=== PATIENT | female | born 1940 | race Caucasian/White ===

== ENCOUNTER → 2018-03-20 10:16 | Outpatient (CLI) | payer OTHER, SELFPAY ==
--- NOTE | 2018-03-20 10:20 | BI_ITS ---
MAMMOGRAPHY - BILATERAL SCREENING REASON FOR EXAM: Female, 78 years old. Routine annual screening examination. PERTINENT HISTORY: Remote left excisional breast biopsy. TECHNIQUE: Digital bilateral breast nicolle (3D mammographic acquisition) in the CC and MLO projections. 2-D mediolateral oblique (MLO) and craniocaudad (CC) views of both breasts were obtained. CAD: Full Field Digital Mammography with Computer Added Detection was performed. COMPARISON: Comparison is made with prior examination dated January 06, 2016 and December 31, 2014. FINDINGS: Breast Composition: There are scattered areas of fibroglandular density. There are no dominant masses or suspicious calcifications. Stable appearance of the benign appearing bilateral axillary lymph nodes. No other significant abnormalities are identified. There has been no significant change since the prior study. BI/SCREENING MAMM (CAD), BILAT IMPRESSION: Stable bilateral screening mammogram. Yearly follow-up mammogram recommended. (A) ASSESSMENT CATEGORY: BIRADS Category 2: Benign. A letter regarding these results will be sent to the patient by the facility within 30 days. Approximately 10% of breast cancers are not detected by mammography. A normal mammogram should not delay biopsy of a clinically suspicious abnormality. [id number] Electronically Signed: Bassam James MD at 12:32 EDT Tel [phone], Service support ,
== END ==
PROVIDERS: Family Provider Internal Medicine; PCP Internal Medicine; Visit Provider Nurse Practitioner Family
DX: Z12.31 Encounter for screening mammogram for malignant neoplasm of breast (principal)
CPT/HCPCS: 77063; 77067

== ENCOUNTER → 2019-01-14 16:30 | Outpatient (CLI) | payer OTHER, SELFPAY ==
--- NOTE | 2019-01-14 16:30 | LES_PTH ---
PATIENT: MICHA CADET LOC: [facility] U#:[id number] AGE/SX: 85/F ROOM: RE01/14/[address]: Dr. Garrett Orona MD : 1940 BED: DIS: SPEC #: [id number] RECD: 01/14/19 17:44 STATUS: ELADIO DONTA #: [id number] HANS: 01/14/19 16:[address]: Garrett Orona DEPT: SURGICAL PATHOLOGY RECD BY: Dylan Irwin ENTERED: 01/15/19 11:15 SP TYPE: Lesion OTHR DR: Dr. Kathy Randall MD Tissues: Skin of eyelid, NOS Procedures: Surgery Specimen Level IV HEADER OPERATION: Biopsy of lesion, right lower lid PRE-OP DIAGNOSIS: Rule out BCC TISSUE SUBMITTED: Right lower lid dome-shaped lesion MICROSCOPIC DIAGNOSIS Right lower lid lesion, biopsy: Basal cell carcinoma (0.5 cm in greatest width). See comment. SJ:diego 01/16/19 COMMENT The specimen could not be oriented, adequacy of excision cannot be assessed. Clinical correlation and appropriate follow up are necessary. Case has been reviewed in consultation with Dr. Cano who concurs with the above diagnosis. IDC:AM MICROSCOPIC DESCRIPTION Slides are reviewed. GROSS DESCRIPTION Received in fixative is one container labeled with the patient's name and designated right lower lid. The specimen consists of a piece of shah-white skin measuring 0.6 x 0.3 x 0.1 cm. The entire specimen is submitted in one cassette. / EMY:diego 01/15/19 TC:0 CPT: 19085
== END ==
PROVIDERS: Family Provider Internal Medicine; PCP Internal Medicine; Referring Provider Ophthalmology; Visit Provider Ophthalmology
DX: C44.1122 Basal cell carcinoma of skin of right lower eyelid, including canthus (principal)
CPT/HCPCS: 88305

== ENCOUNTER → 2019-02-11 15:17 | Outpatient (CLI) | payer OTHER, SELFPAY ==
--- NOTE | 2019-02-11 12:12 | LES_PTH ---
PATIENT: MICHA CADET LOC: [facility] U#:[id number] AGE/SX: 85/F ROOM: RE02/11/[address]: Dr. Garrett Orona MD : 1940 BED: DIS: SPEC #: [id number] RECD: 02/11/19 15:17 STATUS: ELADIO DONTA #: [id number] HANS: 02/11/19 12:[address]: Garrett Orona DEPT: SURGICAL PATHOLOGY RECD BY: Folrin Chan ENTERED: 02/12/19 10:05 SP TYPE: Lesion OTHR DR: Dr. Kathy Randall MD Tissues: Skin of eyelid, NOS Procedures: Surgery Specimen Level IV HEADER OPERATION: Full thickness resection right lower lid PRE-OP DIAGNOSIS: Previous biopsy positive for basal cell carcinoma TISSUE SUBMITTED: Full thickness right lower lid, skin side - lateral - medial MICROSCOPIC DIAGNOSIS Skin lesion of right lower eyelid, biopsy: Basal cell carcinoma with associated cicatrix, completely excised. See comment. AM:diego 02/13/19 COMMENT The lesion measures 2.5 mm in greatest dimension and is completely excised in the planes examined. Reference is made to the patient's previous right lower lid lesion, biopsy from 01/16/19 ([id number]) in which basal cell carcinoma was identified. MICROSCOPIC DESCRIPTION Slides are reviewed. GROSS DESCRIPTION Received in fixative is one container labeled with the patient's name and designated right lower lid full thickness. The specimen consists of a full thickness portion of eyelid measuring 0.7 cm in length x 0.7 cm in width x 0.7 cm in depth of excision. The skin surface is shah with a longitudinal central scar. The excisional margin is inked black and the specimen is serially cross-sectioned. The specimen is totally submitted in one cassette. / CE:diego 02/12/19 TC:0 CPT: 04195
== END ==
PROVIDERS: Family Provider Internal Medicine; PCP Internal Medicine; Referring Provider Ophthalmology; Visit Provider Ophthalmology
DX: C44.1122 Basal cell carcinoma of skin of right lower eyelid, including canthus (principal); H02.59 Other disorders affecting eyelid function
CPT/HCPCS: 88305

== ENCOUNTER → 2019-10-15 07:12 | Outpatient (CLI) | payer OTHER, SELFPAY ==
[2019-10-10 11:29] VITALS: BMI 29.1
--- NOTE | 2019-10-15 08:26 | ECHODONC_ITS ---
Reason For Study: Right lung mass Procedure This was a 2D Doppler, Color Flow transthoracic echocardiogram. Myocardial strain analysis was performed in this exam to aid in the assessment of cardiac function. The study was technically difficult. Exam performed in department. Left Ventricle Normal LV size. Left ventricular systolic function is normal. The estimated ejection fraction is 65 %. The global longitudinal strain = -22 % (normal). There is evidence of diastolic dysfunction. No regional wall motion abnormalities noted. Right Ventricle Normal RV size. Normal systolic function. Atria The left atrium is mildly enlarged. Normal right atrium. No doppler evidence for ASD. Mitral Valve There is moderate mitral annular calcification. Extension of the mitral annular calcification onto the mitral valve leaflets. Anterior leaflet diffuse mitral valve thickening. Trivial mitral valve insufficiency. Tricuspid Valve Normal tricuspid valve. Mild tricuspid valve insufficiency. Right ventricular systolic pressure estimated to be 39 mmHg. Aortic Valve Trisinus/trileaflet aortic valve. Mild focal aortic valve calcification. Aortic sclerosis, no stenosis. Trivial aortic valve insufficiency. Pulmonic Valve The pulmonic valve is not well visualized. Mild (1+) pulmonic valve insufficiency. Great Vessels Normal sized aortic root. Calcified aortic root. Pericardium/Pleural No pericardial effusion. MMode/2D Measurements & Calculations LVIDd: 4.6 cm IVSd: 0.89 cm LVOT diam: 2.1 cm LVIDs: 2.8 cm LVPWd: 0.75 cm LVOT area: 3.5 cm2 RVDd: 3.6 cm FS: 38.2 % Ao root diam: 3.1 cm LAV(MOD-bp): 58.5 ml LA A4 area: 20.0 cm2 LAV(MOD-bp) Indexed: 32.7 ml/m2 LAV(MOD-sp2): 63.9 ml LAV(MOD-sp4): 54.7 ml LA dimension(2D): 3.3 cm RA A4 area: 13.2 cm2 Time Measurements MV dec time: 0.17 sec Doppler Measurements & Calculations MV E max tyler: 107.9 cm/sec Lat Peak E' Tyler: 6.3 cm/sec Med Peak E' Tyler: 6.2 cm/sec MV A max tyler: 143.0 cm/sec E/E' lat: 17.1 E/E' med: 17.4 MV E/A: 0.75 Ao V2 max: 231.9 cm/sec AI max tyler: 411.0 cm/sec LV V1 max: 163.1 cm/sec Ao max P.5 mmHg AI max P.6 mmHg LV V1 max P.6 mmHg Ao V2 mean: 153.5 cm/sec AI dec slope: 310.8 cm/sec2 LV V1 mean P.5 mmHg Ao mean P.6 mmHg AI P1/2t: 387.3 msec LV V1 mean: 111.8 cm/sec Ao V2 VTI: 48.3 cm LV V1 VTI: 35.6 cm CARYL(I,D): 2.5 cm2 CARYL(V,D): 2.4 cm2 MR max tyler: 647.7 cm/sec SV(LVOT): 123.0 ml PA V2 max: 145.0 cm/sec MR max P.8 mmHg TR max tyler: 298.6 cm/sec TR max P.7 mmHg Interpretation Summary The study was technically difficult. Left ventricular systolic function is normal. The estimated ejection fraction is 65 %. The global longitudinal strain = -22 % (normal). The left atrium is mildly enlarged. There is moderate mitral annular calcification. Extension of the mitral annular calcification onto the mitral valve leaflets. Anterior leaflet diffuse mitral valve thickening. Trivial mitral valve insufficiency. Mild tricuspid valve insufficiency. Aortic sclerosis, no stenosis. Trivial aortic valve insufficiency. Mild (1+) pulmonic valve insufficiency. Calcified aortic root. Right ventricular systolic pressure estimated to be 39 mmHg. There is evidence of diastolic dysfunction. Ordering Physician: Cleveland Multani Referring Physician: Kathy Randall Performed By: Lisa Gonzalez, GIUSEPPE, RVT
--- NOTE | 2019-10-15 16:03 | PFTCOMP_ITS ---
COMPLETE PULMONARY FUNCTION TEST INTERPRETATION Brief HPI: Patient is an 79 year old female, currently under the care of Dr. Multani, who presents to [facility] for complete pulmonary function tests secondary to diagnosis of right lung mass. Respiratory therapist reports good effort and reproducible results. Interpretation: Forced expiration spirometry shows no large airways obstructive ventilatory defect with an FEV1 of 110% predicted. There is no significant bronchodilator response by strict ATS criteria. Spirograms are of good quality and plateau normally. The respiratory flow volume loop shows a normal pattern. Lung volumes by body plethysmography show a normal total lung capacity at 4.45 L, 94% predicted. All other lung volumes are within normal limits. Diffusion capacity by carbon monoxide is normal at 76% predicted. The airway resistance is normal. No previous pulmonary function tests were available for review. Impression: These pulmonary function tests are within normal limits and patient would be able to tolerate up to a pneumonectomy from a respiratory standpoint.
== END ==
PROVIDERS: PCP Internal Medicine; Referring Provider Internal Medicine Medical Oncology; Visit Provider Internal Medicine Medical Oncology
DX: R91.8 Other nonspecific abnormal finding of lung field (principal)
CPT/HCPCS: 93306; 93356; 94060; 94726; 94729

== ENCOUNTER → 2019-10-16 08:10 | Outpatient (CLI) | payer OTHER, SELFPAY ==
[2019-10-10 11:29] VITALS: BMI 29.1
[2019-10-16] VITALS (11 sets, daily range): BP systolic 119–210; BP diastolic 39–101; PULSE 76–85; RESP 14–20; TEMP 37.1; O2SAT 96–100; BMI 27.4
--- NOTE | 2019-10-16 | IMM_PTH ---
PATIENT: MICHA CADET LOC: [facility] U#:[id number] AGE/SX: 85/F ROOM: RE10/16/[address]: Dr. Cleveland Multani MD : 1940 BED: DIS: SPEC #: [id number] RECD: 10/17/19 12:41 STATUS: ELADIO REQ #: [id number] HANS: 10/16/19 00:[address]: Cleveland Multani DEPT: IMMUNOHISTOCHEMISTRY RECD BY: Antonella Larson ENTERED: 10/17/19 12:42 SP TYPE: IMMUNO OTHR DR: Dr. Kathy Randall MD Tissues: Lung, NOS Procedures: RCC (add) NAPSIN A (add) CK20 (add) CK5-6 (add) CK7 (add) CK8 (add) HEP PAR (add) HER2 RANDA (add) MAMM (add) NC (add) TTF1 (add) GATA3 (add) P40 (add) ER (initial) PHYSICIAN & INSTITUTION [address] [address] SPECIMEN INFORMATION: Tissue Source: Right lower lung mass Clinical Info: Right lower lung mass Specimen Number: [id number] CPT code: 73293, 64393 x13 METHODOLOGY: Deparaffinized sections of prefer/formalin-fixed tissue or PAP/DQ stained slides are incubated with monoclonal/polyclonal antibodies/oligonucleotide probes. Localization is made via biotin free immunoperoxidase method. Appropriate controls are performed and reacted as expected. Results on target cell population are indicated in the following table: RESULTS: ANTIBODY / CLONE RESULT ER (6F11) negative NC (1E2) negative Her-2neu (CB11) negative Mammaglobin (31A5) negative GATA3 (L50-823) negative CK7 (OV-TL12/30) positive CK8 (82mdsnS80) positive CK20 (KS20.8) negative TTF-1 (8G7G3/1) positive, focal Napsin A (Rabbit Polyclonal) positive HepPar (OCh1E5) negative RCC (PN-15) negative CK5-6 (D5 & 1684) positive P40 (BC28) negative These tests were developed and their performance characteristics determined by [facility]. They may not have been cleared or approved by the U.[place]. Food and Drug Administration. The FDA has determined that such clearance or approval is not necessary. The above immunohistochemical/dualISH markers are ordered and reviewed by the Pathologist. INTERPRETATION: Right lower lung, CT-guided biopsy: Non-small cell carcinoma, favor adenosquamous cell carcinoma. SJ:diego 10/18/19 Case has been reviewed in consultation with Dr. Cano who concurs with the above diagnosis. IDC:AM
--- NOTE | 2019-10-16 | LUNB_PTH ---
PATIENT: MICHA CADET LOC: [facility] U#:[id number] AGE/SX: 85/F ROOM: RE10/16/[address]: Dr. Cleveland Multani MD : 1940 BED: DIS: SPEC #: [id number] RECD: 10/16/19 09:45 STATUS: ELADIO LONGO #: [id number] HANS: 10/16/19 00:[address]: Cleveland Multani DEPT: SURGICAL PATHOLOGY RECD BY: Dylan Irwin ENTERED: 10/16/19 11:49 SP TYPE: LUNG BX OTHR DR: Dr. Kathy Randall MD Tissues: Lung, NOS Procedures: Special Stain Group II Surgery Specimen Level IV Imprint (control) HEADER OPERATION: CT-guided right lung biopsy PRE-OP DIAGNOSIS: Right lower lung mass TISSUE SUBMITTED: Right lower lung mass 20 gauge core x3 MICROSCOPIC DIAGNOSIS Right lower lung mass, CT-guided core biopsy: Non-small cell carcinoma. See comment. SJ:diego 10/17/19 COMMENT The specimen is evaluated at the time of biopsy by Dr. Cm. Immediate Evaluation = Atypical cells noted suspicious for malignancy. The tumor also shows a focal area of necrosis. 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 Molecular studies on the tumor can be performed if clinically indicated. Please notify the laboratory if they are needed. Case has been reviewed in consultation with Dr. Cano who concurs with the above diagnosis. IDC:AM MICROSCOPIC DESCRIPTION Slides are reviewed. GROSS DESCRIPTION Received in fixative is one container labeled with the patient's name and designated right lung mass. The specimen consists of three elongated fragments of light shah soft tissue. Each fragment measures 1 cm in average length and <0.1 cm in diameter. The specimen is totally submitted in one cassette. / AM:diego 10/16/19 TC:0 CPT: 65044, 72644
[2019-10-16 08:25] LABS: Absolute Lymphocyte Count 1.28 X10^3/uL (0.83-4.51); Absolute Neutrophil Count 4.4 X10^3/uL (2.0-7.7); Basophil# 0.05 X10^3/uL; Basophil% 0.7 % (0-1); Eosinophil# 0.42 X10^3/uL; Eosinophils% 5.7 % (0-5); Hematocrit 37.8 % (37-47); Lymphocyte # 1.28 X10^3/ul (4.0); Lymphocyte % 17.5 % (19-41); Mean Corp Hgb Conc 31.7 g/dL (32-36); Mean Corpuscular Hgb 31.3 pg (27.0-32.0); Mean Corpuscular Volume 98.4 fL (81-99); Mean Platelet Vol. 8.3 fl (6.2-12.0); Monocyte# 1.15 X10^3/uL; Monocyte% 15.7 % (0-10); NRBC Flagged by Analyzer 0 % (0-5); Neutrophil # 4.38 X10^3/uL (2.7-7.7); Neutrophil % 59.7 % (47-70); Platelet Count 325 K/mm3 (150-450); RBC Distribution Width CV 12.8 % (11.6-14.6); Red Blood Count 3.84 M/mm3 (4.2-5.4); White Blood Count 7.3 K/mm3 (4.4-11.0)
--- NOTE | 2019-10-16 08:28 | CT_ITS ---
PROCEDURE: CT GUIDED CORE NEEDLE BIOPSY OF A right lower lobe LUNG LESION INDICATION: Female, 79 years old. Right lower lung mass biopsy PHYSICIAN: Dr. Erika Cote CONSENT: Written informed consent was obtained having explained the risks, benefits and alternatives in detail with the patient who accepted the risks and agreed to proceed. Laboratory review and clinical assessment was performed. CONSCIOUS SEDATION PROTOCOL: The Drugs used were: 2 mg Versed, IV., and 50 mcg Fentanyl, IV. The sedation time was: 15 minutes. Conscious sedation was started at 9:32 AM and terminated at 9:47 AM. The conscious sedation protocol was independently monitored. RADIATION DOSAGE (If Supplied By Facility): CTDIvol = ( 27.5 ) mGy, DLP = ( 288.12 ) mGycm Individualized dose optimization techniques were used for this CT. TECHNIQUE: The patient was placed in the prone position position. A noncontrast CT was performed to localize the lesion in the right lower lobe . The skin surface was prepped and draped in a sterile fashion. 1% lidocaine was used for local anesthesia. Using CT guidance, a 20-gauge coaxial biopsy device was advanced to the periphery of the lesion. A total of 3 core specimens were obtained. The specimens were placed in a formalin solution. A post procedure CT demonstrated no adverse sequelae or pneumothorax. The patient tolerated the procedure well without adverse event. A negative biopsy does not exclude malignancy. Further imaging or clinical followup based on patient condition and degree of clinical suspicion for malignancy. Suggest rebiopsy, if biopsy results do not match with clinical scenario. CT/Biopsy/Inj or Needle Placement IMPRESSION: 1. CT directed core needle biopsy of the right lower lobe pulmonary nodule using CT image guidance with image documentation as described. Pathology results are pending. 2. Conscious Sedation protocol utilized with independent monitoring. Electronically Signed: Bassam James, at 10:36 EST , Service support ,
[2019-10-16 08:38] LABS: Partial Thromboplast Time 26.1 Seconds (24.1-36.2); Prothrombin Time (Protime)PT. 13.3 SECONDS (11.7-14.9)
[2019-10-16 08:40] LABS: ALB/GLOB Ratio 1.3 RATIO (0.9-2.4); AST(SGOT) 21 U/L (15-37); Alanine Aminotransfer ALT/SGPT 24 U/L (13-56); Albumin, Serum 4.1 g/dL (3.2-5.0); Alkaline Phosphatase 80 U/L (45-117); Anion Gap 6 (5-15); BUN 17 mg/dL (7-18); BUN/Creat Ratio 21.6 RATIO (10-20); Calcium,Total 9.5 mg/dL (8.5-10.1); Chloride 100 mmol/L (98-107); Creatinine, Serum 0.79 mg/dL (0.55-1.02); EST Glomerular Filtration Rate 75 mL/min (>60); Est Glom Filt Rate - Afr Amer 90 mL/min (>60); Globulin 3.2 g/dL (2.2-4.2); Glucose 110 mg/dL (74-106); LDH 217 U/L (84-246); Protein, Total 7.3 g/dL (6.4-8.2); Sodium Level 134 mmol/L (136-145)
--- NOTE | 2019-10-16 09:00 | RAD_ITS ---
STUDY: X-RAY CHEST REASON FOR EXAM: Female, 79 years old. Immediate post lung bx - rt lower. inspr/expr views TECHNIQUE: AP inspiration and expiration views. COMPARISON: Prior comparison studies are not available for review at this time. FINDINGS: No evidence of pneumothorax on the immediate post right lung biopsy radiographs. RAD/Chest Insp/Exp 2 View IMPRESSION: No evidence of pneumothorax on the immediate post right lung biopsy radiographs. Electronically Signed: Bassam James, at 10:27 EST , Service support ,
[2019-10-16] MEDS: Midazolam 2 MG/2 ML Syringe IV (09:30)
[2019-10-16] MEDS: fentaNYL 100 MCG/2 ML Ampul IV (09:31)
--- NOTE | 2019-10-16 12:00 | RAD_ITS ---
STUDY: X-RAY CHEST REASON FOR EXAM: Female, 79 years old. 2 HOUR POST LUNG BIOPSY. TECHNIQUE: AP inspiration and expiration. COMPARISON: Comparison is made with prior study done earlier today. FINDINGS: There is no evidence of pneumothorax on the post right lung biopsy 2 hour delayed radiograph. RAD/Chest Insp/Exp 2 View IMPRESSION: No evidence of pneumothorax. Electronically Signed: Bassam James, at 12:18 EST , Service support ,
== END ==
PROVIDERS: PCP Internal Medicine; Referring Provider Internal Medicine Medical Oncology; Visit Provider Internal Medicine Medical Oncology
DX: C34.91 Malignant neoplasm of unspecified part of right bronchus or lung (principal); Z87.891 Personal history of nicotine dependence
CPT/HCPCS: 32405; 36415; 71046; 77012; 80053; 83615; 85025; 85610; 85730; 88305; 88313; 88341; 88342; 99156; 99157; J7040; A4216

== ENCOUNTER → 2019-11-04 12:12 | Outpatient (CLI) | payer OTHER, SELFPAY ==
[2019-10-24 13:26] VITALS: BMI 29.3
--- NOTE | 2019-11-04 12:13 | MRI_ITS ---
STUDY: MRI BRAIN WITH AND WITHOUT CONTRAST REASON FOR EXAM: Female, 79 years old. Staging for lung cancer. TECHNIQUE: Standardized multiplanar fat and water weighted pulse sequences were obtained. IV 15cc dotarem was administered for the contrast portion of the examination. COMPARISON: None. FINDINGS: There is moderate cerebral atrophy with widening of the extra-axial spaces and ventricular dilatation. There are a limited number of small white matter hyperintensities, distributed throughout the deep white matter tracts of the cerebral hemispheres, consistent with mild chronic white matter ischemic changes. There is no evidence for recent intracranial ischemia or other cause of cytotoxic edema on diffusion weighted imaging (DWI). Normal T2* images of the brain without demonstrated susceptibility artifact. There is no demonstrated hemosiderin stain. Normal bilateral basal ganglia. Normal thalami. There is no extra-axial fluid accumulation. Normal flow voids within the major intracranial circulation suggesting patency by spin echo criteria. Normal venous enhancement. There is no enhancing intra-axial or extra-axial abnormality. Normal sella turcica, pituitary gland, infundibular stalk, optic chiasm and hypothalamus. Normal tectal plate and pineal gland. Normal midbrain, kevin and medulla. Normal cerebellum. Normal basal cisterns. Normal bilateral temporal bones. Normal bilateral internal auditory canals. No demonstrated orbital abnormality, within the constraints of a routine brain study. Normal visualized paranasal sinuses. Normal calvarium and skull base. Normal visualized soft tissue structures. Normal visualized upper cervical spine. MRI/Brain W/WO Contrast IMPRESSION: No enhancing mass. Chronic involutional changes. Electronically Signed: Reynaelvia Herring, at 15:27 EST Tel , Service support ,
== END ==
PROVIDERS: PCP Internal Medicine; Referring Provider Internal Medicine Medical Oncology; Visit Provider Internal Medicine Medical Oncology
DX: C34.31 Malignant neoplasm of lower lobe, right bronchus or lung (principal)
CPT/HCPCS: 70553; A9575

== ENCOUNTER → 2019-11-06 09:12 | Outpatient (CLI) | payer OTHER, SELFPAY ==
[2019-10-24 13:26] VITALS: BMI 29.3
--- NOTE | 2019-11-06 09:12 | STEWCON_ITS ---
Reason For Study: Pre-Op Stress Results Protocol: Dobutamine Stress Echo With Definity Maximum Predicted HR: 139 bpm Target HR: 118 bpm % Maximum Predicted HR: 85 % DurationHeart Rate Stage (mm:ss) (bpm) BP Comment Baseline 82 154/67No Chest Pain; 5 ML Diluted Definity DSE 10 MCG 3:00 84 145/58No Chest Pain DSE 20 MCG 3:00 100 136/89No Chest Pain DSE 30 MCG 2:56 118 127/44No Chest Pain Recovery 92 117/58No Chest Pain Stress Duration: 8:56 mm:ss Maximum Stress HR: 118 bpm METS: 1 Baseline Echocardiogram Findings Stress Echo Wall motion Data Resting WM Intermediate WM Stress WM Interpretation Summary Dobutamine stress echo. 79-year-old lady with a history of lung mass for preoperative evaluation. Stress protocol: Resting EKG demonstrates normal sinus rhythm with a rate of 80 bpm right bundle branch block is noted resting blood pressure is 154/67 mmHg. Dobutamine was infused starting at 10 mcg/kg/min increasing in 3-minute aliquots to a maximum of 30 mcg/kg/min. The maximum heart rate attained was 137 bpm which was 98% of maximum predicted heart rate the maximum workload was 1 metabolic equivalent. Patient maintained sinus rhythm throughout the recording. At rest and during peak infusion there were no ST or T wave changes noted to suggest ischemia. The resting blood pressure was 154/67 with a peak blood pressure of the same. No arrhythmias were noted. Stress echocardiographic. Resting echocardiographic images were obtained with Definity enhancement. The resting ejection fraction was approximately 55%. No wall motion abnormalities were noted. At low-dose there was augmentation of the ventricular function and at peak there was thickening of all simons contraction of ventricular cavity with improvement of the ejection fraction to approximately 70%. No wall motion abnormalities were noted. No ischemia was noted. Conclusion: Normal dobutamine stress echocardiogram. Ordering Physician: Neno Velazquez Referring Physician: Kathy Randall Performed By: Arlette Ngo RDCS
== END ==
PROVIDERS: PCP Internal Medicine; Referring Provider Internal Medicine Cardiovascular Disease; Visit Provider Internal Medicine Cardiovascular Disease
DX: R06.00 Dyspnea, unspecified (principal); R06.02 Shortness of breath
CPT/HCPCS: 93017; 93350; J7040; Q9957; A4216; C8928

== ENCOUNTER 2019-12-17 09:00 | Day surgery (SDC) | payer OTHER, SELFPAY ==
[2019-12-12 13:29] VITALS: BMI 26.6
--- NOTE | 2019-12-13 01:41 | HP_ITS ---
Intake Vital Signs 12/12/19 Height 5 ft 4 in 12/12/19 Weight: 155 lb 12/12/19 BP 166/77 H 12/12/19 Blood Pressure Location Rt brachial 12/12/19 Position Sitting 12/12/19 Respiration 16 12/12/19 Pulse 86 12/12/19 Pulse Source Monitor 12/12/19 Pulse Oximetry (%) 99 12/12/19 Oxygen Delivery Method room air 12/12/19 BMI 27.8 Intake Visit Reasons: Port Placement Consult Chief Complaint: F/U for Right lung mass. Siderographist Required: No Is patient in pain?: No Allergies chlorhexidine Allergy (Verified 12/13/19 08:57) Rash naproxen Allergy (Verified 12/13/19 08:53) Other nitrofurantoin [From Macrodantin] Allergy (Verified 12/13/19 08:53) Other morphine Adverse Reaction (Verified 12/13/19 08:53) Shortness of breath Medications Amlodipine [Norvasc] 5 mg PO DAILY 09/27/19 [History Confirmed 12/13/19] Aspirin [Adult Low Dose Aspirin EC] 81 mg PO DAILY 09/27/19 [History Confirmed 12/13/19] Clopidogrel Bisulfate [Plavix] 75 mg PO DAILY 09/27/19 [History Confirmed 12/13/19] Levothyroxine [Synthroid] 50 mcg PO DAILY 09/27/19 [History Confirmed 12/13/19] Lisinopril [Zestril] 40 mg PO DAILY 09/27/19 [History Confirmed 12/13/19] Metoprolol Succinate [Kapspargo Sprinkle] 50 mg PO DAILY 09/27/19 [History Confirmed 12/13/19] Pantoprazole Sodium [Protonix] 40 mg PO DAILY 09/27/19 [History Confirmed 12/13/19] Zolpidem Tartrate [Ambien Cr] 6.25 mg PO QHS 09/27/19 [History Confirmed 12/13/19] Dexamethasone [Decadron] 4 mg PO BID 21 Days #6 tab 12/12/19 [Rx Confirmed 12/13/19] Folic Acid 1 mg PO DAILY 30 Days #30 tab 12/12/19 [Rx Confirmed 12/13/19] Lidocaine/Prilocaine [Lidocaine-Prilocaine Cream] 1 applicatio TP DAILY PRN PRN 30 Days #1 tube 12/12/19 [Rx Confirmed 12/13/19] Ondansetron [Ondansetron Odt] 8 mg PO Q8H PRN PRN 10 Days #30 tab.rapdis 12/12/19 [Rx Confirmed 12/13/19] PFSH Medical History Lung mass (Acute) NSCLC of right lung (Acute) Anemia (Acute) Carotid stenosis (Acute) Hyperlipidemia (Acute) Hypothyroid (Acute) Insomnia (Acute) Lung mass (Acute) Right upper lobe wedge resection (Acute) Statin intolerance (Acute) Thyroid disorder (Acute) mediastinal lymphadenectomy (Acute) HTN (hypertension) (Chronic) Surgical History History of hysterectomy (Acute) History of lobectomy of lung (Acute) Status post total hip replacement, bilateral (Acute) Total knee replacement status (Acute) Family History Mother Cancer Hypertension Father Cancer Brother Diabetes Social History (Updated 12/13/19 @ 13:[address] Jesus Alberto Wilkes MD) Smoking Status: Former smoker HPI HPI HPI: MICHA CADET, is a 79 F who presents to the office today for HPI HPI Surgical H&P: Yes HPI: 79-year-old woman presented with upper respiratory illness. Chest x-ray showed right lower lobe mass she had a CT scan done at [facility] on 09/23/2019 which showed 3.3 cm suspicious spiculated mass in the right lower lobe highly suspicious for malignancy it also showed a 4 mm left lung nodule. She was referred for further evaluation. PET/CT on 10/07/2019 showed R lower lobe mass 3.3 cm hypermetabolic activity, with small activity in the hilar area. 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 Echocardiogram on 10/15/2019 showed ejection fraction 65%, PFT on 10/15/2019 showed normal PFTs with FEV1 of 2.2 L. She was referred to Dr. Nieto at [facility] and had right robotic assisted right lower lobe lobectomy with right upper lobe wedge resection on 11/15/2019. 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 She is recovering from Surgery. 1 surgical wound has not healed. ROS General General: Yes weight change; no appetite, fatigue, colon cancer, breast cancer or weakness HEENT HEENT: No difficulty swallowing, eye injury, eye surgery, swollen glands or hoarseness Endo Endocrine: Yes thyroid disease; no diabetes mellitus, thyroid cancer, Hair loss, heat intolerance or cold intolerance Cardio Cardiovascular: Yes high blood pressure; no murmur, pacemaker, heart disease, atrial fibrillation, heart attack, heart stent, palpitations, shortness of breat with exertion or chest pain Psych Psychiatric: No depression, anxiety or hearing voices Resp Respiratory: Yes shortness of breath, No sleep apnea, No cough, No COPD, No asthma, No emphysema, No wheezing Gastro Gastrointestinal: No abdominal pain, No nausea or vomiting, No diarrhea, No constipation, No blood in stool, Yes acid reflux, Yes hemorrhoids, No ulcers, No gallbladder problem, No black,tarry stools Bennie Hematologic: Yes blood thinners, No blood disorders, No bleeding, No anemia, No blood clots Neuro Neurologic: No weakness Exam Const General: no acute distress, well developed, well hydrated Orientation: oriented to person, oriented to place, oriented to time [facility] Head: normocephalic, atraumatic Ears: external ears normal Mouth: moist mucous membranes Eyes Sclera: sclerae normal Pupils: normal by confrontation Neck Neck: no lymphadenopathy noted Neck mass: No Thyroid: thyroid normal, symmetrical Chest Chest palpation & inspection: normal inspection of the chest Resp Effort & Inspection: normal respiratory effort Auscultation: clear to auscultation bilaterally Percussion: percussion normal Cardio Rate: regular rate Rhythm: regular rhythm Heart Sounds: no murmurs GI Palpation: soft, no hepatosplenomegaly, no masses, nontender Rectal Exam: other Other: Rectal exam deferred. Extrem General: normal to inspection, no clubbing, cyanosis or edema Assessment & Plan Problems 1. Vascular catheter fitting or adjustment Z45.2 Plan I plan to perform a Left internal jugular port a cath placement. The planned surgical procedure was discussed extensively with the patient. The risks, benefits, anticipated outcomes and possible complication were mentioned. My staff has also explained the procedure in understandable terms and the patient was given the option to take printed material concerning the planned procedure. The patient had the opportunity to ask questions concerning the planned procedure. The patient freely consents to the planned procedure. Coding Level of Care Code Off vis,new,level 3 Diagnoses Vascular catheter fitting or adjustment Z45.2 12/13/19 1342 <Electronically signed by Jesus Alberto gan MD> Date _ Jesus Alberto Wilkes MD I have re-examined the patient. There are no clinical changes since date of exam.
[2019-12-17] VITALS (7 sets, daily range): BP systolic 145–178; BP diastolic 52–75; PULSE 84–89; RESP 16; TEMP 36.6–36.8; O2SAT 97–100; BMI 27.3
[2019-12-17] MEDS: Lactated Ringers 1,000 ML 100 ML IV (09:40)
[2019-12-17] MEDS: Cefazolin 2 GM in 0.9% Normal Saline 100 ML IV (11:03)
--- NOTE | 2019-12-17 11:05 | PCM.OPRPT ---
Problem List (1) Vascular catheter fitting or adjustment Status: Acute Report of Operation Date of Procedure: 12/17/19 Pre-Operative Diagnosis: Vascular fitting and adjustment Post-Operative Diagnosis: Same Surgery/Procedure Performed:: Explant of a left internal jugular Port-A-Cath Type of Anesthesia:: Local MAC Anesthesiologist: Sam Carbajal Estimated Blood Loss (mL): < 5 cc Description of Procedure: Patient was brought into the operating room placed in the supine position. Under MAC anesthetic I ultrasound the internal jugular vein in the neck the neck and chest were then sterilely prepped and draped in the usual technique. I injected local into the neck made several attempts under ultrasound guidance to get my needle into the internal jugular vein it was just too small and I just could not get it in despite numerously seen the needle going to the vein itself no blood would come back. I aborted the neck approach. I injected local into the chest. I used Seldinger's technique to gain access to the left subclavian vein placed a guidewire through the needle the needle was removed fluoroscopy was used to confirm proper placement. Skin juan carlos was made dilator and sheath were placed over the guidewire the guidewire and dilator were removed leaving a single lumen sheath the catheter was then placed into the sheath and the sheath was removed. Fluoroscopy was used to confirm proper length. I injected local into the chest. Incision was made. Electrocautery was used to create a pocket for the port. I tunneled from the pocket up into the area where the catheter came out brought the catheter down cut at the length placed the locking hub on the catheter but the port on the catheter and secured the 2 with a locking hub. It flushed and irrigated well was flushed with 5 cc of Hepflush. Port was sutured into the pocket created with 2 sutures of 2-0 Prolene. Incision was closed with deep dermal stitches of 3-0 Vicryl. Dermabond was applied sterile dressings were applied and the patient tolerated the procedure well. Postoperative chest x-ray was ordered. - Admit VTE Documentation VTE Present on Admission: No VTE Mechan Device Prophylaxis: SCD's VTE Pharm Prophylaxis ordered?: No Reason prophylaxis not ordered:: Treatment Not Indicated
--- NOTE | 2019-12-17 11:07 | DCINST_ITS ---
Discharge Diet: No Restrictions - Pain medication may cause nausea. You should typically eat light foods as you take your pain medication. Discharge Activity: May Shower - with the bandage in place 1-2 days after surgery. DO NOT SHOWER WHEN YOUR PORT IS ACCESSED. Additional Activity Instructions:: May not drive, work with heavy equipment, or sign legal documents for [address] if you are no longer taking narcotic pain medications. You may drive when you are no longer taking pain medications. Additional Dressing/Incision Instructions:: Leave the bandage on for 2-3 days. When you remove the bandage, leave the steri-strips intact until they fall off. Allergies/Adverse Reactions: Allergies chlorhexidine Allergy (Verified 12/13/19 08:57) Rash naproxen Allergy (Verified 12/13/19 08:53) Other mouth sores nitrofurantoin [From Macrodantin] Allergy (Verified 12/13/19 08:53) Other mouth sores morphine Adverse Reaction (Verified 12/13/19 08:53) Shortness of breath Medications to take at Discharge Amlodipine [Norvasc] 5 mg PO DAILY 09/27/19 Aspirin [Adult Low Dose Aspirin EC] 81 mg PO DAILY 09/27/19 Clopidogrel Bisulfate [Plavix] 75 mg PO DAILY 09/27/19 Levothyroxine [Synthroid] 50 mcg PO DAILY 09/27/19 Lisinopril [Zestril] 40 mg PO DAILY 09/27/19 Metoprolol Succinate [Kapspargo Sprinkle] 50 mg PO DAILY 09/27/19 Pantoprazole Sodium [Protonix] 40 mg PO DAILY 09/27/19 Zolpidem Tartrate [Ambien Cr] 6.25 mg PO QHS 09/27/19 Dexamethasone [Decadron] 4 mg PO BID 21 Days #6 tab 12/12/19 Folic Acid 1 mg PO DAILY 30 Days #30 tab 12/12/19 Lidocaine/Prilocaine [Lidocaine-Prilocaine Cream] 1 applicatio TP DAILY PRN PRN 30 Days #1 tube 12/12/19 Ondansetron [Ondansetron Odt] 8 mg PO Q8H PRN PRN 10 Days #30 tab.rapdis 12/12/19 Primary Care Physician: Kathy Randall MD [Primary Care Provider] - Test Results: Test results from this visit will be discussed in further detail at your follow- up appointment, if applicable. Please Follow Up With: Cleveland Multani MD - [phone] When: Please plan to follow up in 7 days in the office.
[2019-12-17] MEDS: Bupivacaine Mpf 0.5% 30 ML VIAL (11:45)
--- NOTE | 2019-12-17 12:10 | RAD_ITS ---
STUDY: X-RAY CHEST REASON FOR EXAM: Female, 79 years old. POST PORT PLACEMENT TECHNIQUE: Single AP portable view of the chest. COMPARISON: Comparison is made with prior examination dated October 16, 2019. FINDINGS: A left-sided maryjo catheter has been placed. The tip is at the junction of the superior vena cava and right atrium. Elevation of the right hemidiaphragm. Small right pleural effusion with some underlying atelectasis at the right lung base. Stable increased markings at the left lung base suggesting scarring. Normal size heart. Normal mediastinum and shanti. Normal visualized pulmonary arteries. Normal visualized aortic arch and descending thoracic aorta. Normal visualized thoracic spine. There is degenerative osteoarthritis of the bilateral shoulders. There is a 3.4 cm x 2.4 cm sclerotic lesion overlying the proximal right humerus. There is no demonstrated abnormality of the visualized soft tissue structures of the upper abdomen. RAD/Chest 1 View (Portable) IMPRESSION: The tip of the left maryjo catheter is at the junction of the superior vena cava and right atrium. Electronically Signed: Bassam James, at 13:09 EDT , Service support ,
== END 2019-12-17 13:54 | disposition home or self-care (01) ==
LOC: SDC 09:01 → AC 09:01
PROVIDERS: PCP Internal Medicine; Referring Provider Surgery; Visit Provider Surgery
PROC: (CPT 36561; principal; 2019-12-17 10:45)
DX: Z45.2 Encounter for adjustment and management of vascular access device (principal); C34.31 Malignant neoplasm of lower lobe, right bronchus or lung; D64.9 Anemia, unspecified; I65.29 Occlusion and stenosis of unspecified carotid artery; I10 Essential (primary) hypertension; E07.9 Disorder of thyroid, unspecified; E78.5 Hyperlipidemia, unspecified; K21.9 Gastro-esophageal reflux disease without esophagitis; G47.00 Insomnia, unspecified; Z78.0 Asymptomatic menopausal state; Z79.82 Long term (current) use of aspirin; Z79.02 Long term (current) use of antithrombotics/antiplatelets; Z79.899 Other long term (current) drug therapy; Z88.1 Allergy status to other antibiotic agents; Z87.891 Personal history of nicotine dependence; Z96.643 Presence of artificial hip joint, bilateral; Z90.710 Acquired absence of both cervix and uterus
CPT/HCPCS: 36561; 76937; 71045; 77001; J7120; C1788

== ENCOUNTER → 2020-02-14 | Outpatient (CLI) | payer OTHER, SELFPAY ==
[2020-02-04 10:57] VITALS: BMI 28.8
[2020-02-14 14:24] LABS: Mucous, Urine 0 SEEN /hpf (<or=2+); Red Blood Cells-Urine 0 SEEN /hpf (0-5)
[2020-02-14 15:11] LABS: Glucose, Dipstick Normal (Normal); Ketone-Dipstick Negative (Negative); Leukocyte Esterase-Dipstick 500 /ul (Negative); Nitrite-Dipstick Positive (Negative); Occult Blood-Urine 50 /ul (Negative); Protein-Dipstick 100 mg/dl (Negative); Urine Clarity Cloudy (Clear); Urine Urobilinogen 8 mg/dl (Normal)
[2020-02-14 15:21] LABS: Color, Urine SEE COMMENT BELOW (Yellow); Urine Bilirubin Dipstick 6 mg/dL (Negative)
[2020-02-14 15:26] LABS: Bacteria 3+ /hpf (None Seen); Squamous Epithelial Cells - UA 0-5 SEEN /hpf (5-10); White Blood Cells >100 SEEN /hpf (0-5)
== END | disposition home or self-care (01) ==
LOC: LABSPEC 14:10
PROVIDERS: PCP Internal Medicine; Referring Provider Internal Medicine Medical Oncology; Visit Provider Internal Medicine Medical Oncology
DX: N39.0 Urinary tract infection, site not specified (principal); C34.91 Malignant neoplasm of unspecified part of right bronchus or lung; Z79.899 Other long term (current) drug therapy
CPT/HCPCS: 81001; 87077; 87086; 87088; 87186

== ENCOUNTER → 2020-03-24 08:11 | Outpatient (CLI) | payer OTHER, SELFPAY ==
[2020-03-10 10:36] VITALS: BMI 28.0
--- NOTE | 2020-03-24 08:11 | CT_ITS ---
STUDY: CT CHEST WITH CONTRAST REASON FOR EXAM: Female, 80 years old. PT STATED FOLLOW UP TO FINAL CHEMO TREATMENT, PARTIAL LUNG REMOVED RADIATION DOSAGE (If Supplied By Facility): CTDIvol = ( 13.84 ) mGy, DLP = ( 512.81 ) mGycm TECHNIQUE: Transaxial imaging was performed following intravenous administration of IV 100mL Isovue-300. Multiplanar coronal and sagittal images were reformatted. Individualized dose optimization techniques were used for this CT. COMPARISON: Comparison is made with prior chest radiograph dated February 16, 2020. FINDINGS: A left-sided portacatheter is seen with the tip in the superior vena cava. Mild degree of emphysematous changes. Small right pleural effusion. The patient is status post right lower lobectomy. Focal calcification is seen along the right major fissure. This may represent postoperative changes. There are calcifications of the coronary arteries. Normal mediastinum. Calcified right hilar lymph nodes. Normal enhanced pulmonary arteries. There is atherosclerotic calcification of the aortic arch with tortuosity and elongation of the aortic arch and descending thoracic aorta. There is demineralization of the thoracic spine. Increased kyphosis. There is no demonstrated abnormality of the visualized upper abdomen. CT/Chest WITH Contrast IMPRESSION: Status post right lower lobectomy as per clinical history with the postoperative small right pleural effusion and linear density at the right lung base with area of calcification. Electronically Signed: Bassam James, at 15:57 EDT , Service support ,
[2020-03-24] MEDS: 0.9% Saline Lock 10 ML Syringe IV (08:30)
== END ==
PROVIDERS: PCP Internal Medicine; Referring Provider Nurse Practitioner Family; Visit Provider Nurse Practitioner Family
DX: C34.91 Malignant neoplasm of unspecified part of right bronchus or lung (principal); Z90.2 Acquired absence of lung [part of]
CPT/HCPCS: 71260; Q9967; A4216

== ENCOUNTER → 2020-07-29 07:54 | Outpatient (CLI) | payer OTHER, SELFPAY ==
[2020-03-30 09:58] VITALS: BMI 28.1
--- NOTE | 2020-07-29 07:54 | CT_ITS ---
STUDY: CT CHEST WITH CONTRAST REASON FOR EXAM: Female, 80 years old. LUNG CANCER FOLLOW UP, RLL REMOVED RADIATION DOSAGE (If Supplied By Facility): CTDIvol = ( 10.33 ) mGy, DLP = ( 451.84 ) mGycm TECHNIQUE: Transaxial imaging was performed following intravenous administration of IV 100mL Isovue-370. Multiplanar coronal and sagittal images were reformatted. Individualized dose optimization techniques were used for this CT. COMPARISON: Comparison is made with prior study dated 03/24/2020. FINDINGS: A left-sided maryjo catheter is in situ with the tip in the superior vena cava. There is a 2.6 x 3.1 cm dense calcification in the soft tissues underlying the posterior aspect of the proximal right humerus. There is evidence of prior nailing of the right humeral head. The patient is status post right lower lobectomy. Persistent stable right pleural effusion with postsurgical scarring in the right lower lobe. Stable 3 mm nodule in the peripheral lateral aspect of the left lower lobe. There are calcifications of the coronary arteries. Normal mediastinum. There is enlargement of the right infrahilar lymph node measuring 2.1 cm x 2.6 cm x 3 cm. Normal enhanced pulmonary arteries. There is atherosclerotic calcification of the aortic arch with tortuosity and elongation of the aortic arch and descending thoracic aorta. There are multi-level degenerative changes of the thoracic spine. There is no demonstrated abnormality of the visualized upper abdomen. CT/Chest WITH Contrast IMPRESSION: Interval increase in size of the right infrahilar lymph node. The remainder of the examination is unchanged. Electronically Signed: Bassam James, at 10:33 EST , Service support ,
[2020-07-29 08:06] LABS: CREATININE FINGERSTICK 0.8 mg/dL (0.55-1.02)
[2020-07-29] MEDS: 0.9% Saline Lock 10 ML Syringe IV (08:30)
== END ==
PROVIDERS: PCP Internal Medicine; Referring Provider Nurse Practitioner Family; Visit Provider Nurse Practitioner Family
DX: C34.91 Malignant neoplasm of unspecified part of right bronchus or lung (principal)
CPT/HCPCS: 71260; Q9967; A4216

== ENCOUNTER → 2020-09-04 13:36 | Outpatient (CLI) | payer OTHER, SELFPAY ==
[2020-09-02 13:19] VITALS: BMI 25.7
--- NOTE | 2020-09-04 13:40 | ECHODONC_ITS ---
Reason For Study: Pre Chemo Procedure This was a 2D Doppler, Color Flow transthoracic echocardiogram. Myocardial strain analysis was performed in this exam to aid in the assessment of cardiac function. The study was technically difficult. Exam performed in department. Left Ventricle Normal LV size. Left ventricular systolic function is normal. The estimated ejection fraction is 60 %. Stage 1 diastolic dysfunction. No regional wall motion abnormalities noted. Right Ventricle Normal RV size. Normal systolic function. Atria Normal left atrium. Normal right atrium. Mitral Valve Bileaflet diffuse mitral valve thickening. Mild (1+) eccentric mitral valve insufficiency. Tricuspid Valve Normal tricuspid valve. Mild to moderate (1-2+) tricuspid valve insufficiency. Pulmonary artery systolic pressure is 52 mmHg. Aortic Valve Trisinus/trileaflet aortic valve. Mild (1+) aortic valve insufficiency. Pulmonic Valve Normal pulmonic valve. Great Vessels Normal aortic root. The pulmonary artery is normal size. Normal inferior vena cava. Pericardium/Pleural No pericardial effusion. MMode/2D Measurements & Calculations LVIDd: 3.6 cm IVSd: 0.82 cm LVOT diam: 2.1 cm LVIDs: 2.4 cm LVPWd: 0.97 cm LVOT area: 3.6 cm2 FS: 34.3 % LAV(MOD-bp): 57.9 ml LA A4 area: 18.7 cm2 RA A4 area: 11.3 cm2 LAV(MOD-bp) Indexed: 33.9 ml/m2 LAV(MOD-sp2): 61.2 ml LAV(MOD-sp4): 51.5 ml Time Measurements MV dec time: 0.24 sec Doppler Measurements & Calculations MV E max tyler: 128.3 cm/sec Lat Peak E' Tyler: 7.4 cm/sec Med Peak E' Tyler: 6.5 cm/sec MV A max tyler: 158.5 cm/sec E/E' lat: 17.4 E/E' med: 19.9 MV E/A: 0.81 MV V2 max: 164.7 cm/sec MV P1/2t max tyler: 133.9 cm/sec Ao V2 max: 214.0 cm/sec MV max P.8 mmHg MV P1/2t: 90.4 msec Ao max P.3 mmHg MV V2 mean: 92.9 cm/sec MV dec slope: 433.6 cm/sec2 CARYL(V,D): 2.3 cm2 MV mean P.1 mmHg MVA(P1/2t): 2.4 cm2 MV V2 VTI: 40.3 cm AI max tyler: 402.1 cm/sec LV V1 max: 134.3 cm/sec PA V2 max: 102.7 cm/sec AI max P.8 mmHg LV V1 max P.2 mmHg AI dec slope: 264.7 cm/sec2 AI P1/2t: 444.9 msec TR max tyler: 347.3 cm/sec TR max P.2 mmHg Interpretation Summary Normal LV size. Left ventricular systolic function is normal. The estimated ejection fraction is 60 %. Stage 1 diastolic dysfunction. Pulmonary artery systolic pressure is 52 mmHg. The global longitudinal strain is normal. The global longitudinal strain = -22.8 % (normal). Ordering Physician: Jenifer Lai Referring Physician: Kathy Randall Performed By: Thanh Olmedo RCS
== END ==
PROVIDERS: PCP Internal Medicine; Referring Provider Nurse Practitioner Family; Visit Provider Nurse Practitioner Family
DX: Z51.11 Encounter for antineoplastic chemotherapy (principal); Z79.899 Other long term (current) drug therapy
CPT/HCPCS: 93306; 93356

== ENCOUNTER 2020-09-14 09:52 | Inpatient (IN) | payer OTHER, MEDICARE, SELFPAY ==
[2020-09-11 16:23] VITALS: BMI 25.2
[2020-09-14] VITALS (12 sets, daily range): BP systolic 144–184; BP diastolic 46–101; PULSE 80–101; RESP 12–18; TEMP 35.5–38.2; O2SAT 95–98; BMI 25.2; BMI 24.1
--- NOTE | 2020-09-14 10:15 | CT_ITS ---
STUDY: CT BRAIN WITHOUT CONTRAST REASON FOR EXAM: Female, 80 years old. ALTERED MENTAL STATUS RADIATION DOSAGE (If Supplied By Facility): CTDIvol = ( 44.99 ) mGy, DLP = ( 812.98 ) mGycm TECHNIQUE: Transaxial CT imaging of the brain was performed without administration of intravenous contrast material. Individualized dose optimization techniques were used for this CT. COMPARISON: None. FINDINGS: There is cerebral atrophy with widening of the extra-axial spaces and ventricular dilatation. There are areas of decreased attenuation within the white matter tracts of the supratentorial brain, consistent with microvascular disease changes. There is no intracranial hemorrhage. There are no findings of an acute ischemic infarction. Normal soft tissue structures. Normal visualized paranasal sinuses. CT/Brain/Head without Contrast IMPRESSION: Chronic involutional changes of the brain. Electronically Signed: Tyrone Beckham MD at 12:08 EST Tel , Service support ,
--- NOTE | 2020-09-14 10:15 | EKG12_ITS ---
Test Reason : NEURO Blood Pressure : / mmHG Vent. Rate : 091 BPM Atrial Rate : 091 BPM P-R Int : 166 ms QRS Dur : 142 ms QT Int : 398 ms P-R-T Axes : 048 015 015 degrees QTc Int : 489 ms Sinus rhythm with Premature supraventricular complexes Right bundle branch block Abnormal ECG Confirmed by RANULFO CAMARILLO, TOI ([id number]), story editor KHANH SHORT ([id number]) on 09/16/2020 10:44:26 AM Referred By: BB Confirmed By:TOI WINCHESTER MD
--- NOTE | 2020-09-14 10:21 | ED.DCSUM_ITS ---
History of Present Illness Chief Complaint: Neuro S/Sx Detail of Chief Complaint: confused, tired Informant: Patient, Family, PCP - oncology office this AM Onset: - - last seen without confusion midnight last night Context: Gradual Onset Timing: Continuous Quality: confused Current Severity: Moderate Maximum Severity: Moderate Worsened by: unk Relieved by: unk Associated Symptoms: fatigue x 4d or so, low back pain x weeks Narrative: Patient being treated for recurrence of non-small cell lung cancer, she had a resection in November earlier this year, finished chemotherapy in February and now has recurrence in the right lung. She was seen in the oncology office several days ago because she was tired, has a history of low sodium and was 129 at that time, she usually hovers around 130 according to the oncology office, she was given some fluids in the office and discharged home and seen back today, noted by daughter and the office today to be a little confused compared to her baseline, daughter states she was not like this last night. Patient has some low back discomfort that she thinks is associated with metastatic disease but denies any other focal symptoms right now. She denies headache, numbness, weakness. Initially she denies being confused but admits to having some trouble remembering some things. - Past Medical History (1) Iron deficiency anemia Status: Chronic (2) Metastatic lung carcinoma Status: Chronic (3) NSCLC of right lung Status: Chronic Past Medical History - Allergies and Home Meds Allergies/Adverse Reactions: Allergies chlorhexidine Allergy (Intermediate, Verified 09/14/20 09:55) Rash naproxen Allergy (Intermediate, Verified 09/14/20 09:55) Other mouth sores nitrofurantoin [From Macrodantin] Allergy (Intermediate, Verified 09/14/20 09:55) Other mouth sores morphine Adverse Reaction (Severe, Verified 09/14/20 09:55) Shortness of breath Primary Care Physician: Kathy Randall MD [Primary Care Provider] - Doctors: [facility] - Hem-Oncology Surgical History: - - lung ca Smoking Status: Former smoker Review of Systems General: Reports: Malaise. Denies: Chills, Fever, Sweats Eyes: Denies: Visual changes - bilaterally, Diplopia ENT: Denies: Rhinorrhea, Sore throat Cardiovascular: Denies: Chest pain, Palpitations Respiratory: Denies: Dyspnea, Cough, Dyspnea on exertion Gastrointestinal: Denies: Abdominal pain, Nausea, Vomiting, Diarrhea, Melena, Hematochezia Genitourinary: Denies: Dysuria, Hematuria, Frequency Musculoskeletal: Reports: Back pain. Denies: Myalgias, Neck pain, Swelling, Extremity Pain Skin: Denies: Rash, Wounds Neurological: Denies: Headache, Weakness, Numbness Physical Exam Vital Signs/Narrative: Vital Signs Temp Pulse Resp BP Pulse Ox 09/14/20 09:55 96 F L 91 16 155/98 H 98 Inital Vital Signs reviewed: Yes General: Well nourished, Well developed, No Acute Distress Head: Normocephalic, Atraumatic Eyes: Perrl - 1-2mm, EOMI ENT: Moist mucous membranes, No rhinorrhea Neck: Supple, Nontender Cardiovascular: Regular rate, Regular rhythm, No murmurs Respiratory: No distress, CTA bilaterally, Chest nontender Abdomen: Soft, Nontender, Nondistended, Normal bowel sounds Back: Nontender, Normal Inspection. Negative for: CVA tenderness Extremities: Nontender, No edema. Negative for: Calf Tenderness Skin: Normal color, No rash, No Trauma Neurological: Alert - keenly, Oriented x3, Cranial nerves II-XII grossly intact, Normal Strength, Normal Sensation, Confused - Oriented x3, including correct month and age, however and following some commands, patient is clearly confused. There is no expressive or receptive aphasia, when asked to use her right or left side to do things, she generally follows correctly., - - NIHSS 0 Psychological: Normal affect, Normal Mood Diagnostic/Tx/Re-eval Chest X-Ray - ED: 1 View, Read by ED Physician, Right Infiltrate Impressions Brain CT 09/14/20 10:15 IMPRESSION: Chronic involutional changes of the brain. Electronically Signed: Tyrone Beckham MD at 12:08 EST Tel , Service support , Chest X-Ray 09/14/20 11:55 IMPRESSION: Localized pleural thickening in the right lateral chest wall with increased markings at the right lung base. This may represent an early infiltrate. Stable sclerotic lesion in the proximal portion of the right humerus. Electronically Signed: Bassam James, at 12:14 EST , Service support , 09/14/20 10:15 Brain/Head without Contrast [CT] Stat 09/14/20 11:55 Chest 1 View (Portable) [RAD] Stat Laboratory Results 09/14/20 09/14/20 09/14/20 10:40 10:40 10:40 WBC 18.4 H RBC 3.49 L Hgb 10.3 L Hct 31.0 L MCV 88.8 MCH 29.5 MCHC 33.2 RDW Std Deviation 44.9 H RDW Coeff of Roselyn 14.0 Plt Count 398 MPV 8.6 Immature Gran % (Auto) 1.600 H Neut % (Auto) 77.1 H Lymph % (Auto) 3.9 L [place] % (Auto) 15.2 H Eos % (Auto) 1.8 Baso % (Auto) 0.4 Absolute Neuts (auto) 14.2 H Absolute Lymphs (auto) 0.72 L Nucleated RBC % 0 Differential Comment SCANNED Diff Path Review May foll Hypersegmented Neuts 1+ H PT 13.8 INR 1.1 APTT 27.3 Sodium 128 L Potassium 3.3 L Chloride 92 L Carbon Dioxide 28.0 Anion Gap 8 BUN 17 Creatinine 0.44 L Estim Creat Clear Calc 37.45 Est GFR (MDRD) Af Amer 178 Est GFR (MDRD) Non-Af 147 BUN/Creatinine Ratio 39.0 H Glucose 101 Lactic Acid Calcium 8.9 Total Bilirubin 0.50 AST 27 ALT 23 Alkaline Phosphatase 190 H Troponin I 0.180 H Total Protein 6.4 Albumin 3.0 L Globulin 3.4 Albumin/Globulin Ratio 0.9 Urine Color Urine Clarity Urine pH Ur Specific [place] Urine Protein Urine Glucose (UA) Urine Ketones Urine Occult Blood Urine Nitrite Urine Bilirubin Urine Urobilinogen Ur Leukocyte Esterase Urine RBC Urine WBC Ur Squamous Epith Cells Urine Bacteria Urine Mucus 09/14/20 09/14/20 10:40 11:10 WBC RBC Hgb Hct MCV MCH MCHC RDW Std Deviation RDW Coeff of Roselyn Plt Count MPV Immature Gran % (Auto) Neut % (Auto) Lymph % (Auto) [place] % (Auto) Eos % (Auto) Baso % (Auto) Absolute Neuts (auto) Absolute Lymphs (auto) Nucleated RBC % Differential Comment Diff Path Review Hypersegmented Neuts PT INR APTT Sodium Potassium Chloride Carbon Dioxide Anion Gap BUN Creatinine Estim Creat Clear Calc Est GFR (MDRD) Af Amer Est GFR (MDRD) Non-Af BUN/Creatinine Ratio Glucose Lactic Acid 1.4 Calcium Total Bilirubin AST ALT Alkaline Phosphatase Troponin I Total Protein Albumin Globulin Albumin/Globulin Ratio Urine Color Yellow Urine Clarity Cloudy Urine pH 6.0 Ur Specific [place] 1.015 Urine Protein 100 H Urine Glucose (UA) Normal Urine Ketones 5 H Urine Occult Blood 150 H Urine Nitrite Negative Urine Bilirubin Negative Urine Urobilinogen Normal Ur Leukocyte Esterase 25 H Urine RBC 0-5 SEEN Urine WBC 0-5 SEEN Ur Squamous Epith Cells 0 SEEN Urine Bacteria 3+ Urine Mucus 0 SEEN - Rhythm Strip Rhythm Strip: Sinus Rhythm Rate: 90 Ectopy: PAC(s) - EKG Initial EKG Interpretation: Sinus Rhythm, No Acute Injury Pattern, RBBB Prior: Unchanged - Medical Decision Making Patient is a little disoriented. Differential is wide, including infection, cerebral metastases, metabolic disorders, cardiac disorders, etc. Work-up shows possibility of pneumonia in the right lower lobe, however it is also noted that she had a right lower lobectomy remotely for cancer debulking there. She does have a leukocytosis and no evidence of infection elsewhere, so after cultures obtained, empiric Rocephin and azithromycin are given, and a Covid rapid antigen test is sent. She has never had Covid, daughter states that they have really been trying to keep her isolated and away from people. She has had no known exposures to COVID-19. Her mild hyponatremia is stable and unlikely the cause of her acute symptoms. Her cardiac enzymes are little elevated, her EKG shows a right bundle branch block, no acute injury pattern, basically unchanged compared to her prior, and she is having no symptoms of angina. She is not hypoxic, it is considered possible that she has had intermittent hypoxemia, but she will require admission for further testing and treatment, so I am not ambulating her here, especially since she is a little fidgety and disoriented. She is amenable to getting something for her back pain which may help with that. ED Disposition - Plan for ED Patient: Disposition: Acute Care [facility] Diagnosis: Delirium, Metastatic lung carcinoma, Elevated troponin Referrals: Kathy Randall MD [Primary Care Provider] -
[2020-09-14] MEDS: 0.9% Normal Saline 1,000 ML 150 ML IV ×2 (10:25→17:11)
[2020-09-14 10:52] LABS: Absolute Lymphocyte Count 0.72 X10^3/uL (0.83-4.51); Absolute Neutrophil Count 14.2 X10^3/uL (2.0-7.7); Basophil# 0.07 X10^3/uL; Basophil% 0.4 % (0-1); Eosinophil# 0.34 X10^3/uL; Eosinophils% 1.8 % (0-5); Hemoglobin 10.3 g/dL (12.0-15.0); Lymphocyte # 0.72 X10^3/ul (4.0); Lymphocyte % 3.9 % (19-41); Mean Corp Hgb Conc 33.2 g/dL (32-36); Mean Corpuscular Hgb 29.5 pg (27.0-32.0); Mean Corpuscular Volume 88.8 fL (81-99); Mean Platelet Vol. 8.6 fl (6.2-12.0); Monocyte# 2.79 X10^3/uL; Monocyte% 15.2 % (0-10); NRBC Flagged by Analyzer 0 % (0-5); Neutrophil % 77.1 % (47-70); POSITIVE DIFFERENTIAL YES; Platelet Count 398 K/mm3 (150-450); RBC Distribution Width SD 44.9 fl (35.1-43.9); Red Blood Count 3.49 M/mm3 (4.2-5.4); White Blood Count 18.4 K/mm3 (4.4-11.0)
[2020-09-14 10:53] LABS: Differential Indicated SCAN CRITERIA MET
[2020-09-14 11:00] LABS: Prothrombin Time (Protime)PT. 13.8 SECONDS (11.7-14.9)
[2020-09-14 11:01] LABS: International Normalized Ratio 1.1; Partial Thromboplast Time 27.3 Seconds (24.1-36.2)
[2020-09-14 11:08] LABS: Differential Comment SCANNED
[2020-09-14 11:09] LABS: ALB/GLOB Ratio 0.9 RATIO (0.9-2.4); AST(SGOT) 27 U/L (15-37); Alanine Aminotransfer ALT/SGPT 23 U/L (13-56); Alkaline Phosphatase 190 U/L (45-117); Anion Gap 8 (5-15); BUN 17 mg/dL (7-18); Calcium,Total 8.9 mg/dL (8.5-10.1); Chloride 92 mmol/L (98-107); Creatinine, Serum 0.44 mg/dL (0.55-1.02); EST Glomerular Filtration Rate 147 mL/min (>60); Est Glom Filt Rate - Afr Amer 178 mL/min (>60); Estimated Creatinine Clearance 37.45 ml/min; Globulin 3.4 g/dL (2.2-4.2); Glucose 101 mg/dL (74-106); Hypersegmented Neutrophils 1+; Potassium 3.3 mmol/L (3.5-5.1); Protein, Total 6.4 g/dL (6.4-8.2); Sodium Level 128 mmol/L (136-145)
[2020-09-14 11:13] LABS: Lactic Acid 1.4 mmol/L (0.4-1.9)
[2020-09-14 11:16] LABS: Mucous, Urine 0 SEEN /hpf (<or=2+); Squamous Epithelial Cells - UA 0 SEEN /hpf (5-10)
[2020-09-14 11:27] LABS: Color, Urine Yellow (Yellow); Glucose, Dipstick Normal (Normal); Ketone-Dipstick 5 mg/dl (Negative); Leukocyte Esterase-Dipstick 25 /ul (Negative); Nitrite-Dipstick Negative (Negative); Occult Blood-Urine 150 /ul (Negative); Protein-Dipstick 100 mg/dl (Negative); Specific Gravity, Urine 1.015 (1.002-1.030); Urine Bilirubin Dipstick Negative (Negative); Urine Clarity Cloudy (Clear); Urine Urobilinogen Normal (Normal)
[2020-09-14 11:34] LABS: White Blood Cells 0-5 SEEN /hpf (0-5)
[2020-09-14 11:35] LABS: Bacteria 3+ /hpf (None Seen); Red Blood Cells-Urine 0-5 SEEN /hpf (0-5)
--- NOTE | 2020-09-14 11:55 | RAD_ITS ---
STUDY: X-RAY CHEST REASON FOR EXAM: Female, 80 years old[address] Multani, altered mental status, lower back pain, lethargic, patient has lung CA TECHNIQUE: Single AP portable view of the chest. COMPARISON: Comparison is made with prior study dated 12/17/2019. FINDINGS: A left-sided portacatheter is seen with the tip in the proximal portion of the superior vena cava. Mild elevation of the right hemidiaphragm with evidence of localized pleural thickening along the right lateral pleural surface with increased markings at the right lung base suggestive of atelectasis and/or early infiltrate. Normal size heart. Normal mediastinum and shanti. Normal visualized pulmonary arteries. Normal visualized aortic arch and descending thoracic aorta. Normal visualized thoracic spine. Stable 3.4 cm x 2.4 cm sclerotic lesion overlying the proximal right humerus. There is evidence of a healed fracture of the proximal right humerus. There is no demonstrated abnormality of the visualized soft tissue structures of the upper abdomen. RAD/Chest 1 View (Portable) IMPRESSION: Localized pleural thickening in the right lateral chest wall with increased markings at the right lung base. This may represent an early infiltrate. Stable sclerotic lesion in the proximal portion of the right humerus. Electronically Signed: Bassam James, at 12:14 EST , Service support ,
[2020-09-14] MEDS: Ceftriaxone 1 GM/50 ML BAG IV (12:51)
[2020-09-14] MEDS: HYDROcodone Bitartrate/Apap 5/325 Tablet PO (13:04)
--- NOTE | 2020-09-14 13:13 | CT_ITS ---
STUDY: CT CHEST WITHOUT CONTRAST REASON FOR EXAM: Female, 80 years old. ABN CXR, ALTERED MENTAL STATUS, UTI VS STROKE, HX=LUNG CA WITH RLL REMOVAL RADIATION DOSAGE (If Supplied By Facility): CTDIvol = ( 15.89 ) mGy, DLP = ( 509.82 ) mGycm TECHNIQUE: Transaxial imaging was performed without the administration of intravenous contrast material. Multiplanar coronal and sagittal images were reformatted. Individualized dose optimization techniques were used for this CT. COMPARISON: Comparison is made with prior examination dated 07/29/2020. FINDINGS: A left-sided portacatheter is seen with the tip in the superior vena cava. Stable small right pleural effusion with fibrocalcific density in the right lower lobe. Stable pleural thickening along the lateral wall of the right hemithorax. There are calcifications of the coronary arteries. There are multiple small lymph nodes within the mediastinum, which are normal in size and morphology most compatible with reactive lymph hyperplasia. Since prior study, there has been progressive enlargement of the right hilar lymph nodes. Normal unenhanced pulmonary arteries. There is atherosclerotic tortuosity of the aortic arch and descending thoracic aorta. There are multi-level degenerative changes of the thoracic spine. Stable 2.6 cm x 3 cm dense calcification the soft tissues underlying the posterior aspect of the proximal right humerus. Prior nailing of the right humeral head. There is no demonstrated abnormality of the visualized upper abdomen. CT/Chest without Contrast IMPRESSION: Stable pleural thickening and fibrocalcific nodule in the right lower lobe. Since prior study, there has been progressive enlargement of the right hilar lymph node. Electronically Signed: Bassam James, at 14:25 EST , Service support ,
--- NOTE | 2020-09-14 14:32 | HP.PCM_ITS ---
Problem List (1) Encephalopathy Status: Acute (2) Surgical wound present Status: Acute (3) Vascular catheter fitting or adjustment Status: Acute (4) CINV (chemotherapy-induced nausea and vomiting) Status: Acute (5) Anemia Status: Chronic Qualifiers: Other causes of anemia: antineoplastic chemotherapy (6) Stomatitis Status: Resolved (7) UTI (urinary tract infection) Status: Resolved Qualifiers: Urinary tract infection type: acute cystitis Hematuria presence: with hematuria Qualified Code(s): N30.01 - Acute cystitis with hematuria (8) Diarrhea Status: Acute Qualifiers: Diarrhea type: unspecified type Qualified Code(s): R19.7 - Diarrhea, unspecified (9) Hilar adenopathy Status: Chronic (10) Metastatic lung carcinoma Status: Chronic Qualifiers: Laterality: right Qualified Code(s): C78.01 - Secondary malignant neoplasm of right lung (11) Iron deficiency anemia Status: Chronic Qualifiers: Iron deficiency anemia type: unspecified iron deficiency Qualified Code(s): D50.9 - Iron deficiency anemia, unspecified (12) Cancer-related pain Status: Chronic (13) Delirium Status: Acute (14) Elevated troponin Status: Acute (15) Lung mass Status: Chronic (16) NSCLC of right lung Status: Chronic History of Present Illness Date of Admission: 09/14/20 Chief Complaint: confusion The patient is a 80 year old F presents with confusion. Family has noted the patient to be confused over the past few days. Presented to her oncologist this past Monday and was found to have a low sodium did receive IV fluids. Again presented to the oncologist office today and was still confused. Patient was sent to the emergency room. In the emergency room, patient's white count was noted to be 18.4 thousand, sodium 128 potassium 3.3. History is obtained through the emergency room physician as well as the patient's daughter at bedside. Patient is too confused to provide any history. Daughter notes that the patient has been having some back pain and has been using Salonpas but stopped using that about a day ago because of the confusion. Patient has been still using the Ambien. [] Past Medical History Past Medical History (Chronic Problems): Chronic Problems (Last Reviewed 09/09/20 @ 13:17 by Gale Quezada RN) Anemia (Chronic) Hilar adenopathy (Chronic) Metastatic lung carcinoma (Chronic) Iron deficiency anemia (Chronic) Cancer-related pain (Chronic) Lung mass (Chronic) NSCLC of right lung (Chronic) Medical History: Medical History (Last Reviewed 09/14/20 @ 14:[address] Jayesh Abernathy DO) Lung mass (Acute) R91.8 NSCLC of right lung (Chronic) C34.91 Anemia D64.9 Carotid stenosis I65.29 Hyperlipidemia E78.5 Hypothyroid E03.9 Insomnia G47.00 Lung mass R91.8 Right upper lobe wedge resection [facility] 11/15/19 Statin intolerance Z78.9 Thyroid disorder E07.9 mediastinal lymphadenectomy [facility] 11/15/19 HTN (hypertension) I10 Allergies chlorhexidine Allergy (Intermediate, Verified 09/14/20 09:55) Rash naproxen Allergy (Intermediate, Verified 09/14/20 09:55) Other mouth sores nitrofurantoin [From Macrodantin] Allergy (Intermediate, Verified 09/14/20 09:55) Other mouth sores morphine Adverse Reaction (Severe, Verified 09/14/20 09:55) Shortness of breath Home Medications: Ambulatory Orders Medication Instructions Recorded Amlodipine [Norvasc] 5 mg PO DAILY 09/27/19 Clopidogrel Bisulfate [Plavix] 75 mg PO DAILY 09/27/19 Levothyroxine [Synthroid] 50 mcg PO DAILY 09/27/19 Lisinopril [Zestril] 40 mg PO DAILY 09/27/19 Metoprolol Succinate [Kapspargo 50 mg PO DAILY 09/27/19 Sprinkle] Pantoprazole Sodium [Protonix] 40 mg PO DAILY 09/27/19 Zolpidem Tartrate [Ambien Cr] 6.25 mg PO QHS 09/27/19 Lorazepam [Ativan] 0.5 mg PO DAILY PRN 10 Days #10 tab 09/02/20 Acetaminophen [Tylenol Extra 500 mg PO DAILY PRN PRN 09/14/20 Strength] Ibuprofen [Advil] 400 mg PO DAILY PRN PRN 09/14/20 Lidocaine [Salonpas] 1 ea TP DAILY 09/14/20 Surgical History: Surgical History (Last Reviewed 09/14/20 @ 14:[address] 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 Jayesh Abernathy DO) Mother Cancer Hypertension Father Cancer Brother Diabetes Review of Systems Unable to obtain accurate/complete ROS d/t: Limited given the patient's conf usion VTE Information - Inpt Only VTE Present on Admission: No VTE Mechan Device Prophylaxis: None VTE Pharm Prophylaxis ordered?: Yes Patient Problems: Active and Suspected Problems (Last Reviewed 09/09/20 @ 13:17 by Gale Quezada RN) Delirium (Acute) Elevated troponin (Acute) - Physical Exam Vitals/I&O's: Vital Signs Temp Pulse Resp BP Pulse Ox 36.2 C L 101 H 18 184/101 H 95 09/14/20 13:17 09/14/20 13:17 09/14/20 13:17 09/14/20 13:17 09/14/20 11:12 Oxygen Delivery Method Room Air Weight: 66.67 kg Body Mass Index (BMI) 25.2 Intake and Output for Last 24 Hours 09/12/20 09/13/20 09/14/20 23:59 23:59 23:59 Intake Total 255 / 255 Balance 255 / 255 General: - - Oriented to self and place. Year was 1919. HEENT: Atraumatic, EOMI, Normocephalic Oral: Dry Mucosa Neck: No Nodes, Thyroid Normal Size and Texture Lungs: Clear to auscultation, Normal air movement, No rhonchi, No wheeze, No rales Cardiovascular: Regular rate, Regular Rhythm, Normal S1, Normal S2, No murmurs Abdomen: Bowel Sounds Present, Soft, Non Tender, Non-Distended, No Hepato- splenomegaly Extremities: No edema, No Calf Tenderness Skin: No rashes, No breakdown Musculoskeletal: No Tenderness to Palpation of Joints or Extremities, No Muscle Wasting Neurological: Cranial nerves II-XII grossly intact, - - Limited musculoskeletal examination due to inability to properly follow commands. Psych/Mental Status: Appropriate, Flat Affect Microbiology Past 72 Hours 09/14/20 12:28 Mucosa - Nose SARS-CoV-2 Antigen (Rapid) - Final Laboratory Results 09/14/20 10:40: WBC 18.4 H, RBC 3.49 L, Hgb 10.3 L, Hct 31.0 L, MCV 88.8, MCH 29.5, MCHC 33.2, RDW Std Deviation 44.9 H, RDW Coeff of Roselyn 14.0, Plt Count 398, MPV 8.6, Immature Gran % (Auto) 1.600 H, Neut % (Auto) 77.1 H, Lymph % (Auto) 3.9 L, [place] % (Auto) 15.2 H, Eos % (Auto) 1.8, Baso % (Auto) 0.4, Absolute Neuts (auto) 14.2 H, Absolute Lymphs (auto) 0.72 L, Nucleated RBC % 0, Differential Comment SCANNED, Diff Path Review January, Hypersegmented Neuts 1+ H 09/14/20 10:40: PT 13.8, INR 1.1, APTT 27.3 09/14/20 10:40: Sodium 128 L, Potassium 3.3 L, Chloride 92 L, Carbon Dioxide 28.0, Anion Gap 8, BUN 17, Creatinine 0.44 L, Estim Creat Clear Calc 37.45, Est GFR (MDRD) Af Amer 178, Est GFR (MDRD) Non-Af 147, BUN/Creatinine Ratio 39.0 H, Glucose 101, Calcium 8.9, Total Bilirubin 0.50, AST 27, ALT 23, Alkaline Phosphatase 190 H, Troponin I 0.180 H, Total Protein 6.4, Albumin 3.0 L, Globulin 3.4, Albumin/Globulin Ratio 0.9 09/14/20 10:40: Lactic Acid 1.4 09/14/20 11:10: Urine Color Yellow, Urine Clarity Cloudy, Urine pH 6.0, Ur Specific [place] 1.015, Urine Protein 100 H, Urine Glucose (UA) Normal, Urine Ketones 5 H, Urine Occult Blood 150 H, Urine Nitrite Negative, Urine Bilirubin Negative, Urine Urobilinogen Normal, Ur Leukocyte Esterase 25 H, Urine RBC 0-5 SEEN, Urine WBC 0-5 SEEN, Ur Squamous Epith Cells 0 SEEN, Urine Bacteria 3+, Urine Mucus 0 SEEN EKG reviewed and showed a right bundle branch block. This is present dating back to 2012. Current Medications Sodium Chloride () 1,000 mls @ 150 mls/hr IV .[id number] [facility] Last Admin: 09/14/20 10:25 Dose: 150 mls/hr Documented by: Sodium Chloride () 250 mls @ 15 mls/hr IV .[id number] PRN PRN Reason: Saline Flush Sodium Chloride () 250 mls @ 15 mls/hr IV .[id number] PRN PRN Reason: Additional IVPB Infusion Sodium Chloride (0.9% Saline Lock 10 Ml Syringe) 10 - 40 ml IV UD PRN PRN Reason: SALINE FLUSH Assessment/Plan All Active Problems (Last Reviewed 09/09/20 @ 13:17 by Gale Quezada RN) Surgical wound present (Acute) Vascular catheter fitting or adjustment (Acute) CINV (chemotherapy-induced nausea and vomiting) (Acute) Stomatitis (Resolved) UTI (urinary tract infection) (Resolved) Diarrhea (Acute) Delirium (Acute) Elevated troponin (Acute) Encephalopathy (Acute) 1. Encephalopathy: * Unclear etiology at this time, favoring a multifactorial process possibly related with dehydration, advanced age as well as compounding medications including lorazepam as well as zolpidem. * Discussed with the patient's daughter and the plan is to hold off on any potentiating medications * No clear evidence of any infection at this time. There was initial concern for pneumonia based on the patient's chest x-ray, however, the CAT scan was more definitive and just shows chronic changes related with the patient's prior partial lobectomy. Additionally, the CAT scan does not show any findings consistent with COVID-19 and the daughter states that the patient has not been out and near anyone with COVID-19. COVID-19 rapid antigen was negative. * Plan to treat the patient by home with holding her Ambien and lorazepam as well as giving her IV fluids and hopefully that will be sufficient enough to improve her mental status. 2. Lung cancer: * Patient's had worsening hilar adenopathy. Was to initiate oral chemotherapy on the . I have reached out to Dr. Multani, however have not received a phone call back. Patient's last round of chemotherapy was from October 3. Hyponatremia * This appears to be chronic * Patient will receive IV fluids and will evaluate. I do not feel that her confusion is directly attributable to the hyponatremia 4. Hypokalemia * Replace. Check magnesium level 5. VTE prophylaxis: Moderate to high risk. Enoxaparin. 6. Advanced care planning: Discussed with patient's daughter. She verified the patient is full CODE STATUS. Inpatient E&M: 37110 Init Hosp L3
[2020-09-14 16:17] LABS: Magnesium 1.3 mg/dL (1.6-2.6)
[2020-09-14] MEDS: Magnesium Sulfate 4gm/100mL 4 GM/100 ML IV.SOLN. IV (17:04)
--- NOTE | 2020-09-14 17:19 | PCM.NTREPORT ---
Nutrition Therapy Report - History Nutrition Services has been consulted to:: Manage nutrient details of diet order Current diet / nutrition support order:: Regular diet; no bleached/bromated flour--headache - Anthropometric Measurements Height:: 5 ft 4 in Weight:: 63.8 kg Body Mass Index (BMI):: 24.1 - Relevant Labs Relevant Labs:: WBC 18.4 K/mm3 (4.4-11.0) H 09/14/20 10:40 RBC 3.49 M/mm3 (4.2-5.4) L 09/14/20 10:40 Hgb 10.3 g/dL (12.0-15.0) L 09/14/20 10:40 Hct 31.0 % (37-47) L 09/14/20 10:40 RDW Std Deviation 44.9 fl (35.1-43.9) H 09/14/20 10:40 Immature Gran % (Auto) 1.600 % (0.0-0.9) H 09/14/20 10:40 Neut % (Auto) 77.1 % (47-70) H 09/14/20 10:40 Lymph % (Auto) 3.9 % (19-41) L 09/14/20 10:40 [place] % (Auto) 15.2 % (0-10) H 09/14/20 10:40 Absolute Neuts (auto) 14.2 X10^3/uL (2.0-7.7) H 09/14/20 10:40 Absolute Lymphs (auto) 0.72 X10^3/uL (0.83-4.51) L 09/14/20 10:40 Hypersegmented Neuts 1+ H 09/14/20 10:40 Sodium 128 mmol/L (136-145) L 09/14/20 10:40 Potassium 3.3 mmol/L (3.5-5.1) L 09/14/20 10:40 Chloride 92 mmol/L (98-107) L 09/14/20 10:40 Creatinine 0.44 mg/dL (0.55-1.02) L 09/14/20 10:40 BUN/Creatinine Ratio 39.0 RATIO (10-20) H 09/14/20 10:40 Magnesium 1.3 mg/dL (1.6-2.6) L 09/14/20 15:25 Alkaline Phosphatase 190 U/L (45-117) H 09/14/20 10:40 Troponin I 0.100 ng/mL (<0.045) H 09/14/20 15:25 Albumin 3.0 g/dL (3.2-5.0) L 09/14/20 10:40 - Assessment Food / Nutrition-Related History:: Pt confused but, EMR review reveals significant wt loss--~17% wt loss x 12-14 months and ~14% wt loss x past 5-7 months in addition to ongoing poor appetite/intake x past several days. Pt will benefit from ONS as tolerated. UBW~160-170 lbs with current wt ~140 lbs. PO to be established; regular diet ordered. 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 Evidence of Malnutrition Exists:: Yes Severe PCM:: Chronic Illness - Nutrition Intervention Nutrition Prescription:: Estimated nutrition needs~5448-8907 kcal and ~70-80 gm protein. - Food / Nutrient Delivery Interventions Summary of nutrition intervention:: Will offer 240 ml ensure enlive BID w/ breakfast and dinner and magic cup w/ lunch tray for additional 990 kcal and 49 gm protein/day if consumed. Nutrition education provided?: No - MNT Monitoring Further MNT monitoring and evaluation required?: Yes MNT Follow-up in:: 3-5 days
--- NOTE | 2020-09-14 19:00 | PCS.PANDOC ---
PANDEMIC DOCUMENTATION INITIATED: Date: 09/14 Time: 1433
[2020-09-14] MEDS: Potassium Chloride 10mEq/100mL 10 MEQ/100 ML IV.SOLN. 100 MEQ IV BOLUS ×3 (20:50→23:00)
[2020-09-14] MEDS: Acetaminophen 500 MG Tablet PO (21:19)
[2020-09-14] MEDS: Ibuprofen 200 MG Tablet 400 MG PO (22:46)
[2020-09-15] VITALS (11 sets, daily range): BP systolic 115–148; BP diastolic 42–67; PULSE 70–95; RESP 16–18; TEMP 36.6–37.3; O2SAT 93–98
[2020-09-15] MEDS: Potassium Chloride 10mEq/100mL 10 MEQ/100 ML IV.SOLN. 100 MEQ IV BOLUS
[2020-09-15 06:06] LABS: Absolute Lymphocyte Count 0.99 X10^3/uL (0.83-4.51); Absolute Neutrophil Count 11.5 X10^3/uL (2.0-7.7); Basophil# 0.05 X10^3/uL; Basophil% 0.3 % (0-1); Eosinophil# 0.25 X10^3/uL; Eosinophils% 1.6 % (0-5); Hematocrit 27.6 % (37-47); Hemoglobin 8.9 g/dL (12.0-15.0); Lymphocyte # 0.99 X10^3/ul (4.0); Lymphocyte % 6.4 % (19-41); Mean Corp Hgb Conc 32.2 g/dL (32-36); Mean Corpuscular Hgb 29.1 pg (27.0-32.0); Mean Corpuscular Volume 90.2 fL (81-99); Mean Platelet Vol. 8.4 fl (6.2-12.0); Monocyte# 2.52 X10^3/uL; Monocyte% 16.3 % (0-10); NRBC Flagged by Analyzer 0 % (0-5); Neutrophil # 11.46 X10^3/uL (2.7-7.7); Neutrophil % 73.9 % (47-70); POSITIVE DIFFERENTIAL YES; Platelet Count 344 K/mm3 (150-450); RBC Distribution Width CV 14.1 % (11.6-14.6); RBC Distribution Width SD 45.3 fl (35.1-43.9); Red Blood Count 3.06 M/mm3 (4.2-5.4); White Blood Count 15.5 K/mm3 (4.4-11.0)
[2020-09-15] MEDS: Levothyroxine 50 MCG Tablet PO (06:08)
[2020-09-15 06:12] LABS: Differential Indicated SCAN CRITERIA MET
[2020-09-15 06:30] LABS: Anion Gap 7 (5-15); BUN 15 mg/dL (7-18); BUN/Creat Ratio 31.8 RATIO (10-20); Calcium,Total 8.1 mg/dL (8.5-10.1); Chloride 94 mmol/L (98-107); Creatinine, Serum 0.47 mg/dL (0.55-1.02); EST Glomerular Filtration Rate 134 mL/min (>60); Est Glom Filt Rate - Afr Amer 162 mL/min (>60); Estimated Creatinine Clearance 37.45 ml/min; Glucose 75 mg/dL (74-106); Potassium 3.4 mmol/L (3.5-5.1); Sodium Level 128 mmol/L (136-145)
[2020-09-15 06:48] LABS: Differential Comment SCANNED
[2020-09-15] MEDS: amLODIPine 5 MG Tablet PO (09:51)
[2020-09-15] MEDS: Lisinopril 40 MG Tablet PO (09:51)
[2020-09-15] MEDS: Pantoprazole Sodium 40 MG Tablet PO (09:51)
[2020-09-15] MEDS: Clopidogrel Bisulfate 75 MG Tablet PO (09:51)
[2020-09-15] MEDS: Metoprolol(XL)Succ 50 MG Tablet PO (09:51)
[2020-09-15] MEDS: Enoxaparin 40 MG/0.4 ML Syringe SC (09:53)
--- NOTE | 2020-09-15 10:50 | CASEMGMT ---
RN HENRIQUE assessment: Face to Face with patient for initial transition planning/care coordination assessment. RN CM introduced self and role at [facility], pt voices understanding and consents to assessment at this time. Pt is sitting up in chair in no distress at this time. Pt is A/Ox3 at this time and answers questions appropriately for this RN CM at this time. Care providers, pharmacy, and demographics verified at this time. Presentation: Sent by Dr. Multani for UTI vs CVA-pt c/o lower back pain-has had lethargy Admitting dx: Delirium, pna, UTI PCP: [facility] Specialists: Pt states no current specialists. Preferred Pharmacy: [facility] Insurance: [employer]/MCR A Prescription Benefit: [employer] Living Will/HPOA: Pt states has HPOA and is aware that it's on file at [facility] at this time. Pt states her , Mehdi Castañeda, is HPOA. Pt declines LW. LNOK: Mehdi Castañeda, ; Eloina Colon, daughter Living Arrangements: Pt states lives with on main level of 2 story home and states no concerns at home at this time. Pt states is independent with ADL's. Transportation: Pt states no transportation concerns at this time. DME/HHC: Pt states has the following DME: cane, walker, w/c, grab bars, and shower chair. Pt states no need for any further DME. Pt states no hx of HHC or SNF in the past. Pt states no concerns at home at this time. Pt states is retired. Pt states does not smoke cigarettes or drink ETOH. Pt states no further concerns/needs at this time. CM to follow for any further discharge planning/needs. Advised pt to ask for CM if any further questions/concerns/needs arise, voices understanding. Pt Goal: Home Plan: Home [place] DUENAS
--- NOTE | 2020-09-15 12:16 | PCM.PN.HOSP ---
Patient Problems: Active and Suspected Problems (Last Reviewed 09/14/20 @ 14:[address] Jayesh Abernathy, DO) Surgical wound present (Acute) Vascular catheter fitting or adjustment (Acute) CINV (chemotherapy-induced nausea and vomiting) (Acute) Diarrhea (Acute) Delirium (Acute) Elevated troponin (Acute) Encephalopathy (Acute) Subjective: Oriented to person and place but not time. No complaints and no issues overnight. She was having intermittent fevers. UA was marginal, urine culture with greater than 100,000 CFU's of gram-negative lynsey Vitals/I&O's: Vital Signs Temp Pulse Resp BP Pulse Ox 98.8 F 83 17 145/67 H 95 09/15/20 06:07 09/15/20 09:51 09/15/20 06:07 09/15/20 06:07 09/15/20 06:07 Oxygen Delivery Method Room Air Weight: 140 lb 10.479 oz Body Mass Index (BMI) 24.1 Intake and Output for Last 24 Hours 09/13/20 09/14/20 09/15/20 23:59 23:59 23:59 Intake Total 2655 / 2755 200 / 200 Output Total 300 / 300 150 / 150 Balance 2355 / 2455 50 / 50 General: Alert, Cooperative, No apparent distress, - - Oriented x2 HEENT: Atraumatic, PERRLA, EOMI, Normocephalic Oral: Moist Mucosa Neck: Supple, No JVD Lungs: Clear to auscultation, Normal air movement, No rhonchi, No wheeze, No rales, Diminished Cardiovascular: Regular rate, Regular Rhythm, Normal S1, Normal S2, No murmurs Abdomen: Soft, Non Tender, Non-Distended, No Hepato-splenomegaly Extremities: No edema, Capillary Refill Less than 3 Seconds Skin: No rashes, No breakdown Neurological: Neuro grossly intact, Sensory exam intact to light touch and pain Psych/Mental Status: Normal Affect, Appropriate Microbiology Past 72 Hours 09/14/20 11:10 Urine, Clean Catch Urine Culture - Preliminary GNR lactose certified court/medical interpreter 09/14/20 12:28 Mucosa - Nose SARS-CoV-2 Antigen (Rapid) - Final Laboratory Results 09/14/20 15:25: Magnesium 1.3 L, Troponin I 0.100 H 09/14/20 17:50: Troponin I 0.155 H 09/15/20 05:15: WBC 15.5 H, RBC 3.06 L, Hgb 8.9 L, Hct 27.6 L, MCV 90.2, MCH 29.1, MCHC 32.2, RDW Std Deviation 45.3 H, RDW Coeff of Roselyn 14.1, Plt Count 344, MPV 8.4, Immature Gran % (Auto) 1.500 H, Neut % (Auto) 73.9 H, Lymph % (Auto) 6.4 L, [place] % (Auto) 16.3 H, Eos % (Auto) 1.6, Baso % (Auto) 0.3, Absolute Neuts (auto) 11.5 H, Absolute Lymphs (auto) 0.99, Nucleated RBC % 0, Differential Comment SCANNED, Diff Path Review January09/15/20 05:15: Sodium 128 L, Potassium 3.4 L, Chloride 94 L, Carbon Dioxide 27.0, Anion Gap 7, BUN 15, Creatinine 0.47 L, Estim Creat Clear Calc 37.45, Est GFR (MDRD) Af Amer 162, Est GFR (MDRD) Non-Af 134, BUN/Creatinine Ratio 31.8 H, Glucose 75, Calcium 8.1 L Current Medications Acetaminophen (Acetaminophen 500 Mg Tablet) 500 mg PO DAILY PRN PRN PRN Reason: Pain 1-10 or Fever Last Admin: 09/14/20 21:19 Dose: 500 mg Documented by: Amlodipine Besylate (Amlodipine 5 Mg Tablet) 5 mg PO DAILY [facility] Last Admin: 09/15/20 09:51 Dose: 5 mg Documented by: Clopidogrel Bisulfate (Clopidogrel Bisulfate 75 Mg Tablet) 75 mg PO DAILY [facility] Last Admin: 09/15/20 09:51 Dose: 75 mg Documented by: Enoxaparin Sodium (Enoxaparin 40 Mg/0.4 Ml Syringe) 40 mg SC DAILY [facility] Last Admin: 09/15/20 09:53 Dose: 40 mg Documented by: Cefazolin Sodium () 1 gm in 50 mls @ 100 mls/hr IV Q8 [facility] Ibuprofen (Ibuprofen 200 Mg Tablet) 400 mg PO DAILY PRN PRN PRN Reason: Pain 1-10 or Fever Last Admin: 09/14/20 22:46 Dose: 400 mg Documented by: Levothyroxine Sodium (Levothyroxine 50 Mcg Tablet) 50 mcg PO DAILY@0600 [facility] Last Admin: 09/15/20 06:08 Dose: 50 mcg Documented by: Lisinopril (Lisinopril 40 Mg Tablet) 40 mg PO DAILY [facility] Last Admin: 09/15/20 09:51 Dose: 40 mg Documented by: Metoprolol Succinate (Metoprolol(Xl)Succ 50 Mg Tablet) 50 mg PO DAILY [facility] Last Admin: 09/15/20 09:51 Dose: 50 mg Documented by: Nitroglycerin (Nitroglycerin (Inpatient Use) 0.4 Mg Tab.Subl) 0.4 mg SUBLINGUAL Q5M PRN PRN Reason: CARDIAC/CHEST PAIN Nutritional Formula (Lactose Free) (Ensure Enlive 120 Ml Liquid) 120 ml PO 4X/DAY [facility] Last Admin: 09/15/20 09:51 Dose: Not Given Documented by: Ondansetron HCl (Ondansetron 4 Mg/2 Ml Vial) 4 mg IV Q8H PRN PRN PRN Reason: NAUSEA/VOMITING Pantoprazole Sodium (Pantoprazole Sodium 40 Mg Tablet) 40 mg PO DAILY [facility] Last Admin: 09/15/20 09:51 Dose: 40 mg Documented by: STROKE Vital Signs/Narrative: Vital Signs Pulse 09/15/20 09:51 83 Medical Necessity - Tobacco Use Smoking Status: Former smoker Tobacco Use: Cigarettes Assessment/Plan All Active Problems (Last Reviewed 09/14/20 @ 14:[address] Jayesh Abernathy, ) Surgical wound present (Acute) Vascular catheter fitting or adjustment (Acute) CINV (chemotherapy-induced nausea and vomiting) (Acute) Stomatitis (Resolved) UTI (urinary tract infection) (Resolved) Diarrhea (Acute) Delirium (Acute) Elevated troponin (Acute) Encephalopathy (Acute) 1. Metabolic encephalopathy likely secondary to UTI/hyponatremia -We will start her on Ancef for her gram-negative lynsey UTI, leukocytosis of 18.4 on admission down to 15.5 today -Will await sensitivities in the morning -PT/OT -Case management for possible placement -Covid test was negative we will continue to hold any of her medications that could also cause her to have some altered mental status -Sodium is stable at 128, she received 2 L of IV fluids yesterday and will continue to monitor and provide more if necessary 2. History of lung cancer -She does have worsening hilar and adenopathy and she was supposed to start chemo tomorrow -If treatment of her UTI does not cause resolution of her acute encephalopathy/delirium, can proceed with an MRI of her brain to evaluate for metastatic disease 3. Elevated troponin/HTN/HLD/pulmonary hypertension -Unknown significance at this time as initially she was 0.18 and then improved to 0.1 and then went up to 0.155 -EKG is nonischemic, previous echo with an RVSP of 52 mmHg if she develops an oxygen requirement may need to give her some Lasix -Blood pressure is stable, continue with Norvasc, lisinopril, metoprolol -Continue with Plavix 4. GERD -Stable -Continue with PPI DVT: Lovenox Inpatient E&M: 81911 Subs Hosp L2
[2020-09-15 13:24] LABS: Pathologist Review Reviewed
[2020-09-15 13:31] LABS: Pathologist Review Reviewed
[2020-09-15] MEDS: 0.9% Saline Lock 10 ML Syringe IV (13:36)
[2020-09-15] MEDS: Cefazolin 1 GM/50 ML BAG IV ×2 (13:36→21:56)
[2020-09-16] VITALS (11 sets, daily range): BP systolic 132–155; BP diastolic 33–86; PULSE 69–82; RESP 16–18; TEMP 36.7–37.1; O2SAT 94–98
[2020-09-16 06:04] LABS: Absolute Lymphocyte Count 1.03 X10^3/uL (0.83-4.51); Absolute Neutrophil Count 11.6 X10^3/uL (2.0-7.7); Basophil# 0.07 X10^3/uL; Basophil% 0.4 % (0-1); Eosinophils% 6.4 % (0-5); Hematocrit 28.7 % (37-47); Hemoglobin 9.2 g/dL (12.0-15.0); Lymphocyte # 1.03 X10^3/ul (4.0); Mean Corp Hgb Conc 32.1 g/dL (32-36); Mean Corpuscular Hgb 28.8 pg (27.0-32.0); Mean Corpuscular Volume 89.7 fL (81-99); Mean Platelet Vol. 8.1 fl (6.2-12.0); Monocyte# 3.14 X10^3/uL; Monocyte% 18.4 % (0-10); NRBC Flagged by Analyzer 0 % (0-5); Neutrophil # 11.55 X10^3/uL (2.7-7.7); Neutrophil % 67.6 % (47-70); POSITIVE DIFFERENTIAL YES; Platelet Count 365 K/mm3 (150-450); RBC Distribution Width CV 14.3 % (11.6-14.6); RBC Distribution Width SD 46.7 fl (35.1-43.9); White Blood Count 17.1 K/mm3 (4.4-11.0)
[2020-09-16 06:36] LABS: Anion Gap 6 (5-15); BUN 25 mg/dL (7-18); BUN/Creat Ratio 51.7 RATIO (10-20); Calcium,Total 8.7 mg/dL (8.5-10.1); Chloride 98 mmol/L (98-107); Creatinine, Serum 0.48 mg/dL (0.55-1.02); EST Glomerular Filtration Rate 130 mL/min (>60); Est Glom Filt Rate - Afr Amer 158 mL/min (>60); Estimated Creatinine Clearance 37.45 ml/min; Glucose 88 mg/dL (74-106); Magnesium 1.8 mg/dL (1.6-2.6); Potassium 3.9 mmol/L (3.5-5.1); Sodium Level 130 mmol/L (136-145)
[2020-09-16 06:48] LABS: Differential Indicated SCAN CRITERIA MET
[2020-09-16] MEDS: Cefazolin 1 GM/50 ML BAG IV ×3 (06:49→21:31)
[2020-09-16] MEDS: Levothyroxine 50 MCG Tablet PO (06:51)
[2020-09-16 07:16] LABS: Differential Comment SCANNED
[2020-09-16] MEDS: Enoxaparin 40 MG/0.4 ML Syringe SC (08:22)
[2020-09-16] MEDS: amLODIPine 5 MG Tablet PO (08:22)
[2020-09-16] MEDS: Metoprolol(XL)Succ 50 MG Tablet PO (08:23)
[2020-09-16] MEDS: Lisinopril 40 MG Tablet PO (08:24)
[2020-09-16] MEDS: Pantoprazole Sodium 40 MG Tablet PO (08:24)
[2020-09-16] MEDS: Clopidogrel Bisulfate 75 MG Tablet PO (08:24)
--- NOTE | 2020-09-16 11:03 | CASEMGMT ---
Patient has a Healthcare Power of Systems Management Consultant in E-chart and her Mehdi is her Healthcare Power of Systems Management Consultant. A copy was printed and placed in her paper chart. She does not have a Healthcare living Will on file. Elida LAURA MSW
--- NOTE | 2020-09-16 11:19 | PCM.PN.HOSP ---
Patient Problems: Active and Suspected Problems (Last Reviewed 09/14/20 @ 14:[address] Jayesh Abernathy, DO) Surgical wound present (Acute) Vascular catheter fitting or adjustment (Acute) CINV (chemotherapy-induced nausea and vomiting) (Acute) Diarrhea (Acute) Delirium (Acute) Elevated troponin (Acute) Encephalopathy (Acute) Subjective: More alert today, she did call me Joe, however she knew that it was 2019 and that she was at [facility] which is better than how she was yesterday. Vitals/I&O's: Vital Signs Temp Pulse Resp BP Pulse Ox 98.8 F 75 16 132/86 H 94 09/16/20 05:35 09/16/20 08:23 09/16/20 05:35 09/16/20 05:35 09/16/20 05:35 Oxygen Delivery Method Room Air Weight: 140 lb 10.479 oz Body Mass Index (BMI) 24.1 Intake and Output for Last 24 Hours 09/14/20 09/15/20 09/16/20 23:59 23:59 23:59 Intake Total 2655 / 2755 1140 / 1140 50 / 50 Output Total 300 / 300 150 / 150 Balance 2355 / 2455 990 / 990 50 / 50 General: Alert, Cooperative, No apparent distress, - - Oriented x3 HEENT: Atraumatic, PERRLA, EOMI, Normocephalic Oral: Moist Mucosa Neck: Supple, No JVD Lungs: Clear to auscultation, Normal air movement, No rhonchi, No wheeze, No rales, Diminished Cardiovascular: Regular rate, Regular Rhythm, Normal S1, Normal S2, No murmurs Abdomen: Soft, Non Tender, Non-Distended, No Hepato-splenomegaly Extremities: No edema, Capillary Refill Less than 3 Seconds Skin: No rashes, No breakdown Neurological: Neuro grossly intact, Sensory exam intact to light touch and pain Psych/Mental Status: Normal Affect, Appropriate Microbiology Past 72 Hours 09/14/20 11:10 Urine, Clean Catch Urine Culture - Final Escherichia coli 09/14/20 12:28 Mucosa - Nose SARS-CoV-2 Antigen (Rapid) - Final Laboratory Results 09/14/20 10:40: Diff Path Review Reviewed 09/15/20 05:15: Diff Path Review Reviewed 09/16/20 05:49: WBC 17.1 H, RBC 3.20 L, Hgb 9.2 L, Hct 28.7 L, MCV 89.7, MCH 28.8, MCHC 32.1, RDW Std Deviation 46.7 H, RDW Coeff of Roselyn 14.3, Plt Count 365, MPV 8.1, Immature Gran % (Auto) 1.200 H, Neut % (Auto) 67.6, Lymph % (Auto) 6.0 L, [place] % (Auto) 18.4 H, Eos % (Auto) 6.4 H, Baso % (Auto) 0.4, Absolute Neuts (auto) 11.6 H, Absolute Lymphs (auto) 1.03, Nucleated RBC % 0, Differential Comment SCANNED, Diff Path Review January09/16/20 05:49: Sodium 130 L, Potassium 3.9, Chloride 98, Carbon Dioxide 26.0, Anion Gap 6, BUN 25 H, Creatinine 0.48 L, Estim Creat Clear Calc 37.45, Est GFR (MDRD) Af Amer 158, Est GFR (MDRD) Non-Af 130, BUN/Creatinine Ratio 51.7 H, Glucose 88, Calcium 8.7, Magnesium 1.8 Current Medications Acetaminophen (Acetaminophen 500 Mg Tablet) 500 mg PO DAILY PRN PRN PRN Reason: Pain 1-10 or Fever Last Admin: 09/14/20 21:19 Dose: 500 mg Documented by: Amlodipine Besylate (Amlodipine 5 Mg Tablet) 5 mg PO DAILY [facility] Last Admin: 09/16/20 08:22 Dose: 5 mg Documented by: Clopidogrel Bisulfate (Clopidogrel Bisulfate 75 Mg Tablet) 75 mg PO DAILY [facility] Last Admin: 09/16/20 08:24 Dose: 75 mg Documented by: Enoxaparin Sodium (Enoxaparin 40 Mg/0.4 Ml Syringe) 40 mg SC DAILY [facility] Last Admin: 09/16/20 08:22 Dose: 40 mg Documented by: Cefazolin Sodium () 1 gm in 50 mls @ 100 mls/hr IV Q8 [facility] Last Infusion: 09/16/20 07:36 Dose: Infused Documented by: Ibuprofen (Ibuprofen 200 Mg Tablet) 400 mg PO DAILY PRN PRN PRN Reason: Pain 1-10 or Fever Last Admin: 09/14/20 22:46 Dose: 400 mg Documented by: Levothyroxine Sodium (Levothyroxine 50 Mcg Tablet) 50 mcg PO DAILY@0600 [facility] Last Admin: 09/16/20 06:51 Dose: 50 mcg Documented by: Lisinopril (Lisinopril 40 Mg Tablet) 40 mg PO DAILY [facility] Last Admin: 09/16/20 08:24 Dose: 40 mg Documented by: Metoprolol Succinate (Metoprolol(Xl)Succ 50 Mg Tablet) 50 mg PO DAILY [facility] Last Admin: 09/16/20 08:23 Dose: 50 mg Documented by: Nitroglycerin (Nitroglycerin (Inpatient Use) 0.4 Mg Tab.Subl) 0.4 mg SUBLINGUAL Q5M PRN PRN Reason: CARDIAC/CHEST PAIN Nutritional Formula (Lactose Free) (Ensure Enlive 120 Ml Liquid) 120 ml PO 4X/DAY [facility] Last Admin: 09/16/20 08:22 Dose: 120 ml Documented by: Ondansetron HCl (Ondansetron 4 Mg/2 Ml Vial) 4 mg IV Q8H PRN PRN PRN Reason: NAUSEA/VOMITING Pantoprazole Sodium (Pantoprazole Sodium 40 Mg Tablet) 40 mg PO DAILY [facility] Last Admin: 09/16/20 08:24 Dose: 40 mg Documented by: STROKE Vital Signs/Narrative: Vital Signs Pulse 09/16/20 08:23 75 Medical Necessity - Tobacco Use Smoking Status: Former smoker Tobacco Use: Cigarettes Assessment/Plan All Active Problems (Last Reviewed 09/14/20 @ 14:[address] Jayesh Abernathy, DO) Surgical wound present (Acute) Vascular catheter fitting or adjustment (Acute) CINV (chemotherapy-induced nausea and vomiting) (Acute) Stomatitis (Resolved) UTI (urinary tract infection) (Resolved) Diarrhea (Acute) Delirium (Acute) Elevated troponin (Acute) Encephalopathy (Acute) 1. Metabolic encephalopathy likely secondary to UTI/hyponatremia -We will start her on Ancef for her gram-negative lynsey UTI, leukocytosis of 18.4 on admission down to 15.5 today -Urine culture and the cause of UTI is a E. coli that is pansensitive -I discussed the situation with her who would like her to stay another day to see if her confusion completely resolved with continued IV antibiotics -PT/OT -Case management for possible placement -Covid test was negative we will continue to hold any of her medications that could also cause her to have some altered mental status -Sodium is stable at 130, she received 2 L of IV fluids yesterday and will continue to monitor and provide more if necessary 2. History of lung cancer -She does have worsening hilar and adenopathy and she was supposed to start chemo tomorrow -If treatment of her UTI does not cause resolution of her acute encephalopathy/delirium, can proceed with an MRI of her brain to evaluate for metastatic disease 3. Elevated troponin/HTN/HLD/pulmonary hypertension -Unknown significance at this time as initially she was 0.18 and then improved to 0.1 and then went up to 0.155 -EKG is nonischemic, previous echo with an RVSP of 52 mmHg if she develops an oxygen requirement may need to give her some Lasix -Blood pressure is stable, continue with Norvasc, lisinopril, metoprolol -Continue with Plavix 4. GERD -Stable -Continue with PPI DVT: Lovenox Inpatient E&M: 74918 Subs Hosp L2
[2020-09-16] MEDS: 0.9% Saline Lock 10 ML Syringe IV ×2 (13:38→21:42)
[2020-09-16 14:39] LABS: Pathologist Review Reviewed
[2020-09-17] VITALS (10 sets, daily range): BP systolic 145–166; BP diastolic 49–58; PULSE 66–81; RESP 16–18; TEMP 36.4–36.9; O2SAT 93–98
--- NOTE | 2020-09-17 04:13 | NURSING ---
setting off bedexit staff in to assist. pt talking to unseen persons. unable to reorient or redirect. reassurance provided. denies needs other than states take me to [facility]aryl bed exit on
[2020-09-17] MEDS: 0.9% Saline Lock 10 ML Syringe IV ×3 (05:23→18:32)
[2020-09-17] MEDS: Cefazolin 1 GM/50 ML BAG IV ×3 (05:23→21:34)
[2020-09-17] MEDS: Levothyroxine 50 MCG Tablet PO (05:24)
[2020-09-17 05:37] LABS: Absolute Lymphocyte Count 1.03 X10^3/uL (0.83-4.51); Absolute Neutrophil Count 13.9 X10^3/uL (2.0-7.7); Basophil# 0.09 X10^3/uL; Basophil% 0.5 % (0-1); Eosinophils% 5.6 % (0-5); Hematocrit 32.7 % (37-47); Hemoglobin 10.5 g/dL (12.0-15.0); Lymphocyte # 1.03 X10^3/ul (4.0); Lymphocyte % 5.2 % (19-41); Mean Corp Hgb Conc 32.1 g/dL (32-36); Mean Corpuscular Hgb 29.1 pg (27.0-32.0); Mean Corpuscular Volume 90.6 fL (81-99); Mean Platelet Vol. 8.3 fl (6.2-12.0); Monocyte% 16.7 % (0-10); NRBC Flagged by Analyzer 0 % (0-5); Neutrophil # 13.92 X10^3/uL (2.7-7.7); Neutrophil % 70.6 % (47-70); POSITIVE DIFFERENTIAL YES; Platelet Count 422 K/mm3 (150-450); RBC Distribution Width CV 14.2 % (11.6-14.6); RBC Distribution Width SD 47.3 fl (35.1-43.9); Red Blood Count 3.61 M/mm3 (4.2-5.4); White Blood Count 19.7 K/mm3 (4.4-11.0)
[2020-09-17 05:39] LABS: Differential Indicated SCAN CRITERIA MET
[2020-09-17 05:52] LABS: Anion Gap 6 (5-15); BUN 18 mg/dL (7-18); BUN/Creat Ratio 39.8 RATIO (10-20); Calcium,Total 9.2 mg/dL (8.5-10.1); Chloride 94 mmol/L (98-107); Creatinine, Serum 0.45 mg/dL (0.55-1.02); EST Glomerular Filtration Rate 141 mL/min (>60); Est Glom Filt Rate - Afr Amer 170 mL/min (>60); Estimated Creatinine Clearance 37.45 ml/min; Glucose 103 mg/dL (74-106); Potassium 3.7 mmol/L (3.5-5.1); Sodium Level 128 mmol/L (136-145)
--- NOTE | 2020-09-17 07:55 | MRI_ITS ---
We are attempting to reach an attending provider to discuss findings. An addendum with communication details will be sent when the communication is complete. STUDY: MRI BRAIN WITH AND WITHOUT CONTRAST REASON FOR EXAM: Female, 80 years old. Dementia, AMS, H/O LUNG CA TECHNIQUE: Standardized multiplanar fat and water weighted pulse sequences were obtained. IV 13cc dotarem was administered for the contrast portion of the examination. COMPARISON: 09/14/2020 CT of the head FINDINGS: There is mild cerebral atrophy with widening of the extra-axial spaces and ventricular dilatation. There are multiple white matter hyperintensities, distributed throughout the deep white matter tracts of the cerebral hemispheres, consistent with moderate chronic white matter ischemic changes. There are multiple small foci (2 - 3 mm) of restricted diffusion involving the frontoparietal regions and right cerebellum (axial image #7 series 4). With some of these foci there is demonstrated drop of signal on ADC map, consistent with acute infarctions. Normal bilateral basal ganglia. Normal thalami. There is no extra-axial fluid accumulation. Normal flow voids within the major intracranial circulation suggesting patency by spin echo criteria. Normal venous enhancement. There is no enhancing intra-axial or extra-axial abnormality. Normal sella turcica, pituitary gland, infundibular stalk, optic chiasm and hypothalamus. Normal tectal plate and pineal gland. Normal midbrain, kevin and medulla. MRI/Brain W/WO Contrast IMPRESSION: Cerebral and cerebellar small foci of acute infarctions. Consider embolic sources. Electronically Signed: Tyrone Beckham MD at 11:32 EST Tel , Service support ,
[2020-09-17 10:21] LABS: Pathologist Review Reviewed
[2020-09-17] MEDS: amLODIPine 5 MG Tablet PO (11:06)
[2020-09-17] MEDS: Clopidogrel Bisulfate 75 MG Tablet PO (11:06)
[2020-09-17] MEDS: Enoxaparin 40 MG/0.4 ML Syringe SC (11:06)
[2020-09-17] MEDS: Pantoprazole Sodium 40 MG Tablet PO (11:06)
[2020-09-17] MEDS: Lisinopril 40 MG Tablet PO (11:07)
[2020-09-17] MEDS: Metoprolol(XL)Succ 50 MG Tablet PO (11:07)
--- NOTE | 2020-09-17 11:56 | CASEMGMT ---
This RN CM to room to speak with pt regarding d/c plan at this time. Pt is A/Ox4 at this time and answers all questions appropriately at this time. Pt states no concerns with going home at time of discharge. Pt declines the need for any HHC or OP therapy at time of discharge. Pt states that her can assist, if needed. Pt declines for this RN CM to call or daughter at this time. Per Margret BONILLA, pt has been A/Ox4 today for her as well. Therapy has not seen pt yet today d/t OOD for MRI but call to them at this time to see pt, voice understanding. Pt voices no further questions/concerns/needs at this time. [place] IRENE CM
--- NOTE | 2020-09-17 12:06 | ECHOD_ITS ---
Reason For Study: Stroke Procedure This was a limited 2D transthoracic echocardiogram. The study was technically difficult. Limited views were obtained. Exam performed in department. Left Ventricle Left ventricular systolic function is normal. The estimated ejection fraction is 70 %. Unable to assess diastolic dysfunction. No regional wall motion abnormalities noted. Right Ventricle Normal RV size. Normal systolic function. Atria No doppler evidence for ASD. Bubble contrast study negative for right to left interatrial shunt. Mitral Valve There is moderate mitral annular calcification. Extension of the mitral annular calcification onto the base of the posterior mitral valve leaflet. Mild focal mitral valve calcification of the anterior leaflet. Moderate (2+) mitral valve insufficiency. Tricuspid Valve Normal tricuspid valve. Mild tricuspid valve insufficiency. Right ventricular systolic pressure estimated to be 47 mmHg. Aortic Valve The aortic valve is not well visualized. Mild (1+) aortic valve insufficiency. Pulmonic Valve The pulmonic valve is not well visualized. Pericardium/Pleural No pericardial effusion. Medication Performed a rapid injection of agitated mix of 9 cc saline and 1cc air to assess for atrial septal defect. MMode/2D Measurements & Calculations LVAd ap4: 23.5 cm2 SV(MOD-sp4): 43.3 ml SV(sp4-el): 45.0 ml EDV(MOD-sp4): 62.3 ml EDV(sp4-el): 63.6 ml LVAs ap4: 11.1 cm2 ESV(MOD-sp4): 19.0 ml ESV(sp4-el): 18.5 ml EF(MOD-sp4): 69.4 % EF(sp4-el): 70.8 % Doppler Measurements & Calculations Ao V2 max: 211.4 cm/sec TR max delvin: 332.3 cm/sec Ao max P.9 mmHg TR max P.2 mmHg Ao V2 mean: 138.8 cm/sec Ao mean P.6 mmHg Ao V2 VTI: 42.9 cm Interpretation Summary The study was technically difficult. Limited views were obtained. Left ventricular systolic function is normal. The estimated ejection fraction is 70 %. There is moderate mitral annular calcification. Extension of the mitral annular calcification onto the base of the posterior mitral valve leaflet. Mild focal mitral valve calcification of the anterior leaflet. Moderate (2+) mitral valve insufficiency. Mild tricuspid valve insufficiency. Mild (1+) aortic valve insufficiency. Right ventricular systolic pressure estimated to be 47 mmHg. Unable to assess diastolic dysfunction. Ordering Physician: Prashanth Higuera Referring Physician: Kathy Randall Performed By: Prudence Wheat, GIUSEPPE, RVT
--- NOTE | 2020-09-17 12:07 | TELEMED_ITS ---
[facility] Tele[facility] has confirmed receipt of a request for visit. This document confirms receipt of the order initiating the consult. To find the results of the consultation, please view the patient's reports for the scanned Telemed Consult.
--- NOTE | 2020-09-17 13:51 | CT_ITS ---
STUDY: CTA HEAD AND NECK WITH CONTRAST REASON FOR EXAM: Female, 80 years old. CVA/HX LUNG CANCER RADIATION DOSAGE (If Supplied By Facility): CTDIvol = ( 24.20 ) mGy, DLP = ( 1334.38 ) mGycm TECHNIQUE: CT angiography was performed with a multi-detector CT scanner. Data acquisition was obtained from the skull base through the vertex following intravenous administration of IV 100mL Isovue-370. MIP images were reconstructed from the axial data set. Post-processing of the angiographic images was performed, with multiplanar reformation and 3D reconstruction. Individualized dose optimization techniques were used for this CT. COMPARISON: No relevant priors. FINDINGS: Normal bilateral petrous carotid arteries. Mildly calcified right cavernous carotid artery with a normal supraclinoid bifurcation. Mildly calcified left cavernous carotid artery with a normal supraclinoid bifurcation. Normal right A1 segments of the anterior cerebral artery. Normal left A1 segments of the anterior cerebral artery. Normal intact anterior communicating artery (ACOM). Normal bilateral A2 segments of the anterior cerebral arteries. Normal right M1 and M2 segments of the middle cerebral arteries, with a normal M1 bifurcation. Normal left M1 and M2 segments of the middle cerebral arteries, with a normal M1 bifurcation. Normal right posterior communicating artery (PCOM). Nonvisualization of the left posterior communicating artery (PCOM). Normal bilateral vertebral arteries. Normal basilar artery with a normal basilar bifurcation. The visualized bilateral superior cerebellar (SCA) arteries are normal. Normal bilateral P1, P2 and visualized P3 segments of the posterior cerebral arteries. There is no demonstrated aneurysm of the [place]. There is no demonstrated abnormality of the visualized brain. AORTIC ARCH: Calcified visualized aortic arch. Calcifications at the origins of the brachiocephalic, left common carotid, and left subclavian arteries. RIGHT CAROTID ARTERIES: Normal right common carotid artery (CCA). Moderate atherosclerotic calcifications at the right common carotid bulb with 60-70% stenosis. Atherosclerotic calcifications at the origin of the right internal carotid (ICA) artery with approximately 50% stenosis. Normal visualized cervical portion of the right internal carotid artery. Normal origin of the right external carotid artery (ECA). LEFT CAROTID ARTERIES: Normal left common carotid artery (CCA). Mild atherosclerotic calcifications at the left common carotid bulb. Normal origin of the left internal carotid (ICA) artery without a hemodynamically significant stenosis. Normal visualized cervical portion of the left internal carotid artery. Normal origin of the left external carotid artery (ECA). VERTEBRAL ARTERIES: Normal right vertebral artery. Focal severe stenosis of the left vertebral artery at C2, image 118 series 4. Mild stenosis of the left humeral artery at C3, image 104 series 4. Focal calcification at the origin of the left vertebral artery. Mild groundglass densities in the upper lobes. CT/CTA Head AND Neck W/ Contrast IMPRESSION: Stenosis of the left vertebral artery. Mild stenosis at the right carotid bulb and proximal right internal carotid artery. Electronically Signed: Heriberto Humphreys DO at 18:31 EST Tel [phone], Service support ,
--- NOTE | 2020-09-17 16:26 | PCM.PN.HOSP ---
Patient Problems: Active and Suspected Problems (Last Reviewed 09/14/20 @ 14:[address] Jayesh Abernathy, DO) Surgical wound present (Acute) Vascular catheter fitting or adjustment (Acute) CINV (chemotherapy-induced nausea and vomiting) (Acute) Diarrhea (Acute) Delirium (Acute) Elevated troponin (Acute) Encephalopathy (Acute) Subjective: Still confused, she knows what year it is but states she is in [place]. She had increased hallucinations and issues overnight. We will proceed with an MRI this morning Vitals/I&O's: Vital Signs Temp Pulse Resp BP Pulse Ox 97.9 F 79 16 153/58 H 98 09/17/20 15:58 09/17/20 15:58 09/17/20 15:58 09/17/20 15:58 09/17/20 15:58 Oxygen Delivery Method Room Air Weight: 140 lb 10.479 oz Body Mass Index (BMI) 24.1 Intake and Output for Last 24 Hours 09/15/20 09/16/20 09/17/20 23:59 23:59 23:59 Intake Total 1140 / 1140 630 / 630 410 / 410 Output Total 150 / 150 Balance 990 / 990 630 / 630 410 / 410 General: Alert, Cooperative, No apparent distress, - - Oriented x2 HEENT: Atraumatic, PERRLA, EOMI, Normocephalic Oral: Moist Mucosa Neck: Supple, No JVD Lungs: Clear to auscultation, Normal air movement, No rhonchi, No wheeze, No rales, Diminished Cardiovascular: Regular rate, Regular Rhythm, Normal S1, Normal S2, No murmurs Abdomen: Soft, Non Tender, Non-Distended, No Hepato-splenomegaly Extremities: No edema, Capillary Refill Less than 3 Seconds Skin: No rashes, No breakdown Neurological: Neuro grossly intact, Sensory exam intact to light touch and pain, no focal findings Psych/Mental Status: Normal Affect, Appropriate Microbiology Past 72 Hours 09/14/20 10:40 Blood Culture (Wb) - Right Hand Blood Culture - Preliminary No growth in 48 hours. 09/14/20 11:10 Blood Culture (Wb) - Central Line Blood Culture - Preliminary No growth in 48 hours. 09/14/20 11:10 Urine, Clean Catch Urine Culture - Final Escherichia coli 09/14/20 12:28 Mucosa - Nose SARS-CoV-2 Antigen (Rapid) - Final Laboratory Results 09/17/20 05:15: WBC 19.7 H, RBC 3.61 L, Hgb 10.5 L, Hct 32.7 L, MCV 90.6, MCH 29.1, MCHC 32.1, RDW Std Deviation 47.3 H, RDW Coeff of Roselyn 14.2, Plt Count 422, MPV 8.3, Immature Gran % (Auto) 1.400 H, Neut % (Auto) 70.6 H, Lymph % (Auto) 5.2 L, [place] % (Auto) 16.7 H, Eos % (Auto) 5.6 H, Baso % (Auto) 0.5, Absolute Neuts (auto) 13.9 H, Absolute Lymphs (auto) 1.03, Nucleated RBC % 0, Diff Path Review Reviewed 09/17/20 05:15: Sodium 128 L, Potassium 3.7, Chloride 94 L, Carbon Dioxide 28.0, Anion Gap 6, BUN 18, Creatinine 0.45 L, Estim Creat Clear Calc 37.45, Est GFR (MDRD) Af Amer 170, Est GFR (MDRD) Non-Af 141, BUN/Creatinine Ratio 39.8 H, Glucose 103, Calcium 9.2 Current Medications Acetaminophen (Acetaminophen 500 Mg Tablet) 500 mg PO DAILY PRN PRN PRN Reason: Pain 1-10 or Fever Last Admin: 09/14/20 21:19 Dose: 500 mg Documented by: Amlodipine Besylate (Amlodipine 5 Mg Tablet) 5 mg PO DAILY [facility] Last Admin: 09/17/20 11:06 Dose: 5 mg Documented by: Clopidogrel Bisulfate (Clopidogrel Bisulfate 75 Mg Tablet) 75 mg PO DAILY [facility] Last Admin: 09/17/20 11:06 Dose: 75 mg Documented by: Enoxaparin Sodium (Enoxaparin 40 Mg/0.4 Ml Syringe) 40 mg SC DAILY [facility] Last Admin: 09/17/20 11:06 Dose: 40 mg Documented by: Cefazolin Sodium () 1 gm in 50 mls @ 100 mls/hr IV Q8 [facility] Last Admin: 09/17/20 15:53 Dose: 100 mls/hr Documented by: Sodium Chloride () 250 mls @ 15 mls/hr IV .[id number] PRN PRN Reason: Saline Flush Sodium Chloride () 250 mls @ 15 mls/hr IV .[id number] PRN PRN Reason: Additional IVPB Infusion Ibuprofen (Ibuprofen 200 Mg Tablet) 400 mg PO DAILY PRN PRN PRN Reason: Pain 1-10 or Fever Last Admin: 09/14/20 22:46 Dose: 400 mg Documented by: Levothyroxine Sodium (Levothyroxine 50 Mcg Tablet) 50 mcg PO DAILY@0600 [facility] Last Admin: 09/17/20 05:24 Dose: 50 mcg Documented by: Lisinopril (Lisinopril 40 Mg Tablet) 40 mg PO DAILY [facility] Last Admin: 09/17/20 11:07 Dose: 40 mg Documented by: Metoprolol Succinate (Metoprolol(Xl)Succ 50 Mg Tablet) 50 mg PO DAILY [facility] Last Admin: 09/17/20 11:07 Dose: 50 mg Documented by: Nitroglycerin (Nitroglycerin (Inpatient Use) 0.4 Mg Tab.Subl) 0.4 mg SUBLINGUAL Q5M PRN PRN Reason: CARDIAC/CHEST PAIN Nutritional Formula (Lactose Free) (Ensure Enlive 120 Ml Liquid) 120 ml PO 4X/DAY [facility] Last Admin: 09/17/20 15:52 Dose: Not Given Documented by: Ondansetron HCl (Ondansetron 4 Mg/2 Ml Vial) 4 mg IV Q8H PRN PRN PRN Reason: NAUSEA/VOMITING Pantoprazole Sodium (Pantoprazole Sodium 40 Mg Tablet) 40 mg PO DAILY [facility] Last Admin: 09/17/20 11:06 Dose: 40 mg Documented by: Sodium Chloride (0.9% Saline Lock 10 Ml Syringe) 10 - 40 ml IV UD PRN PRN Reason: SALINE FLUSH Last Admin: 09/17/20 15:57 Dose: 10 ml Documented by: STROKE Vital Signs/Narrative: Vital Signs Temp Pulse Resp BP Pulse Ox 09/17/20 15:58 97.9 F 79 16 153/58 H 98 09/17/20 14:55 81 Medical Necessity - Tobacco Use Smoking Status: Never smoker Tobacco Use: Cigarettes Assessment/Plan All Active Problems (Last Reviewed 09/14/20 @ 14:[address] Jayesh Abernathy, DO) Surgical wound present (Acute) Vascular catheter fitting or adjustment (Acute) CINV (chemotherapy-induced nausea and vomiting) (Acute) Stomatitis (Resolved) UTI (urinary tract infection) (Resolved) Diarrhea (Acute) Delirium (Acute) Elevated troponin (Acute) Encephalopathy (Acute) 1. Metabolic encephalopathy likely secondary to UTI in combination with an embolic CVA/hyponatremia -We will start her on Ancef for her gram-negative lynsey UTI, increased back to 19.7, will proceed with blood cultures -Urine culture and the cause of UTI is a E. coli that is pansensitive -MRI demonstrated no metastatic lesions however multiple small embolic stroke. I discussed the case at length with neurology and they do agree with the idea of placing her on anticoagulation however they would like to wait for Eliquis to be initiated for another couple of days as her symptoms started on Monday. He explained that to prevent hemorrhagic conversion, the ideal window is to restart anticoagulation between 4 and 14 days of onset of symptoms. They also recommended an EEG as well as a CTA of the head and neck and an echo. The echo had a 70% EF, with an RVSP of 47 mmHg. If blood cultures to come back positive will likely need to proceed with a transesophageal echo -The CT of the head and neck is pending read -PT/OT -Case management for possible placement -Covid test was negative we will continue to hold any of her medications that could also cause her to have some altered mental status -We will continue with fluid restriction at this time kidney function is stable her sodium is back down to 128 -She is already on Plavix, and will add aspirin per neurology's recommendations. When she is ready to start Eliquis I also recommended that both the antiplatelets be discontinued 2. History of lung cancer -She does have worsening hilar and adenopathy and she was supposed to start chemo tomorrow -If treatment of her UTI does not cause resolution of her acute encephalopathy/delirium, can proceed with an MRI of her brain to evaluate for metastatic disease 3. Elevated troponin/HTN/HLD/pulmonary hypertension -Unknown significance at this time as initially she was 0.18 and then improved to 0.1 and then went up to 0.155 -EKG is nonischemic, previous echo with an RVSP of 52 mmHg if she develops an oxygen requirement may need to give her some Lasix -Blood pressure is stable, continue with Norvasc, lisinopril, metoprolol -Continue with Plavix 4. GERD -Stable -Continue with PPI DVT: Lovenox Inpatient E&M: 36071 [facility] Hosp L3
[2020-09-17] MEDS: levETIRAcetam IV 1,000 MG/100 ML BAG 400 MG IV (18:28)
--- NOTE | 2020-09-17 18:54 | NURSING ---
called and obtained verbal consent for transfer to [facility]
--- NOTE | 2020-09-17 19:02 | DS.PCM_ITS ---
Discharge Date and Diagnosis - Problem List Patient Problems: Active and Suspected Problems (Last Reviewed 09/14/20 @ 14:[address] Jayesh Abernathy DO) Surgical wound present (Acute) Vascular catheter fitting or adjustment (Acute) CINV (chemotherapy-induced nausea and vomiting) (Acute) Diarrhea (Acute) Delirium (Acute) Elevated troponin (Acute) Encephalopathy (Acute) Date of Admission: 09/14/20 Date of Discharge: 09/17/20 - Primary Discharge Diagnosis Acute Problems: Active Problems (Last Reviewed 09/14/20 @ 14:[address] Jayesh bAernathy DO) Surgical wound present (Acute) Vascular catheter fitting or adjustment (Acute) CINV (chemotherapy-induced nausea and vomiting) (Acute) Diarrhea (Acute) Delirium (Acute) Elevated troponin (Acute) Encephalopathy (Acute) - Secondary Discharge Diagnosis Chronic Problems: Chronic Problems (Last Reviewed 09/14/20 @ 14:[address] Jayesh Abernathy DO) Anemia (Chronic) Hilar adenopathy (Chronic) Metastatic lung carcinoma (Chronic) Iron deficiency anemia (Chronic) Cancer-related pain (Chronic) Lung mass (Chronic) NSCLC of right lung (Chronic) Hospital Course and Treatment Imaging Results: Clinical Impression(s) from Imaging Studies Brain CT 09/14/20 10:15 IMPRESSION: Chronic involutional changes of the brain. Electronically Signed: Tyrone Beckham MD at 12:08 EST Tel , Service support , Chest X-Ray 09/14/20 11:55 IMPRESSION: Localized pleural thickening in the right lateral chest wall with increased markings at the right lung base. This may represent an early infiltrate. Stable sclerotic lesion in the proximal portion of the right humerus. Electronically Signed: Bassam James, at 12:14 EST , Service support , Chest CT 09/14/20 13:13 IMPRESSION: Stable pleural thickening and fibrocalcific nodule in the right lower lobe. Since prior study, there has been progressive enlargement of the right hilar lymph node. Electronically Signed: Bassam James, at 14:25 EST , Service support , Brain MRI 09/17/20 07:55 IMPRESSION: Cerebral and cerebellar small foci of acute infarctions. Consider embolic sources. Electronically Signed: Tyrone Beckham MD at 11:32 EST Tel , Service support , ADDENDUM: 09/17/20 1249 IMPRESSION: Cerebral and cerebellar small foci of acute infarctions. Consider embolic sources. N.B. : The above information has been verbally conveyed by Tyrone Beckham MD to Margret Houston RN, on 09/17/2020 12:42:39 (ET). Electronically Signed: Tyrone Beckham MD at 11:32 EST Tel , Service support , Head/Neck CTA 09/17/20 13:51 IMPRESSION: Stenosis of the left vertebral artery. Mild stenosis at the right carotid bulb and proximal right internal carotid artery. 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 Multiple intervals of seizure-like activity appear to be involved in this region, consisting of low to medium amplitude polyspike and sharp wave discharges maximum at F3 greater than Fp1. No obvious clinical manifestation is noted in technologist documentation Consults: Neurology Operations: None Procedures: None Summary of Care Provided: Per HPI: The patient is a 80 year old F presents with confusion. Family has noted the patient to be confused over the past few days. Presented to her oncologist this past Monday and was found to have a low sodium did receive IV fluids. Again presented to the oncologist office today and was still confused. Patient was sent to the emergency room. In the emergency room, patient's white count was noted to be 18.4 thousand, sodium 128 potassium 3.3. History is obtained through the emergency room physician as well as the patient's daughter at bedside. Patient is too confused to provide any history. Daughter notes that the patient has been having some back pain and has been using Salonpas but stopped using that about a day ago because of the confusion. Patient has been still using the Ambien. Hospital Course: 1. Metabolic encephalopathy likely secondary to UTI in combination with an embolic CVA/hyponatremia/nonconvulsive status epilepticus -We will start her on Ancef for her gram-negative lynsey UTI, increased back to 19.7, will proceed with blood cultures -Urine culture and the cause of UTI is a E. coli that is pansensitive -MRI demonstrated no metastatic lesions however multiple small embolic stroke. I discussed the case at length with neurology and they do agree with the idea of placing her on anticoagulation however they would like to wait for Eliquis to be initiated for another couple of days as her symptoms started on Monday. He explained that to prevent hemorrhagic conversion, the ideal window is to restart anticoagulation between 4 and 14 days of onset of symptoms. They also recommended an EEG as well as a CTA of the head and neck and an echo. The echo had a 70% EF, with an RVSP of 47 mmHg. If blood cultures to come back positive will likely need to proceed with a transesophageal echo -The CT of the head and neck is pending read -PT/OT -Case management for possible placement -Covid test was negative we will continue to hold any of her medications that could also cause her to have some altered mental status -We will continue with fluid restriction at this time kidney function is stable her sodium is back down to 128 -She is already on Plavix, and will add aspirin per neurology's recommendations. 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 She was loaded with a gram of Keppra IV and was placed on 500 mg IV Keppra twice daily. I discussed the case with [facility] and they accepted the patient in transfer. 2. History of non-small cell lung cancer, she had a lobectomy at [facility] October 2019 -She does have worsening hilar and adenopathy and she was supposed to start chemo 09/16/2020 -MRI was negative for mets but did demonstrate embolic stroke 3. Elevated troponin/HTN/HLD/pulmonary hypertension -Unknown significance at this time as initially she was 0.18 and then improved to 0.1 and then went up to 0.155 -EKG is nonischemic, previous echo with an RVSP of 52 mmHg if she develops an oxygen requirement may need to give her some Lasix -Blood pressure is stable, continue with Norvasc, lisinopril, metoprolol -Continue with Plavix 4. GERD -Stable -Continue with PPI Patient Problems: Active and Suspected Problems (Last Reviewed 09/14/20 @ 14:[address] Jayesh Abernathy, DO) Surgical wound present (Acute) Vascular catheter fitting or adjustment (Acute) CINV (chemotherapy-induced nausea and vomiting) (Acute) Diarrhea (Acute) Delirium (Acute) Elevated troponin (Acute) Encephalopathy (Acute) - Physical Exam Vitals/I&O's: Vital Signs Temp Pulse Resp BP Pulse Ox 97.9 F 79 16 153/58 H 98 09/17/20 15:58 09/17/20 15:58 09/17/20 15:58 09/17/20 15:58 09/17/20 15:58 Oxygen Delivery Method Room Air Weight: 140 lb 10.479 oz Body Mass Index (BMI) 24.1 Intake and Output for Last 24 Hours 09/15/20 09/16/20 09/17/20 23:59 23:59 23:59 Intake Total 1140 / 1140 630 / 630 930 / 930 Output Total 150 / 150 450 / 450 Balance 990 / 990 630 / 630 480 / 480 Microbiology Past 72 Hours 09/14/20 10:40 Blood Culture (Wb) - Right Hand Blood Culture - Preliminary No growth in 48 hours. 09/14/20 11:10 Blood Culture (Wb) - Central Line Blood Culture - Preliminary No growth in 48 hours. 09/14/20 11:10 Urine, Clean Catch Urine Culture - Final Escherichia coli Laboratory Results 09/17/20 05:15: WBC 19.7 H, RBC 3.61 L, Hgb 10.5 L, Hct 32.7 L, MCV 90.6, MCH 29.1, MCHC 32.1, RDW Std Deviation 47.3 H, RDW Coeff of Roselyn 14.2, Plt Count 422, MPV 8.3, Immature Gran % (Auto) 1.400 H, Neut % (Auto) 70.6 H, Lymph % (Auto) 5.2 L, [place] % (Auto) 16.7 H, Eos % (Auto) 5.6 H, Baso % (Auto) 0.5, Absolute Neuts (auto) 13.9 H, Absolute Lymphs (auto) 1.03, Nucleated RBC % 0, Diff Path Review Reviewed 09/17/20 05:15: Sodium 128 L, Potassium 3.7, Chloride 94 L, Carbon Dioxide 28.0, Anion Gap 6, BUN 18, Creatinine 0.45 L, Estim Creat Clear Calc 37.45, Est GFR (MDRD) Af Amer 170, Est GFR (MDRD) Non-Af 141, BUN/Creatinine Ratio 39.8 H, Glucose 103, Calcium 9.2 Current Medications Acetaminophen (Acetaminophen 500 Mg Tablet) 500 mg PO DAILY PRN PRN PRN Reason: Pain 1-10 or Fever Last Admin: 09/14/20 21:19 Dose: 500 mg Documented by: Amlodipine Besylate (Amlodipine 5 Mg Tablet) 5 mg PO DAILY [facility] Last Admin: 09/17/20 11:06 Dose: 5 mg Documented by: Clopidogrel Bisulfate (Clopidogrel Bisulfate 75 Mg Tablet) 75 mg PO DAILY [facility] Last Admin: 09/17/20 11:06 Dose: 75 mg Documented by: Enoxaparin Sodium (Enoxaparin 40 Mg/0.4 Ml Syringe) 40 mg SC DAILY [facility] Last Admin: 09/17/20 11:06 Dose: 40 mg Documented by: Cefazolin Sodium () 1 gm in 50 mls @ 100 mls/hr IV Q8 [facility] Last Infusion: 09/17/20 16:40 Dose: Infused Documented by: Sodium Chloride () 250 mls @ 15 mls/hr IV .[id number] PRN PRN Reason: Saline Flush Sodium Chloride () 250 mls @ 15 mls/hr IV .[id number] PRN PRN Reason: Additional IVPB Infusion Levetiracetam 500 mg/ Sodium (Chloride) 105 mls @ 400 mls/hr IV Q12 [facility] Ibuprofen (Ibuprofen 200 Mg Tablet) 400 mg PO DAILY PRN PRN PRN Reason: Pain 1-10 or Fever Last Admin: 09/14/20 22:46 Dose: 400 mg Documented by: Levothyroxine Sodium (Levothyroxine 50 Mcg Tablet) 50 mcg PO DAILY@0600 [facility] Last Admin: 09/17/20 05:24 Dose: 50 mcg Documented by: Lisinopril (Lisinopril 40 Mg Tablet) 40 mg PO DAILY [facility] Last Admin: 09/17/20 11:07 Dose: 40 mg Documented by: Metoprolol Succinate (Metoprolol(Xl)Succ 50 Mg Tablet) 50 mg PO DAILY [facility] Last Admin: 09/17/20 11:07 Dose: 50 mg Documented by: Nitroglycerin (Nitroglycerin (Inpatient Use) 0.4 Mg Tab.Subl) 0.4 mg SUBLINGUAL Q5M PRN PRN Reason: CARDIAC/CHEST PAIN Ondansetron HCl (Ondansetron 4 Mg/2 Ml Vial) 4 mg IV Q8H PRN PRN PRN Reason: NAUSEA/VOMITING Pantoprazole Sodium (Pantoprazole Sodium 40 Mg Tablet) 40 mg PO DAILY [facility] Last Admin: 09/17/20 11:06 Dose: 40 mg Documented by: Sodium Chloride (0.9% Saline Lock 10 Ml Syringe) 10 - 40 ml IV UD PRN PRN Reason: SALINE FLUSH Last Admin: 09/17/20 18:32 Dose: 20 ml Documented by: Home Medications: Medications to take at Discharge Amlodipine [Norvasc] 5 mg PO DAILY 09/27/19 Clopidogrel Bisulfate [Plavix] 75 mg PO DAILY 09/27/19 Levothyroxine [Synthroid] 50 mcg PO DAILY 09/27/19 Lisinopril [Zestril] 40 mg PO DAILY 09/27/19 Metoprolol Succinate [[place]sp[place] Sprinkle] 50 mg PO DAILY 09/27/19 Pantoprazole Sodium [Protonix] 40 mg PO DAILY 09/27/19 Zolpidem Tartrate [Ambien Cr] 6.25 mg PO QHS 09/27/19 Lorazepam [Ativan] 0.5 mg PO DAILY PRN 10 Days #10 tab 09/02/20 Acetaminophen [Tylenol Extra Strength] 500 mg PO DAILY PRN PRN 09/14/20 Ibuprofen [Advil] 400 mg PO DAILY PRN PRN 09/14/20 Lidocaine [Salonpas] 1 ea TP DAILY 09/14/20 Primary Care Physician: Kathy Randall MD [Primary Care Provider] - Disposition: Acute care Hospital Minutes spent on discharge:: 35 Patient Condition:: Stable Medical Necessity - Tobacco Use Smoking Status: Never smoker Tobacco Use: Cigarettes Meaningful Use Info Meaningful Use Diagnoses (Choose all that apply): None applicable Inpatient E&M: 58097 Dis[facility] Hosp
[2020-09-18 01:50] VITALS: BP 160/50; PULSE 78; RESP 18; TEMP 36.9; O2SAT 97
[2020-09-18 02:48] VITALS: PULSE 74
--- NOTE | 2020-09-18 03:30 | NURSING ---
Report called to VAHID Whyte
[2020-09-18 05:50] VITALS: BP 168/58; PULSE 69; RESP 18; TEMP 36.6; O2SAT 96
[2020-09-18] MEDS: 0.9% Saline Lock 10 ML Syringe IV (05:55)
[2020-09-18] MEDS: Cefazolin 1 GM/50 ML BAG IV (05:55)
[2020-09-18] MEDS: Levothyroxine 50 MCG Tablet PO (05:55)
[2020-09-18 06:44] LABS: Absolute Lymphocyte Count 0.98 X10^3/uL (0.83-4.51); Absolute Neutrophil Count 9.7 X10^3/uL (2.0-7.7); Basophil# 0.08 X10^3/uL; Basophil% 0.5 % (0-1); Eosinophil# 1.28 X10^3/uL; Eosinophils% 8.5 % (0-5); Hematocrit 29.9 % (37-47); Hemoglobin 9.5 g/dL (12.0-15.0); Lymphocyte # 0.98 X10^3/ul (4.0); Lymphocyte % 6.5 % (19-41); Mean Corp Hgb Conc 31.8 g/dL (32-36); Mean Corpuscular Hgb 29.2 pg (27.0-32.0); Mean Platelet Vol. 8.4 fl (6.2-12.0); Monocyte# 2.83 X10^3/uL; Monocyte% 18.8 % (0-10); NRBC Flagged by Analyzer 0 % (0-5); Neutrophil # 9.65 X10^3/uL (2.7-7.7); POSITIVE DIFFERENTIAL YES; Platelet Count 406 K/mm3 (150-450); RBC Distribution Width CV 14.3 % (11.6-14.6); RBC Distribution Width SD 48.1 fl (35.1-43.9); Red Blood Count 3.25 M/mm3 (4.2-5.4); White Blood Count 15.1 K/mm3 (4.4-11.0)
[2020-09-18 06:48] LABS: Differential Indicated SCAN CRITERIA MET
[2020-09-18 07:03] LABS: Anion Gap 6 (5-15); BUN 15 mg/dL (7-18); BUN/Creat Ratio 27.6 RATIO (10-20); Chloride 94 mmol/L (98-107); Creatinine, Serum 0.54 mg/dL (0.55-1.02); EST Glomerular Filtration Rate 114 mL/min (>60); Est Glom Filt Rate - Afr Amer 138 mL/min (>60); Estimated Creatinine Clearance 37.45 ml/min; Glucose 101 mg/dL (74-106); Potassium 3.5 mmol/L (3.5-5.1); Sodium Level 130 mmol/L (136-145)
[2020-09-18 07:06] VITALS: PULSE 73
--- NOTE | 2020-09-18 07:07 | NURSING ---
THIS RN ATTEMPTED TO CALL [facility] TO UPDATE ABOUT TRANSFER NO ANSWER.
[2020-09-18 07:16] LABS: Differential Comment SCANNED
--- NOTE | 2020-09-18 07:33 | NURSING ---
AWARE OF TRANSFER
[2020-09-21 12:03] LABS: Pathologist Review Reviewed
== END 2020-09-18 08:00 | disposition short-term general hospital (02) | DRG 64 ==
LOC: ED 13:29 → PCU 15:01
PROVIDERS: Family Medicine; Emergency Provider Emergency Medicine; PCP Internal Medicine; Visit Provider Family Medicine
DX: I63.40 Cerebral infarction due to embolism of unspecified cerebral artery (principal); G40.801 Other epilepsy, not intractable, with status epilepticus; G93.41 Metabolic encephalopathy; N30.01 Acute cystitis with hematuria; E87.1 Hypo-osmolality and hyponatremia; C78.01 Secondary malignant neoplasm of right lung; B96.20 Unspecified Escherichia coli [E. coli] as the cause of diseases classified elsewhere; G89.3 Neoplasm related pain (acute) (chronic); D50.9 Iron deficiency anemia, unspecified; D64.81 Anemia due to antineoplastic chemotherapy; T45.1X5A Adverse effect of antineoplastic and immunosuppressive drugs, initial encounter; Z20.828 Contact with and (suspected) exposure to other viral communicable diseases; I27.20 Pulmonary hypertension, unspecified; E87.6 Hypokalemia; I10 Essential (primary) hypertension; E78.5 Hyperlipidemia, unspecified; E03.9 Hypothyroidism, unspecified; K21.9 Gastro-esophageal reflux disease without esophagitis; Z79.02 Long term (current) use of antithrombotics/antiplatelets; Z79.890 Hormone replacement therapy; Z79.899 Other long term (current) drug therapy; Z85.118 Personal history of other malignant neoplasm of bronchus and lung; Z87.891 Personal history of nicotine dependence; Z90.2 Acquired absence of lung [part of]; Z96.659 Presence of unspecified artificial knee joint; Z96.643 Presence of artificial hip joint, bilateral
CPT/HCPCS: 36415; 36591; 70450; 70496; 70498; 70553; 71045; 71250; 80048; 80053; 81001; 83605; 83735; 84484; 85025; 85610; 85730; 87040; 87077; 87086; 87088; 87186; 87426; 93005; 93308; 95819; 97110; 97162; 97166; 97530; 97535; 97802; 99285; A9575; J7030; J7040; P9612; Q9967; A4216

== ENCOUNTER → 2020-10-06 15:36 | Outpatient (CLI) | payer OTHER, SELFPAY ==
[2020-10-06 14:20] VITALS: BMI 22.5
--- NOTE | 2020-10-06 15:38 | VDLE_ITS ---
Reason For Study: Leg edema RIGHT LEFT GSV is normal. GSV is normal. CFV is compressible, spontaneous, phasic, CFV is compressible, spontaneous, phasic, competent and demonstrates normal competent, and demonstrates normal augmentation. augmentation. FV is compressible, spontaneous, phasic, FV is compressible, spontaneous, phasic, competent and demonstrates normal competent and demonstrates normal augmentation. augmentation. POP V is compressible, spontaneous, phasic, Acute deep vein thrombosis is noted in the competent and demonstrates normal left PopV, T/P trunk, PTV, PeroV, GastrocV augmentation. and SoleusV. T/P Trunk is compressible. PTV is compressible. RT PerV is compressible. Procedure This is a venous duplex using B-mode, color flow and spectral Doppler. Exam performed in department. A preliminary report was called and/or faxed to Brenda BONILLA. Interpretation Summary There is no evidence of right lower extremity deep vein thrombosis. Acute deep venous thrombosis left popliteal, tibioperoneal trunk, posterior tibial, peroneal, gastrocnemius, and soleus veins Patent and compressible left great saphenous vein Soft tissue edema noted left lower extremity Ordering Physician: Cleveland Multani Referring Physician: Kathy Randall Performed By: Shirin Sinclair RVT
== END ==
PROVIDERS: PCP Internal Medicine; Referring Provider Internal Medicine Medical Oncology; Visit Provider Internal Medicine Medical Oncology
DX: R60.0 Localized edema (principal)
CPT/HCPCS: 93970

== ENCOUNTER 2020-10-09 14:05 | Inpatient (IN) | payer OTHER, MEDICARE, SELFPAY ==
[2020-10-06 14:20] VITALS: BMI 22.5
[2020-10-09] VITALS (9 sets, daily range): BP systolic 137–150; BP diastolic 58–73; PULSE 69–86; RESP 14–18; TEMP 36.3–36.5; O2SAT 94–99; BMI 24.7
--- NOTE | 2020-10-09 13:56 | PCM.HP.STD ---
Problem List (1) CVA (cerebral vascular accident) Status: Acute Qualifiers: CVA mechanism: unspecified Qualified Code(s): I63.9 - Cerebral infarction, unspecified (2) Acute UTI Status: Acute (3) Hematuria Status: Acute Qualifiers: Hematuria type: unspecified type Qualified Code(s): R31.9 - Hematuria, unspecified (4) Acute blood loss anemia Status: Acute (5) Hyponatremia Status: Acute Comment: Acute on Chronic (6) Metastatic lung carcinoma Status: Chronic Qualifiers: Laterality: right Qualified Code(s): C78.01 - Secondary malignant neoplasm of right lung (7) Iron deficiency anemia Status: Chronic Qualifiers: Iron deficiency anemia type: unspecified iron deficiency Qualified Code(s): D50.9 - Iron deficiency anemia, unspecified (8) DVT, lower extremity, distal, acute Status: Chronic Qualifiers: Laterality: left Qualified Code(s): I82.4Z2 - Acute embolism and thrombosis of unspecified deep veins of left distal lower extremity (9) NSCLC of right lung Status: Chronic History of Present Illness Date of Admission: 10/09/20 Chief Complaint: Facial droop, slurred speech in AM, resolved, OSH ED noted acute on chronic anemia The patient is an 80 y/o F w/ PMHx: Right Non-small cell lung CA with metastatic lesions on chemotherapy s/p prior lobectomy 10/2019, HTN, HLD, Hypothyroidism, GERD, Anxiety recently discharged on 09/17/21 with metabolic encephalopathy secondary to UTI, embolic CVA, hyponatremia and nonconvulsive status per EEG placed on Keppra and transferred to [facility] for further evaluation with of note at that time hold on eliquis temporarily secondary to concern for hemorrhagic conversion already also on plavix who now re-presents to the [facility] from OSH ED [facility] with history of EMS call per family with concern for acute CVA noting at 8:30 am she had slurred speech and L sided facial droop with resolution upon ED presentation except still had some slurred speech but per the patient notes it has been similar to that for 3-4 weeks. Family notes single point EEG performed several days following transfer at [facility] without seizure activity noted with continuation on keppra at discharge with decision for stopped deferred to the patient PCP, recent restart on eliquis in addition to ongoing asa, plavix as well and statin therapy. Per discussion with patient family she started Eliquis on Monday evening but added 2.5 mg p.o. twice daily regimen. Additionally family notes that following initiation of these recent targeted chemotherapy she had onset of mild hematuria this prior Monday which then significantly worsened on Monday following initiation of the anticoagulant therapy. Review of recent records note 10/06/2020 urine culture with Enterobacter sensitive to cefepime. OSH ED evaluation and work-up included: VS: T 98.0, HR 73, RR 16, BP 129/55, 99% on RA CBC: WBC 13.5, Hgb 6.5, MCV 89, Plts 386 without shift. CMP: Na 121, K 4.4, BUN/Cr 23/0.6, Glucose 110, hepatic profile w/ Alk phos 203, AST/ALT 46/34 EKG: SR without acute evidence of ischemia. CT head: No acute intracranial findings, small vessel ischemic disease, global atrophy Recent 09/17/20 MRI Brain: Cerebral and cerebellar small foci of acute infarctions suspicious embolic source, no mets. Guiac: Negative Past Medical History Past Medical History (Chronic Problems): Chronic Problems (Last Reviewed 10/06/20 @ 14:13 by Yenny Brown) Anemia (Chronic) Hilar adenopathy (Chronic) Metastatic lung carcinoma (Chronic) Iron deficiency anemia (Chronic) Cancer-related pain (Chronic) DVT, lower extremity, distal, acute (Chronic) Lung mass (Chronic) NSCLC of right lung (Chronic) Medical History: Medical History (Last Reviewed 10/06/20 @ 14:13 by Yenny Brown) Lung mass (Chronic) R91.8 NSCLC of right lung (Chronic) C34.91 Anemia D64.9 Carotid stenosis I65.29 Hyperlipidemia E78.5 Hypothyroid E03.9 Insomnia G47.00 Lung mass R91.8 Right upper lobe wedge resection [facility] 11/15/19 Statin intolerance Z78.9 Thyroid disorder E07.9 mediastinal lymphadenectomy [facility] 11/15/19 HTN (hypertension) I10 Allergies chlorhexidine Allergy (Intermediate, Verified 10/06/20 14:20) Rash morphine Adverse Reaction (Severe, Verified 10/06/20 14:20) Shortness of breath naproxen Adverse Reaction (Intermediate, Verified 10/06/20 14:20) mouth sores mouth sores nitrofurantoin [From Macrodantin] Adverse Reaction (Intermediate, Verified 10/06/20 14:20) mouth sores mouth sores cloth tape Adverse Reaction (Uncoded 10/06/20 14:20) skin irritation Home Medications: Ambulatory Orders Medication Instructions Recorded Amlodipine [Norvasc] 5 mg PO DAILY 09/27/19 Clopidogrel Bisulfate [Plavix] 75 mg PO DAILY 09/27/19 Levothyroxine [Synthroid] 50 mcg PO DAILY 09/27/19 Lisinopril [Zestril] 40 mg PO DAILY 09/27/19 Metoprolol Succinate [Kapspargo 50 mg PO DAILY 09/27/19 Sprinkle] Pantoprazole Sodium [Protonix] 40 mg PO DAILY 09/27/19 Acetaminophen [Tylenol Extra 500 mg PO TID PRN PRN 09/14/20 Strength] Ibuprofen [Advil] 200 mg PO TID PRN PRN 09/14/20 Aspirin [Aspirin, Baby] 81 mg PO DAILY@0800 09/29/20 Atorvastatin Calcium [Lipitor] 40 mg PO QHS 09/29/20 Loratadine/Pseudo 240/10 1 tab PO DAILY 09/29/20 [Claritin-D 24 Hr] Melatonin 5 mg PO QHS PRN 09/29/20 Apixaban [Eliquis] 2.5 mg PO BID #60 tab 10/06/20 Dexamethasone [Decadron] 2 mg PO DAILY #14 tab 10/06/20 Potassium Chloride [K-Dur] 20 meq PO DAILY #7 tab 10/06/20 Sodium Chloride 1,000 mg MC BID #14 tablet.marvin 10/06/20 Ciprofloxacin [Cipro] 250 mg PO BID 10/09/20 Dabrafenib Mesylate [Tafinlar] 75 mg PO BID 10/09/20 Fluticasone 0.05% [Flonase Nasal 2 sprays NASAL DAILY 10/09/20 [place]] Trametinib Dimethyl Sulfoxide 2 mg PO DAILY 10/09/20 [Mekinist] Surgical History: Surgical History (Last Reviewed 10/06/20 @ 14:13 by Yenny Brown) History of hysterectomy Z90.710 History of lobectomy of lung Z90.2 Right lower lung 11/15/19 [facility] Status post total hip replacement, bilateral Z96.643 Total knee replacement status Z96.659 Surgical History: - - Hysterectomy, right lower lung lobectomy, bilateral total hip replacement, total knee replacement. 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 Smoking Status: Never smoker Tobacco Use: Non-smoker Alcohol: None Drugs: None - *Family History Maternal Family History: Family History (Last Reviewed 10/06/20 @ 14:13 by Yenny Brown) Mother Cancer Hypertension Father Cancer Brother Diabetes History Items: Cancer, Hypertension Paternal Family History: Family History (Last Reviewed 10/06/20 @ 14:13 by Yenny Brown) Mother Cancer Hypertension Father Cancer Brother Diabetes History Items: Cancer Review of Systems Constitutional: Reports: Malaise, Weakness, Fatigue. Denies: Chills, Fever, Weight Change HEENT: Reports: - - Transient facial droop, slurred speech.. Denies: Head Aches, Sinus Congestion, Sinus Drainage Cardiovascular: Denies: Chest Pain, Palpitations Respiratory: Denies: Cough, Shortness of breath at rest, Sputum production Gastrointestinal: Denies: Abdominal Pain, Nausea, Vomiting Genitourinary: Reports: Dysuria, Frequency, Hematuria Musculoskeletal: Reports: Joint Pain, Leg Pain. Denies: Joint Tenderness Skin: Denies: Rash, Wounds Neurological: Reports: Slurred speech, Focal weakness. Denies: Numbness, Tingling Psychiatric: Reports: Depression. Denies: Anxiety, Homicidal Ideations, Suicidal Ideations Hematologic/ Lymphatic: Reports: Anemia, Easy Bruising, Easy Bleeding, Hx of blood clot VTE Information - Inpt Only VTE Present on Admission: No VTE Mechan Device Prophylaxis: SCD's VTE Pharm Prophylaxis ordered?: No Reason prophylaxis not ordered:: Treatment Not Indicated Patient Problems: Active and Suspected Problems (Last Reviewed 10/06/20 @ 14:13 by Yenny Brown) Hyponatremia (Acute) Acute on Chronic CVA (cerebral vascular accident) (Acute) Acute UTI (Acute) Hematuria (Acute) Acute blood loss anemia (Acute) Subjective: Patient seated upright in the PCU bed, mildly fatigued appearance otherwise no acute distress. Objective: Physical Examination: General: awake, alert, oriented to self, place and recent events, remains cooperative, seated upright in the PCU bed, no acute distress. Skin: normal color, turgor, no icterus, cyanosis. HEENT: AT/NC, EOMI, PERRLA, mildly dry MM, no carotid bruits or JVD noted. Lungs: Diminished breath sounds, greater bases, no rales, ronchi or wheezing. Heart: Regular rate and rhythm; no gallop, rub audible. Abdomen: soft, NTTP including suprapubic region, ND, normal BS, no HSM. Extremities: no cyanosis, clubbing, or edema. Neurological: patient awake, alert, oriented as noted; cognitive function near baseline intact; pupils equally reactive to light and accomodation; cranial nerves II-XII grossly normal, moving all 4 extremities, no focal deficits, sensation intact, [id number] and [id number] appropriate, strength moderately globally decreased secondary to acute presentation, some instability with gait, negative Babinski. Psychiatric: affect appears fatigued otherwise normal, no acute evidence of depressive or anxiety feelings. - Physical Exam Vitals/I&O's: Body Mass Index (BMI) 22.5 Assessment/Plan All Active Problems (Last Reviewed 10/06/20 @ 14:13 by Yenny Brown) Surgical wound present (Acute) Vascular catheter fitting or adjustment (Acute) CINV (chemotherapy-induced nausea and vomiting) (Acute) Stomatitis (Resolved) UTI (urinary tract infection) (Resolved) Diarrhea (Acute) Delirium (Acute) Elevated troponin (Acute) Encephalopathy (Acute) Tiredness (Acute) UTI (urinary tract infection) (Acute) Hyponatremia (Acute) Hypokalemia (Acute) CVA (cerebral vascular accident) (Acute) Acute UTI (Acute) Hematuria (Acute) Acute blood loss anemia (Acute) The patient is an 80 y/o F w/ PMHx: Right Non-small cell lung CA with metastatic lesions on chemotherapy s/p prior lobectomy 10/2019, HTN, HLD, Hypothyroidism, GERD, Anxiety recently discharged on 09/17/21 with metabolic encephalopathy secondary to UTI, embolic CVA, hyponatremia and nonconvulsive status per EEG placed on Keppra and transferred to [facility] for further evaluation with of note at that time hold on eliquis temporarily secondary to concern for hemorrhagic conversion already also on plavix who now re-presents to the [facility] from [facility] ED [facility] with history of EMS call per family with concern for acute CVA noting at 8:30 am she had slurred speech and L sided facial droop with resolution upon ED presentation. 1. Slurred speech and transient left-sided facial droop, resolved concerning for recurrent CVA with recent Acute CVA (09/17/20): Recent prior admission MRI w/ Cerebral and cerebellar small foci of acute infarctions suspicious embolic source. Given recurrent symptoms will admit to PCU, will obtain MRI Brain, recent head and neck vessel evaluation thus will defer, recent ECHO as noted but repeat given Oncology concerns for cardiomyopathy with recent start of targeted chemotherapy. Will obtain PT/OT/Speech/Nutrition evaluation per protocol. Will continue HTN regimen, maintain on asa/plavix/eliquis, statin, fall precautions. Mag, TSH pending. Once MRI and EEG obtained will need repeat Neurology consultation. 2. Acute on Chronic Anemia likely secondary to recent acute hematuria and complicated by recent chemotherapy regimen: Patient with negative guaiac, no recent significant stool findings, patient has had recent hematuria worsened by anticoagulant therapy initiation, recent UTI 10/06/2020 Enterobacter initiated on ciprofloxacin however family notes ongoing issues with hematuria. Outside facility hemoglobin 6.5 with MCV 89, will order 2 unit PRBC and follow H&H with planned repeat CBC in AM. Discussed with family that this is a difficult situation as patient has DVT as well as recent strokes requiring anticoagulant therapy but if ongoing issues with hematuria may require urology consultation and cystoscopy or patient may not be able to tolerate this chemotherapy. 3. Acute Enterobacter UTI, complicated: Patient with recent 10/06/2020 urinary complaints with onset Monday of mild hematuria, U CX with Enterobacter greater than 100,000 colony-forming units only noted to be insensitive to nitrofurantoin and resistant to Ancef but sensitive to several other agents, will initiate cefepime and continue IV antibiotic therapy given current situation. Nursing has evaluated urine thus far and has had no significant gross hematuria noted. 4. Possible seizure disorder: Patient with recent admission with EEG at that time with concern for nonconvulsive status with transfer to [facility] and per discussion with family will repeat single timeline EEG performed several days following noted to be on Keppra at that time noted to be unremarkable with discharge on Keppra but deferral to PCP to consider discontinuation. Patient had been on 500 mg twice daily and this was discontinued by PCP secondary to patient side effects primarily fatigue. EEG repeat requested and if significant may need to consider placing on AEDs again. Records requested from [facility]. 5. Acute on Chronic Hyponatremia: Recent 10/06/2020 sodium 122, repeat at outside ED facility 121, will continue recently initiated sodium chloride tablets and initiate judicious IV fluids with continued serial close BMPs to assure no overcorrection, likely associated with patient's underlying history of non-small cell lung cancer additionally, pending response may consider further evaluation including Osm, TSH, Mag and additional evaluations. 6. Right Non-small cell lung CA with metastatic lesions: s/p prior lobectomy 10/2019. Patient currently on targeted chemotherapy which will be continued, per concerns from Oncology with possible cardiomyopathy, despite recent ECHO, mag and phos levels requested. 7. Recent LLE Acute DVT: Currently continued on eliquis, will need to assure 10 mg BID x 7 days then transition to 5 mg BID, previously was on inappropriately low dosing for DVT treatment. 8. Hypertension: Continue home regimen including amlodipine, lisinopril with further adjustments as needed to maintain appropriate blood pressure control, PRN hydralazine. 9. Hyperlipidemia: We will continue moderate dose statin therapy especially given recent CVA and recurrent symptoms as noted. 10. Hypothyroidism: Continue home synthroid regimen, TSH pending. 11. GERD: We will continue PPI. 12. DVT prophylaxis: SCDs, therapeutic DVT regimen of Eliquis however will need to be cautious given recent significant hematuria. 13. CODE status: Patient HCPOA is her and unclear if living will is in place, encouraged evaluation of this. Discussed CODE status at length including difference between FULL code, DNR-CCA and DNR-CC status. Following discussions about the differences in these status, requested Full Code status. Advanced Care Planning Face to Face Time: 16 minutes. Inpatient E&M: 85055 Init Hosp L3 Procedures: 59080 Advncd Care Plan 30 Min
--- NOTE | 2020-10-09 13:59 | MRI_ITS ---
We are attempting to reach an attending provider to discuss findings. An addendum with communication details will be sent when the communication is complete. STUDY: MRI BRAIN WITHOUT CONTRAST REASON FOR EXAM: Female, 80 years old. Slurred speech, facial droop, acute neurologic deficit, evaluation for stroke TECHNIQUE: Standardized multiplanar fat and water weighted pulse sequences were obtained. COMPARISON: [address] and MR FINDINGS: There is a small acute right cerebellar infarct. There is no cerebral territorial infarction. There is no mass effect, midline shift, hydrocephalus or herniation. MRI/Brain without Contrast IMPRESSION: 1. Small acute right cerebellar infarct. Electronically Signed: Mayte Washington MD at 15:42 EST Tel , Service support ,
--- NOTE | 2020-10-09 14:33 | ECHOL_ITS ---
Reason For Study: New Chemo, Concern for CM Procedure This was a limited 2D transthoracic echocardiogram. The study was technically difficult. Contrast injection was performed. Exam performed portable in patient room. Left Ventricle Normal LV size. Mid cavitary false tendon noted. Left ventricular systolic function is normal. The estimated ejection fraction is 65 %. The global longitudinal strain = -20 % (normal). Unable to assess diastolic dysfunction. No regional wall motion abnormalities noted. Right Ventricle Normal RV size. Normal systolic function. Atria The left atrium is mildly enlarged. Normal right atrium. No doppler evidence for ASD. Mitral Valve There is moderate to severe mitral annular calcification. Mild diffuse mitral valve thickening. Mild focal mitral valve calcification. Moderate (2+) mitral valve insufficiency. Tricuspid Valve Normal tricuspid valve. Right ventricular systolic pressure estimated to be 40 mmHg. Aortic Valve The aortic valve is not well visualized, however, based upon the 2D echocardiographic images obtained there appears to be thickening, calcification, and partial restriction. Mild-Moderate (1- 2+) aortic valve insufficiency. Pulmonic Valve The pulmonic valve is not well visualized. Great Vessels The aortic root is not well visualized. Pericardium/Pleural No pericardial effusion. MMode/2D Measurements & Calculations LVIDd: 4.2 cm IVSd: 1.2 cm LVIDs: 2.5 cm LVPWd: 0.98 cm FS: 40.1 % Doppler Measurements & Calculations TR max delvin: 302.0 cm/sec TR max P.5 mmHg Interpretation Summary The study was technically difficult. Contrast injection was performed. Left ventricular systolic function is normal. The estimated ejection fraction is 65 %. The global longitudinal strain = -20 % (normal). Mid cavitary false tendon noted. The left atrium is mildly enlarged. There is moderate to severe mitral annular calcification. Mild diffuse mitral valve thickening. Mild focal mitral valve calcification. Moderate (2+) mitral valve insufficiency. The aortic valve is not well visualized, however, based upon the 2D echocardiographic images obtained there appears to be thickening, calcification, and partial restriction. Mild-Moderate (1-2+) aortic valve insufficiency. Right ventricular systolic pressure estimated to be 40 mmHg. Unable to assess diastolic dysfunction. Ordering Physician: Missy Brownlee Referring Physician: Kathy Randall Performed By: Prudence Wheat, GIUSEPPE, RVT
[2020-10-09 16:12] LABS: Hematocrit 21.7 % (37-47); Hemoglobin 7.1 g/dL (12.0-15.0)
[2020-10-09 16:26] LABS: Anion Gap 6 (5-15); BUN 19 mg/dL (7-18); BUN/Creat Ratio 45.8 RATIO (10-20); Calcium,Total 7.8 mg/dL (8.5-10.1); Chloride 92 mmol/L (98-107); Creatinine, Serum 0.42 mg/dL (0.55-1.02); EST Glomerular Filtration Rate 155 mL/min (>60); Est Glom Filt Rate - Afr Amer 188 mL/min (>60); Estimated Creatinine Clearance 37.45 ml/min; Glucose 107 mg/dL (74-106); Magnesium 1.4 mg/dL (1.6-2.6); Potassium 4.3 mmol/L (3.5-5.1); Sodium Level 125 mmol/L (136-145)
[2020-10-09] MEDS: 0.9% Normal Saline 1,000 ML 100 ML IV (16:26)
[2020-10-09 16:37] LABS: Thyroid Stim Hormone (TSH) 1.02 uIU/mL (0.358-3.74)
[2020-10-09] MEDS: Polyethylene Glycol 3350 17 GM PACKET PO (18:59)
[2020-10-09 19:25] LABS: Anion Gap 6 (5-15); BUN 13 mg/dL (7-18); Calcium,Total 5.6 mg/dL (8.5-10.1); Chloride 113 mmol/L (98-107); EST Glomerular Filtration Rate 503 mL/min (>60); Est Glom Filt Rate - Afr Amer 609 mL/min (>60); Glucose 90 mg/dL (74-106); Potassium 2.9 mmol/L (3.5-5.1); Sodium Level 137 mmol/L (136-145)
[2020-10-09 20:23] LABS: Anion Gap 6 (5-15); BUN 17 mg/dL (7-18); BUN/Creat Ratio 32.1 RATIO (10-20); Calcium,Total 8.2 mg/dL (8.5-10.1); Chloride 94 mmol/L (98-107); Creatinine, Serum 0.53 mg/dL (0.55-1.02); EST Glomerular Filtration Rate 117 mL/min (>60); Est Glom Filt Rate - Afr Amer 142 mL/min (>60); Estimated Creatinine Clearance 37.45 ml/min; Glucose 156 mg/dL (74-106); Potassium 3.9 mmol/L (3.5-5.1); Sodium Level 126 mmol/L (136-145)
[2020-10-09] MEDS: Sodium Chloride 1 GM Tablet PO (21:02)
[2020-10-09] MEDS: Atorvastatin Calcium 40 MG Tablet PO (21:03)
[2020-10-09] MEDS: APIXABAN 5 MG TABLET 10 MG PO (21:05)
[2020-10-09 22:39] LABS: Anion Gap 6 (5-15); BUN 17 mg/dL (7-18); BUN/Creat Ratio 39.4 RATIO (10-20); Calcium,Total 7.5 mg/dL (8.5-10.1); Chloride 93 mmol/L (98-107); Creatinine, Serum 0.43 mg/dL (0.55-1.02); EST Glomerular Filtration Rate 148 mL/min (>60); Est Glom Filt Rate - Afr Amer 180 mL/min (>60); Estimated Creatinine Clearance 37.45 ml/min; Glucose 128 mg/dL (74-106); Potassium 3.8 mmol/L (3.5-5.1); Sodium Level 127 mmol/L (136-145)
[2020-10-10] VITALS (15 sets, daily range): BP systolic 126–163; BP diastolic 49–101; PULSE 72–86; RESP 16–19; TEMP 36.1–36.6; O2SAT 92–99
[2020-10-10 00:49] LABS: Bacteria 0 SEEN /hpf (None Seen); Mucous, Urine 0 SEEN /hpf (<or=2+); Squamous Epithelial Cells - UA 0 SEEN /hpf (5-10)
[2020-10-10 00:56] LABS: Color, Urine Yellow (Yellow); Glucose, Dipstick Normal (Normal); Ketone-Dipstick Negative (Negative); Leukocyte Esterase-Dipstick Negative /ul (Negative); Nitrite-Dipstick Negative (Negative); Occult Blood-Urine 250 /ul (Negative); Protein-Dipstick 15 mg/dl (Negative); Urine Bilirubin Dipstick Negative (Negative); Urine Clarity Clear (Clear); Urine Urobilinogen Normal (Normal)
[2020-10-10 01:06] LABS: Red Blood Cells-Urine > 100 SEEN /hpf (0-5)
[2020-10-10 01:07] LABS: White Blood Cells 0-5 SEEN /hpf (0-5)
[2020-10-10 05:58] LABS: Absolute Lymphocyte Count 1.63 X10^3/uL (0.83-4.51); Absolute Neutrophil Count 12.2 X10^3/uL (2.0-7.7); Basophil% 0.6 % (0-1); Eosinophil# 0.31 X10^3/uL; Eosinophils% 1.8 % (0-5); Hematocrit 32.7 % (37-47); Lymphocyte # 1.63 X10^3/ul (4.0); Lymphocyte % 9.4 % (19-41); Mean Corp Hgb Conc 33.6 g/dL (32-36); Mean Corpuscular Hgb 30.5 pg (27.0-32.0); Mean Corpuscular Volume 90.6 fL (81-99); Mean Platelet Vol. 7.7 fl (6.2-12.0); Monocyte# 2.76 X10^3/uL; NRBC Flagged by Analyzer 0 % (0-5); Neutrophil # 12.15 X10^3/uL (2.7-7.7); Neutrophil % 70.2 % (47-70); POSITIVE DIFFERENTIAL YES; Platelet Count 311 K/mm3 (150-450); RBC Distribution Width CV 14.7 % (11.6-14.6); RBC Distribution Width SD 47.4 fl (35.1-43.9); Red Blood Count 3.61 M/mm3 (4.2-5.4); White Blood Count 17.3 K/mm3 (4.4-11.0)
[2020-10-10 06:05] LABS: Differential Indicated SCAN CRITERIA MET
[2020-10-10] MEDS: Levothyroxine 50 MCG Tablet PO (06:06)
[2020-10-10] MEDS: 0.9% Saline Lock 10 ML Syringe IV (06:06)
[2020-10-10 06:15] LABS: ALB/GLOB Ratio 0.9 RATIO (0.9-2.4); AST(SGOT) 57 U/L (15-37); Alanine Aminotransfer ALT/SGPT 39 U/L (13-56); Albumin, Serum 2.6 g/dL (3.2-5.0); Alkaline Phosphatase 250 U/L (45-117); Anion Gap 6 (5-15); BUN 12 mg/dL (7-18); BUN/Creat Ratio 38.7 RATIO (10-20); Calcium,Total 8.1 mg/dL (8.5-10.1); Chloride 96 mmol/L (98-107); Creatinine, Serum 0.31 mg/dL (0.55-1.02); EST Glomerular Filtration Rate 218 mL/min (>60); Est Glom Filt Rate - Afr Amer 263 mL/min (>60); Estimated Creatinine Clearance 37.45 ml/min; Globulin 2.9 g/dL (2.2-4.2); Glucose 90 mg/dL (74-106); Potassium 3.6 mmol/L (3.5-5.1); Protein, Total 5.5 g/dL (6.4-8.2); Sodium Level 128 mmol/L (136-145)
[2020-10-10 06:43] LABS: Differential Comment SCANNED
[2020-10-10] MEDS: Clopidogrel Bisulfate 75 MG Tablet PO (09:17)
[2020-10-10] MEDS: Metoprolol(XL)Succ 50 MG Tablet PO (09:17)
[2020-10-10] MEDS: APIXABAN 5 MG TABLET 10 MG PO ×2 (09:17→20:33)
[2020-10-10] MEDS: Pantoprazole Sodium 40 MG Tablet PO (09:18)
[2020-10-10] MEDS: Sodium Chloride 1 GM Tablet PO ×2 (09:18→20:35)
[2020-10-10] MEDS: Lisinopril 40 MG Tablet PO (09:18)
[2020-10-10] MEDS: Loratadine 10 MG Tablet PO (09:18)
[2020-10-10] MEDS: amLODIPine 5 MG Tablet PO (09:18)
[2020-10-10] MEDS: 0.9% Normal Saline 1,000 ML 100 ML IV ×2 (09:27→20:27)
[2020-10-10] MEDS: Aspirin 81 MG TAB.CHEW PO (09:28)
[2020-10-10] MEDS: dexAMETHasone 2 MG TABLET PO (09:28)
[2020-10-10] MEDS: Fluticasone 0.05% 1 SPRAY NASAL.SRY 2 SPRAY NASAL (09:31)
--- NOTE | 2020-10-10 12:27 | PN_ITS ---
<ChristopherAlbina SAND MIXER OPERATOR - Last Filed: 10/10/20 12:48> Patient Problems: Active and Suspected Problems (Last Reviewed 10/06/20 @ 14:13 by Yenny harry) Hyponatremia (Acute) Acute on Chronic CVA (cerebral vascular accident) (Acute) Acute UTI (Acute) Hematuria (Acute) Acute blood loss anemia (Acute) Subjective: Patient seen and examined. Intermittently confused and hallucinating per nursing staff. Patient denies current symptoms or complaints. She is restless in bed. - Physical Exam Vitals/I&O's: Vital Signs Temp Pulse Resp BP Pulse Ox 97.3 F L 73 16 132/77 H 95 10/10/20 09:12 10/10/20 09:17 10/10/20 09:12 10/10/20 09:12 10/10/20 09:12 Oxygen Delivery Method Room Air Weight: 136 lb 3.931 oz Body Mass Index (BMI) 24.7 Intake and Output for Last 24 Hours 10/08/20 10/09/20 10/10/20 23:59 23:59 23:59 Intake Total 1101.67 / 1101.67 1438.33 / 1438.33 Output Total 450 / 450 2150 / 2150 Balance 651.67 / 651.67 -711.67 / -711.67 General: Alert, Cooperative, No apparent distress HEENT: Atraumatic, PERRLA, EOMI, Normocephalic Neck: Supple, No JVD, Negative Carotid Bruits Lungs: Clear to auscultation, Normal air movement Cardiovascular: Regular rate, No murmurs Abdomen: Bowel Sounds Present, Soft, Non Tender, Non-Distended Extremities: No clubbing, No cyanosis, No edema, Capillary Refill Less than 3 Seconds Skin: No rashes, No breakdown Musculoskeletal: No Tenderness to Palpation of Joints or Extremities Neurological: Cranial nerves II-XII grossly intact, Neuro grossly intact, - - Mild right lower extremity weakness Psych/Mental Status: Normal Affect, Appropriate Laboratory Results 10/09/20 15:40: TSH 1.02, Free T4 1.20 10/09/20 15:40: Sodium 125 L, Potassium 4.3, Chloride 92 L, Carbon Dioxide 27.0, Anion Gap 6, BUN 19 H, Creatinine 0.42 L, Estim Creat Clear Calc 37.45, Est GFR (MDRD) Af Amer 188, Est GFR (MDRD) Non-Af 155, BUN/Creatinine Ratio 45.8 H, Glucose 107 H, Calcium 7.8 L, Magnesium 1.4 L 10/09/20 15:40: Blood Type A POSITIVE, Antibody Screen NEGATIVE, Crossmatch See Detail 10/09/20 15:40: Hgb 7.1 L, Hct 21.7 L 10/09/20 15:40: Phosphorus 2.0 L 10/09/20 18:35: Sodium 137, Potassium 2.9 L, Chloride 113 H, Carbon Dioxide 18.0 L, Anion Gap 6, BUN 13, Creatinine TNP, Est GFR (MDRD) Af Amer 609, Est GFR (MDRD) Non-Af 503, BUN/Creatinine Ratio TNP, Glucose 90, Calcium 5.6 L* 10/09/20 19:50: Sodium 126 L, Potassium 3.9, Chloride 94 L, Carbon Dioxide 26.0, Anion Gap 6, BUN 17, Creatinine 0.53 L, Estim Creat Clear Calc 37.45, Est GFR (MDRD) Af Amer 142, Est GFR (MDRD) Non-Af 117, BUN/Creatinine Ratio 32.1 H, Glucose 156 H, Calcium 8.2 L 10/09/20 22:12: Sodium 127 L, Potassium 3.8, Chloride 93 L, Carbon Dioxide 28.0, Anion Gap 6, BUN 17, Creatinine 0.43 L, Estim Creat Clear Calc 37.45, Est GFR (MDRD) Af Amer 180, Est GFR (MDRD) Non-Af 148, BUN/Creatinine Ratio 39.4 H, Glucose 128 H, Calcium 7.5 L 10/10/20 00:39: Urine Color Yellow, Urine Clarity Clear, Urine pH 8.0, Ur Specific [place] 1.010, Urine Protein 15 H, Urine Glucose (UA) Normal, Urine Ketones Negative, Urine Occult Blood 250 H, Urine Nitrite Negative, Urine Bilirubin Negative, Urine Urobilinogen Normal, Ur Leukocyte Esterase Negative, Urine RBC > 100 SEEN, Urine WBC 0-5 SEEN, Ur Squamous Epith Cells 0 SEEN, Urine Bacteria 0 SEEN, Urine Mucus 0 SEEN 10/10/20 05:50: WBC 17.3 H, RBC 3.61 L, Hgb 11.0 L, Hct 32.7 L, MCV 90.6, MCH 30.5, MCHC 33.6, RDW Std Deviation 47.4 H, RDW Coeff of Roselyn 14.7 H, Plt Count 311, MPV 7.7, Immature Gran % (Auto) 2.000 H, Neut % (Auto) 70.2 H, Lymph % (Auto) 9.4 L, [place] % (Auto) 16.0 H, Eos % (Auto) 1.8, Baso % (Auto) 0.6, Absolute Neuts (auto) 12.2 H, Absolute Lymphs (auto) 1.63, Nucleated RBC % 0, Differential Comment SCANNED, Diff Path Review January10/10/20 05:50: Sodium 128 L, Potassium 3.6, Chloride 96 L, Carbon Dioxide 26.0, Anion Gap 6, BUN 12, Creatinine 0.31 L, Estim Creat Clear Calc 37.45, Est GFR (MDRD) Af Amer 263, Est GFR (MDRD) Non-Af 218, BUN/Creatinine Ratio 38.7 H, Glucose 90, Calcium 8.1 L, Total Bilirubin 0.90, AST 57 H, ALT 39, Alkaline Phosphatase 250 H, Total Protein 5.5 L, Albumin 2.6 L, Globulin 2.9, Albumin/Globulin Ratio 0.9 Current Medications Acetaminophen (Acetaminophen 325 Mg Tablet) 650 mg PO Q6H PRN PRN PRN Reason: Pain Score 1-10/Temp > 100.7 F Al Hydroxide/Mg Hydroxide (Mag Hydrox/Al Hydrox/Simeth 30 Ml Udc) 30 ml PO Q6H PRN PRN PRN Reason: Gastric Burning Albuterol Sulfate (Albuterol 2.5 Mg/3 Ml Vial.Neb.) 2.5 mg INHALATION Q2H PRN PRN PRN Reason: Dyspnea, wheezing Amlodipine Besylate (Amlodipine 5 Mg Tablet) 5 mg PO DAILY [facility] Last Admin: 10/10/20 09:18 Dose: 5 mg Documented by: Apixaban (Apixaban 5 Mg Tablet) 10 mg PO BID [facility] Last Admin: 10/10/20 09:17 Dose: 10 mg Documented by: Aspirin (Aspirin 81 Mg Tab.Chew) 81 mg PO DAILY@0800 [facility] Last Admin: 10/10/20 09:28 Dose: 81 mg Documented by: Atorvastatin Calcium (Atorvastatin Calcium 40 Mg Tablet) 40 mg PO QHS [facility] Last Admin: 10/09/20 21:03 Dose: 40 mg Documented by: Clopidogrel Bisulfate (Clopidogrel Bisulfate 75 Mg Tablet) 75 mg PO DAILY [facility] Last Admin: 10/10/20 09:17 Dose: 75 mg Documented by: Dexamethasone (Dexamethasone 2 Mg Tablet) 2 mg PO DAILY@0800 [facility] Last Admin: 10/10/20 09:28 Dose: 2 mg Documented by: Fluticasone Propionate (Fluticasone 0.05% 1 [place] Nasal.Sry) 2 spray NASAL DAILY [facility] Last Admin: 10/10/20 09:31 Dose: 2 sprays Documented by: Guaifenesin (Guaifenesin 10 Ml Udc (200mg/10ml)) 20 ml PO Q4H PRN PRN PRN Reason: COUGH Heparin Sodium (Beef Lung) (Heparin Pf Lock 10 Units/Ml 50 Units/5 Ml Syringe) 50 units IV UD PRN PRN Reason: Port-a-Cath (VAD)Heparin Flush Hydralazine HCl (Hydralazine 20 Mg/Ml Vial) 10 mg IV Q4H PRN PRN PRN Reason: SBP > 160 Sodium Chloride () 1,000 mls @ 100 mls/hr IV .Q10H [facility] Last Admin: 10/10/20 09:27 Dose: 100 mls/hr Documented by: Cefepime HCl 2 gm/ Sodium (Chloride) 100 mls @ 200 mls/hr IV Q12 [facility] Stop: 10/16/20 15:12 Last Infusion: 10/10/20 10:03 Dose: Infused Documented by: Levothyroxine Sodium (Levothyroxine 50 Mcg Tablet) 50 mcg PO DAILY@0600 [facility] Last Admin: 10/10/20 06:06 Dose: 50 mcg Documented by: Lisinopril (Lisinopril 40 Mg Tablet) 40 mg PO DAILY [facility] Last Admin: 10/10/20 09:18 Dose: 40 mg Documented by: Loratadine (Loratadine 10 Mg Tablet) 10 mg PO DAILY [facility] Last Admin: 10/10/20 09:18 Dose: 10 mg Documented by: Magnesium Hydroxide (Magnesium Hydroxide 30 Ml Udc) 30 ml PO DAILY PRN PRN PRN Reason: Constipation Melatonin (Melatonin 10 Mg Tablet) 5 mg PO QHS PRN PRN PRN Reason: SLEEP Metoprolol Succinate (Metoprolol(Xl)Succ 50 Mg Tablet) 50 mg PO DAILY [facility] Last Admin: 10/10/20 09:17 Dose: 50 mg Documented by: Nitroglycerin (Nitroglycerin (Inpatient Use) 0.4 Mg Tab.Subl) 0.4 mg SUBLINGUAL Q5M PRN PRN Reason: CARDIAC/CHEST PAIN Ondansetron HCl (Ondansetron 4 Mg/2 Ml Vial) 4 mg IV Q8H PRN PRN PRN Reason: NAUSEA/VOMITING Pantoprazole Sodium (Pantoprazole Sodium 40 Mg Tablet) 40 mg PO DAILY [facility] Last Admin: 10/10/20 09:18 Dose: 40 mg Documented by: Polyethylene Glycol (Polyethylene Glycol 3350 17 Gm Packet) 17 gm PO DAILY [facility] Last Admin: 10/10/20 09:18 Dose: Not Given Documented by: Potassium Chloride (Potassium Chloride 20 Meq Tablet) 20 meq PO DAILY@0800 [facility] Last Admin: 10/10/20 09:17 Dose: 20 meq Documented by: Prochlorperazine Edisylate (Prochlorperazine 10 Mg/2 Ml Vial) 5 mg IV Q4H PRN PRN PRN Reason: Breakthrough Nausea/Vomiting Psyllium Hydrophilic Mucilloid (Psyllium 1 Packet) 1 packet PO DAILY PRN PRN PRN Reason: Constipation Senna/Docusate Sodium (Senna/Docusate Sodium 1 Tablet) 2 tablet PO BID PRN PRN PRN Reason: Constipation Sodium Chloride (Sodium Chloride 1 Gm Tablet) 1 gm PO BID [facility] Last Admin: 10/10/20 09:18 Dose: 1 gm Documented by: Sodium Chloride (0.9% Saline Lock 10 Ml Syringe) 10 - 40 ml IV UD PRN PRN Reason: Port-a-Cath (VAD) Flush Last Admin: 10/10/20 06:06 Dose: 10 ml Documented by: Sodium Chloride (0.9 % Nacl (Sterile) Posiflush 10 Ml) 10 - 40 ml IV UD PRN PRN Reason: Port access or dressing change Sodium Chloride (0.9% Saline Lock 10 Ml Syringe) 10 - 40 ml IV UD PRN PRN Reason: SALINE FLUSH Throat Lozenges (Benzocaine/Menthol 1 Lozenge) 1 lozenge MUCOUS MEM Q2H PRN PRN PRN Reason: SORE THROAT Medical Necessity - Tobacco Use Smoking Status: Never smoker Tobacco Use: Non-smoker Assessment/Plan All Active Problems (Last Reviewed 10/06/20 @ 14:13 by Yenny Brown) Surgical wound present (Acute) Vascular catheter fitting or adjustment (Acute) CINV (chemotherapy-induced nausea and vomiting) (Acute) Stomatitis (Resolved) UTI (urinary tract infection) (Resolved) Diarrhea (Acute) Delirium (Acute) Elevated troponin (Acute) Encephalopathy (Acute) Tiredness (Acute) UTI (urinary tract infection) (Acute) Hyponatremia (Acute) Hypokalemia (Acute) CVA (cerebral vascular accident) (Acute) Acute UTI (Acute) Hematuria (Acute) Acute blood loss anemia (Acute) 1. 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 PT/OT/ST. Echocardiogram demonstrates an EF of 65%, mid cavitary false tendon noted, moderate to severe mitral annular calcification, moderate mitral valve insufficiency, mild to moderate aortic valve insufficiency, RVSP estimated to be 40 mmHg. Patient is on Eliquis for recent diagnosis left lower extremity DVT. Due to recent hematuria, it is unclear if patient had interruption in therapy. Eliquis resumed on admission. SOC neurology consult placed. 2. Acute complicated Enterobacter UTI-Diagnosed 10/06/2020 and placed on Cipro as outpatient. Continue IV cefepime to complete course. 3. Acute encephalopathy-secondary to #1/#2/#6. Treatment per above. 4. Acute on chronic anemia-suspect secondary to recent hematuria, complicated by chemotherapy regimen. Status post 2 units PRBC. Hemoglobin 11 from 7.1. Trend CBC. Maintain PPI. 5. Possible seizure disorder-recent transfer to [facility] for abnormal EEG with concern for nonconvulsive status. Discharged on Keppra however this was discontinued by PCP secondary to fatigue. Repeat EEG does not demonstrate further seizure activity. SOC consulted as noted above. 6. Acute on chronic hyponatremia-recently initiated on sodium chloride tablets, continue. IV fluids. Improving. Trend BMP. 7. Right non-small cell lung cancer with metastatic lesions-history of lobectomy October 2019. Continue outpatient follow-up with oncology. 8. Recent left lower extremity DVT-continue Eliquis 10 mg twice a day for 7 days then transition to Eliquis 5 mg twice a day. 9. Hypertension-stable, continue amlodipine, lisinopril. 10. Hypothyroidism-continue Synthroid regimen. 11. GERD-on PPI. DVT prophylaxis-Eliquis This patient was seen by THEO Reid under the supervision of Dr. Avalos. <Jared Avalos - Last Filed: 10/10/20 13:46> - Physical Exam Vitals/I&O's: Vital Signs Temp Pulse Resp BP Pulse Ox 97.3 F L 73 16 132/77 H 95 10/10/20 09:12 10/10/20 09:17 10/10/20 09:12 10/10/20 09:12 10/10/20 09:12 Oxygen Delivery Method Room Air Weight: 61.8 kg Body Mass Index (BMI) 24.7 Intake and Output for Last 24 Hours 10/08/20 10/09/20 10/10/20 23:59 23:59 23:59 Intake Total 1101.67 / 1101.67 1438.33 / 1438.33 Output Total 450 / 450 2150 / 2150 Balance 651.67 / 651.67 -711.67 / -711.67 Laboratory Results 10/09/20 15:40: TSH 1.02, Free T4 1.20 10/09/20 15:40: Sodium 125 L, Potassium 4.3, Chloride 92 L, Carbon Dioxide 27.0, Anion Gap 6, BUN 19 H, Creatinine 0.42 L, Estim Creat Clear Calc 37.45, Est GFR (MDRD) Af Amer 188, Est GFR (MDRD) Non-Af 155, BUN/Creatinine Ratio 45.8 H, Glucose 107 H, Calcium 7.8 L, Magnesium 1.4 L 10/09/20 15:40: Blood Type A POSITIVE, Antibody Screen NEGATIVE, Crossmatch See Detail 10/09/20 15:40: Hgb 7.1 L, Hct 21.7 L 10/09/20 15:40: Phosphorus 2.0 L 10/09/20 18:35: Sodium 137, Potassium 2.9 L, Chloride 113 H, Carbon Dioxide 18.0 L, Anion Gap 6, BUN 13, Creatinine TNP, Est GFR (MDRD) Af Amer 609, Est GFR (MDRD) Non-Af 503, BUN/Creatinine Ratio TNP, Glucose 90, Calcium 5.6 L* 10/09/20 19:50: Sodium 126 L, Potassium 3.9, Chloride 94 L, Carbon Dioxide 26.0, Anion Gap 6, BUN 17, Creatinine 0.53 L, Estim Creat Clear Calc 37.45, Est GFR (MDRD) Af Amer 142, Est GFR (MDRD) Non-Af 117, BUN/Creatinine Ratio 32.1 H, Glucose 156 H, Calcium 8.2 L 10/09/20 22:12: Sodium 127 L, Potassium 3.8, Chloride 93 L, Carbon Dioxide 28.0, Anion Gap 6, BUN 17, Creatinine 0.43 L, Estim Creat Clear Calc 37.45, Est GFR (MDRD) Af Amer 180, Est GFR (MDRD) Non-Af 148, BUN/Creatinine Ratio 39.4 H, Glucose 128 H, Calcium 7.5 L 10/10/20 00:39: Urine Color Yellow, Urine Clarity Clear, Urine pH 8.0, Ur Specific [place] 1.010, Urine Protein 15 H, Urine Glucose (UA) Normal, Urine Ketones Negative, Urine Occult Blood 250 H, Urine Nitrite Negative, Urine Bilirubin Negative, Urine Urobilinogen Normal, Ur Leukocyte Esterase Negative, Urine RBC > 100 SEEN, Urine WBC 0-5 SEEN, Ur Squamous Epith Cells 0 SEEN, Urine Bacteria 0 SEEN, Urine Mucus 0 SEEN 10/10/20 05:50: WBC 17.3 H, RBC 3.61 L, Hgb 11.0 L, Hct 32.7 L, MCV 90.6, MCH 30.5, MCHC 33.6, RDW Std Deviation 47.4 H, RDW Coeff of [place] 14.7 H, Plt Count 311, MPV 7.7, Immature Gran % (Auto) 2.000 H, Neut % (Auto) 70.2 H, Lymph % (Auto) 9.4 L, [place] % (Auto) 16.0 H, Eos % (Auto) 1.8, Baso % (Auto) 0.6, Absolute Neuts (auto) 12.2 H, Absolute Lymphs (auto) 1.63, Nucleated RBC % 0, Differential Comment SCANNED, Diff Path Review January foll 10/10/20 05:50: Sodium 128 L, Potassium 3.6, Chloride 96 L, Carbon Dioxide 26.0, Anion Gap 6, BUN 12, Creatinine 0.31 L, Estim Creat Clear Calc 37.45, Est GFR (MDRD) Af Amer 263, Est GFR (MDRD) Non-Af 218, BUN/Creatinine Ratio 38.7 H, Glucose 90, Calcium 8.1 L, Total Bilirubin 0.90, AST 57 H, ALT 39, Alkaline Phosphatase 250 H, Total Protein 5.5 L, Albumin 2.6 L, Globulin 2.9, Albumin/Globulin Ratio 0.9 Current Medications Acetaminophen (Acetaminophen 325 Mg Tablet) 650 mg PO Q6H PRN PRN PRN Reason: Pain Score 1-10/Temp > 100.7 F Al Hydroxide/Mg Hydroxide (Mag Hydrox/Al Hydrox/Simeth 30 Ml Udc) 30 ml PO Q6H PRN PRN PRN Reason: Gastric Burning Albuterol Sulfate (Albuterol 2.5 Mg/3 Ml Vial.Neb.) 2.5 mg INHALATION Q2H PRN PRN PRN Reason: Dyspnea, wheezing Amlodipine Besylate (Amlodipine 5 Mg Tablet) 5 mg PO DAILY [facility] Last Admin: 10/10/20 09:18 Dose: 5 mg Documented by: Apixaban (Apixaban 5 Mg Tablet) 10 mg PO BID [facility] Last Admin: 10/10/20 09:17 Dose: 10 mg Documented by: Aspirin (Aspirin 81 Mg Tab.Chew) 81 mg PO DAILY@0800 [facility] Last Admin: 10/10/20 09:28 Dose: 81 mg Documented by: Atorvastatin Calcium (Atorvastatin Calcium 40 Mg Tablet) 40 mg PO QHS [facility] Last Admin: 10/09/20 21:03 Dose: 40 mg Documented by: Clopidogrel Bisulfate (Clopidogrel Bisulfate 75 Mg Tablet) 75 mg PO DAILY [facility] Last Admin: 10/10/20 09:17 Dose: 75 mg Documented by: Dexamethasone (Dexamethasone 2 Mg Tablet) 2 mg PO DAILY@0800 [facility] Last Admin: 10/10/20 09:28 Dose: 2 mg Documented by: Fluticasone Propionate (Fluticasone 0.05% 1 [place] Nasal.Sry) 2 spray NASAL DAILY [facility] Last Admin: 10/10/20 09:31 Dose: 2 sprays Documented by: Guaifenesin (Guaifenesin 10 Ml Udc (200mg/10ml)) 20 ml PO Q4H PRN PRN PRN Reason: COUGH Heparin Sodium (Beef Lung) (Heparin Pf Lock 10 Units/Ml 50 Units/5 Ml Syringe) 50 units IV UD PRN PRN Reason: Port-a-Cath (VAD)Heparin Flush Hydralazine HCl (Hydralazine 20 Mg/Ml Vial) 10 mg IV Q4H PRN PRN PRN Reason: SBP > 160 Sodium Chloride () 1,000 mls @ 100 mls/hr IV .Q10H [facility] Last Admin: 10/10/20 09:27 Dose: 100 mls/hr Documented by: Cefepime HCl 2 gm/ Sodium (Chloride) 100 mls @ 200 mls/hr IV Q12 [facility] Stop: 10/16/20 15:12 Last Infusion: 10/10/20 10:03 Dose: Infused Documented by: Levothyroxine Sodium (Levothyroxine 50 Mcg Tablet) 50 mcg PO DAILY@0600 [facility] Last Admin: 10/10/20 06:06 Dose: 50 mcg Documented by: Lisinopril (Lisinopril 40 Mg Tablet) 40 mg PO DAILY [facility] Last Admin: 10/10/20 09:18 Dose: 40 mg Documented by: Loratadine (Loratadine 10 Mg Tablet) 10 mg PO DAILY [facility] Last Admin: 10/10/20 09:18 Dose: 10 mg Documented by: Magnesium Hydroxide (Magnesium Hydroxide 30 Ml Udc) 30 ml PO DAILY PRN PRN PRN Reason: Constipation Melatonin (Melatonin 10 Mg Tablet) 5 mg PO QHS PRN PRN PRN Reason: SLEEP Metoprolol Succinate (Metoprolol(Xl)Succ 50 Mg Tablet) 50 mg PO DAILY [facility] Last Admin: 10/10/20 09:17 Dose: 50 mg Documented by: Nitroglycerin (Nitroglycerin (Inpatient Use) 0.4 Mg Tab.Subl) 0.4 mg SUBLINGUAL Q5M PRN PRN Reason: CARDIAC/CHEST PAIN Ondansetron HCl (Ondansetron 4 Mg/2 Ml Vial) 4 mg IV Q8H PRN PRN PRN Reason: NAUSEA/VOMITING Pantoprazole Sodium (Pantoprazole Sodium 40 Mg Tablet) 40 mg PO DAILY [facility] Last Admin: 10/10/20 09:18 Dose: 40 mg Documented by: Polyethylene Glycol (Polyethylene Glycol 3350 17 Gm Packet) 17 gm PO DAILY [facility] Last Admin: 10/10/20 09:18 Dose: Not Given Documented by: Potassium Chloride (Potassium Chloride 20 Meq Tablet) 20 meq PO DAILY@0800 [facility] Last Admin: 10/10/20 09:17 Dose: 20 meq Documented by: Prochlorperazine Edisylate (Prochlorperazine 10 Mg/2 Ml Vial) 5 mg IV Q4H PRN PRN PRN Reason: Breakthrough Nausea/Vomiting Psyllium Hydrophilic Mucilloid (Psyllium 1 Packet) 1 packet PO DAILY PRN PRN PRN Reason: Constipation Senna/Docusate Sodium (Senna/Docusate Sodium 1 Tablet) 2 tablet PO BID PRN PRN PRN Reason: Constipation Sodium Chloride (Sodium Chloride 1 Gm Tablet) 1 gm PO BID [facility] Last Admin: 10/10/20 09:18 Dose: 1 gm Documented by: Sodium Chloride (0.9% Saline Lock 10 Ml Syringe) 10 - 40 ml IV UD PRN PRN Reason: Port-a-Cath (VAD) Flush Last Admin: 10/10/20 06:06 Dose: 10 ml Documented by: Sodium Chloride (0.9 % Nacl (Sterile) Posiflush 10 Ml) 10 - 40 ml IV UD PRN PRN Reason: Port access or dressing change Sodium Chloride (0.9% Saline Lock 10 Ml Syringe) 10 - 40 ml IV UD PRN PRN Reason: SALINE FLUSH Throat Lozenges (Benzocaine/Menthol 1 Lozenge) 1 lozenge MUCOUS MEM Q2H PRN PRN PRN Reason: SORE THROAT Assessment/Plan This patient was seen in conjunction with THEO Reid . I have independently interviewed and examined the patient and reviewed pertinent historical, laboratory, and other data. Please refer to THEO Reid note for details of this patient's presentation, findings, and recommendations. I have reviewed THEO Reid note and concur with documented findings. In brief, patient is an 80-year-old female with past medical history segment for non-small cell lung CA involving the right lung with history of lobectomy in October 2019 who presented with slurred speech, confusion MRI obtained demonstrated small acute right cerebellar infarct admitted to monitored bed for further treatment Physical Examination: GENERAL: episodes of confusion HEENT: Atraumatic; EYES; Anicteric, Normal Conjunctiva NECK; supple, normal thyroid, RESPIRATORY: Diminished to auscultation CARDIOVASCULAR: Regular S1 S2, GI: soft, normoactive bowel sounds, : No Renal angle tenderness; EXTREMITIES: No edema, no clubbing, MUSCULOSKELETAL: no muscle waisting NEURO: Awake; no lateralizing signs. SKIN: No Rash PSYCH; Flat affect Assessment: 1. Acute right cerebellar infarct 2. Hyponatremia 3. Acute metabolic encephalopathy 4. Non-small cell lung CA with metastasis 5. Suspected seizure disorder ?Keppra restarted 6. Left lower extremity DVT?On Eliquis 7. Essential hypertension 8. Hypothyroidism 9. GERD 10. Microscopic hematuria 11. Symptomatic anemia status post transfusion with 2 unit PRBC 12. DVT prophylaxis Recommendations: 1. I have discussed the results of my overview and impressions with the patient 2. Options for management were reviewed Inpatient E&M: [id number] [facility] L3
--- NOTE | 2020-10-10 13:50 | CASEMGMT ---
SOCIAL WORK ASSESSMENT Reason for Consult: Discharge Planning Met with patient in room. Introduced role and reason for referral. Patient states lives home with in a 2 story home. Patient reports has first floor set up. Patient states uses a walker for assistance with ambulation. Patient denies any history of anxiety or depression. Attempted to complete PHQ9 with patient. Patient confused when answering questions. Patient looking to right side of room and asking if this worker needs Phong to escort me to the door. Patient states has been to long term a year ago. Unable to recall name of facility. Patient states plan for discharge is home with as before. Call to patient's daughter, Eloina who is listed as Person to Notify. Per daughter, patient has had more confusion over the last month. Daughter states hallucinations and increased confusion is normal for patient when she has a UTI. Inquired about previous SNF visit. Daughter states patient has never been to long term before and is confusing hospitalization a year ago with a long term as she was in hospital for a little over a week. Daughter states as long as she can transfer plan is for home. We can handle the confusion. Daughter states home health referral for therapy would be beneficial for patient and family has already obtained an order from patient's PCP prior to this admission. environmental manager, Myrna updated on anticipated discharge plan to home with home health. Myrna to follow up and provide list. Randi Montague, TUFTING MACHINE OPERATOR, NET WEB APPLICATION DEVELOPER
--- NOTE | 2020-10-10 15:15 | CM.UR ---
Dropped off [facility] list to patient and her family. Encouraged them to let their nurse know what agency they would like. verb understanding and agreement. Zahira Hinson RN, CCM.
[2020-10-10] MEDS: Na Biphos/Potassium Phosphate PACKET 1 PACKET PO ×2 (17:50→20:35)
[2020-10-10] MEDS: Atorvastatin Calcium 40 MG Tablet PO (20:33)
[2020-10-10] MEDS: levETIRAcetam 250 MG Tablet PO (20:33)
[2020-10-11] VITALS (14 sets, daily range): BP systolic 107–178; BP diastolic 35–88; PULSE 58–74; RESP 16–18; TEMP 36.3–36.6; O2SAT 94–98
--- NOTE | 2020-10-11 02:13 | PCS.PANDOC ---
PANDEMIC DOCUMENTATION INITIATED: Date: 10/09/20 Time: 14:20
[2020-10-11] MEDS: hydrALAZINE 20 MG/ML Vial 10 MG IV (02:32)
[2020-10-11] MEDS: 0.9% Saline Lock 10 ML Syringe IV (02:32)
[2020-10-11] MEDS: Levothyroxine 50 MCG Tablet PO (04:43)
[2020-10-11] MEDS: 0.9% Normal Saline 1,000 ML 100 ML IV (06:04)
[2020-10-11 07:35] LABS: Hematocrit 33.2 % (37-47); Hemoglobin 11.1 g/dL (12.0-15.0); Mean Corp Hgb Conc 33.4 g/dL (32-36); Mean Corpuscular Volume 89.7 fL (81-99); Mean Platelet Vol. 7.9 fl (6.2-12.0); Platelet Count 351 K/mm3 (150-450); RBC Distribution Width SD 47.6 fl (35.1-43.9); White Blood Count 15.3 K/mm3 (4.4-11.0)
[2020-10-11 07:55] LABS: Anion Gap 8 (5-15); BUN 8 mg/dL (7-18); BUN/Creat Ratio 34.8 RATIO (10-20); Calcium,Total 7.9 mg/dL (8.5-10.1); Chloride 94 mmol/L (98-107); Creatinine, Serum 0.23 mg/dL (0.55-1.02); EST Glomerular Filtration Rate 307 mL/min (>60); Est Glom Filt Rate - Afr Amer 372 mL/min (>60); Estimated Creatinine Clearance 37.45 ml/min; Glucose 84 mg/dL (74-106); Magnesium 1.7 mg/dL (1.6-2.6); Potassium 3.4 mmol/L (3.5-5.1); Sodium Level 127 mmol/L (136-145)
[2020-10-11] MEDS: Na Biphos/Potassium Phosphate PACKET 1 PACKET PO ×4 (10:17→21:57)
[2020-10-11] MEDS: Clopidogrel Bisulfate 75 MG Tablet PO (10:17)
[2020-10-11] MEDS: Fluticasone 0.05% 1 SPRAY NASAL.SRY 2 SPRAY NASAL (10:17)
[2020-10-11] MEDS: Metoprolol(XL)Succ 50 MG Tablet PO (10:18)
[2020-10-11] MEDS: levETIRAcetam 250 MG Tablet PO ×2 (10:18→21:58)
[2020-10-11] MEDS: APIXABAN 5 MG TABLET 10 MG PO ×2 (10:18→21:59)
[2020-10-11] MEDS: Aspirin 81 MG TAB.CHEW PO (10:18)
[2020-10-11] MEDS: Loratadine 10 MG Tablet PO (10:19)
[2020-10-11] MEDS: amLODIPine 5 MG Tablet PO (10:20)
[2020-10-11] MEDS: Sodium Chloride 1 GM Tablet PO ×2 (10:20→21:58)
[2020-10-11] MEDS: Pantoprazole Sodium 40 MG Tablet PO (10:21)
[2020-10-11] MEDS: Lisinopril 40 MG Tablet PO (10:21)
--- NOTE | 2020-10-11 12:32 | PCM.PROGNOTE ---
<Albina White ASP WEB DEVELOPER - Last Filed: 10/11/20 12:53> Patient Problems: Active and Suspected Problems (Last Reviewed 10/06/20 @ 14:13 by Yenny Brown) Hyponatremia (Acute) Acute on Chronic CVA (cerebral vascular accident) (Acute) Acute UTI (Acute) Hematuria (Acute) Acute blood loss anemia (Acute) Subjective: Patient seen and examined. Much more confused at this morning. Pulling at IV tubing, yelling out. - Physical Exam Vitals/I&O's: Vital Signs Temp Pulse Resp BP Pulse Ox 97.8 F 67 18 163/55 H 94 10/11/20 10:15 10/11/20 10:18 10/11/20 10:15 10/11/20 10:18 10/11/20 10:30 Oxygen Delivery Method Room Air Weight: 128 lb 15.527 oz Body Mass Index (BMI) 24.7 Intake and Output for Last 24 Hours 10/09/20 10/10/20 10/11/20 23:59 23:59 23:59 Intake Total 1101.67 / 1101.67 2565.67 / 2565.67 1351.67 / 1351.67 Output Total 450 / 450 2500 / 2500 Balance 651.67 / 651.67 65.67 / 65.67 1351.67 / 1351.67 General: Alert, Confused HEENT: Atraumatic, PERRLA, EOMI, Normocephalic Neck: Supple, No JVD, Negative Carotid Bruits Lungs: Clear to auscultation, Normal air movement Cardiovascular: Regular rate, No murmurs Abdomen: Bowel Sounds Present, Soft, Non Tender, Non-Distended Extremities: No clubbing, No cyanosis, No edema, Capillary Refill Less than 3 Seconds Skin: No rashes, No breakdown Musculoskeletal: No Tenderness to Palpation of Joints or Extremities Neurological: Cranial nerves II-XII grossly intact, Neuro grossly intact Psych/Mental Status: Anxious, Restless Laboratory Results 10/11/20 06:30: WBC 15.3 H, RBC 3.70 L, Hgb 11.1 L, Hct 33.2 L, MCV 89.7, MCH 30.0, MCHC 33.4, RDW Std Deviation 47.6 H, RDW Coeff of Roselyn 15.0 H, Plt Count 351, MPV 7.9 01/17/21 06:30: Sodium 127 L, Potassium 3.4 L, Chloride 94 L, Carbon Dioxide 25.0, Anion Gap 8, BUN 8, Creatinine 0.23 L, Estim Creat Clear Calc 37.45, Est GFR (MDRD) Af Amer 372, Est GFR (MDRD) Non-Af 307, BUN/Creatinine Ratio 34.8 H, Glucose 84, Calcium 7.9 L, Magnesium 1.7 Current Medications Acetaminophen (Acetaminophen 325 Mg Tablet) 650 mg PO Q6H PRN PRN PRN Reason: Pain Score 1-10/Temp > 100.7 F Al Hydroxide/Mg Hydroxide (Mag Hydrox/Al Hydrox/Simeth 30 Ml Udc) 30 ml PO Q6H PRN PRN PRN Reason: Gastric Burning Albuterol Sulfate (Albuterol 2.5 Mg/3 Ml Vial.Neb.) 2.5 mg INHALATION Q2H PRN PRN PRN Reason: Dyspnea, wheezing Amlodipine Besylate (Amlodipine 5 Mg Tablet) 5 mg PO DAILY [facility] Last Admin: 10/11/20 10:20 Dose: 5 mg Documented by: Apixaban (Apixaban 5 Mg Tablet) 10 mg PO BID [facility] Last Admin: 10/11/20 10:18 Dose: 10 mg Documented by: Aspirin (Aspirin 81 Mg Tab.Chew) 81 mg PO DAILY@0800 [facility] Last Admin: 10/11/20 10:18 Dose: 81 mg Documented by: Atorvastatin Calcium (Atorvastatin Calcium 40 Mg Tablet) 40 mg PO QHS [facility] Last Admin: 10/10/20 20:33 Dose: 40 mg Documented by: Clopidogrel Bisulfate (Clopidogrel Bisulfate 75 Mg Tablet) 75 mg PO DAILY [facility] Last Admin: 10/11/20 10:17 Dose: 75 mg Documented by: Fluticasone Propionate (Fluticasone 0.05% 1 Elmo Nasal.Sry) 2 spray NASAL DAILY [facility] Last Admin: 10/11/20 10:17 Dose: 2 sprays Documented by: Guaifenesin (Guaifenesin 10 Ml Udc (200mg/10ml)) 20 ml PO Q4H PRN PRN PRN Reason: COUGH Heparin Sodium (Beef Lung) (Heparin Pf Lock 10 Units/Ml 50 Units/5 Ml Syringe) 50 units IV UD PRN PRN Reason: Port-a-Cath (VAD)Heparin Flush Hydralazine HCl (Hydralazine 20 Mg/Ml Vial) 10 mg IV Q4H PRN PRN PRN Reason: SBP > 160 Last Admin: 10/11/20 02:32 Dose: 10 mg Documented by: Cefepime HCl 2 gm/ Sodium (Chloride) 100 mls @ 200 mls/hr IV Q12 [facility] Stop: 10/16/20 15:12 Last Infusion: 10/11/20 10:30 Dose: Infused Documented by: Levetiracetam (Levetiracetam 250 Mg Tablet) 250 mg PO BID [facility] Last Admin: 10/11/20 10:18 Dose: 250 mg Documented by: Levothyroxine Sodium (Levothyroxine 50 Mcg Tablet) 50 mcg PO DAILY@0600 [facility] Last Admin: 10/11/20 04:43 Dose: 50 mcg Documented by: Lisinopril (Lisinopril 40 Mg Tablet) 40 mg PO DAILY [facility] Last Admin: 10/11/20 10:21 Dose: 40 mg Documented by: Loratadine (Loratadine 10 Mg Tablet) 10 mg PO DAILY [facility] Last Admin: 10/11/20 10:19 Dose: 10 mg Documented by: Magnesium Hydroxide (Magnesium Hydroxide 30 Ml Udc) 30 ml PO DAILY PRN PRN PRN Reason: Constipation Melatonin (Melatonin 10 Mg Tablet) 5 mg PO QHS PRN PRN PRN Reason: SLEEP Metoprolol Succinate (Metoprolol(Xl)Succ 50 Mg Tablet) 50 mg PO DAILY [facility] Last Admin: 10/11/20 10:18 Dose: 50 mg Documented by: Nitroglycerin (Nitroglycerin (Inpatient Use) 0.4 Mg Tab.Subl) 0.4 mg SUBLINGUAL Q5M PRN PRN Reason: CARDIAC/CHEST PAIN Ondansetron HCl (Ondansetron 4 Mg/2 Ml Vial) 4 mg IV Q8H PRN PRN PRN Reason: NAUSEA/VOMITING Pantoprazole Sodium (Pantoprazole Sodium 40 Mg Tablet) 40 mg PO DAILY [facility] Last Admin: 10/11/20 10:21 Dose: 40 mg Documented by: Polyethylene Glycol (Polyethylene Glycol 3350 17 Gm Packet) 17 gm PO DAILY [facility] Last Admin: 10/11/20 10:20 Dose: Not Given Documented by: Potassium Chloride (Potassium Chloride 20 Meq Tablet) 20 meq PO DAILY@0800 [facility] Last Admin: 10/11/20 10:18 Dose: 20 meq Documented by: Potassium Phos/Sodium Phos (Na Biphos/Potassium Phosphate Packet) 1 packet PO 4X/DAY [facility] Last Admin: 10/11/20 10:17 Dose: 1 packet Documented by: Prochlorperazine Edisylate (Prochlorperazine 10 Mg/2 Ml Vial) 5 mg IV Q4H PRN PRN PRN Reason: Breakthrough Nausea/Vomiting Psyllium Hydrophilic Mucilloid (Psyllium 1 Packet) 1 packet PO DAILY PRN PRN PRN Reason: Constipation Senna/Docusate Sodium (Senna/Docusate Sodium 1 Tablet) 2 tablet PO BID PRN PRN PRN Reason: Constipation Sodium Chloride (Sodium Chloride 1 Gm Tablet) 1 gm PO BID [facility] Last Admin: 10/11/20 10:20 Dose: 1 gm Documented by: Sodium Chloride (0.9% Saline Lock 10 Ml Syringe) 10 - 40 ml IV UD PRN PRN Reason: Port-a-Cath (VAD) Flush Last Admin: 10/11/20 02:32 Dose: 10 ml Documented by: Sodium Chloride (0.9 % Nacl (Sterile) Posiflush 10 Ml) 10 - 40 ml IV UD PRN PRN Reason: Port access or dressing change Sodium Chloride (0.9% Saline Lock 10 Ml Syringe) 10 - 40 ml IV UD PRN PRN Reason: SALINE FLUSH Throat Lozenges (Benzocaine/Menthol 1 Lozenge) 1 lozenge MUCOUS MEM Q2H PRN PRN PRN Reason: SORE THROAT Medical Necessity - Tobacco Use Smoking Status: Never smoker Tobacco Use: Non-smoker Assessment/Plan All Active Problems (Last Reviewed 10/06/20 @ 14:13 by Yenny Brown) Surgical wound present (Acute) Vascular catheter fitting or adjustment (Acute) CINV (chemotherapy-induced nausea and vomiting) (Acute) Stomatitis (Resolved) UTI (urinary tract infection) (Resolved) Diarrhea (Acute) Delirium (Acute) Elevated troponin (Acute) Encephalopathy (Acute) Tiredness (Acute) UTI (urinary tract infection) (Acute) Hyponatremia (Acute) Hypokalemia (Acute) CVA (cerebral vascular accident) (Acute) Acute UTI (Acute) Hematuria (Acute) Acute blood loss anemia (Acute) 1. 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 Echocardiogram demonstrates an EF of 65%, mid cavitary false tendon noted, moderate to severe mitral annular calcification, moderate mitral valve insufficiency, mild to moderate aortic valve insufficiency, RVSP estimated to be 40 mmHg. Patient is on Eliquis for recent diagnosis left lower extremity DVT. Due to recent hematuria, it is unclear if patient had interruption in therapy. Eliquis resumed on admission. SOC neurology consult placed. Continue Eliquis indefinitely if no contraindication. Resume Keppra at lower dose, 250 mg twice daily. Neurology recommends continuing Eliquis, aspirin/Plavix may be discontinued due to recurrent CVA suspected related to embolic and/or hypercoagulable state in the con text of malignancy. Continue Eliquis, statin. Aspirin/Plavix discontinued. 2. Acute complicated Enterobacter UTI-Diagnosed 10/06/2020 and placed on Cipro as outpatient. Continue IV cefepime to complete course. 3. Acute encephalopathy-secondary to #1/#2/#6. Treatment per above. Patient with worsening confusion today. Low-dose Seroquel added. Daughter reports patient had been having ongoing hallucinations at home prior to admission. 4. Acute on chronic anemia-suspect secondary to recent hematuria, complicated by chemotherapy regimen. Status post 2 units PRBC. Hemoglobin 11 from 7.1. Trend CBC. Maintain PPI. 5. Possible seizure disorder-recent transfer to [facility] for abnormal EEG with concern for nonconvulsive status. Discharged on Keppra however this was discontinued by PCP secondary to fatigue. Repeat EEG does not demonstrate further seizure activity. Keppra resumed at reduced dose, 250 mg twice daily. 6. Acute on chronic hyponatremia-recently initiated on sodium chloride tablets, continue. Improved. Trend BMP. 7. Right non-small cell lung cancer with metastatic lesions-history of lobectomy October 2019. Continue outpatient follow-up with oncology. Dexamethasone initiated by oncology to stimulate appetite, discontinued given increased confusion and active infection. 8. Recent left lower extremity DVT-continue Eliquis 10 mg twice a day for 7 days then transition to Eliquis 5 mg twice a day. 9. Hypertension-stable, continue amlodipine, lisinopril. 10. Hypothyroidism-continue Synthroid regimen. 11. GERD-on PPI. 13. Hypokalemia/hypophosphatemia-on supplementation, trend BMP/Phos. DVT prophylaxis-Eliquis Discharge planning: PT recommending additional therapy, discussed with daughter patient may need SNF at discharge if mentation does not improve with treatment of acute processes. This patient was seen by THEO Reid under the supervision of Dr. Avalos. <Jared Avalos - Last Filed: 10/11/20 13:05> - Physical Exam Vitals/I&O's: Vital Signs Temp Pulse Resp BP Pulse Ox 97.8 F 67 18 163/55 H 94 10/11/20 10:15 10/11/20 10:18 10/11/20 10:15 10/11/20 10:18 10/11/20 10:30 Oxygen Delivery Method Room Air Weight: 58.5 kg Body Mass Index (BMI) 24.7 Intake and Output for Last 24 Hours 10/09/20 10/10/20 10/11/20 23:59 23:59 23:59 Intake Total 1101.67 / 1101.67 2565.67 / 2565.67 1795.00 / 1795.00 Output Total 450 / 450 2500 / 2500 Balance 651.67 / 651.67 65.67 / 65.67 1795.00 / 1795.00 Laboratory Results 10/11/20 06:30: WBC 15.3 H, RBC 3.70 L, Hgb 11.1 L, Hct 33.2 L, MCV 89.7, MCH 30.0, MCHC 33.4, RDW Std Deviation 47.6 H, RDW Coeff of Roselyn 15.0 H, Plt Count 351, MPV 7.9 10/11/20 06:30: Sodium 127 L, Potassium 3.4 L, Chloride 94 L, Carbon Dioxide 25.0, Anion Gap 8, BUN 8, Creatinine 0.23 L, Estim Creat Clear Calc 37.45, Est GFR (MDRD) Af Amer 372, Est GFR (MDRD) Non-Af 307, BUN/Creatinine Ratio 34.8 H, Glucose 84, Calcium 7.9 L, Magnesium 1.7 Current Medications Acetaminophen (Acetaminophen 325 Mg Tablet) 650 mg PO Q6H PRN PRN PRN Reason: Pain Score 1-10/Temp > 100.7 F Al Hydroxide/Mg Hydroxide (Mag Hydrox/Al Hydrox/Simeth 30 Ml Udc) 30 ml PO Q6H PRN PRN PRN Reason: Gastric Burning Albuterol Sulfate (Albuterol 2.5 Mg/3 Ml Vial.Neb.) 2.5 mg INHALATION Q2H PRN PRN PRN Reason: Dyspnea, wheezing Amlodipine Besylate (Amlodipine 5 Mg Tablet) 5 mg PO DAILY [facility] Last Admin: 10/11/20 10:20 Dose: 5 mg Documented by: Apixaban (Apixaban 5 Mg Tablet) 10 mg PO BID [facility] Last Admin: 10/11/20 10:18 Dose: 10 mg Documented by: Atorvastatin Calcium (Atorvastatin Calcium 40 Mg Tablet) 40 mg PO QHS [facility] Last Admin: 10/10/20 20:33 Dose: 40 mg Documented by: Fluticasone Propionate (Fluticasone 0.05% 1 Elmo Nasal.Sry) 2 spray NASAL DAILY [facility] Last Admin: 10/11/20 10:17 Dose: 2 sprays Documented by: Guaifenesin (Guaifenesin 10 Ml Udc (200mg/10ml)) 20 ml PO Q4H PRN PRN PRN Reason: COUGH Heparin Sodium (Beef Lung) (Heparin Pf Lock 10 Units/Ml 50 Units/5 Ml Syringe) 50 units IV UD PRN PRN Reason: Port-a-Cath (VAD)Heparin Flush Hydralazine HCl (Hydralazine 20 Mg/Ml Vial) 10 mg IV Q4H PRN PRN PRN Reason: SBP > 160 Last Admin: 10/11/20 02:32 Dose: 10 mg Documented by: Cefepime HCl 2 gm/ Sodium (Chloride) 100 mls @ 200 mls/hr IV Q12 [facility] Stop: 10/16/20 15:12 Last Infusion: 10/11/20 10:30 Dose: Infused Documented by: Levetiracetam (Levetiracetam 250 Mg Tablet) 250 mg PO BID [facility] Last Admin: 10/11/20 10:18 Dose: 250 mg Documented by: Levothyroxine Sodium (Levothyroxine 50 Mcg Tablet) 50 mcg PO DAILY@0600 [facility] Last Admin: 10/11/20 04:43 Dose: 50 mcg Documented by: Lisinopril (Lisinopril 40 Mg Tablet) 40 mg PO DAILY [facility] Last Admin: 10/11/20 10:21 Dose: 40 mg Documented by: Loratadine (Loratadine 10 Mg Tablet) 10 mg PO DAILY [facility] Last Admin: 10/11/20 10:19 Dose: 10 mg Documented by: Magnesium Hydroxide (Magnesium Hydroxide 30 Ml Udc) 30 ml PO DAILY PRN PRN PRN Reason: Constipation Melatonin (Melatonin 10 Mg Tablet) 5 mg PO QHS PRN PRN PRN Reason: SLEEP Metoprolol Succinate (Metoprolol(Xl)Succ 50 Mg Tablet) 50 mg PO DAILY [facility] Last Admin: 10/11/20 10:18 Dose: 50 mg Documented by: Nitroglycerin (Nitroglycerin (Inpatient Use) 0.4 Mg Tab.Subl) 0.4 mg SUBLINGUAL Q5M PRN PRN Reason: CARDIAC/CHEST PAIN Ondansetron HCl (Ondansetron 4 Mg/2 Ml Vial) 4 mg IV Q8H PRN PRN PRN Reason: NAUSEA/VOMITING Pantoprazole Sodium (Pantoprazole Sodium 40 Mg Tablet) 40 mg PO DAILY [facility] Last Admin: 10/11/20 10:21 Dose: 40 mg Documented by: Polyethylene Glycol (Polyethylene Glycol 3350 17 Gm Packet) 17 gm PO DAILY [facility] Last Admin: 10/11/20 10:20 Dose: Not Given Documented by: Potassium Chloride (Potassium Chloride 20 Meq Tablet) 20 meq PO DAILY@0800 [facility] Last Admin: 10/11/20 10:18 Dose: 20 meq Documented by: Potassium Phos/Sodium Phos (Na Biphos/Potassium Phosphate Packet) 1 packet PO 4X/DAY [facility] Last Admin: 10/11/20 10:17 Dose: 1 packet Documented by: Prochlorperazine Edisylate (Prochlorperazine 10 Mg/2 Ml Vial) 5 mg IV Q4H PRN PRN PRN Reason: Breakthrough Nausea/Vomiting Psyllium Hydrophilic Mucilloid (Psyllium 1 Packet) 1 packet PO DAILY PRN PRN PRN Reason: Constipation Quetiapine Fumarate (Quetiapine 25 Mg Tablet) 12.5 mg PO BID [facility] Senna/Docusate Sodium (Senna/Docusate Sodium 1 Tablet) 2 tablet PO BID PRN PRN PRN Reason: Constipation Sodium Chloride (Sodium Chloride 1 Gm Tablet) 1 gm PO BID [facility] Last Admin: 10/11/20 10:20 Dose: 1 gm Documented by: Sodium Chloride (0.9% Saline Lock 10 Ml Syringe) 10 - 40 ml IV UD PRN PRN Reason: Port-a-Cath (VAD) Flush Last Admin: 10/11/20 02:32 Dose: 10 ml Documented by: Sodium Chloride (0.9 % Nacl (Sterile) Posiflush 10 Ml) 10 - 40 ml IV UD PRN PRN Reason: Port access or dressing change Sodium Chloride (0.9% Saline Lock 10 Ml Syringe) 10 - 40 ml IV UD PRN PRN Reason: SALINE FLUSH Throat Lozenges (Benzocaine/Menthol 1 Lozenge) 1 lozenge MUCOUS MEM Q2H PRN PRN PRN Reason: SORE THROAT Assessment/Plan This patient was seen in conjunction with THEO Reid . I have independently interviewed and examined the patient and reviewed pertinent historical, laboratory, and other data. Please refer to THEO Reid note for details of this patient's presentation, findings, and recommendations. I have reviewed THEO Reid note and concur with documented findings. In brief, patient is an 80-year-old female with past medical history segment for non-small cell lung CA involving the right lung with history of lobectomy in October 2019 who presented with slurred speech, confusion MRI obtained demonstrated small acute right cerebellar infarct admitted to monitored bed for further treatment 10/11/2020; patient still still remains delirious. Also remains deconditioned and may need to be discharged to detention facility consult placed to secondary social studies teacher to assist with disposition Physical Examination: GENERAL: episodes of confusion HEENT: Atraumatic; EYES; Anicteric, Normal Conjunctiva NECK; supple, normal thyroid, RESPIRATORY: Diminished to auscultation CARDIOVASCULAR: Regular S1 S2, GI: soft, normoactive bowel sounds, : No Renal angle tenderness; EXTREMITIES: No edema, no clubbing, MUSCULOSKELETAL: no muscle waisting NEURO: Awake; no lateralizing signs. SKIN: No Rash PSYCH; Flat affect Assessment: 1. Acute right cerebellar infarct 2. Hyponatremia 3. Acute metabolic encephalopathy 4. Non-small cell lung CA with metastasis 5. Suspected seizure disorder ?Keppra restarted 6. Left lower extremity DVT?On Eliquis 7. Essential hypertension 8. Hypothyroidism 9. GERD 10. Microscopic hematuria 11. Symptomatic anemia status post transfusion with 2 unit PRBC 12. DVT prophylaxis Recommendations: 1. I have discussed the results of my overview and impressions with the patient 2. Options for management were reviewed
[2020-10-11] MEDS: QUEtiapine 25 MG Tablet 12.5 MG PO ×2 (14:40→21:56)
[2020-10-11] MEDS: Atorvastatin Calcium 40 MG Tablet PO (21:58)
[2020-10-12] VITALS (14 sets, daily range): BP systolic 74–136; BP diastolic 32–83; PULSE 50–68; RESP 16–18; TEMP 36.3–36.9; O2SAT 95–98; BMI 22.3
[2020-10-12] MEDS: Menthol/Lanolin/Calamine/Znox 113 GM Tube 1 APPLIC TOPICAL ×3 (05:49→21:33)
[2020-10-12] MEDS: Levothyroxine 50 MCG Tablet PO (05:49)
[2020-10-12 06:06] LABS: Hematocrit 28.9 % (37-47); Hemoglobin 9.6 g/dL (12.0-15.0); Mean Corp Hgb Conc 33.2 g/dL (32-36); Mean Corpuscular Volume 90.3 fL (81-99); Mean Platelet Vol. 7.9 fl (6.2-12.0); Platelet Count 312 K/mm3 (150-450); RBC Distribution Width CV 15.6 % (11.6-14.6); RBC Distribution Width SD 50.2 fl (35.1-43.9); White Blood Count 14.1 K/mm3 (4.4-11.0)
[2020-10-12 06:50] LABS: Anion Gap 7 (5-15); BUN 17 mg/dL (7-18); BUN/Creat Ratio 47.5 RATIO (10-20); Calcium,Total 7.7 mg/dL (8.5-10.1); Chloride 97 mmol/L (98-107); Creatinine, Serum 0.36 mg/dL (0.55-1.02); EST Glomerular Filtration Rate 184 mL/min (>60); Est Glom Filt Rate - Afr Amer 223 mL/min (>60); Estimated Creatinine Clearance 37.45 ml/min; Glucose 90 mg/dL (74-106); Potassium 3.6 mmol/L (3.5-5.1); Sodium Level 128 mmol/L (136-145)
[2020-10-12] MEDS: 0.9% Saline Lock 10 ML Syringe IV ×2 (09:28→16:33)
[2020-10-12] MEDS: Polyethylene Glycol 3350 17 GM PACKET PO (09:29)
[2020-10-12] MEDS: Na Biphos/Potassium Phosphate PACKET 1 PACKET PO ×2 (10:09→14:41)
[2020-10-12] MEDS: Fluticasone 0.05% 1 SPRAY NASAL.SRY 2 SPRAY NASAL (10:10)
[2020-10-12] MEDS: levETIRAcetam 500 MG Tablet PO (10:12)
[2020-10-12] MEDS: Loratadine 10 MG Tablet PO (10:13)
[2020-10-12] MEDS: Pantoprazole Sodium 40 MG Tablet PO (10:14)
[2020-10-12] MEDS: APIXABAN 5 MG TABLET 10 MG PO (10:14)
[2020-10-12] MEDS: amLODIPine 5 MG Tablet PO (10:14)
[2020-10-12] MEDS: Metoprolol(XL)Succ 50 MG Tablet PO (10:15)
[2020-10-12] MEDS: Sodium Chloride 1 GM Tablet PO (10:15)
[2020-10-12] MEDS: Lisinopril 40 MG Tablet PO (10:15)
[2020-10-12] MEDS: QUEtiapine 25 MG Tablet 12.5 MG PO (10:16)
--- NOTE | 2020-10-12 10:40 | PCM.NTREPORT ---
Nutrition Therapy Report - History Nutrition Services has been consulted to:: Manage nutrient details of diet order Current diet / nutrition support order:: Regular diet - Anthropometric Measurements Height:: 5 ft 4 in Weight:: 59 kg Body Mass Index (BMI):: 22.3 - Relevant Labs Relevant Labs:: WBC 14.1 K/mm3 (4.4-11.0) H 10/12/20 05:40 RBC 3.20 M/mm3 (4.2-5.4) L 10/12/20 05:40 Hgb 9.6 g/dL (12.0-15.0) L 10/12/20 05:40 Hct 28.9 % (37-47) L 10/12/20 05:40 RDW Std Deviation 50.2 fl (35.1-43.9) H 10/12/20 05:40 RDW Coeff of Roselyn 15.6 % (11.6-14.6) H 10/12/20 05:40 Immature Gran % (Auto) 2.000 % (0.0-0.9) H 10/10/20 05:50 Neut % (Auto) 70.2 % (47-70) H 10/10/20 05:50 Lymph % (Auto) 9.4 % (19-41) L 10/10/20 05:50 Rock % (Auto) 16.0 % (0-10) H 10/10/20 05:50 Absolute Neuts (auto) 12.2 X10^3/uL (2.0-7.7) H 10/10/20 05:50 Sodium 128 mmol/L (136-145) L 10/12/20 05:40 Potassium 3.4 mmol/L (3.5-5.1) L 10/11/20 06:30 Chloride 97 mmol/L (98-107) L 10/12/20 05:40 Carbon Dioxide 18.0 mmol/L (21.0-32.0) L 10/09/20 18:35 BUN 19 mg/dL (7-18) H 10/09/20 15:40 Creatinine 0.36 mg/dL (0.55-1.02) L 10/12/20 05:40 BUN/Creatinine Ratio 47.5 RATIO (10-20) H 10/12/20 05:40 Glucose 128 mg/dL (74-106) H 10/09/20 22:12 Calcium 7.7 mg/dL (8.5-10.1) L 10/12/20 05:40 Phosphorus 2.0 mg/dL (2.5-4.9) L 10/09/20 15:40 Magnesium 1.4 mg/dL (1.6-2.6) L 10/09/20 15:40 AST 57 U/L (15-37) H 10/10/20 05:50 Alkaline Phosphatase 250 U/L (45-117) H 10/10/20 05:50 Total Protein 5.5 g/dL (6.4-8.2) L 10/10/20 05:50 Albumin 2.6 g/dL (3.2-5.0) L 10/10/20 05:50 - Assessment Food / Nutrition-Related History:: 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 BLLE nonpitting edema noted. ? ~6.3 Kg of wt loss since admit; calculated~10% wt loss--suspect admit wt likely inaccurate but, reported UBW~135 lbs. ~3-4% wt loss x past 1-2 weeks given UBW and decreased intake at meals meet criteria for malnutrition. Estimated nutrition needs~9670-9833 kcal & ~60-70 gm pro/day. Will provide varied ONS w/ meals as tolerated. - Nutrition Diagnosis Problem / Etiology / Signs & Symptoms (PES):: Severe pro/yoko malnutrition in the context of chronic disease related to ongoing poor appetite and increased nutrition needs as evidenced by ~3-4% wt loss x past 1-2 weeks given UBW and ongoing poor intake/less than 50% estimated nutrition needs met x past 1-2 weeks. Evidence of Malnutrition Exists:: Yes Severe PCM:: Chronic Illness - Nutrition Intervention Nutrition Prescription:: Estimated nutrition needs~6466-3346 kcal & ~60-70 gm pro/day. - Food / Nutrient Delivery Interventions Summary of nutrition intervention:: Continue liberalized regular diet and provide ONS w/ meals--120 ml ensure enlive TID w/ meals; ensure pudding BID daily. Nutrition education provided?: Yes - MNT Monitoring Further MNT monitoring and evaluation required?: Yes MNT Follow-up in:: 3-5 days
--- NOTE | 2020-10-12 10:42 | CASEMGMT ---
SW spoke with nurse and patient is somewhat confused. RN said she spoke with patient's daughter yesterday and she was asking about patient going to TCU. SW called [facility] on [facility] referral line and they should have a bed for patient. SW will talk with patient's daughter to confirm plan. Elida GONZALEZ
--- NOTE | 2020-10-12 11:03 | PN_ITS ---
Patient Problems: Active and Suspected Problems (Last Reviewed 10/06/20 @ 14:13 by Yenny Brown) Hyponatremia (Acute) Acute on Chronic CVA (cerebral vascular accident) (Acute) Acute UTI (Acute) Hematuria (Acute) Acute blood loss anemia (Acute) Subjective: Doing well, knows that she is in [facility]. Yesterday she was much more confused and this morning she had an episode of falling to the left side when she was try to get up to the bedside commode and having an acute episode of delirium however this resolved and she described everything that the nurses had talked about during the episode. Vitals/I&O's: Vital Signs Temp Pulse Resp BP Pulse Ox 98.4 F 62 18 136/41 H 98 10/12/20 10:15 10/12/20 10:15 10/12/20 10:15 10/12/20 10:15 10/12/20 10:15 Oxygen Delivery Method Room Air Weight: 130 lb 1.164 oz Body Mass Index (BMI) 22.3 Intake and Output for Last 24 Hours 10/10/20 10/11/20 10/12/20 23:59 23:59 23:59 Intake Total 2565.67 / 2565.67 2565.00 / 2565.00 175 / 175 Output Total 2500 / 2500 200 / 200 Balance 65.67 / 65.67 2365.00 / 2365.00 175 / 175 General: Alert, Cooperative, No apparent distress, Confused HEENT: Atraumatic, PERRLA, EOMI, Normocephalic Oral: Moist Mucosa Neck: Supple, No JVD Lungs: Clear to auscultation, Normal air movement, No rhonchi, No wheeze, No rales Cardiovascular: Regular rate, Regular Rhythm, Normal S1, Normal S2, No murmurs Abdomen: Soft, Non Tender, Non-Distended, No Hepato-splenomegaly Extremities: No edema, Capillary Refill Less than 3 Seconds Skin: No rashes, No breakdown Neurological: Neuro grossly intact, Sensory exam intact to light touch and pain Psych/Mental Status: Normal Affect, Appropriate Laboratory Results 10/12/20 05:40: WBC 14.1 H, RBC 3.20 L, Hgb 9.6 L, Hct 28.9 L, MCV 90.3, MCH 30.0, MCHC 33.2, RDW Std Deviation 50.2 H, RDW Coeff of Roselyn 15.6 H, Plt Count 312, MPV 7.9 10/12/20 05:40: Sodium 128 L, Potassium 3.6, Chloride 97 L, Carbon Dioxide 24.0, Anion Gap 7, BUN 17, Creatinine 0.36 L, Estim Creat Clear Calc 37.45, Est GFR (MDRD) Af Amer 223, Est GFR (MDRD) Non-Af 184, BUN/Creatinine Ratio 47.5 H, Glucose 90, Calcium 7.7 L Current Medications Acetaminophen (Acetaminophen 325 Mg Tablet) 650 mg PO Q6H PRN PRN PRN Reason: Pain Score 1-10/Temp > 100.7 F Al Hydroxide/Mg Hydroxide (Mag Hydrox/Al Hydrox/Simeth 30 Ml Udc) 30 ml PO Q6H PRN PRN PRN Reason: Gastric Burning Albuterol Sulfate (Albuterol 2.5 Mg/3 Ml Vial.Neb.) 2.5 mg INHALATION Q2H PRN PRN PRN Reason: Dyspnea, wheezing Amlodipine Besylate (Amlodipine 5 Mg Tablet) 5 mg PO DAILY [facility] Last Admin: 10/12/20 10:14 Dose: 5 mg Documented by: Apixaban (Apixaban 5 Mg Tablet) 10 mg PO BID [facility] Last Admin: 10/12/20 10:14 Dose: 10 mg Documented by: Atorvastatin Calcium (Atorvastatin Calcium 40 Mg Tablet) 40 mg PO QHS [facility] Last Admin: 10/11/20 21:58 Dose: 40 mg Documented by: Calamine/Phenol (Menthol/Lanolin/Calamine/Znox 113 Gm Tube) 1 applic TOPICAL TID [facility]; Protocol Last Admin: 10/12/20 05:49 Dose: 1 applicatio Documented by: Fluticasone Propionate (Fluticasone 0.05% 1 [place] Nasal.Sry) 2 spray NASAL DAILY [facility] Last Admin: 10/12/20 10:10 Dose: 2 sprays Documented by: Guaifenesin (Guaifenesin 10 Ml Udc (200mg/10ml)) 20 ml PO Q4H PRN PRN PRN Reason: COUGH Heparin Sodium (Beef Lung) (Heparin Pf Lock 10 Units/Ml 50 Units/5 Ml Syringe) 50 units IV UD PRN PRN Reason: Port-a-Cath (VAD)Heparin Flush Hydralazine HCl (Hydralazine 20 Mg/Ml Vial) 10 mg IV Q4H PRN PRN PRN Reason: SBP > 160 Last Admin: 10/11/20 02:32 Dose: 10 mg Documented by: Cefepime HCl 2 gm/ Sodium (Chloride) 100 mls @ 200 mls/hr IV Q12 [facility] Stop: 10/16/20 15:12 Last Infusion: 10/12/20 10:01 Dose: Infused Documented by: Levetiracetam (Levetiracetam 500 Mg Tablet) 500 mg PO BID [facility] Last Admin: 10/12/20 10:12 Dose: 500 mg Documented by: Levothyroxine Sodium (Levothyroxine 50 Mcg Tablet) 50 mcg PO DAILY@0600 [facility] Last Admin: 10/12/20 05:49 Dose: 50 mcg Documented by: Lisinopril (Lisinopril 40 Mg Tablet) 40 mg PO DAILY [facility] Last Admin: 10/12/20 10:15 Dose: 40 mg Documented by: Loratadine (Loratadine 10 Mg Tablet) 10 mg PO DAILY [facility] Last Admin: 10/12/20 10:13 Dose: 10 mg Documented by: Magnesium Hydroxide (Magnesium Hydroxide 30 Ml Udc) 30 ml PO DAILY PRN PRN PRN Reason: Constipation Melatonin (Melatonin 10 Mg Tablet) 5 mg PO QHS PRN PRN PRN Reason: SLEEP Metoprolol Succinate (Metoprolol(Xl)Succ 50 Mg Tablet) 50 mg PO DAILY [facility] Last Admin: 10/12/20 10:15 Dose: 50 mg Documented by: Nitroglycerin (Nitroglycerin (Inpatient Use) 0.4 Mg Tab.Subl) 0.4 mg SUBLINGUAL Q5M PRN PRN Reason: CARDIAC/CHEST PAIN Ondansetron HCl (Ondansetron 4 Mg/2 Ml Vial) 4 mg IV Q8H PRN PRN PRN Reason: NAUSEA/VOMITING Pantoprazole Sodium (Pantoprazole Sodium 40 Mg Tablet) 40 mg PO DAILY [facility] Last Admin: 10/12/20 10:14 Dose: 40 mg Documented by: Polyethylene Glycol (Polyethylene Glycol 3350 17 Gm Packet) 17 gm PO DAILY [facility] Last Admin: 10/12/20 09:29 Dose: 17 gm Documented by: Potassium Chloride (Potassium Chloride 20 Meq Tablet) 20 meq PO DAILY@0800 [facility] Last Admin: 10/12/20 10:13 Dose: 20 meq Documented by: Potassium Phos/Sodium Phos (Na Biphos/Potassium Phosphate Packet) 1 packet PO 4X/DAY [facility] Last Admin: 10/12/20 10:09 Dose: 1 packet Documented by: Prochlorperazine Edisylate (Prochlorperazine 10 Mg/2 Ml Vial) 5 mg IV Q4H PRN PRN PRN Reason: Breakthrough Nausea/Vomiting Psyllium Hydrophilic Mucilloid (Psyllium 1 Packet) 1 packet PO DAILY PRN PRN PRN Reason: Constipation Quetiapine Fumarate (Quetiapine 25 Mg Tablet) 12.5 mg PO BID [facility] Last Admin: 10/12/20 10:16 Dose: 12.5 mg Documented by: Senna/Docusate Sodium (Senna/Docusate Sodium 1 Tablet) 2 tablet PO BID PRN PRN PRN Reason: Constipation Sodium Chloride (Sodium Chloride 1 Gm Tablet) 1 gm PO BID [facility] Last Admin: 10/12/20 10:15 Dose: 1 gm Documented by: Sodium Chloride (0.9% Saline Lock 10 Ml Syringe) 10 - 40 ml IV UD PRN PRN Reason: Port-a-Cath (VAD) Flush Last Admin: 10/12/20 09:28 Dose: 10 ml Documented by: Sodium Chloride (0.9 % Nacl (Sterile) Posiflush 10 Ml) 10 - 40 ml IV UD PRN PRN Reason: Port access or dressing change Sodium Chloride (0.9% Saline Lock 10 Ml Syringe) 10 - 40 ml IV UD PRN PRN Reason: SALINE FLUSH Throat Lozenges (Benzocaine/Menthol 1 Lozenge) 1 lozenge MUCOUS MEM Q2H PRN PRN PRN Reason: SORE THROAT STROKE Vital Signs/Narrative: Vital Signs Temp Pulse Resp BP Pulse Ox 10/12/20 10:15 98.4 F 62 18 136/41 H 98 10/12/20 08:00 98.2 F 62 18 102/41 L 98 Medical Necessity - Tobacco Use Smoking Status: Never smoker Tobacco Use: Non-smoker Assessment/Plan All Active Problems (Last Reviewed 10/06/20 @ 14:13 by Yenny Brown) Surgical wound present (Acute) Vascular catheter fitting or adjustment (Acute) CINV (chemotherapy-induced nausea and vomiting) (Acute) Stomatitis (Resolved) UTI (urinary tract infection) (Resolved) Diarrhea (Acute) Delirium (Acute) Elevated troponin (Acute) Encephalopathy (Acute) Tiredness (Acute) UTI (urinary tract infection) (Acute) Hyponatremia (Acute) Hypokalemia (Acute) CVA (cerebral vascular accident) (Acute) Acute UTI (Acute) Hematuria (Acute) Acute blood loss anemia (Acute) 1. Small acute right cerebellar infarct/previous CVA with nonconvulsive status epilepticus/acute metabolic encephalopathy/seizure history -On her previous admission she had a stroke and was also thought to have nonconvulsive status epilepticus, she was transferred to [facility] which recommended continued Keppra therapy twice a day for 3 months and outpatient follow-up with neurology -Her PCP discontinued her Keppra because of fatigue -Will restart her Keppra at the appropriate dose of 500 mg p.o. twice daily -Continue with Eliquis despite her hematuria, will continue to monitor for anemia -We will discontinue her aspirin and Plavix per neurology's recommendation given the fact that she has non-small cell lung cancer, these are likely the cause of her hypercoagulable state and multiple embolic strokes 2. Acute on chronic anemia secondary to hematuria possibly secondary to complicated Enterobacter UTI -She did receive 2 units PRBCs on admission and her hemoglobin corrected from 7.1-11 -Today she is 9.6 with continued hematuria -If hematuria continues with cessation of aspirin Plavix, will likely need to get urology involved for evaluation -Continue with cefepime to complete her course 3. Stage IV right non-small cell lung cancer/recent left lower extremity DVT -She does have metastatic lesions to her pelvis with pain that does seem to be controlled at the moment -She was started on targeted therapy this is now on hold if she is in the hospital which also may complicate her anemia issues -We will Continue with her Eliquis at 10 mg twice daily for 7 days then transition to Eliquis 5 mg twice daily 4. HTN/HLD -Blood pressure stable -We will continue to monitor and continue with her home blood pressure medications 5. Hypothyroidism -Stable -Continue with Synthroid 6. GERD -Stable -Continue with PPI DVT: Eliquis Inpatient E&M: [id number] [facility] Hosp L2
[2020-10-12 13:25] LABS: Pathologist Review Reviewed
--- NOTE | 2020-10-12 13:31 | CASEMGMT ---
Readmission chart review: Pt was initially admitted 09/14-09/18/20 for Delirium/pna. Pt had cerebral/cerebellar small foci of acute infarctions on brain MRI at that time and EEG was concerning for focal non-convulsive status epilepticus and recommended transfer to a facility with 24hr continuous IP video EEG monitoring as well as Keppra 1000mg iv loading dose x1 and the 500mg twice daily. Per H&P, Keppra was then stopped by pt's PCP. Pt then returned to [facility] as direct admit from [facility] ED for slurred speech, left sided facial droop. Per pt/family, she has still had some slurred speech since 1st visit and ED stated facial droop had resolved upon ED presentation. Per Dr. Higuera' progress note/therapy note from this am, pt did have some left lateral lean. Per SW note from 10/10/20, daughter would like [facility] referral and states 'family can handle her confusion.' [facility] list already provided. Per Corinne BONILLA, pt's daughter also asked about TCU yesterday. Melissa SW aware and to f/u with daughter today. CM to follow for any further discharge planning/needs. Haroon BONILLA CM
--- NOTE | 2020-10-12 14:42 | CASEMGMT ---
SW went to patient's room to talk with patient and her daughter. Patient's daughter was crying. SW asked if SW came at a bad time and patient said yes. SW told them SW will check back another time. Eldia GONZALEZ
[2020-10-12] MEDS: levETIRAcetam IV 1,000 MG/100 ML BAG 400 MG IV (16:33)
[2020-10-12 16:56] LABS: Bedside Glucose 139 mg/dL (70-110)
[2020-10-12 17:06] LABS: Hematocrit 28.9 % (37-47); Hemoglobin 9.7 g/dL (12.0-15.0)
[2020-10-13] VITALS (12 sets, daily range): BP systolic 118–127; BP diastolic 48–62; PULSE 54–103; RESP 11–18; TEMP 36.6–36.9; O2SAT 95–100
[2020-10-13] MEDS: Menthol/Lanolin/Calamine/Znox 113 GM Tube 1 APPLIC TOPICAL ×3 (05:07→21:09)
[2020-10-13 06:06] LABS: Absolute Lymphocyte Count 1.42 X10^3/uL (0.83-4.51); Absolute Neutrophil Count 7.7 X10^3/uL (2.0-7.7); Basophil# 0.15 X10^3/uL; Basophil% 1.3 % (0-1); Eosinophil# 0.57 X10^3/uL; Eosinophils% 4.8 % (0-5); Hematocrit 25.3 % (37-47); Hemoglobin 8.5 g/dL (12.0-15.0); Lymphocyte # 1.42 X10^3/ul (4.0); Mean Corp Hgb Conc 33.6 g/dL (32-36); Mean Corpuscular Hgb 30.6 pg (27.0-32.0); Mean Platelet Vol. 8.1 fl (6.2-12.0); Monocyte# 1.74 X10^3/uL; Monocyte% 14.7 % (0-10); NRBC Flagged by Analyzer 0 % (0-5); Neutrophil # 7.72 X10^3/uL (2.7-7.7); Neutrophil % 64.9 % (47-70); POSITIVE DIFFERENTIAL YES; Platelet Count 274 K/mm3 (150-450); RBC Distribution Width CV 16.1 % (11.6-14.6); RBC Distribution Width SD 52.8 fl (35.1-43.9); Red Blood Count 2.78 M/mm3 (4.2-5.4); White Blood Count 11.9 K/mm3 (4.4-11.0)
[2020-10-13 06:07] LABS: Differential Indicated SCAN CRITERIA MET
[2020-10-13 06:24] LABS: Differential Comment SCANNED
[2020-10-13 06:34] LABS: Anion Gap 6 (5-15); BUN 27 mg/dL (7-18); BUN/Creat Ratio 53.7 RATIO (10-20); Calcium,Total 7.8 mg/dL (8.5-10.1); Chloride 101 mmol/L (98-107); EST Glomerular Filtration Rate 125 mL/min (>60); Est Glom Filt Rate - Afr Amer 151 mL/min (>60); Estimated Creatinine Clearance 37.45 ml/min; Glucose 80 mg/dL (74-106); Magnesium 1.6 mg/dL (1.6-2.6); Phosphorus 3.4 mg/dL (2.5-4.9); Sodium Level 130 mmol/L (136-145)
[2020-10-13] MEDS: Polyethylene Glycol 3350 17 GM PACKET PO (09:35)
[2020-10-13] MEDS: Na Biphos/Potassium Phosphate PACKET 1 PACKET PO ×4 (09:35→21:08)
[2020-10-13] MEDS: Loratadine 10 MG Tablet PO (09:36)
[2020-10-13] MEDS: levETIRAcetam 500 MG Tablet PO ×2 (09:36→21:09)
[2020-10-13] MEDS: APIXABAN 5 MG TABLET 10 MG PO ×2 (09:36→21:08)
[2020-10-13] MEDS: Pantoprazole Sodium 40 MG Tablet PO (09:37)
[2020-10-13] MEDS: Sodium Chloride 1 GM Tablet PO ×2 (09:37→21:08)
[2020-10-13] MEDS: Fluticasone 0.05% 1 SPRAY NASAL.SRY 2 SPRAY NASAL (09:40)
[2020-10-13] MEDS: 0.9% Saline Lock 10 ML Syringe IV (09:52)
[2020-10-13] MEDS: QUEtiapine 25 MG Tablet 12.5 MG PO ×2 (10:04→21:08)
--- NOTE | 2020-10-13 10:18 | NURSING ---
assisted patient to bsc had voided jerome red blood urine went to stand was assisting wiping buttocks and patient leaned foreward went quiet and limp x 2 sec then responded assisted back to bed bp 123/75 o2 sat 97% and hr was 62 md was notified patient back in bed at this time wants to try to eat
--- NOTE | 2020-10-13 12:20 | CT_ITS ---
STUDY: CT ABDOMEN AND PELVIS WITH AND WITHOUT CONTRAST REASON FOR EXAM: Female, 80 years old. Hematuria, UTI, anemia. Hx lung cancer, hypertension, CVA, hysterectomy, bilateral total hip replacements. CT Urogram RADIATION DOSAGE (If Supplied By Facility): CTDIvol = ( 13.91 ) mGy, DLP = ( 1777.31 ) mGycm TECHNIQUE: Transaxial images were obtained from the dome of the diaphragm to the symphysis pubis without oral contrast. IV 100ML ISOVUE 300 was administered. Sagittal and coronal images were reconstructed. Individualized dose optimization techniques were used for this CT. COMPARISON: None. FINDINGS: Small right pleural effusion with right basilar atelectasis and/or infiltrate. Fibrocalcific scarring at the right lung base. There is a 1.4 cm x 1.8 cm lymph node in the right infrahilar region. Calcified right infrahilar lymph nodes as well. Coronary artery calcification. Calcification of the mitral valve annulus. Normal liver. There are multiple small gallstones. Normal spleen. Normal pancreas. Normal bilateral adrenal glands. Normal right kidney. 7.1 mm cyst in the mid lateral portion of the left kidney. Normal visualized stomach. Normal small intestine. Moderate amount of fecal material seen in the rectosigmoid colon. The appendix is visualized and appears normal. There is diffuse atherosclerotic calcification of the abdominal aorta and its major visceral branches, without a demonstrated aneurysm. Normal inferior vena cava. Normal retroperitoneum. Normal urinary bladder. There is absence of the uterus consistent with a prior hysterectomy. Normal abdominal wall. There are diffuse degenerative changes of the visualized lumbar spine. Levoscoliosis. The patient is status post bilateral hip replacement. CT/CT Abd/Pelvis W/WO Contrast IMPRESSION: Multiple small gallstones. Fibrocalcific scarring at the right lung base. Moderate amount of fecal material is seen in the rectosigmoid colon. Electronically Signed: Bassam James MD at 13:58 EST , Service support ,
[2020-10-13 14:20] LABS: Pathologist Review Reviewed
--- NOTE | 2020-10-13 14:25 | CASEMGMT ---
SW spoke with physician after he spoke with family. They have decided to stop her chemo drugs and see if her bleeding stops. Family wants patient to go to TCU. SW went to patient's room. Introduced self and role at [facility]. SW confirmed they were wanting a bed in TCU. SW let them know [facility] have a bed [facility] her. [facility] did offer a list of local SNF's with Medicare ratings, however family declined as they want TCU. Plan: [facility] TCU when medically ready. Elida LAURA MSW
--- NOTE | 2020-10-13 15:02 | PN_ITS ---
Patient Problems: Active and Suspected Problems (Last Reviewed 10/06/20 @ 14:13 by Yenny Brown) Hyponatremia (Acute) Acute on Chronic CVA (cerebral vascular accident) (Acute) Acute UTI (Acute) Hematuria (Acute) Acute blood loss anemia (Acute) Subjective: Doing well today, no issues overnight. Still having periods of confusion as well as periods of hematuria. This morning she did have an episode of what looked like passing out after she stood up to go to the bathroom. She had blood in her urine again and then she had to be placed back in the bed because she appears to have passed out she did recover very quickly. Is unclear, but likely to be a combination of both vagal and seizure activity Vitals/I&O's: Vital Signs Temp Pulse Resp BP Pulse Ox 98.2 F 103 H 14 125/48 H 100 10/13/20 09:27 10/13/20 11:44 10/13/20 09:27 10/13/20 09:27 10/13/20 09:27 Oxygen Delivery Method Room Air Weight: 131 lb 6.328 oz Body Mass Index (BMI) 22.3 Intake and Output for Last 24 Hours 10/11/20 10/12/20 10/13/20 23:59 23:59 23:59 Intake Total 2565.00 / 2565.00 1220 / 1220 750 / 750 Output Total 200 / 200 500 / 500 Balance 2365.00 / 2365.00 1220 / 1220 250 / 250 General: Alert, Cooperative, No apparent distress, Confused HEENT: Atraumatic, PERRLA, EOMI, Normocephalic Oral: Moist Mucosa Neck: Supple, No JVD Lungs: Clear to auscultation, Normal air movement, No rhonchi, No wheeze, No rales Cardiovascular: Regular rate, Regular Rhythm, Normal S1, Normal S2, No murmurs Abdomen: Soft, Non Tender, Non-Distended, No Hepato-splenomegaly Extremities: No edema, Capillary Refill Less than 3 Seconds Skin: No rashes, No breakdown Neurological: Neuro grossly intact, Sensory exam intact to light touch and pain Psych/Mental Status: Normal Affect, Appropriate Laboratory Results 10/12/20 16:30: Hgb 9.7 L, Hct 28.9 L 10/12/20 16:36: POC Glucose 139 H 10/13/20 05:40: WBC 11.9 H, RBC 2.78 L, Hgb 8.5 L, Hct 25.3 L, MCV 91.0, MCH 30.6, MCHC 33.6, RDW Std Deviation 52.8 H, RDW Coeff of Roselyn 16.1 H, Plt Count 274, MPV 8.1, Immature Gran % (Auto) 2.300 H, Neut % (Auto) 64.9, Lymph % (Auto) 12.0 L, [place] % (Auto) 14.7 H, Eos % (Auto) 4.8, Baso % (Auto) 1.3 H, Absolute Neuts (auto) 7.7, Absolute Lymphs (auto) 1.42, Nucleated RBC % 0, Differential Comment SCANNED, Diff Path Review Reviewed 10/13/20 05:40: Sodium 130 L, Potassium 4.0, Chloride 101, Carbon Dioxide 23.0, Anion Gap 6, BUN 27 H, Creatinine 0.50 L, Estim Creat Clear Calc 37.45, Est GFR (MDRD) Af Amer 151, Est GFR (MDRD) Non-Af 125, BUN/Creatinine Ratio 53.7 H, Glucose 80, Calcium 7.8 L, Phosphorus 3.4, Magnesium 1.6 Current Medications Acetaminophen (Acetaminophen 325 Mg Tablet) 650 mg PO Q6H PRN PRN PRN Reason: Pain Score 1-10/Temp > 100.7 F Al Hydroxide/Mg Hydroxide (Mag Hydrox/Al Hydrox/Simeth 30 Ml Udc) 30 ml PO Q6H PRN PRN PRN Reason: Gastric Burning Albuterol Sulfate (Albuterol 2.5 Mg/3 Ml Vial.Neb.) 2.5 mg INHALATION Q2H PRN PRN PRN Reason: Dyspnea, wheezing Amlodipine Besylate (Amlodipine 5 Mg Tablet) 5 mg PO DAILY [facility] Last Admin: 10/13/20 10:04 Dose: Not Given Documented by: Apixaban (Apixaban 5 Mg Tablet) 10 mg PO BID [facility] Last Admin: 10/13/20 09:36 Dose: 10 mg Documented by: Atorvastatin Calcium (Atorvastatin Calcium 40 Mg Tablet) 40 mg PO QHS [facility] Last Admin: 10/12/20 22:55 Dose: Not Given Documented by: Calamine/Phenol (Menthol/Lanolin/Calamine/Znox 113 Gm Tube) 1 applic TOPICAL TID [facility]; Protocol Last Admin: 10/13/20 05:07 Dose: 1 applicatio Documented by: Fluticasone Propionate (Fluticasone 0.05% 1 [place] Nasal.Sry) 2 spray NASAL DAILY [facility] Last Admin: 10/13/20 09:40 Dose: 2 sprays Documented by: Guaifenesin (Guaifenesin 10 Ml Udc (200mg/10ml)) 20 ml PO Q4H PRN PRN PRN Reason: COUGH Heparin Sodium (Beef Lung) (Heparin Pf Lock 10 Units/Ml 50 Units/5 Ml Syringe) 50 units IV UD PRN PRN Reason: Port-a-Cath (VAD)Heparin Flush Hydralazine HCl (Hydralazine 20 Mg/Ml Vial) 10 mg IV Q4H PRN PRN PRN Reason: SBP > 160 Last Admin: 10/11/20 02:32 Dose: 10 mg Documented by: Cefepime HCl 2 gm/ Sodium (Chloride) 100 mls @ 200 mls/hr IV Q12 [facility] Stop: 10/16/20 15:12 Last Infusion: 10/13/20 10:25 Dose: Infused Documented by: Levetiracetam (Levetiracetam 500 Mg Tablet) 500 mg PO BID [facility] Last Admin: 10/13/20 09:36 Dose: 500 mg Documented by: Levothyroxine Sodium (Levothyroxine 50 Mcg Tablet) 50 mcg PO DAILY@0600 [facility] Last Admin: 10/13/20 05:06 Dose: Not Given Documented by: Lisinopril (Lisinopril 40 Mg Tablet) 40 mg PO DAILY [facility] Last Admin: 10/13/20 10:05 Dose: Not Given Documented by: Loratadine (Loratadine 10 Mg Tablet) 10 mg PO DAILY [facility] Last Admin: 10/13/20 09:36 Dose: 10 mg Documented by: Magnesium Hydroxide (Magnesium Hydroxide 30 Ml Udc) 30 ml PO DAILY PRN PRN PRN Reason: Constipation Melatonin (Melatonin 10 Mg Tablet) 5 mg PO QHS PRN PRN PRN Reason: SLEEP Metoprolol Succinate (Metoprolol(Xl)Succ 50 Mg Tablet) 50 mg PO DAILY [facility] Last Admin: 10/13/20 10:04 Dose: Not Given Documented by: Nitroglycerin (Nitroglycerin (Inpatient Use) 0.4 Mg Tab.Subl) 0.4 mg SUBLINGUAL Q5M PRN PRN Reason: CARDIAC/CHEST PAIN Ondansetron HCl (Ondansetron 4 Mg/2 Ml Vial) 4 mg IV Q8H PRN PRN PRN Reason: NAUSEA/VOMITING Pantoprazole Sodium (Pantoprazole Sodium 40 Mg Tablet) 40 mg PO DAILY [facility] Last Admin: 10/13/20 09:37 Dose: 40 mg Documented by: Polyethylene Glycol (Polyethylene Glycol 3350 17 Gm Packet) 17 gm PO DAILY [facility] Last Admin: 10/13/20 09:35 Dose: 17 gm Documented by: Potassium Chloride (Potassium Chloride 20 Meq Tablet) 20 meq PO DAILY@0800 [facility] Last Admin: 10/13/20 09:35 Dose: 20 meq Documented by: Potassium Phos/Sodium Phos (Na Biphos/Potassium Phosphate Packet) 1 packet PO 4X/DAY [facility] Last Admin: 10/13/20 09:35 Dose: 1 packet Documented by: Prochlorperazine Edisylate (Prochlorperazine 10 Mg/2 Ml Vial) 5 mg IV Q4H PRN PRN PRN Reason: Breakthrough Nausea/Vomiting Psyllium Hydrophilic Mucilloid (Psyllium 1 Packet) 1 packet PO DAILY PRN PRN PRN Reason: Constipation Quetiapine Fumarate (Quetiapine 25 Mg Tablet) 12.5 mg PO BID [facility] Last Admin: 10/13/20 10:04 Dose: 12.5 mg Documented by: Senna/Docusate Sodium (Senna/Docusate Sodium 1 Tablet) 2 tablet PO BID PRN PRN PRN Reason: Constipation Sodium Chloride (Sodium Chloride 1 Gm Tablet) 1 gm PO BID [facility] Last Admin: 10/13/20 09:37 Dose: 1 gm Documented by: Sodium Chloride (0.9% Saline Lock 10 Ml Syringe) 10 - 40 ml IV UD PRN PRN Reason: Port-a-Cath (VAD) Flush Last Admin: 10/13/20 09:52 Dose: 20 ml Documented by: Sodium Chloride (0.9 % Nacl (Sterile) Posiflush 10 Ml) 10 - 40 ml IV UD PRN PRN Reason: Port access or dressing change Sodium Chloride (0.9% Saline Lock 10 Ml Syringe) 10 - 40 ml IV UD PRN PRN Reason: SALINE FLUSH Throat Lozenges (Benzocaine/Menthol 1 Lozenge) 1 lozenge MUCOUS MEM Q2H PRN PRN PRN Reason: SORE THROAT STROKE Vital Signs/Narrative: Vital Signs Pulse 10/13/20 11:44 103 H Medical Necessity - Tobacco Use Smoking Status: Never smoker Tobacco Use: Non-smoker Assessment/Plan All Active Problems (Last Reviewed 10/06/20 @ 14:13 by Yenny Brown) Surgical wound present (Acute) Vascular catheter fitting or adjustment (Acute) CINV (chemotherapy-induced nausea and vomiting) (Acute) Stomatitis (Resolved) UTI (urinary tract infection) (Resolved) Diarrhea (Acute) Delirium (Acute) Elevated troponin (Acute) Encephalopathy (Acute) Tiredness (Acute) UTI (urinary tract infection) (Acute) Hyponatremia (Acute) Hypokalemia (Acute) CVA (cerebral vascular accident) (Acute) Acute UTI (Acute) Hematuria (Acute) Acute blood loss anemia (Acute) 1. 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 twice daily, she did receive a gram of Keppra yesterday IV when it was felt that she was having seizures again -Continue with Eliquis despite her hematuria, will continue to monitor her hemoglobin did drop again to 8.5 therefore will consult urology -We will discontinue her aspirin and Plavix per neurology's recommendation given the fact that she has non-small cell lung cancer, these are likely the cause of her hypercoagulable state and multiple embolic strokes 2. Acute on chronic anemia secondary to hematuria possibly secondary to complicated Enterobacter UTI -She did receive 2 units PRBCs on admission and her hemoglobin corrected from 7.1-11 -Today she is 8.5 with continued hematuria -Continue with cefepime to complete her course 3. Stage IV right non-small cell lung cancer/recent left lower extremity DVT -She does have metastatic lesions to her pelvis with pain that does seem to be controlled at the moment -She was started on targeted therapy this is now on hold if she is in the hospital which also may complicate her anemia issues -We will Continue with her Eliquis at 10 mg twice daily for 7 days then transition to Eliquis 5 mg twice daily 4. HTN/HLD -Blood pressure stable -We will continue to monitor and continue with her home blood pressure medications 5. Hypothyroidism -Stable -Continue with Synthroid 6. GERD -Stable -Continue with PPI DVT: Mark I had another 30-minute conversation this time with the daughter and the about advance care planning specifically discussing the role of hospice as well as pain management issues. They have elected to discontinue her targeted chemotherapy at this time and may need to proceed with hospice if they choose to discontinue this indefinitely and the lesion in her left iliac crest gets worse leading to increased bone pain. At this time they would like to continue with current plan of discontinuing her chemo and continue with [place] and having urology evaluate her. They are also interested in potentially discharging to the transitional care unit when the time comes. Inpatient E&M: 79542 Subs Hosp L2
--- NOTE | 2020-10-13 15:23 | CYSPIN_PTH ---
PATIENT: MICHA CADET LOC: [facility] U#:[id number] AGE/SX: 80/F ROOM: [facility] RE10/09/[address]: Dr. Prashanth Higuera MD : [id number] BED: 1 DIS: 10/16/2020 SPEC #: [id number] RECD: 10/14/20 08:00 STATUS: ELADIO LONGO #: [id number] HANS: 10/13/20 15:[address]: Prashanth Higuera DEPT: CYTOLOGY RECD BY: Linda Lucas ENTERED: 10/14/20 09:38 SP TYPE: CYSPIN FL OTHR DR: MD Dr. Kathy Haji MD Dr. Holly Wyneski, MD Tissues: Urine Procedures: Pap Stain (control) Special Stain Group II Cytospin Fluid HEADER OPERATION: Not noted PRE-OP DIAGNOSIS: Anemia, TIA/CVA TISSUE SUBMITTED: Urine for cytology DIAGNOSIS CYTOLOGY Urine for cytology (cytospin): Negative for malignant cells. Marked acute inflammation. See comment. EMY:diego 10/15/2020 COMMENT Clinical correlation and appropriate follow up are necessary. CYTOLOGY STUDY Slides are reviewed. CYTOLOGY GROSS Received is 7.5 ml of dark red, cloudy fluid labeled with the patient's name and and designated per the requisition as urine. Submitted for cytology preparation. / diego 10/14/2020 TC:2 CPT: 71163
--- NOTE | 2020-10-13 15:26 | NURSING ---
24 fr moore placed per md order 650cc mari urine return with clots patient tolerated well urine sample obtained cbi started
--- NOTE | 2020-10-13 16:41 | CON.PCM_ITS ---
Problem List (1) Gross hematuria Status: Acute Reason for Consult Date of Consultation: 10/13/20 Reason for Consultation: Gross hematuria History of Present Illness: The patient is a 80 year old F admitted with stroke and recent seizure activity, is on anticoagulation and while here has developed gross hematuria. The patient currently is awake, does not know where she is at and answers questions to the best of her ability, I am not sure of the accuracy. She reports that she has had hematuria in the past with urinary tract infections. She does not recall having infections she has had in the last year. She denies a history of stones. She denies urologic cancer history.] Past Medical History Past Medical History (Chronic Problems): Chronic Problems (Last Reviewed 10/06/20 @ 14:13 by Yenny Brown) Anemia (Chronic) Hilar adenopathy (Chronic) Metastatic lung carcinoma (Chronic) Iron deficiency anemia (Chronic) Cancer-related pain (Chronic) DVT, lower extremity, distal, acute (Chronic) Lung mass (Chronic) NSCLC of right lung (Chronic) Medical History: Medical History (Last Reviewed 10/13/20 @ 16:[address] Jerilyn Saunders MD) Lung mass (Chronic) R91.8 NSCLC of right lung (Chronic) C34.91 Anemia D64.9 Carotid stenosis I65.29 Hyperlipidemia E78.5 Hypothyroid E03.9 Insomnia G47.00 Lung mass R91.8 Right upper lobe wedge resection [facility] 11/15/19 Statin intolerance Z78.9 Thyroid disorder E07.9 mediastinal lymphadenectomy [facility] 11/15/19 HTN (hypertension) I10 Allergies chlorhexidine Allergy (Intermediate, Verified 10/06/20 14:20) Rash morphine Adverse Reaction (Severe, Verified 10/06/20 14:20) Shortness of breath naproxen Adverse Reaction (Intermediate, Verified 10/06/20 14:20) mouth sores mouth sores nitrofurantoin [From Macrodantin] Adverse Reaction (Intermediate, Verified 10/06/20 14:20) mouth sores mouth sores cloth tape Adverse Reaction (Uncoded 10/06/20 14:20) skin irritation Home Medications: Ambulatory Orders Medication Instructions Recorded Amlodipine [Norvasc] 5 mg PO DAILY 09/27/19 Clopidogrel Bisulfate [Plavix] 75 mg PO DAILY 09/27/19 Levothyroxine [Synthroid] 50 mcg PO DAILY 09/27/19 Lisinopril [Zestril] 40 mg PO DAILY 09/27/19 Metoprolol Succinate [Kapspargo 50 mg PO DAILY 09/27/19 Sprinkle] Pantoprazole Sodium [Protonix] 40 mg PO DAILY 09/27/19 Acetaminophen [Tylenol Extra 500 mg PO TID PRN PRN 09/14/20 Strength] Ibuprofen [Advil] 200 mg PO TID PRN PRN 09/14/20 Aspirin [Aspirin, Baby] 81 mg PO DAILY@0800 09/29/20 Atorvastatin Calcium [Lipitor] 40 mg PO QHS 09/29/20 Loratadine/Pseudo 240/10 1 tab PO DAILY 09/29/20 [Claritin-D 24 Hr] Melatonin 5 mg PO QHS PRN 09/29/20 Apixaban [Eliquis] 2.5 mg PO BID #60 tab 10/06/20 Dexamethasone [Decadron] 2 mg PO DAILY #14 tab 10/06/20 Potassium Chloride [K-Dur] 20 meq PO DAILY #7 tab 10/06/20 Sodium Chloride 1,000 mg MC BID #14 tablet.marvin 10/06/20 Ciprofloxacin [Cipro] 250 mg PO BID 10/09/20 Dabrafenib Mesylate [Tafinlar] 75 mg PO BID 10/09/20 Fluticasone 0.05% [Flonase Nasal 2 sprays NASAL DAILY 10/09/20 [place]] Trametinib Dimethyl Sulfoxide 2 mg PO DAILY 10/09/20 [[place]in[place]] Surgical History: Surgical History (Last Reviewed 10/13/20 @ 16:[address] 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 Psychiatric History: Depression [employer] History: No pertinent [employer] history Lives: Spouse/ Significant Other, With Family - Family has been intermittently staying with her given worsened status. Smoking Status: Never smoker Tobacco Use: Non-smoker Alcohol: None Drugs: None - *Family History Maternal Family History: Family History (Last Reviewed 10/13/20 @ 16:[address] Jerilyn Saunders MD) Mother Cancer Hypertension Father Cancer Brother Diabetes History Items: Cancer, Hypertension Paternal Family History: Family History (Last Reviewed 10/13/20 @ 16:[address] Jerilyn Saunders MD) Mother Cancer Hypertension Father Cancer Brother Diabetes History Items: Cancer Review of Systems Constitutional: Denies: Anorexia Eyes: Denies: Pain HEENT: Denies: Difficulty Hearing Gastrointestinal: Reports: Constipation. Denies: Abdominal Pain, Nausea Genitourinary: Reports: Hematuria, Urgency Endocrine: Denies: Change in Body Habitus Patient Problems: Active and Suspected Problems (Last Reviewed 10/06/20 @ 14:13 by Yenny Brown) Hyponatremia (Acute) Acute on Chronic CVA (cerebral vascular accident) (Acute) Acute UTI (Acute) Hematuria (Acute) Acute blood loss anemia (Acute) - Physical Exam Vitals/I&O's: Vital Signs Temp Pulse Resp BP Pulse Ox 98 F 65 18 127/62 H 95 10/13/20 15:41 10/13/20 15:41 10/13/20 15:41 10/13/20 15:41 10/13/20 15:41 Oxygen Delivery Method Room Air Weight: 59.6 kg Body Mass Index (BMI) 22.3 Intake and Output for Last 24 Hours 10/11/20 10/12/20 10/13/20 23:59 23:59 23:59 Intake Total 2565.00 / 2565.00 1220 / 1220 750 / 750 Output Total 200 / 200 1175 / 1175 Balance 2365.00 / 2365.00 1220 / 1220 -425 / -425 General: Alert, No apparent distress HEENT: Atraumatic, Normocephalic Oral: Moist Mucosa Neck: Trachea Midline Lungs: Normal air movement Cardiovascular: Regular rate Abdomen: Soft, Non Tender, Non-Distended Skin: No rashes Neurological: Cranial nerves II-XII grossly intact Psych/Mental Status: Appropriate Laboratory Results 10/12/20 16:30: Hgb 9.7 L, Hct 28.9 L 10/12/20 16:36: POC Glucose 139 H 10/13/20 05:40: WBC 11.9 H, RBC 2.78 L, Hgb 8.5 L, Hct 25.3 L, MCV 91.0, MCH 30.6, MCHC 33.6, RDW Std Deviation 52.8 H, RDW Coeff of Roselyn 16.1 H, Plt Count 274, MPV 8.1, Immature Gran % (Auto) 2.300 H, Neut % (Auto) 64.9, Lymph % (Auto) 12.0 L, [place] % (Auto) 14.7 H, Eos % (Auto) 4.8, Baso % (Auto) 1.3 H, Absolute Neuts (auto) 7.7, Absolute Lymphs (auto) 1.42, Nucleated RBC % 0, Differential Comment SCANNED, Diff Path Review Reviewed 10/13/20 05:40: Sodium 130 L, Potassium 4.0, Chloride 101, Carbon Dioxide 23.0, Anion Gap 6, BUN 27 H, Creatinine 0.50 L, Estim Creat Clear Calc 37.45, Est GFR (MDRD) Af Amer 151, Est GFR (MDRD) Non-Af 125, BUN/Creatinine Ratio 53.7 H, Glucose 80, Calcium 7.8 L, Phosphorus 3.4, Magnesium 1.6 Current Medications Acetaminophen (Acetaminophen 325 Mg Tablet) 650 mg PO Q6H PRN PRN PRN Reason: Pain Score 1-10/Temp > 100.7 F Al Hydroxide/Mg Hydroxide (Mag Hydrox/Al Hydrox/Simeth 30 Ml Udc) 30 ml PO Q6H PRN PRN PRN Reason: Gastric Burning Albuterol Sulfate (Albuterol 2.5 Mg/3 Ml Vial.Neb.) 2.5 mg INHALATION Q2H PRN PRN PRN Reason: Dyspnea, wheezing Amlodipine Besylate (Amlodipine 5 Mg Tablet) 5 mg PO DAILY [facility] Last Admin: 10/13/20 10:04 Dose: Not Given Documented by: Apixaban (Apixaban 5 Mg Tablet) 10 mg PO BID [facility] Last Admin: 10/13/20 09:36 Dose: 10 mg Documented by: Atorvastatin Calcium (Atorvastatin Calcium 40 Mg Tablet) 40 mg PO QHS [facility] Last Admin: 10/12/20 22:55 Dose: Not Given Documented by: Calamine/Phenol (Menthol/Lanolin/Calamine/Znox 113 Gm Tube) 1 applic TOPICAL TID [facility]; Protocol Last Admin: 10/13/20 15:48 Dose: 1 applicatio Documented by: Fluticasone Propionate (Fluticasone 0.05% 1 [place] Nasal.Sry) 2 spray NASAL DAILY [facility] Last Admin: 10/13/20 09:40 Dose: 2 sprays Documented by: Guaifenesin (Guaifenesin 10 Ml Udc (200mg/10ml)) 20 ml PO Q4H PRN PRN PRN Reason: COUGH Heparin Sodium (Beef Lung) (Heparin Pf Lock 10 Units/Ml 50 Units/5 Ml Syringe) 50 units IV UD PRN PRN Reason: Port-a-Cath (VAD)Heparin Flush Hydralazine HCl (Hydralazine 20 Mg/Ml Vial) 10 mg IV Q4H PRN PRN PRN Reason: SBP > 160 Last Admin: 10/11/20 02:32 Dose: 10 mg Documented by: Cefepime HCl 2 gm/ Sodium (Chloride) 100 mls @ 200 mls/hr IV Q12 [facility] Stop: 10/16/20 15:12 Last Infusion: 10/13/20 10:25 Dose: Infused Documented by: Levetiracetam (Levetiracetam 500 Mg Tablet) 500 mg PO BID [facility] Last Admin: 10/13/20 09:36 Dose: 500 mg Documented by: Levothyroxine Sodium (Levothyroxine 50 Mcg Tablet) 50 mcg PO DAILY@0600 [facility] Last Admin: 10/13/20 05:06 Dose: Not Given Documented by: Lisinopril (Lisinopril 40 Mg Tablet) 40 mg PO DAILY [facility] Last Admin: 10/13/20 10:05 Dose: Not Given Documented by: Loratadine (Loratadine 10 Mg Tablet) 10 mg PO DAILY [facility] Last Admin: 10/13/20 09:36 Dose: 10 mg Documented by: Magnesium Hydroxide (Magnesium Hydroxide 30 Ml Udc) 30 ml PO DAILY PRN PRN PRN Reason: Constipation Melatonin (Melatonin 10 Mg Tablet) 5 mg PO QHS PRN PRN PRN Reason: SLEEP Metoprolol Succinate (Metoprolol(Xl)Succ 50 Mg Tablet) 50 mg PO DAILY [facility] Last Admin: 10/13/20 10:04 Dose: Not Given Documented by: Nitroglycerin (Nitroglycerin (Inpatient Use) 0.4 Mg Tab.Subl) 0.4 mg SUBLINGUAL Q5M PRN PRN Reason: CARDIAC/CHEST PAIN Ondansetron HCl (Ondansetron 4 Mg/2 Ml Vial) 4 mg IV Q8H PRN PRN PRN Reason: NAUSEA/VOMITING Pantoprazole Sodium (Pantoprazole Sodium 40 Mg Tablet) 40 mg PO DAILY [facility] Last Admin: 10/13/20 09:37 Dose: 40 mg Documented by: Polyethylene Glycol (Polyethylene Glycol 3350 17 Gm Packet) 17 gm PO DAILY [facility] Last Admin: 10/13/20 09:35 Dose: 17 gm Documented by: Potassium Chloride (Potassium Chloride 20 Meq Tablet) 20 meq PO DAILY@0800 [facility] Last Admin: 10/13/20 09:35 Dose: 20 meq Documented by: Potassium Phos/Sodium Phos (Na Biphos/Potassium Phosphate Packet) 1 packet PO 4X/DAY [facility] Last Admin: 10/13/20 15:48 Dose: 1 packet Documented by: Prochlorperazine Edisylate (Prochlorperazine 10 Mg/2 Ml Vial) 5 mg IV Q4H PRN PRN PRN Reason: Breakthrough Nausea/Vomiting Psyllium Hydrophilic Mucilloid (Psyllium 1 Packet) 1 packet PO DAILY PRN PRN PRN Reason: Constipation Quetiapine Fumarate (Quetiapine 25 Mg Tablet) 12.5 mg PO BID [facility] Last Admin: 10/13/20 10:04 Dose: 12.5 mg Documented by: Senna/Docusate Sodium (Senna/Docusate Sodium 1 Tablet) 2 tablet PO BID PRN PRN PRN Reason: Constipation Sodium Chloride (Sodium Chloride 1 Gm Tablet) 1 gm PO BID [facility] Last Admin: 10/13/20 09:37 Dose: 1 gm Documented by: Sodium Chloride (0.9% Saline Lock 10 Ml Syringe) 10 - 40 ml IV UD PRN PRN Reason: Port-a-Cath (VAD) Flush Last Admin: 10/13/20 09:52 Dose: 20 ml Documented by: Sodium Chloride (0.9 % Nacl (Sterile) Posiflush 10 Ml) 10 - 40 ml IV UD PRN PRN Reason: Port access or dressing change Sodium Chloride (0.9% Saline Lock 10 Ml Syringe) 10 - 40 ml IV UD PRN PRN Reason: SALINE FLUSH Throat Lozenges (Benzocaine/Menthol 1 Lozenge) 1 lozenge MUCOUS MEM Q2H PRN PRN PRN Reason: SORE THROAT Assessment/Plan All Active Problems (Last Reviewed 10/06/20 @ 14:13 by Yenny Brown) Surgical wound present (Acute) Vascular catheter fitting or adjustment (Acute) CINV (chemotherapy-induced nausea and vomiting) (Acute) Stomatitis (Resolved) UTI (urinary tract infection) (Resolved) Diarrhea (Acute) Delirium (Acute) Elevated troponin (Acute) Encephalopathy (Acute) Tiredness (Acute) UTI (urinary tract infection) (Acute) Hyponatremia (Acute) Hypokalemia (Acute) CVA (cerebral vascular accident) (Acute) Acute UTI (Acute) Hematuria (Acute) Acute blood loss anemia (Acute) Gross hematuria (Acute) Culture and cytology pending Urine light pink on CBI, I personally irrigated, no clots CT images and report reviewed, no urologic pathology there is fecal retention present will need cystoscopy in the office will follow. Thank you.
[2020-10-13 19:12] LABS: Cytology, Body Fluid / CSF SEE PATHOLOGY REPORT
[2020-10-13] MEDS: Atorvastatin Calcium 40 MG Tablet PO (21:08)
[2020-10-13] MEDS: 0.9 % NaCl (Sterile) Posiflush 10 mL IV (21:09)
[2020-10-14] VITALS (10 sets, daily range): BP systolic 131–156; BP diastolic 43–96; PULSE 69–96; RESP 18–19; TEMP 36.9–37.3; O2SAT 95–97
[2020-10-14 05:53] LABS: Absolute Lymphocyte Count 1.11 X10^3/uL (0.83-4.51); Absolute Neutrophil Count 6.7 X10^3/uL (2.0-7.7); Basophil# 0.09 X10^3/uL; Basophil% 0.9 % (0-1); Differential Indicated SCAN CRITERIA MET; Eosinophils% 3.9 % (0-5); Hematocrit 25.1 % (37-47); Hemoglobin 8.4 g/dL (12.0-15.0); Lymphocyte # 1.11 X10^3/ul (4.0); Lymphocyte % 10.8 % (19-41); Mean Corp Hgb Conc 33.5 g/dL (32-36); Mean Corpuscular Hgb 30.8 pg (27.0-32.0); Mean Corpuscular Volume 91.9 fL (81-99); Mean Platelet Vol. 7.9 fl (6.2-12.0); Monocyte# 1.83 X10^3/uL; Monocyte% 17.8 % (0-10); NRBC Flagged by Analyzer 0 % (0-5); Neutrophil # 6.73 X10^3/uL (2.7-7.7); Neutrophil % 65.2 % (47-70); POSITIVE DIFFERENTIAL YES; Platelet Count 269 K/mm3 (150-450); RBC Distribution Width CV 16.4 % (11.6-14.6); RBC Distribution Width SD 54.4 fl (35.1-43.9); Red Blood Count 2.73 M/mm3 (4.2-5.4); White Blood Count 10.3 K/mm3 (4.4-11.0)
[2020-10-14 06:09] LABS: Anion Gap 4 (5-15); BUN 22 mg/dL (7-18); Calcium,Total 7.5 mg/dL (8.5-10.1); Chloride 102 mmol/L (98-107); EST Glomerular Filtration Rate 162 mL/min (>60); Est Glom Filt Rate - Afr Amer 196 mL/min (>60); Estimated Creatinine Clearance 37.45 ml/min; Glucose 96 mg/dL (74-106); Potassium 4.2 mmol/L (3.5-5.1); Sodium Level 132 mmol/L (136-145)
[2020-10-14 06:28] LABS: Differential Comment SCANNED
[2020-10-14] MEDS: Levothyroxine 50 MCG Tablet PO (06:58)
[2020-10-14] MEDS: Menthol/Lanolin/Calamine/Znox 113 GM Tube 1 APPLIC TOPICAL ×3 (06:58→21:13)
--- NOTE | 2020-10-14 08:10 | PCM.PN.GU ---
Physical Exam Subjective: Patient sleeping comfortably in bed. - Physical Exam Vital Signs Temp 98.5 F 10/14/20 03:00 Pulse 89 10/14/20 07:00 Resp 18 10/14/20 03:00 BP 156/96 H 10/14/20 03:00 Pulse Ox 96 10/14/20 03:00 Intake & Output 10/12/20 10/13/20 10/14/20 23:59 23:59 23:59 Intake Total 1220 / 1220 1250 / 1730 600 / 600 Output Total 1175 / 1825 1275 / 1275 Balance 1220 / 1220 75 / -95 -675 / -675 Weight: 59 kg 59.6 kg 64.2 kg Intake: Oral 315 / 315 1050 / 1530 600 / 600 Intake, IV Amount 905 / 905 200 / 200 0.9% Normal Saline 500 ML @ 999 500 / 500 mls/hr IV .Q31M ONE Rx#: [id number] Maxipime 2 GM In 0.9% Normal 200 / 200 200 / 200 Saline 100 ML @ 200 mls/hr IV Q12 [facility] Rx#:[id number] levETIRAcetam IV 1,000 MG/100 100 / 100 ML1,000 mg In 100 ml @ 400 mls/ hr IV X1 ONE Rx#:[id number] levETIRAcetam IV 500 MG/5 ML In 105 / 105 0.9% Normal Saline 100 ML @ 400 mls/hr IV X1 ONE Rx#: [id number] Output: Urine 1175 / 1825 1275 / 1275 Other: Number of Voids 1 Number of Bowel Movements 1 1 General: No apparent distress HEENT: Atraumatic, Normocephalic Oral: Moist Mucosa Neck: Supple, Trachea Midline Lungs: Normal air movement Cardiovascular: Regular rate Abdomen: Soft Rectal: Exam deferred Skin: No rashes Neurological: Cranial nerves II-XII grossly intact Comment: urine clear in tubing. Laboratory Tests Past 24 Hrs 10/13/20 10/13/20 10/14/20 05:40 15:19 05:30 WBC 10.3 RBC 2.73 L Hgb 8.4 L Hct 25.1 L MCV 91.9 MCH 30.8 MCHC 33.5 RDW Std Deviation 54.4 H RDW Coeff of Roselyn 16.4 H Plt Count 269 MPV 7.9 Immature Gran % (Auto) 1.400 H Neut % (Auto) 65.2 Lymph % (Auto) 10.8 L [place] % (Auto) 17.8 H Eos % (Auto) 3.9 Baso % (Auto) 0.9 Absolute Neuts (auto) 6.7 Absolute Lymphs (auto) 1.11 Nucleated RBC % 0 Differential Comment SCANNED Diff Path Review Reviewed Sodium Potassium Chloride Carbon Dioxide Anion Gap BUN Creatinine Estim Creat Clear Calc Est GFR (MDRD) Af Amer Est GFR (MDRD) Non-Af BUN/Creatinine Ratio Glucose Calcium Miscellaneous Cytology Pending 10/14/20 05:30 WBC RBC Hgb Hct MCV MCH MCHC RDW Std Deviation RDW Coeff of Roselyn Plt Count MPV Immature Gran % (Auto) Neut % (Auto) Lymph % (Auto) [place] % (Auto) Eos % (Auto) Baso % (Auto) Absolute Neuts (auto) Absolute Lymphs (auto) Nucleated RBC % Differential Comment Diff Path Review Sodium 132 L Potassium 4.2 Chloride 102 Carbon Dioxide 26.0 Anion Gap 4 L BUN 22 H Creatinine 0.40 L Estim Creat Clear Calc 37.45 Est GFR (MDRD) Af Amer 196 Est GFR (MDRD) Non-Af 162 BUN/Creatinine Ratio 55.0 H Glucose 96 Calcium 7.5 L Miscellaneous Cytology Medical Necessity - Tobacco Use Smoking Status: Never smoker Tobacco Use: Non-smoker Assessment/Plan All Active Problems (Last Reviewed 10/13/20 @ 16:[address] Jerilyn Saunders MD) Surgical wound present (Acute) Vascular catheter fitting or adjustment (Acute) CINV (chemotherapy-induced nausea and vomiting) (Acute) Stomatitis (Resolved) UTI (urinary tract infection) (Resolved) Diarrhea (Acute) Delirium (Acute) Elevated troponin (Acute) Encephalopathy (Acute) Tiredness (Acute) UTI (urinary tract infection) (Acute) Hyponatremia (Acute) Hypokalemia (Acute) CVA (cerebral vascular accident) (Acute) Acute UTI (Acute) Hematuria (Acute) Acute blood loss anemia (Acute) Gross hematuria (Acute) Urine clear this morning. I stopped the CBI. Hgb is stable. Plan to continue moore today and if urine remains clear tomorrow, we can remove it. She is on antibiotics. Await results urine culture and cytology. She will need outpatient cystoscopy.
[2020-10-14] MEDS: Loratadine 10 MG Tablet PO (09:01)
[2020-10-14] MEDS: APIXABAN 5 MG TABLET PO ×2 (09:01→21:12)
[2020-10-14] MEDS: levETIRAcetam 500 MG Tablet PO ×2 (09:01→21:11)
[2020-10-14] MEDS: Pantoprazole Sodium 40 MG Tablet PO (09:02)
[2020-10-14] MEDS: Na Biphos/Potassium Phosphate PACKET 1 PACKET PO ×4 (09:02→21:11)
[2020-10-14] MEDS: amLODIPine 5 MG Tablet PO (09:02)
[2020-10-14] MEDS: Sodium Chloride 1 GM Tablet PO ×2 (09:03→21:11)
[2020-10-14] MEDS: QUEtiapine 25 MG Tablet 12.5 MG PO ×2 (09:03→21:11)
[2020-10-14] MEDS: Metoprolol(XL)Succ 50 MG Tablet PO (09:03)
[2020-10-14] MEDS: Lisinopril 40 MG Tablet PO (09:03)
[2020-10-14] MEDS: 0.9% Saline Lock 10 ML Syringe IV ×3 (09:56→21:12)
--- NOTE | 2020-10-14 10:51 | PCM.PN.HOSP ---
Patient Problems: Active and Suspected Problems (Last Reviewed 10/13/20 @ 16:[address] Jerilyn Saunders MD) Hyponatremia (Acute) Acute on Chronic CVA (cerebral vascular accident) (Acute) Acute UTI (Acute) Hematuria (Acute) Acute blood loss anemia (Acute) Gross hematuria (Acute) Subjective: Resting comfortably in bed. No issues overnight. Urology instructed the place with three-way Ross and take and start continuous bladder irrigation. Ross appears clear at the moment Vitals/I&O's: Vital Signs Temp Pulse Resp BP Pulse Ox 99.0 F 83 18 136/54 H 95 10/14/20 09:00 10/14/20 09:03 10/14/20 09:00 10/14/20 09:00 10/14/20 09:00 Oxygen Delivery Method Room Air Weight: 141 lb 8.588 oz Body Mass Index (BMI) 22.3 Intake and Output for Last 24 Hours 10/12/20 10/13/20 10/14/20 23:59 23:59 23:59 Intake Total 1220 / 1220 1250 / 1730 700 / 700 Output Total 1175 / 1825 1275 / 1275 Balance 1220 / 1220 75 / -95 -575 / -575 General: Alert, Cooperative, No apparent distress, Confused HEENT: Atraumatic, PERRLA, EOMI, Normocephalic Oral: Moist Mucosa Neck: Supple, No JVD Lungs: Clear to auscultation, Normal air movement, No rhonchi, No wheeze, No rales Cardiovascular: Regular rate, Regular Rhythm, Normal S1, Normal S2, No murmurs Abdomen: Soft, Non Tender, Non-Distended, No Hepato-splenomegaly Extremities: No edema, Capillary Refill Less than 3 Seconds Skin: No rashes, No breakdown Neurological: Neuro grossly intact, Sensory exam intact to light touch and pain Psych/Mental Status: Normal Affect, Appropriate Laboratory Results 10/13/20 05:40: Diff Path Review Reviewed 10/13/20 15:19: Miscellaneous Cytology Pending 10/14/20 05:30: WBC 10.3, RBC 2.73 L, Hgb 8.4 L, Hct 25.1 L, MCV 91.9, MCH 30.8, MCHC 33.5, RDW Std Deviation 54.4 H, RDW Coeff of Roselyn 16.4 H, Plt Count 269, MPV 7.9, Immature Gran % (Auto) 1.400 H, Neut % (Auto) 65.2, Lymph % (Auto) 10.8 L, [place] % (Auto) 17.8 H, Eos % (Auto) 3.9, Baso % (Auto) 0.9, Absolute Neuts (auto) 6.7, Absolute Lymphs (auto) 1.11, Nucleated RBC % 0, Differential Comment SCANNED 10/14/20 05:30: Sodium 132 L, Potassium 4.2, Chloride 102, Carbon Dioxide 26.0, Anion Gap 4 L, BUN 22 H, Creatinine 0.40 L, Estim Creat Clear Calc 37.45, Est GFR (MDRD) Af Amer 196, Est GFR (MDRD) Non-Af 162, BUN/Creatinine Ratio 55.0 H, Glucose 96, Calcium 7.5 L Current Medications Acetaminophen (Acetaminophen 325 Mg Tablet) 650 mg PO Q6H PRN PRN PRN Reason: Pain Score 1-10/Temp > 100.7 F Al Hydroxide/Mg Hydroxide (Mag Hydrox/Al Hydrox/Simeth 30 Ml Udc) 30 ml PO Q6H PRN PRN PRN Reason: Gastric Burning Albuterol Sulfate (Albuterol 2.5 Mg/3 Ml Vial.Neb.) 2.5 mg INHALATION Q2H PRN PRN PRN Reason: Dyspnea, wheezing Amlodipine Besylate (Amlodipine 5 Mg Tablet) 5 mg PO DAILY [facility] Last Admin: 10/14/20 09:02 Dose: 5 mg Documented by: Apixaban (Apixaban 5 Mg Tablet) 5 mg PO BID [facility] Last Admin: 10/14/20 09:01 Dose: 5 mg Documented by: Atorvastatin Calcium (Atorvastatin Calcium 40 Mg Tablet) 40 mg PO QHS [facility] Last Admin: 10/13/20 21:08 Dose: 40 mg Documented by: Calamine/Phenol (Menthol/Lanolin/Calamine/Znox 113 Gm Tube) 1 applic TOPICAL TID [facility]; Protocol Last Admin: 10/14/20 06:58 Dose: 1 applicatio Documented by: Fluticasone Propionate (Fluticasone 0.05% 1 [facility] Nasal.Sry) 2 spray NASAL DAILY [facility] Last Admin: 10/14/20 09:18 Dose: Not Given Documented by: Guaifenesin (Guaifenesin 10 Ml Udc (200mg/10ml)) 20 ml PO Q4H PRN PRN PRN Reason: COUGH Heparin Sodium (Beef Lung) (Heparin Pf Lock 10 Units/Ml 50 Units/5 Ml Syringe) 50 units IV UD PRN PRN Reason: Port-a-Cath (VAD)Heparin Flush Hydralazine HCl (Hydralazine 20 Mg/Ml Vial) 10 mg IV Q4H PRN PRN PRN Reason: SBP > 160 Last Admin: 10/11/20 02:32 Dose: 10 mg Documented by: Cefepime HCl 2 gm/ Sodium (Chloride) 100 mls @ 200 mls/hr IV Q12 [facility] Stop: 10/16/20 15:12 Last Infusion: 10/14/20 10:22 Dose: Infused Documented by: Levetiracetam (Levetiracetam 500 Mg Tablet) 500 mg PO BID [facility] Last Admin: 10/14/20 09:01 Dose: 500 mg Documented by: Levothyroxine Sodium (Levothyroxine 50 Mcg Tablet) 50 mcg PO DAILY@0600 [facility] Last Admin: 10/14/20 06:58 Dose: 50 mcg Documented by: Lisinopril (Lisinopril 40 Mg Tablet) 40 mg PO DAILY [facility] Last Admin: 10/14/20 09:03 Dose: 40 mg Documented by: Loratadine (Loratadine 10 Mg Tablet) 10 mg PO DAILY [facility] Last Admin: 10/14/20 09:01 Dose: 10 mg Documented by: Magnesium Hydroxide (Magnesium Hydroxide 30 Ml Udc) 30 ml PO DAILY PRN PRN PRN Reason: Constipation Melatonin (Melatonin 10 Mg Tablet) 5 mg PO QHS PRN PRN PRN Reason: SLEEP Metoprolol Succinate (Metoprolol(Xl)Succ 50 Mg Tablet) 50 mg PO DAILY [facility] Last Admin: 10/14/20 09:03 Dose: 50 mg Documented by: Nitroglycerin (Nitroglycerin (Inpatient Use) 0.4 Mg Tab.Subl) 0.4 mg SUBLINGUAL Q5M PRN PRN Reason: CARDIAC/CHEST PAIN Ondansetron HCl (Ondansetron 4 Mg/2 Ml Vial) 4 mg IV Q8H PRN PRN PRN Reason: NAUSEA/VOMITING Pantoprazole Sodium (Pantoprazole Sodium 40 Mg Tablet) 40 mg PO DAILY [facility] Last Admin: 10/14/20 09:02 Dose: 40 mg Documented by: Polyethylene Glycol (Polyethylene Glycol 3350 17 Gm Packet) 17 gm PO DAILY [facility] Last Admin: 10/14/20 09:02 Dose: Not Given Documented by: Potassium Chloride (Potassium Chloride 20 Meq Tablet) 20 meq PO DAILY@0800 [facility] Last Admin: 10/14/20 09:00 Dose: 20 meq Documented by: Potassium Phos/Sodium Phos (Na Biphos/Potassium Phosphate Packet) 1 packet PO 4X/DAY [facility] Last Admin: 10/14/20 09:02 Dose: 1 packet Documented by: Prochlorperazine Edisylate (Prochlorperazine 10 Mg/2 Ml Vial) 5 mg IV Q4H PRN PRN PRN Reason: Breakthrough Nausea/Vomiting Psyllium Hydrophilic Mucilloid (Psyllium 1 Packet) 1 packet PO DAILY PRN PRN PRN Reason: Constipation Quetiapine Fumarate (Quetiapine 25 Mg Tablet) 12.5 mg PO BID [facility] Last Admin: 10/14/20 09:03 Dose: 12.5 mg Documented by: Senna/Docusate Sodium (Senna/Docusate Sodium 1 Tablet) 2 tablet PO BID PRN PRN PRN Reason: Constipation Sodium Chloride (Sodium Chloride 1 Gm Tablet) 1 gm PO BID [facility] Last Admin: 10/14/20 09:03 Dose: 1 gm Documented by: Sodium Chloride (0.9% Saline Lock 10 Ml Syringe) 10 - 40 ml IV UD PRN PRN Reason: Port-a-Cath (VAD) Flush Last Admin: 10/14/20 09:56 Dose: 10 ml Documented by: Sodium Chloride (0.9 % Nacl (Sterile) Posiflush 10 Ml) 10 - 40 ml IV UD PRN PRN Reason: Port access or dressing change Last Admin: 10/13/20 21:09 Dose: 20 ml Documented by: Sodium Chloride (0.9% Saline Lock 10 Ml Syringe) 10 - 40 ml IV UD PRN PRN Reason: SALINE FLUSH Throat Lozenges (Benzocaine/Menthol 1 Lozenge) 1 lozenge MUCOUS MEM Q2H PRN PRN PRN Reason: SORE THROAT STROKE Vital Signs/Narrative: Vital Signs Temp Pulse Resp BP Pulse Ox 10/14/20 09:03 83 10/14/20 09:00 99.0 F 85 18 136/54 H 95 10/14/20 08:13 19 H 10/14/20 07:00 89 Medical Necessity - Tobacco Use Smoking Status: Never smoker Tobacco Use: Non-smoker Assessment/Plan All Active Problems (Last Reviewed 10/13/20 @ 16:[address] Jerilyn Saunders MD) Surgical wound present (Acute) Vascular catheter fitting or adjustment (Acute) CINV (chemotherapy-induced nausea and vomiting) (Acute) Stomatitis (Resolved) UTI (urinary tract infection) (Resolved) Diarrhea (Acute) Delirium (Acute) Elevated troponin (Acute) Encephalopathy (Acute) Tiredness (Acute) UTI (urinary tract infection) (Acute) Hyponatremia (Acute) Hypokalemia (Acute) CVA (cerebral vascular accident) (Acute) Acute UTI (Acute) Hematuria (Acute) Acute blood loss anemia (Acute) Gross hematuria (Acute) 1. Small acute right cerebellar infarct/previous CVA with nonconvulsive status epilepticus/acute metabolic encephalopathy/seizure history -On her previous admission she had a stroke and was also thought to have nonconvulsive status epilepticus, she was transferred to [facility] which recommended continued Keppra therapy twice a day for 3 months and outpatient follow-up with neurology -Her PCP discontinued her Keppra because of fatigue -Will restart her Keppra at the appropriate dose of 500 mg p.o. twice daily, she did receive a gram of Keppra yesterday IV when it was felt that she was having seizures again -Continue with Eliquis despite her hematuria will decrease the dose now to 5 mg p.o. twice daily there is a possibility of going down even lower because the criteria for that would be a normal creatinine and the fact that she is over 78 however she is 64 kg so she is just a little bit heavier than the cut off of the 2.5 mg dosing -We will discontinue her aspirin and Plavix per neurology's recommendation given the fact that she has non-small cell lung cancer, these are likely the cause of her hypercoagulable state and multiple embolic strokes 2. Acute on chronic anemia secondary to hematuria possibly secondary to complicated Enterobacter UTI -She did receive 2 units PRBCs on admission and her hemoglobin corrected from 7.1-11 -Today she is 8.4, appears the hematuria has resolved -Continue with cefepime to complete her course, a repeat urine culture was obtained by urology 3. Stage IV right non-small cell lung cancer/recent left lower extremity DVT -She does have metastatic lesions to her pelvis with pain that does seem to be controlled at the moment -She was started on targeted therapy this is now on hold if she is in the hospital which also may complicate her anemia issues -Transition to 5 mg p.o. twice daily 4. HTN/HLD -Blood pressure stable -We will continue to monitor and continue with her home blood pressure medications 5. Hypothyroidism -Stable -Continue with Synthroid 6. GERD -Stable -Continue with PPI DVT: [facility] Inpatient E&M: [id number] Subs Hosp L2
--- NOTE | 2020-10-14 14:06 | CASEMGMT ---
RN told HILLARY that Hospice called and requested information on patient be faxed as they spoke with family. SW spoke with patient's daughter in the room. SW asked about this request. She said her sister did tell her that they are meeting with Hospice on Monday just for informational purposes and get on their radar. She is fine with HILLARY faxing information. HILLARY faxed information to [facility]. Elida LAURA MSW
--- NOTE | 2020-10-14 15:30 | NURSING ---
1530-Noted dark red urine in moore collection bag with clots. Irrigated with 150ml NS, clots passed into tubing and bag. Moore now draining clear pale yellow urine. Pt tolerated without difficulty. 1620-Urine remains pale clear yellow and draining without difficulties.
[2020-10-14] MEDS: MELATONIN 10 MG TABLET 5 MG PO (21:11)
[2020-10-14] MEDS: Atorvastatin Calcium 40 MG Tablet PO (21:12)
[2020-10-15] VITALS (9 sets, daily range): BP systolic 118–125; BP diastolic 37–49; PULSE 64–74; RESP 16–18; TEMP 36.7–37.6; O2SAT 96–98
[2020-10-15 05:52] LABS: Absolute Lymphocyte Count 1.44 X10^3/uL (0.83-4.51); Absolute Neutrophil Count 4.7 X10^3/uL (2.0-7.7); Basophil# 0.07 X10^3/uL; Basophil% 0.8 % (0-1); Eosinophil# 0.55 X10^3/uL; Eosinophils% 6.3 % (0-5); Hematocrit 23.3 % (37-47); Hemoglobin 7.5 g/dL (12.0-15.0); Lymphocyte # 1.44 X10^3/ul (4.0); Lymphocyte % 16.5 % (19-41); Mean Corp Hgb Conc 32.2 g/dL (32-36); Mean Corpuscular Hgb 30.7 pg (27.0-32.0); Mean Corpuscular Volume 95.5 fL (81-99); Mean Platelet Vol. 8.4 fl (6.2-12.0); Monocyte# 1.87 X10^3/uL; Monocyte% 21.4 % (0-10); NRBC Flagged by Analyzer 0 % (0-5); Neutrophil # 4.68 X10^3/uL (2.7-7.7); Neutrophil % 53.5 % (47-70); POSITIVE DIFFERENTIAL YES; Platelet Count 234 K/mm3 (150-450); RBC Distribution Width SD 56.4 fl (35.1-43.9); Red Blood Count 2.44 M/mm3 (4.2-5.4); White Blood Count 8.7 K/mm3 (4.4-11.0)
[2020-10-15] MEDS: Menthol/Lanolin/Calamine/Znox 113 GM Tube 1 APPLIC TOPICAL ×3 (05:53→22:09)
[2020-10-15] MEDS: Levothyroxine 50 MCG Tablet PO (05:53)
[2020-10-15 06:15] LABS: Differential Indicated SCAN CRITERIA MET
[2020-10-15 06:20] LABS: Differential Comment SCANNED
[2020-10-15 06:30] LABS: Anion Gap 5 (5-15); BUN 22 mg/dL (7-18); BUN/Creat Ratio 58.4 RATIO (10-20); Calcium,Total 7.5 mg/dL (8.5-10.1); Chloride 102 mmol/L (98-107); Creatinine, Serum 0.38 mg/dL (0.55-1.02); EST Glomerular Filtration Rate 174 mL/min (>60); Est Glom Filt Rate - Afr Amer 210 mL/min (>60); Estimated Creatinine Clearance 37.45 ml/min; Glucose 101 mg/dL (74-106); Potassium 4.4 mmol/L (3.5-5.1); Sodium Level 132 mmol/L (136-145)
[2020-10-15] MEDS: 0.9% Saline Lock 10 ML Syringe IV ×2 (09:52→11:00)
[2020-10-15] MEDS: Na Biphos/Potassium Phosphate PACKET 1 PACKET PO ×4 (09:53→21:56)
[2020-10-15] MEDS: QUEtiapine 25 MG Tablet 12.5 MG PO ×2 (09:56→21:54)
[2020-10-15] MEDS: levETIRAcetam 500 MG Tablet PO ×2 (09:57→21:55)
[2020-10-15] MEDS: Pantoprazole Sodium 40 MG Tablet PO (09:57)
[2020-10-15] MEDS: APIXABAN 5 MG TABLET PO ×2 (09:57→21:54)
[2020-10-15] MEDS: Sodium Chloride 1 GM Tablet PO ×2 (09:57→21:56)
[2020-10-15] MEDS: Loratadine 10 MG Tablet PO (09:57)
[2020-10-15] MEDS: amLODIPine 5 MG Tablet PO (09:59)
[2020-10-15] MEDS: Metoprolol(XL)Succ 50 MG Tablet PO (09:59)
[2020-10-15] MEDS: Lisinopril 40 MG Tablet PO (09:59)
[2020-10-15] MEDS: Fluticasone 0.05% 1 SPRAY NASAL.SRY 2 SPRAY NASAL (09:59)
--- NOTE | 2020-10-15 11:33 | NURSING ---
PT/OT in room to see pt. OT came to get this RN d/t pt hypotensive. Pt easily awakened. BP at sitting 72/30. After laying back down fo 4 mins, BP 87/35. After 6 mins, BP 99/44. Pt also had large loose stool at this time. At 12 minutes after sitting up BP 126/39. Pt awake and talking with staff. Dr Higuera notified of above advised this RN to continue current POC.
--- NOTE | 2020-10-15 11:49 | PCM.PN.HOSP ---
Patient Problems: Active and Suspected Problems (Last Reviewed 10/13/20 @ 16:[address] Jerilyn Saunders MD) Hyponatremia (Acute) Acute on Chronic CVA (cerebral vascular accident) (Acute) Acute UTI (Acute) Hematuria (Acute) Acute blood loss anemia (Acute) Gross hematuria (Acute) Subjective: No issues overnight, doing well this morning appears to be resting comfortably. Her hemoglobin dropped again to 7.5, will repeat this afternoon. Vitals/I&O's: Vital Signs Temp Pulse Resp BP Pulse Ox 98.4 F 66 16 121/48 H 97 10/15/20 09:35 10/15/20 09:59 10/15/20 09:35 10/15/20 09:35 10/15/20 09:35 Oxygen Delivery Method Room Air Weight: 136 lb 7.458 oz Body Mass Index (BMI) 22.3 Intake and Output for Last 24 Hours 10/13/20 10/14/20 10/15/20 23:59 23:59 23:59 Intake Total 1250 / 1730 1780 / 1780 220 / 220 Output Total 1175 / 1825 1775 / 1775 175 / 175 Balance 75 / -95 5 / 5 45 / 45 General: Alert, Cooperative, No apparent distress, Confused HEENT: Atraumatic, PERRLA, EOMI, Normocephalic Oral: Moist Mucosa Neck: Supple, No JVD Lungs: Clear to auscultation, Normal air movement, No rhonchi, No wheeze, No rales Cardiovascular: Regular rate, Regular Rhythm, Normal S1, Normal S2, No murmurs Abdomen: Soft, Non Tender, Non-Distended, No Hepato-splenomegaly Extremities: No edema, Capillary Refill Less than 3 Seconds Skin: No rashes, No breakdown Neurological: Neuro grossly intact, Sensory exam intact to light touch and pain Psych/Mental Status: Normal Affect, Appropriate Microbiology Past 72 Hours 10/13/20 15:19 Urine Catheter - Ross Urine Culture - Preliminary Culture exhibits no growth. Laboratory Results 10/15/20 05:24: WBC 8.7, RBC 2.44 L, Hgb 7.5 L, Hct 23.3 L, MCV 95.5, MCH 30.7, MCHC 32.2, RDW Std Deviation 56.4 H, RDW Coeff of Roselyn 16.0 H, Plt Count 234, MPV 8.4, Immature Gran % (Auto) 1.500 H, Neut % (Auto) 53.5, Lymph % (Auto) 16.5 L, [place] % (Auto) 21.4 H, Eos % (Auto) 6.3 H, Baso % (Auto) 0.8, Absolute Neuts (auto) 4.7, Absolute Lymphs (auto) 1.44, Nucleated RBC % 0, Differential Comment SCANNED 10/15/20 05:24: Sodium 132 L, Potassium 4.4, Chloride 102, Carbon Dioxide 25.0, Anion Gap 5, BUN 22 H, Creatinine 0.38 L, Estim Creat Clear Calc 37.45, Est GFR (MDRD) Af Amer 210, Est GFR (MDRD) Non-Af 174, BUN/Creatinine Ratio 58.4 H, Glucose 101, Calcium 7.5 L Current Medications Acetaminophen (Acetaminophen 325 Mg Tablet) 650 mg PO Q6H PRN PRN PRN Reason: Pain Score 1-10/Temp > 100.7 F Al Hydroxide/Mg Hydroxide (Mag Hydrox/Al Hydrox/Simeth 30 Ml Udc) 30 ml PO Q6H PRN PRN PRN Reason: Gastric Burning Albuterol Sulfate (Albuterol 2.5 Mg/3 Ml Vial.Neb.) 2.5 mg INHALATION Q2H PRN PRN PRN Reason: Dyspnea, wheezing Amlodipine Besylate (Amlodipine 5 Mg Tablet) 5 mg PO DAILY [facility] Last Admin: 10/15/20 09:59 Dose: 5 mg Documented by: Apixaban (Apixaban 5 Mg Tablet) 5 mg PO BID [facility] Last Admin: 10/15/20 09:57 Dose: 5 mg Documented by: Atorvastatin Calcium (Atorvastatin Calcium 40 Mg Tablet) 40 mg PO QHS [facility] Last Admin: 10/14/20 21:12 Dose: 40 mg Documented by: Calamine/Phenol (Menthol/Lanolin/Calamine/Znox 113 Gm Tube) 1 applic TOPICAL TID [facility]; Protocol Last Admin: 10/15/20 05:53 Dose: 1 applicatio Documented by: Fluticasone Propionate (Fluticasone 0.05% 1 Maple Nasal.Sry) 2 spray NASAL DAILY [facility] Last Admin: 10/15/20 09:59 Dose: 2 sprays Documented by: Guaifenesin (Guaifenesin 10 Ml Udc (200mg/10ml)) 20 ml PO Q4H PRN PRN PRN Reason: COUGH Heparin Sodium (Beef Lung) (Heparin Pf Lock 10 Units/Ml 50 Units/5 Ml Syringe) 50 units IV UD PRN PRN Reason: Port-a-Cath (VAD)Heparin Flush Hydralazine HCl (Hydralazine 20 Mg/Ml Vial) 10 mg IV Q4H PRN PRN PRN Reason: SBP > 160 Last Admin: 10/11/20 02:32 Dose: 10 mg Documented by: Cefepime HCl 2 gm/ Sodium (Chloride) 100 mls @ 200 mls/hr IV Q12 [facility] Stop: 10/16/20 15:12 Last Infusion: 10/15/20 10:20 Dose: Infused Documented by: Levetiracetam (Levetiracetam 500 Mg Tablet) 500 mg PO BID [facility] Last Admin: 10/15/20 09:57 Dose: 500 mg Documented by: Levothyroxine Sodium (Levothyroxine 50 Mcg Tablet) 50 mcg PO DAILY@0600 [facility] Last Admin: 10/15/20 05:53 Dose: 50 mcg Documented by: Lisinopril (Lisinopril 40 Mg Tablet) 40 mg PO DAILY [facility] Last Admin: 10/15/20 09:59 Dose: 40 mg Documented by: Loratadine (Loratadine 10 Mg Tablet) 10 mg PO DAILY [facility] Last Admin: 10/15/20 09:57 Dose: 10 mg Documented by: Magnesium Hydroxide (Magnesium Hydroxide 30 Ml Udc) 30 ml PO DAILY PRN PRN PRN Reason: Constipation Melatonin (Melatonin 10 Mg Tablet) 5 mg PO QHS PRN PRN PRN Reason: SLEEP Last Admin: 10/14/20 21:11 Dose: 5 mg Documented by: Metoprolol Succinate (Metoprolol(Xl)Succ 50 Mg Tablet) 50 mg PO DAILY [facility] Last Admin: 10/15/20 09:59 Dose: 50 mg Documented by: Nitroglycerin (Nitroglycerin (Inpatient Use) 0.4 Mg Tab.Subl) 0.4 mg SUBLINGUAL Q5M PRN PRN Reason: CARDIAC/CHEST PAIN Ondansetron HCl (Ondansetron 4 Mg/2 Ml Vial) 4 mg IV Q8H PRN PRN PRN Reason: NAUSEA/VOMITING Pantoprazole Sodium (Pantoprazole Sodium 40 Mg Tablet) 40 mg PO DAILY [facility] Last Admin: 10/15/20 09:57 Dose: 40 mg Documented by: Polyethylene Glycol (Polyethylene Glycol 3350 17 Gm Packet) 17 gm PO DAILY [facility] Last Admin: 10/15/20 09:55 Dose: Not Given Documented by: Potassium Chloride (Potassium Chloride 20 Meq Tablet) 20 meq PO DAILY@0800 [facility] Last Admin: 10/15/20 09:57 Dose: 20 meq Documented by: Potassium Phos/Sodium Phos (Na Biphos/Potassium Phosphate Packet) 1 packet PO 4X/DAY [facility] Last Admin: 10/15/20 09:53 Dose: 1 packet Documented by: Prochlorperazine Edisylate (Prochlorperazine 10 Mg/2 Ml Vial) 5 mg IV Q4H PRN PRN PRN Reason: Breakthrough Nausea/Vomiting Psyllium Hydrophilic Mucilloid (Psyllium 1 Packet) 1 packet PO DAILY PRN PRN PRN Reason: Constipation Quetiapine Fumarate (Quetiapine 25 Mg Tablet) 12.5 mg PO BID [facility] Last Admin: 10/15/20 09:56 Dose: 12.5 mg Documented by: Senna/Docusate Sodium (Senna/Docusate Sodium 1 Tablet) 2 tablet PO BID PRN PRN PRN Reason: Constipation Sodium Chloride (Sodium Chloride 1 Gm Tablet) 1 gm PO BID [facility] Last Admin: 10/15/20 09:57 Dose: 1 gm Documented by: Sodium Chloride (0.9% Saline Lock 10 Ml Syringe) 10 - 40 ml IV UD PRN PRN Reason: Port-a-Cath (VAD) Flush Last Admin: 10/15/20 09:52 Dose: 10 ml Documented by: Sodium Chloride (0.9 % Nacl (Sterile) Posiflush 10 Ml) 10 - 40 ml IV UD PRN PRN Reason: Port access or dressing change Last Admin: 10/13/20 21:09 Dose: 20 ml Documented by: Sodium Chloride (0.9% Saline Lock 10 Ml Syringe) 10 - 40 ml IV UD PRN PRN Reason: SALINE FLUSH Last Admin: 10/15/20 11:00 Dose: 20 ml Documented by: Throat Lozenges (Benzocaine/Menthol 1 Lozenge) 1 lozenge MUCOUS MEM Q2H PRN PRN PRN Reason: SORE THROAT STROKE Vital Signs/Narrative: Vital Signs Temp Pulse Resp BP Pulse Ox 10/15/20 09:59 66 10/15/20 09:35 98.4 F 64 16 121/48 H 97 Medical Necessity - Tobacco Use Smoking Status: Never smoker Tobacco Use: Non-smoker Assessment/Plan All Active Problems (Last Reviewed 10/13/20 @ 16:[address] Jerilyn Saunders MD) Surgical wound present (Acute) Vascular catheter fitting or adjustment (Acute) CINV (chemotherapy-induced nausea and vomiting) (Acute) Stomatitis (Resolved) UTI (urinary tract infection) (Resolved) Diarrhea (Acute) Delirium (Acute) Elevated troponin (Acute) Encephalopathy (Acute) Tiredness (Acute) UTI (urinary tract infection) (Acute) Hyponatremia (Acute) Hypokalemia (Acute) CVA (cerebral vascular accident) (Acute) Acute UTI (Acute) Hematuria (Acute) Acute blood loss anemia (Acute) Gross hematuria (Acute) 1. Small acute right cerebellar infarct/previous CVA with nonconvulsive status epilepticus/acute metabolic encephalopathy/seizure history -On her previous admission she had a stroke and was also thought to have nonconvulsive status epilepticus, she was transferred to [facility] which recommended continued Keppra therapy twice a day for 3 months and outpatient follow-up with neurology -Her PCP discontinued her Keppra because of fatigue -Will restart her Keppra at the appropriate dose of 500 mg p.o. twice daily, she did receive a gram of Keppra yesterday IV when it was felt that she was having seizures again -Continue with Eliquis despite her hematuria will decrease the dose now to 5 mg p.o. twice daily there is a possibility of going down even lower because the criteria for that would be a normal creatinine and the fact that she is over 80 however she is 64 kg so she is just a little bit heavier than the cut off of the 2.5 mg dosing -We will discontinue her aspirin and Plavix per neurology's recommendation given the fact that she has non-small cell lung cancer, these are likely the cause of her hypercoagulable state and multiple embolic strokes 2. Acute on chronic anemia secondary to hematuria possibly secondary to complicated Enterobacter UTI -She did receive 2 units PRBCs on admission and her hemoglobin corrected from 7.1-11 -Today she is 7.5, appears the hematuria has resolved, will recheck hemoglobin this afternoon -Continue with cefepime to complete her course, a repeat urine culture was normal 3. Stage IV right non-small cell lung cancer/recent left lower extremity DVT -She does have metastatic lesions to her pelvis with pain that does seem to be controlled at the moment -She was started on targeted therapy this is now on hold if she is in the hospital which also may complicate her anemia issues -Transition to Eliquis 5 mg p.o. twice daily 4. HTN/HLD -Blood pressure stable -We will continue to monitor and continue with her home blood pressure medications 5. Hypothyroidism -Stable -Continue with Synthroid 6. GERD -Stable -Continue with PPI DVT: Eliquis Inpatient E&M: 74620 Subs Hosp L2
[2020-10-15 13:17] LABS: Hemoglobin 9.2 g/dL (12.0-15.0)
[2020-10-15] MEDS: Atorvastatin Calcium 40 MG Tablet PO (21:55)
--- NOTE | 2020-10-15 23:01 | NURSING ---
Went to insert Ross per physician order. The patient had moderate urinary incontinence. Nursing held off on inserting Ross at this time.
[2020-10-16 03:00] VITALS: PULSE 69
[2020-10-16 03:23] VITALS: BP 125/39; PULSE 67; RESP 16; TEMP 36.9; O2SAT 98
[2020-10-16] MEDS: Levothyroxine 50 MCG Tablet PO (05:37)
[2020-10-16] MEDS: Menthol/Lanolin/Calamine/Znox 113 GM Tube 1 APPLIC TOPICAL ×2 (05:37→14:26)
[2020-10-16 05:43] LABS: Absolute Lymphocyte Count 1.47 X10^3/uL (0.83-4.51); Absolute Neutrophil Count 5.6 X10^3/uL (2.0-7.7); Basophil# 0.07 X10^3/uL; Basophil% 0.7 % (0-1); Eosinophil# 0.67 X10^3/uL; Hematocrit 24.3 % (37-47); Hemoglobin 7.8 g/dL (12.0-15.0); Lymphocyte # 1.47 X10^3/ul (4.0); Lymphocyte % 15.4 % (19-41); Mean Corp Hgb Conc 32.1 g/dL (32-36); Mean Corpuscular Hgb 30.6 pg (27.0-32.0); Mean Corpuscular Volume 95.3 fL (81-99); Mean Platelet Vol. 8.2 fl (6.2-12.0); Monocyte# 1.63 X10^3/uL; NRBC Flagged by Analyzer 0 % (0-5); Neutrophil # 5.61 X10^3/uL (2.7-7.7); Neutrophil % 58.6 % (47-70); POSITIVE DIFFERENTIAL YES; Platelet Count 208 K/mm3 (150-450); RBC Distribution Width CV 15.7 % (11.6-14.6); RBC Distribution Width SD 55.8 fl (35.1-43.9); Red Blood Count 2.55 M/mm3 (4.2-5.4); White Blood Count 9.6 K/mm3 (4.4-11.0)
[2020-10-16 05:45] LABS: Differential Indicated SCAN CRITERIA MET
[2020-10-16 05:51] LABS: Magnesium 1.2 mg/dL (1.6-2.6)
[2020-10-16 07:00] VITALS: PULSE 64
[2020-10-16 09:20] VITALS: BP 134/44; PULSE 61; RESP 17; TEMP 36.3; O2SAT 96
[2020-10-16] MEDS: Magnesium Sulfate 4gm/100mL 4 GM/100 ML IV.SOLN. IV (09:39)
[2020-10-16] MEDS: amLODIPine 5 MG Tablet 2.5 MG PO (09:42)
[2020-10-16] MEDS: Pantoprazole Sodium 40 MG Tablet PO (09:42)
[2020-10-16] MEDS: Sodium Chloride 1 GM Tablet PO (09:42)
[2020-10-16] MEDS: QUEtiapine 25 MG Tablet 12.5 MG PO (09:43)
[2020-10-16] MEDS: Loratadine 10 MG Tablet PO (09:43)
[2020-10-16] MEDS: levETIRAcetam 500 MG Tablet PO (09:43)
[2020-10-16] MEDS: Fluticasone 0.05% 1 SPRAY NASAL.SRY 2 SPRAY NASAL (09:43)
[2020-10-16] MEDS: APIXABAN 5 MG TABLET PO (09:43)
[2020-10-16] MEDS: Polyethylene Glycol 3350 17 GM PACKET PO (09:44)
[2020-10-16] MEDS: Na Biphos/Potassium Phosphate PACKET 1 PACKET PO ×2 (09:44→14:26)
[2020-10-16 10:04] VITALS: PULSE 61
[2020-10-16] MEDS: Metoprolol(XL)Succ 25 MG Tablet PO (10:04)
[2020-10-16] MEDS: Lisinopril 20 MG Tablet PO (10:05)
[2020-10-16] MEDS: 0.9% Saline Lock 10 ML Syringe IV ×2 (11:53→15:07)
--- NOTE | 2020-10-16 12:08 | CASEMGMT ---
Patient was approved to go to TCU, however medically she is not ready. HILLARY notified Breanna that patient will not be coming today. Breanna said that if patient does not admit by Monday she will require a new insurance authorization. Green sheet on patient's chart. Plan: d/c to [facility] TCU under skilled level of care. Elida LAURA MSW
--- NOTE | 2020-10-16 13:50 | PCM.TXEXTCAR ---
- Diet 10/09/20 14:03 Diet: Regular - General Food consistency:: Regular Liquid Consistency:: Regular/Thin Type of Dietary Supplement:: Ensure Enlive Diet Comments: 120ml ensure enlive TID w/ meals; ensure pudding BID w/ lunch and dinner - Routine Orders/Code Status Routine Lab Work: CBC Code Status: Full Code - Wound(s) Left post thigh Wound Type: Skin Tear - Therapies Physical Therapy: Eval and Treat Occupational Therapy: Eval and Treat - Allergies/Procedures Done in Hospital Allergies/Adverse Reactions: Allergies chlorhexidine Allergy (Intermediate, Verified 10/06/20 14:20) Rash morphine Adverse Reaction (Severe, Verified 10/06/20 14:20) Shortness of breath naproxen Adverse Reaction (Intermediate, Verified 10/06/20 14:20) mouth sores mouth sores nitrofurantoin [From Macrodantin] Adverse Reaction (Intermediate, Verified 10/06/20 14:20) mouth sores mouth sores cloth tape Adverse Reaction (Uncoded 10/06/20 14:20) skin irritation - Type of Care/Length of Stay Estimated LOS: Convalescent Care Less Than 30 days Type of Care Needed: Skilled Rehab Potential: Fair Prognosis: Fair - Additional Orders/Day of Discharge Day of Discharge: 10/16/20 - Dietary and Speech Recommendations Dietitian Recommendations/Changes: Continue Regular diet as ordered, consistency per NIGHT MANAGER. Speech Linguistic Eval Summary: Pt very pleasant and agreeable to ST evaluation. Pt reports difficulty with word finding although admits trouble with this even prior to [facility] admission. Pt oriented to self and . Pt stated [employer] for location. Reoriented to [facility] with pt responding oh yes I knew we were somewhere in that area. Pt unable to provide history of events leading up to hospital presentation. Pt able to name 7 animals in 1 minute. Pt completed automatic speech tasks with 100%. Pt with intermittent confusion asking what's at the end of the bed (bed handles) with pt stating she thought it was little mice or lizards. Pt received phone call from . During conversation with spouse, pt had obvious deficits in word finding and some word substitutions. Recommending continued skilled ST intervention for cognitive-linguistic skills. - Follow Up Care Primary Care Physician: Kathy Randall MD [Primary Care Provider] - Please follow up with your Primary Care Physician in: 3-5 days
--- NOTE | 2020-10-16 14:06 | PHA.DC.MR ---
Pharmacy Service has performed discharge medication reconciliation for this patient. The patient's discharge medication list was reviewed for discrepancies and discrepancies were resolved. Home Medications Levothyroxine [Synthroid] 50 mcg PO DAILY 09/27/19 Pantoprazole Sodium [Protonix] 40 mg PO DAILY 09/27/19 Acetaminophen [Tylenol Extra Strength] 500 mg PO TID PRN PRN 09/14/20 Atorvastatin Calcium [Lipitor] 40 mg PO QHS 09/29/20 Loratadine/Pseudo 240/10 [Claritin-D 24 Hr] 1 tab PO DAILY 09/29/20 Melatonin 5 mg PO QHS PRN 09/29/20 Potassium Chloride [K-Dur] 20 meq PO DAILY #7 tab 10/06/20 Sodium Chloride 1,000 mg MC BID #14 tablet.marvin 10/06/20 Fluticasone 0.05% [Flonase Nasal Robert Lee] 2 sprays NASAL DAILY 10/09/20 Amlodipine [Norvasc] 2.5 mg PO DAILY tab 10/16/20 Apixaban [Eliquis] 5 mg PO BID tab 10/16/20 Lisinopril [Zestril] 20 mg PO DAILY tab 10/16/20 Metoprolol(XL)Succ [Toprol Xl (Beta Heavenly)] 25 mg PO DAILY tab 10/16/20 Na Biphos/Potassium Phosphate [Neutra-Phos Packet] 1 packet PO 4X/DAY packet 10/16/20 Polyethylene Glycol 3350 [Miralax] 17 gm PO DAILY packet 10/16/20 Quetiapine Fumarate [Seroquel] 12.5 mg PO BID tab 10/16/20 Senna/Docusate Sodium [Senokot-S] 2 tab PO BID PRN PRN tab 10/16/20 levETIRAcetam tablet [Keppra tablet] 500 mg PO BID tab 10/16/20
--- NOTE | 2020-10-16 14:19 | NURSING ---
report called to TCU nurse re: pending transfer
--- NOTE | 2020-10-16 14:30 | CASEMGMT ---
Patient is now ready for discharge to TCU. HILLARY copied orders. Patient's daughter is in the room and physician spoke with her so she is aware of discharge. HILLARY notified Breanna on referral phone. Plan: d/c to [facility] TCU under skilled level of care. Elida LAURA MSW
--- NOTE | 2020-10-16 16:15 | DS.PCM_ITS ---
Discharge Date and Diagnosis - Problem List Patient Problems: Active and Suspected Problems (Last Reviewed 10/13/20 @ 16:[address] Jerilyn Saunders MD) Hyponatremia (Acute) Acute on Chronic CVA (cerebral vascular accident) (Acute) Acute UTI (Acute) Hematuria (Acute) Acute blood loss anemia (Acute) Gross hematuria (Acute) Date of Admission: 10/09/20 Date of Discharge: 10/16/20 - Primary Discharge Diagnosis Acute Problems: Active Problems (Last Reviewed 10/13/20 @ 16:[address] Jerilyn Saunders MD) Hyponatremia (Acute) Acute on Chronic CVA (cerebral vascular accident) (Acute) Acute UTI (Acute) Hematuria (Acute) Acute blood loss anemia (Acute) Gross hematuria (Acute) - Secondary Discharge Diagnosis Chronic Problems: Chronic Problems (Last Reviewed 10/13/20 @ 16:[address] Jerilyn Saunders MD) Anemia (Chronic) Hilar adenopathy (Chronic) Metastatic lung carcinoma (Chronic) Iron deficiency anemia (Chronic) Cancer-related pain (Chronic) DVT, lower extremity, distal, acute (Chronic) Lung mass (Chronic) NSCLC of right lung (Chronic) Hospital Course and Treatment Imaging Results: Clinical Impression(s) from Imaging Studies Brain MRI 10/09/20 13:59 IMPRESSION: 1. Small acute right cerebellar infarct. Electronically Signed: Mayte Washington MD at 15:42 EST Tel , Service support , ADDENDUM: 10/09/20 1610 IMPRESSION: 1. Small acute right cerebellar infarct. N.B. : The above information has been verbally conveyed by Mayte Washington MD to Juliano Cortés RN, on 10/09/2020 16:03:07 (ET). Electronically Signed: Mayte Washington MD at 15:42 EST Tel , Service support , Abdomen/Pelvis CT 10/13/20 12:20 IMPRESSION: Multiple small gallstones. Fibrocalcific scarring at the right lung base. Moderate amount of fecal material is seen in the rectosigmoid colon. Electronically Signed: Bassam James MD at 13:58 EST , Service support , Echo: Interpretation Summary The study was technically difficult. Contrast injection was performed. Left ventricular systolic function is normal. The estimated ejection fraction is 65 %. The global longitudinal strain = -20 % (normal). Mid cavitary false tendon noted. The left atrium is mildly enlarged. There is moderate to severe mitral annular calcification. Mild diffuse mitral valve thickening. Mild focal mitral valve calcification. Moderate (2+) mitral valve insufficiency. The aortic valve is not well visualized, however, based upon the 2D echocardiographic images obtained there appears to be thickening, calcification, and partial restriction. Mild-Moderate (1-2+) aortic valve insufficiency. Right ventricular systolic pressure estimated to be 40 mmHg. Unable to assess diastolic dysfunction. Operations: None Procedures: 2-D Echocardiogram Summary of Care Provided: Per HPI: The patient is an 80 y/o F w/ PMHx: Right Non-small cell lung CA with metastatic lesions on chemotherapy s/p prior lobectomy 10/2019, HTN, HLD, Hypothyroidism, GERD, Anxiety recently discharged on 09/17/21 with metabolic encephalopathy secondary to UTI, embolic CVA, hyponatremia and nonconvulsive status per EEG placed on Keppra and transferred to [facility] for further evaluation with of note at that time hold on eliquis temporarily secondary to concern for hemorrhagic conversion already also on plavix who now re-presents to the [facility] from [facility] with history of EMS call per family with concern for acute CVA noting at 8:30 am she had slurred speech and L sided facial droop with resolution upon ED presentation except still had some slurred speech but per the patient notes it has been similar to that for 3-4 weeks. Family notes single point EEG performed several days following transfer at [facility] without seizure activity noted with continuation on keppra at discharge with decision for stopped deferred to the patient PCP, recent restart on eliquis in addition to ongoing asa, plavix as well and statin therapy. Per discussion with patient family she started Eliquis on Monday evening but added 2.5 mg p.o. twice daily regimen. Additionally family notes that following initiation of these recent targeted chemotherapy she had onset of mild hematuria this prior Monday which then significantly worsened on Monday following initiation of the anticoagulant therapy. Review of recent records note 10/06/2020 urine culture with Enterobacter sensitive to cefepime. Hospital Course: 1. Small acute right cerebellar infarct/previous CVA with nonconvulsive status epilepticus/acute metabolic encephalopathy/seizure history -On her previous admission she had a stroke and was also thought to have nonconvulsive status epilepticus, she was transferred to [facility] which recommended continued Keppra therapy twice a day for 3 months and outpatient follow-up with neurology -Her PCP discontinued her Keppra because of fatigue -Will restart her Keppra at the appropriate dose of 500 mg p.o. twice daily, she did receive a gram of Keppra yesterday IV when it was felt that she was having seizures again -Continue with Eliquis despite her hematuria will decrease the dose now to 5 mg p.o. twice daily there is a possibility of going down even lower because the criteria for that would be a normal creatinine and the fact that she is over 78 however she is 64 kg so she is just a little bit heavier than the cut off of the 2.5 mg dosing -We will discontinue her aspirin and Plavix per neurology's recommendation given the fact that she has non-small cell lung cancer, these are likely the cause of her hypercoagulable state and multiple embolic strokes -She is also having episodes of syncope when standing up likely secondary to a vagal mechanism. All of her blood pressure medications have been cut in half prior to discharge, physical therapy was able to get her up at bedside standing today and she did not have another episode. -Plan will be for discharge to TCU for rehab and then possibly home. At that time they will have a discussion with her oncologist and possibly hospice about whether or not to resume targeted chemo versus proceeding with hospice. I discussed the plan with her daughter and herself today and they both expressed understanding of the risks and benefits of discharge and would like to be discharged to TCU today 2. Acute on chronic anemia secondary to hematuria possibly secondary to complicated Enterobacter UTI -She did receive 2 units PRBCs on admission and her hemoglobin corrected from 7.1-11 -Today she is 7.8, her hematuria is reoccurred and she was restarted on a CBI and a Ross was placed -She completed her course of cefepime 3. Stage IV right non-small cell lung cancer/recent left lower extremity DVT -She does have metastatic lesions to her pelvis with pain that does seem to be controlled at the moment -She was started on targeted therapy this is now on hold if she is in the spital which also may complicate her anemia issues -Transition to Eliquis 5 mg p.o. twice daily, she should go down to 2.5 mg p.o. twice daily if her weight falls below 60 kg 4. HTN/HLD -Blood pressure stable -We will continue to monitor and continue with her home blood pressure medications 5. Hypothyroidism -Stable -Continue with Synthroid 6. GERD -Stable -Continue with PPI Patient Problems: Active and Suspected Problems (Last Reviewed 10/13/20 @ 16:[address] Jerilyn Saunders MD) Hyponatremia (Acute) Acute on Chronic CVA (cerebral vascular accident) (Acute) Acute UTI (Acute) Hematuria (Acute) Acute blood loss anemia (Acute) Gross hematuria (Acute) - Physical Exam Vitals/I&O's: Vital Signs Temp Pulse Resp BP Pulse Ox 97.3 F L 61 17 134/44 H 96 10/16/20 09:20 10/16/20 10:04 10/16/20 09:20 10/16/20 09:20 10/16/20 09:20 Oxygen Delivery Method Room Air Weight: 134 lb 11.239 oz Body Mass Index (BMI) 22.3 Intake and Output for Last 24 Hours 10/14/20 10/15/20 10/16/20 23:59 23:59 23:59 Intake Total 1780 / 1780 1300 / 1420 380 / 380 Output Total 1775 / 1775 375 / 425 170 / 170 Balance 5 / 5 925 / 995 210 / 210 General: Alert, Cooperative, No apparent distress, Confused HEENT: Atraumatic, PERRLA, EOMI, Normocephalic Oral: Moist Mucosa Neck: Supple, No JVD Lungs: Clear to auscultation, Normal air movement, No rhonchi, No wheeze, No rales Cardiovascular: Regular rate, Regular Rhythm, Normal S1, Normal S2, No murmurs Abdomen: Soft, Non Tender, Non-Distended, No Hepato-splenomegaly Extremities: No edema, Capillary Refill Less than 3 Seconds Skin: No rashes, No breakdown Neurological: Neuro grossly intact, Sensory exam intact to light touch and pain Psych/Mental Status: Normal Affect, Appropriate Microbiology Past 72 Hours 10/13/20 15:19 Urine Catheter - Ross Urine Culture - Final Culture exhibits no growth. Laboratory Results 10/16/20 05:35: WBC 9.6, RBC 2.55 L, Hgb 7.8 L, Hct 24.3 L, MCV 95.3, MCH 30.6, MCHC 32.1, RDW Std Deviation 55.8 H, RDW Coeff of Roselyn 15.7 H, Plt Count 208, MPV 8.2, Immature Gran % (Auto) 1.300 H, Neut % (Auto) 58.6, Lymph % (Auto) 15.4 L, [place] % (Auto) 17.0 H, Eos % (Auto) 7.0 H, Baso % (Auto) 0.7, Absolute Neuts (auto) 5.6, Absolute Lymphs (auto) 1.47, Nucleated RBC % 0 10/16/20 05:35: Magnesium 1.2 L Current Medications Acetaminophen (Acetaminophen 325 Mg Tablet) 650 mg PO Q6H PRN PRN PRN Reason: Pain Score 1-10/Temp > 100.7 F Al Hydroxide/Mg Hydroxide (Mag Hydrox/Al Hydrox/Simeth 30 Ml Udc) 30 ml PO Q6H PRN PRN PRN Reason: Gastric Burning Albuterol Sulfate (Albuterol 2.5 Mg/3 Ml Vial.Neb.) 2.5 mg INHALATION Q2H PRN PRN PRN Reason: Dyspnea, wheezing Amlodipine Besylate (Amlodipine 5 Mg Tablet) 2.5 mg PO DAILY [facility] Last Admin: 10/16/20 09:42 Dose: 2.5 mg Documented by: Apixaban (Apixaban 5 Mg Tablet) 5 mg PO BID [facility] Last Admin: 10/16/20 09:43 Dose: 5 mg Documented by: Atorvastatin Calcium (Atorvastatin Calcium 40 Mg Tablet) 40 mg PO QHS [facility] Last Admin: 10/15/20 21:55 Dose: 40 mg Documented by: Calamine/Phenol (Menthol/Lanolin/Calamine/Znox 113 Gm Tube) 1 applic TOPICAL TID [facility]; Protocol Last Admin: 10/16/20 14:26 Dose: 1 applicatio Documented by: Fluticasone Propionate (Fluticasone 0.05% 1 [place] Nasal.Sry) 2 spray NASAL DAILY [facility] Last Admin: 10/16/20 09:43 Dose: 2 sprays Documented by: Guaifenesin (Guaifenesin 10 Ml Udc (200mg/10ml)) 20 ml PO Q4H PRN PRN PRN Reason: COUGH Heparin Sodium (Beef Lung) (Heparin Pf Lock 10 Units/Ml 50 Units/5 Ml Syringe) 50 units IV UD PRN PRN Reason: Port-a-Cath (VAD)Heparin Flush Last Admin: 10/16/20 15:08 Dose: 50 units Documented by: Hydralazine HCl (Hydralazine 20 Mg/Ml Vial) 10 mg IV Q4H PRN PRN PRN Reason: SBP > 160 Last Admin: 10/11/20 02:32 Dose: 10 mg Documented by: Levetiracetam (Levetiracetam 500 Mg Tablet) 500 mg PO BID [facility] Last Admin: 10/16/20 09:43 Dose: 500 mg Documented by: Levothyroxine Sodium (Levothyroxine 50 Mcg Tablet) 50 mcg PO DAILY@0600 [facility] Last Admin: 10/16/20 05:37 Dose: 50 mcg Documented by: Lisinopril (Lisinopril 20 Mg Tablet) 20 mg PO DAILY [facility] Last Admin: 10/16/20 10:05 Dose: 20 mg Documented by: Loratadine (Loratadine 10 Mg Tablet) 10 mg PO DAILY [facility] Last Admin: 10/16/20 09:43 Dose: 10 mg Documented by: Magnesium Hydroxide (Magnesium Hydroxide 30 Ml Udc) 30 ml PO DAILY PRN PRN PRN Reason: Constipation Melatonin (Melatonin 10 Mg Tablet) 5 mg PO QHS PRN PRN PRN Reason: SLEEP Last Admin: 10/14/20 21:11 Dose: 5 mg Documented by: Metoprolol Succinate (Metoprolol(Xl)Succ 25 Mg Tablet) 25 mg PO DAILY [facility] Last Admin: 10/16/20 10:04 Dose: 25 mg Documented by: Nitroglycerin (Nitroglycerin (Inpatient Use) 0.4 Mg Tab.Subl) 0.4 mg SUBLINGUAL Q5M PRN PRN Reason: CARDIAC/CHEST PAIN Ondansetron HCl (Ondansetron 4 Mg/2 Ml Vial) 4 mg IV Q8H PRN PRN PRN Reason: NAUSEA/VOMITING Pantoprazole Sodium (Pantoprazole Sodium 40 Mg Tablet) 40 mg PO DAILY [facility] Last Admin: 10/16/20 09:42 Dose: 40 mg Documented by: Polyethylene Glycol (Polyethylene Glycol 3350 17 Gm Packet) 17 gm PO DAILY [facility] Last Admin: 10/16/20 09:44 Dose: 17 gm Documented by: Potassium Chloride (Potassium Chloride 20 Meq Tablet) 20 meq PO DAILY@0800 [facility] Last Admin: 10/16/20 09:43 Dose: 20 meq Documented by: Potassium Phos/Sodium Phos (Na Biphos/Potassium Phosphate Packet) 1 packet PO 4X/DAY [facility] Last Admin: 10/16/20 14:26 Dose: 1 packet Documented by: Prochlorperazine Edisylate (Prochlorperazine 10 Mg/2 Ml Vial) 5 mg IV Q4H PRN PRN PRN Reason: Breakthrough Nausea/Vomiting Psyllium Hydrophilic Mucilloid (Psyllium 1 Packet) 1 packet PO DAILY PRN PRN PRN Reason: Constipation Quetiapine Fumarate (Quetiapine 25 Mg Tablet) 12.5 mg PO BID [facility] Last Admin: 10/16/20 09:43 Dose: 12.5 mg Documented by: Senna/Docusate Sodium (Senna/Docusate Sodium 1 Tablet) 2 tablet PO BID PRN PRN PRN Reason: Constipation Sodium Chloride (Sodium Chloride 1 Gm Tablet) 1 gm PO BID [facility] Last Admin: 10/16/20 09:42 Dose: 1 gm Documented by: Sodium Chloride (0.9% Saline Lock 10 Ml Syringe) 10 - 40 ml IV UD PRN PRN Reason: Port-a-Cath (VAD) Flush Last Admin: 10/16/20 15:07 Dose: 10 ml Documented by: Sodium Chloride (0.9 % Nacl (Sterile) Posiflush 10 Ml) 10 - 40 ml IV UD PRN PRN Reason: Port access or dressing change Last Admin: 10/13/20 21:09 Dose: 20 ml Documented by: Sodium Chloride (0.9% Saline Lock 10 Ml Syringe) 10 - 40 ml IV UD PRN PRN Reason: SALINE FLUSH Last Admin: 10/15/20 11:00 Dose: 20 ml Documented by: Throat Lozenges (Benzocaine/Menthol 1 Lozenge) 1 lozenge MUCOUS MEM Q2H PRN PRN PRN Reason: SORE THROAT Home Medications: Medications to take at Discharge Levothyroxine [Synthroid] 50 mcg PO DAILY 09/27/19 Pantoprazole Sodium [Protonix] 40 mg PO DAILY 09/27/19 Acetaminophen [Tylenol Extra Strength] 500 mg PO TID PRN PRN 09/14/20 Atorvastatin Calcium [Lipitor] 40 mg PO QHS 09/29/20 Loratadine/Pseudo 240/10 [Claritin-D 24 Hr] 1 tab PO DAILY 09/29/20 Melatonin 5 mg PO QHS PRN 09/29/20 Potassium Chloride [K-Dur] 20 meq PO DAILY #7 tab 10/06/20 Sodium Chloride 1,000 mg MC BID #14 tablet.marvin 10/06/20 Fluticasone 0.05% [Flonase Nasal [place]] 2 sprays NASAL DAILY 10/09/20 Amlodipine [Norvasc] 2.5 mg PO DAILY tab 10/16/20 Apixaban [Eliquis] 5 mg PO BID tab 10/16/20 Lisinopril [Zestril] 20 mg PO DAILY tab 10/16/20 Metoprolol(XL)Succ [Toprol Xl (Beta Heavenly)] 25 mg PO DAILY tab 10/16/20 Na Biphos/Potassium Phosphate [Neutra-Phos Packet] 1 packet PO 4X/DAY packet 10/16/20 Polyethylene Glycol 3350 [Miralax] 17 gm PO DAILY packet 10/16/20 Quetiapine Fumarate [Seroquel] 12.5 mg PO BID tab 10/16/20 Senna/Docusate Sodium [Senokot-S] 2 tab PO BID PRN PRN tab 10/16/20 levETIRAcetam tablet [Keppra tablet] 500 mg PO BID tab 10/16/20 Primary Care Physician: Kathy Randall MD [Primary Care Provider] - Please follow up with your Primary Care Physician in: 3-5 days Disposition[facility] facility Minutes spent on discharge:: 35 Patient Condition:: Stable Medical Necessity - Tobacco Use Smoking Status: Never smoker Tobacco Use: Non-smoker Meaningful Use Info Meaningful Use Diagnoses (Choose all that apply): None applicable Inpatient E&M: 599[address] [facility]
[2020-10-16 16:29] VITALS: BP 148/37; PULSE 66; RESP 18; TEMP 36.2; O2SAT 97
== END 2020-10-16 16:38 | disposition skilled nursing facility (03) | DRG 64 ==
PROVIDERS: Nurse Practitioner Family; Urology; Admitting Provider Family Medicine; PCP Internal Medicine; Visit Provider Family Medicine
DX: I63.40 Cerebral infarction due to embolism of unspecified cerebral artery (principal); G93.41 Metabolic encephalopathy; C34.91 Malignant neoplasm of unspecified part of right bronchus or lung; I82.402 Acute embolism and thrombosis of unspecified deep veins of left lower extremity; E87.1 Hypo-osmolality and hyponatremia; C79.9 Secondary malignant neoplasm of unspecified site; N39.0 Urinary tract infection, site not specified; B96.89 Other specified bacterial agents as the cause of diseases classified elsewhere; R31.29 Other microscopic hematuria; D62 Acute posthemorrhagic anemia; R47.81 Slurred speech; R29.810 Facial weakness; E83.39 Other disorders of phosphorus metabolism; E87.6 Hypokalemia; R31.0 Gross hematuria; G40.901 Epilepsy, unspecified, not intractable, with status epilepticus; D50.9 Iron deficiency anemia, unspecified; G89.3 Neoplasm related pain (acute) (chronic); I10 Essential (primary) hypertension; E78.5 Hyperlipidemia, unspecified; E03.9 Hypothyroidism, unspecified; K21.9 Gastro-esophageal reflux disease without esophagitis; F32.9 Major depressive disorder, single episode, unspecified; F41.9 Anxiety disorder, unspecified; Z79.890 Hormone replacement therapy; Z79.02 Long term (current) use of antithrombotics/antiplatelets; Z79.01 Long term (current) use of anticoagulants; Z79.82 Long term (current) use of aspirin; Z79.899 Other long term (current) drug therapy; Z86.73 Personal history of transient ischemic attack (TIA), and cerebral infarction without residual deficits; Z96.643 Presence of artificial hip joint, bilateral; Z96.659 Presence of unspecified artificial knee joint
CPT/HCPCS: 36415; 70551; 74178; 80048; 80053; 81001; 82962; 83735; 84100; 84439; 84443; 85014; 85018; 85025; 85027; 86850; 86900; 86901; 86920; 86922; 87086; 88108; 88313; 92507; 92523; 92610; 93308; 95819; 97110; 97116; 97162; 97166; 97530; 97535; 97803; 99251; J7030; J7040; P9016; Q9967; A4216; G0463

== ENCOUNTER 2020-10-16 16:47 | Inpatient (IN) | payer OTHER, MEDICARE, SELFPAY ==
[2020-10-12 10:45] VITALS: BMI 22.3
[2020-10-16 16:52] VITALS: BP 143/54; PULSE 63; RESP 17; TEMP 36.3; O2SAT 99; BMI 23.2
[2020-10-16 18:11] VITALS: BMI 23.2
--- NOTE | 2020-10-16 18:40 | HP.PCM_ITS ---
Problem List (1) Debility Status: Acute (2) Acute delirium Status: Acute (3) Metastatic lung cancer (metastasis from lung to other site) Status: Chronic (4) Acute DVT (deep venous thrombosis) Status: Acute (5) Carotid stenosis Status: Chronic (6) Hypertension Status: Chronic (7) Hypothyroidism Status: Chronic (8) GERD (gastroesophageal reflux disease) Status: Chronic (9) Insomnia Status: Chronic (10) UTI (urinary tract infection) Status: Chronic Qualifiers: (11) Hyponatremia Status: Chronic Comment: Acute on Chronic (12) Hypokalemia Status: Chronic (13) CVA (cerebral vascular accident) Status: Chronic Qualifiers: (14) Acute blood loss anemia Status: Acute History of Present Illness Date of Admission: 10/16/20 Chief Complaint: Here for rehabilitation, strengthening, prior to discharge home with . 10/09/2020 The patient is a 80 year old Female with below past medical history admitted to [facility]. 10/09/2020 MRI brain small acute right cerebellar infarct. 10/09/2020 Echo left ventricular systolic function normal. EF 65%. Right ventricular systolic pressure 40mm HG. Presented to [facility] Emergency Department with stroke symptoms. PT/OT/ST/Nutrition for stroke. Hematuria from recent chemotherapy. Cefepime IV for complicated Enterobacter urinary tract infection. EEG to evaluate for seizure. Eliquis for DVT. 10/09/2020 EEG negative for seizure, improved from prior EEG 09/17/2020. 10/10/2020 Sodium Chloride, IV Fluids for hyponatremia. 10/11/2020 Patient delirious. [facility] recommended at discharge. 10/12/2020 Keppra 500MG twice daily for seizure disorder. Stop Aspirin, Stop Plavix, ?hypercoagulable. Transfused 2 units PRBC for anemia. 10/13/2020 CT abdomen/pelvis showed multiple gallstones. Right lung base scarring. Rectosigmoid fecal impaction. Hematuria persists. 10/13/2020 UroGYN recommended outpatient cystoscopy. Continuous Bladder Irrigation. 10/14/2020 CBI stopped. Urine culture, Urine cytology pending. 10/15/2020 Urine cytology negative malignant cells, but marked acute inflammation. 10/15/2020 Eliquis 5MG twice daily for DVT/stroke, off Aspirin, off Plavix. 10/16/2020 Admit to TCU with debility, here for rehabilitation, strengthening, prior to discharge home with . Past Medical History Past Medical History (Chronic Problems): Chronic Problems (Last Reviewed 10/13/20 @ 16:[address] Jerilyn Saunders MD) Anemia (Chronic) UTI (urinary tract infection) (Chronic) Hilar adenopathy (Chronic) Metastatic lung carcinoma (Chronic) Iron deficiency anemia (Chronic) Cancer-related pain (Chronic) Hyponatremia (Chronic) Acute on Chronic Hypokalemia (Chronic) DVT, lower extremity, distal, acute (Chronic) CVA (cerebral vascular accident) (Chronic) Metastatic lung cancer (metastasis from lung to other site) (Chronic) Carotid stenosis (Chronic) Hypertension (Chronic) Hypothyroidism (Chronic) GERD (gastroesophageal reflux disease) (Chronic) Insomnia (Chronic) Lung mass (Chronic) NSCLC of right lung (Chronic) Medical History: Medical History (Last Reviewed 10/13/20 @ 16:[address] Jerilyn Saunders MD) Lung mass (Chronic) R91.8 NSCLC of right lung (Chronic) C34.91 Anemia D64.9 Carotid stenosis I65.29 Hyperlipidemia E78.5 Hypothyroid E03.9 Insomnia G47.00 Lung mass R91.8 Right upper lobe wedge resection [facility] 11/15/19 Statin intolerance Z78.9 Thyroid disorder E07.9 mediastinal lymphadenectomy [facility] 11/15/19 HTN (hypertension) I10 Allergies chlorhexidine Allergy (Intermediate, Verified 10/06/20 14:20) Rash morphine Adverse Reaction (Severe, Verified 10/06/20 14:20) Shortness of breath naproxen Adverse Reaction (Intermediate, Verified 10/06/20 14:20) mouth sores mouth sores nitrofurantoin [From Macrodantin] Adverse Reaction (Intermediate, Verified 10/06/20 14:20) mouth sores mouth sores cloth tape Adverse Reaction (Uncoded 10/06/20 14:20) skin irritation Home Medications: Ambulatory Orders Medication Instructions Recorded Levothyroxine [Synthroid] 50 mcg PO DAILY 09/27/19 Pantoprazole Sodium [Protonix] 40 mg PO DAILY 09/27/19 Acetaminophen [Tylenol Extra 500 mg PO TID PRN PRN 09/14/20 Strength] Atorvastatin Calcium [Lipitor] 40 mg PO QHS 09/29/20 Loratadine/Pseudo 240/10 1 tab PO DAILY 09/29/20 [Claritin-D 24 Hr] Melatonin 5 mg PO QHS PRN 09/29/20 Fluticasone 0.05% [Flonase Nasal 2 sprays NASAL DAILY 10/09/20 [place]] Amlodipine [Norvasc] 2.5 mg PO DAILY 10/16/20 Apixaban [Eliquis] 5 mg PO BID 10/16/20 Lisinopril [Zestril] 20 mg PO DAILY 10/16/20 Metoprolol(XL)Succ [Toprol Xl 25 mg PO DAILY 10/16/20 (Beta Heavenly)] Na Biphos/Potassium Phosphate 1 packet PO 4X/DAY 10/16/20 [Neutra-Phos Packet] Polyethylene Glycol 3350 [Miralax] 17 gm PO DAILY 10/16/20 Potassium Chloride [K-Dur] 20 meq PO DAILY 10/16/20 Quetiapine Fumarate [Seroquel] 12.5 mg PO BID 10/16/20 Senna/Docusate Sodium [Senokot-S] 2 tab PO BID PRN PRN tab 10/16/20 Sodium Chloride 1,000 mg MC BID 10/16/20 levETIRAcetam tablet [Keppra 500 mg PO BID 10/16/20 tablet] Surgical History: Surgical History (Last Reviewed 10/13/20 @ 16:[address] 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 Smoking Status: Never smoker Tobacco Use: Non-smoker Alcohol: None Drugs: None - *Family History Maternal Family History: Family History (Last Reviewed 10/13/20 @ 16:[address] Jerilyn Saunders MD) Mother Cancer Hypertension Father Cancer Brother Diabetes History Items: Cancer, Hypertension Paternal Family History: Family History (Last Reviewed 10/13/20 @ 16:[address] Jerilyn Saunders MD) Mother Cancer Hypertension Father Cancer Brother Diabetes History Items: Cancer Review of Systems Constitutional: Reports: Weakness. Denies: Chills, Fever, Weight Change HEENT: Denies: Head Aches, Sinus Congestion, Sinus Drainage Cardiovascular: Denies: Chest Pain, Palpitations Respiratory: Denies: Cough, Shortness of breath at rest, Sputum production Gastrointestinal: Denies: Abdominal Pain, Nausea, Vomiting Genitourinary: Denies: Dysuria Musculoskeletal: Denies: Joint Pain, Joint Tenderness Skin: Denies: Rash, Wounds Neurological: Denies: Numbness, Tingling, Focal weakness Psychiatric: Denies: Anxiety, Depression, Homicidal Ideations, Suicidal Ideations Hematologic/ Lymphatic: Denies: Easy Bruising, Easy Bleeding VTE Information - Inpt Only VTE Present on Admission: Yes VTE Mechan Device Prophylaxis: Knee High JOZEF Hose VTE Pharm Prophylaxis ordered?: No Reason prophylaxis not ordered:: Treatment Not Indicated Patient Problems: Active and Suspected Problems (Last Reviewed 10/13/20 @ 16:[address] Jerilyn Saunders MD) Acute blood loss anemia (Acute) Debility (Acute) Acute delirium (Acute) Acute DVT (deep venous thrombosis) (Acute) - Physical Exam Vitals/I&O's: Vital Signs Temp Pulse Resp BP Pulse Ox 97.4 F L 63 17 143/54 H 99 10/16/20 16:52 10/16/20 16:52 10/16/20 16:52 10/16/20 16:52 10/16/20 16:52 Oxygen Delivery Method Room Air Weight: 61.7 kg Body Mass Index (BMI) 23.2 General: Alert, Oriented x3, Cooperative HEENT: Atraumatic, PERRLA, EOMI, Normocephalic Neck: Supple, No JVD, Negative Carotid Bruits Lungs: Clear to auscultation, Normal air movement Cardiovascular: Regular rate, No murmurs Abdomen: Bowel Sounds Present, Soft, Non Tender, - - Indwelling moore catheter. Extremities: No edema, Capillary Refill Less than 3 Seconds Skin: No rashes, No breakdown Musculoskeletal: No Tenderness to Palpation of Joints or Extremities Neurological: Cranial nerves II-XII grossly intact Psych/Mental Status: Normal Affect, Appropriate Current Medications Acetaminophen (Acetaminophen 500 Mg Tablet) 500 mg PO TID PRN PRN PRN Reason: Pain 1-10 or Fever Amlodipine Besylate (Amlodipine 2.5 Mg Tablet) 2.5 mg PO DAILY [facility] Apixaban (Apixaban 5 Mg Tablet) 5 mg PO BID [facility] Atorvastatin Calcium (Atorvastatin Calcium 40 Mg Tablet) 40 mg PO QHS [facility] Fluticasone Propionate (Fluticasone 0.05% 1 [place] Nasal.Sry) 2 spray NASAL DAILY [facility] Heparin Sodium (Beef Lung) (Heparin Pf Lock 10 Units/Ml 50 Units/5 Ml Syringe) 50 units IV UD PRN PRN Reason: Port-a-Cath (VAD)Heparin Flush Sodium Chloride () 250 mls @ 15 mls/hr IV .[id number] PRN PRN Reason: Saline Flush Levetiracetam (Levetiracetam 500 Mg Tablet) 500 mg PO BID [facility] Levothyroxine Sodium (Levothyroxine 50 Mcg Tablet) 50 mcg PO DAILY [facility] Lisinopril (Lisinopril 20 Mg Tablet) 20 mg PO DAILY [facility] Loratadine (Loratadine 10 Mg Tablet) 10 mg PO DAILY [facility] Melatonin (Melatonin 10 Mg Tablet) 5 mg PO QHS PRN PRN Reason: SLEEP Metoprolol Succinate (Metoprolol(Xl)Succ 25 Mg Tablet) 25 mg PO DAILY [facility] Nutritional Formula (Lactose Free) (Ensure Enlive 120 Ml Liquid) 120 ml PO TID [facility] Pantoprazole Sodium (Pantoprazole Sodium 40 Mg Tablet) 40 mg PO DAILY [facility] Polyethylene Glycol (Polyethylene Glycol 3350 17 Gm Packet) 17 gm PO DAILY [facility] Potassium Chloride (Potassium Chloride 20 Meq Tablet) 20 meq PO DAILYCM [facility] Potassium Phos/Sodium Phos (Na Biphos/Potassium Phosphate Packet) 1 packet PO 4X/DAY [facility] Quetiapine Fumarate (Quetiapine 25 Mg Tablet) 12.5 mg PO BID [facility] Senna/Docusate Sodium (Senna/Docusate Sodium 1 Tablet) 2 tablet PO BID PRN PRN PRN Reason: Constipation Sodium Chloride (Sodium Chloride 1 Gm Tablet) 1 gm PO BID [facility] Sodium Chloride (0.9% Saline Lock 10 Ml Syringe) 10 - 40 ml IV UD PRN PRN Reason: Port-a-Cath (VAD) Flush Tuberculin PPD (Tuberculin,Purif.Prot.Deriv. 50 Tu/Ml Vial) 5 tu ID X1 ONE Stop: 10/17/20 10:01 Tuberculin PPD (Tuberculin,Purif.Prot.Deriv. 50 Tu/Ml Vial) 5 tu ID X1 ONE Stop: 10/24/20 10:01 Assessment/Plan All Active Problems (Last Reviewed 10/13/20 @ 16:[address] Jerilyn Saunders MD) Surgical wound present (Acute) Vascular catheter fitting or adjustment (Acute) CINV (chemotherapy-induced nausea and vomiting) (Acute) Stomatitis (Resolved) Diarrhea (Acute) Delirium (Acute) Elevated troponin (Acute) Encephalopathy (Acute) Tiredness (Acute) UTI (urinary tract infection) (Acute) Acute UTI (Acute) Hematuria (Acute) Acute blood loss anemia (Acute) Gross hematuria (Acute) Debility (Acute) Acute delirium (Acute) Acute DVT (deep venous thrombosis) (Acute) 80 year old female with below past medical history significant for metastatic lung cancer, hospitalized for stroke, complicated urinary tract infection, complicated by DVT, hematuria, admitted to TCU with debility, here for rehabilitation, strengthening, prior to discharge home with . * Debility - PT/OT. * Cognition/Dysphagia - ST. * Pain - Tylenol 1000MG Q6H PRN pain (1-10). * Bowel - Miralax 17GM daily, Senna/colace 2 tablets BID PRN. * Adult immunization - Administer Prevnar 13, Pneumovax 23, Fluzone, COVID19 vaccine as appropriate. * DVT prophylaxis - Unnecessary, already anticoagulated. * Hypertension - Metoprolol succinate 25MG daily, Lisinopril 20MG daily, Amlodipine 2.5MG daily. * DVT - Eliquis 5MG BID indefinitely with metastatic lung cancer history. * Stroke - Eliquis 5MG BID, off Aspirin, off Plavix. * Hyperlipidemia - High intensity Atorvastatin 40MG QHS. * Nutrition - Ensure Enlive 120ML TID. * Allergic rhinitis - Loratadine 10MG daily, Flonase 2 sprays nasal daily. * Seizure disorder - Keppra 500MG BID. * Hypothyroidism - Levothyroxine 50MCG daily. * Insomnia - Melatonin 5MG QHS PRN. * Hypophosphatemia - Neutra-Phos 1 packet 4x/day. * Hyponatremia - Sodium Chloride 1GM BID, Normal saline 15ML/hour. * Hypokalemia - K-Dur 20MEQ daily. * Encephalopathy - Seroquel 12.5MG BID, GDR if resident stable. * Hematuria - Urine cytology negative, urine culture negative, urine pink, consult Dr. Saunders for cystoscopy.
[2020-10-16] MEDS: QUEtiapine 25 MG Tablet 12.5 MG PO (20:01)
[2020-10-16] MEDS: levETIRAcetam 500 MG Tablet PO (20:01)
[2020-10-16] MEDS: SODIUM CHLORIDE 1 GM TABLET PO (20:01)
[2020-10-16] MEDS: Atorvastatin Calcium 40 MG Tablet PO (20:01)
[2020-10-16] MEDS: Na Biphos/Potassium Phosphate PACKET 1 PACKET PO (20:01)
[2020-10-16] MEDS: APIXABAN 5 MG TABLET PO (20:02)
[2020-10-17 06:10] VITALS: BP 126/50; PULSE 68; RESP 15; TEMP 36.6
[2020-10-17] MEDS: Polyethylene Glycol 3350 17 GM PACKET PO (06:13)
[2020-10-17 06:14] VITALS: BP 126/50; PULSE 68
[2020-10-17] MEDS: QUEtiapine 25 MG Tablet 12.5 MG PO ×2 (06:14→17:44)
[2020-10-17] MEDS: levETIRAcetam 500 MG Tablet PO ×2 (06:14→17:44)
[2020-10-17] MEDS: SODIUM CHLORIDE 1 GM TABLET PO ×2 (06:14→17:44)
[2020-10-17] MEDS: Pantoprazole Sodium 40 MG Tablet PO (06:14)
[2020-10-17] MEDS: Loratadine 10 MG Tablet PO (06:14)
[2020-10-17] MEDS: Levothyroxine 50 MCG Tablet PO (06:14)
[2020-10-17] MEDS: Metoprolol(XL)Succ 25 MG Tablet PO (06:14)
[2020-10-17] MEDS: amLODIPine 2.5 MG Tablet PO (06:14)
[2020-10-17] MEDS: Lisinopril 20 MG Tablet PO (06:14)
[2020-10-17] MEDS: APIXABAN 5 MG TABLET PO ×2 (06:15→17:44)
[2020-10-17] MEDS: Fluticasone 0.05% 1 SPRAY NASAL.SRY 2 SPRAY NASAL (06:16)
[2020-10-17] MEDS: Nystatin Powder 15gm Bottle 1 APPLIC TOPICAL ×2 (06:21→21:12)
[2020-10-17] MEDS: Na Biphos/Potassium Phosphate PACKET 1 PACKET PO ×4 (06:21→21:13)
[2020-10-17 07:09] LABS: Absolute Lymphocyte Count 1.35 X10^3/uL (0.83-4.51); Absolute Neutrophil Count 4.9 X10^3/uL (2.0-7.7); Basophil# 0.06 X10^3/uL; Basophil% 0.7 % (0-1); Eosinophil# 0.64 X10^3/uL; Eosinophils% 7.5 % (0-5); Hematocrit 24.1 % (37-47); Hemoglobin 7.8 g/dL (12.0-15.0); Lymphocyte # 1.35 X10^3/ul (4.0); Lymphocyte % 15.8 % (19-41); Mean Corp Hgb Conc 32.4 g/dL (32-36); Mean Corpuscular Volume 95.6 fL (81-99); Mean Platelet Vol. 8.5 fl (6.2-12.0); Monocyte# 1.44 X10^3/uL; Monocyte% 16.8 % (0-10); NRBC Flagged by Analyzer 0 % (0-5); Neutrophil # 4.91 X10^3/uL (2.7-7.7); Neutrophil % 57.4 % (47-70); Platelet Count 209 K/mm3 (150-450); RBC Distribution Width CV 15.5 % (11.6-14.6); RBC Distribution Width SD 53.9 fl (35.1-43.9); Red Blood Count 2.52 M/mm3 (4.2-5.4); White Blood Count 8.6 K/mm3 (4.4-11.0)
[2020-10-17 07:29] LABS: Anion Gap 4 (5-15); BUN 16 mg/dL (7-18); BUN/Creat Ratio 53.3 RATIO (10-20); Calcium,Total 7.9 mg/dL (8.5-10.1); Chloride 102 mmol/L (98-107); EST Glomerular Filtration Rate 226 mL/min (>60); Est Glom Filt Rate - Afr Amer 273 mL/min (>60); Estimated Creatinine Clearance 37.45 ml/min; Glucose 92 mg/dL (74-106); Potassium 4.3 mmol/L (3.5-5.1); Sodium Level 132 mmol/L (136-145)
[2020-10-17] MEDS: Tuberculin,Purif.prot.deriv. 50 TU/ML Vial 5 ML ID (11:43)
[2020-10-17 11:57] VITALS: PULSE 54; RESP 18; O2SAT 96
[2020-10-17 15:25] VITALS: BP 128/63; PULSE 61; RESP 16; TEMP 36.6; O2SAT 99
--- NOTE | 2020-10-17 19:00 | NURSING ---
dr gay aware of hgb 7.8, new order for ferrex, but daughter states pt cant take d/t adverse reaction loose stools. new order iv venofer x1 dose.
[2020-10-17] MEDS: Atorvastatin Calcium 40 MG Tablet PO (21:13)
[2020-10-17] MEDS: Sodium Ferric Gluconat 250 MG in 0.9% Normal Saline 250 ML 135 MG IV (21:47)
[2020-10-18 03:02] VITALS: BP 128/46; PULSE 73; RESP 18; TEMP 37; O2SAT 97
[2020-10-18] MEDS: Fluticasone 0.05% 1 SPRAY NASAL.SRY 2 SPRAY NASAL (05:52)
[2020-10-18] MEDS: Polyethylene Glycol 3350 17 GM PACKET PO (05:52)
[2020-10-18] MEDS: APIXABAN 5 MG TABLET PO ×2 (05:53→16:49)
[2020-10-18] MEDS: Na Biphos/Potassium Phosphate PACKET 1 PACKET PO ×4 (05:53→19:41)
[2020-10-18 05:54] VITALS: BP 128/46; PULSE 73
[2020-10-18] MEDS: levETIRAcetam 500 MG Tablet PO ×2 (05:54→16:49)
[2020-10-18] MEDS: Levothyroxine 50 MCG Tablet PO (05:54)
[2020-10-18] MEDS: QUEtiapine 25 MG Tablet 12.5 MG PO ×2 (05:54→16:49)
[2020-10-18] MEDS: SODIUM CHLORIDE 1 GM TABLET PO ×2 (05:54→16:50)
[2020-10-18] MEDS: Metoprolol(XL)Succ 25 MG Tablet PO (05:54)
[2020-10-18] MEDS: Loratadine 10 MG Tablet PO (05:54)
[2020-10-18] MEDS: amLODIPine 2.5 MG Tablet PO (05:54)
[2020-10-18] MEDS: Lisinopril 20 MG Tablet PO (05:54)
[2020-10-18] MEDS: Nystatin Powder 15gm Bottle 1 APPLIC TOPICAL ×2 (05:55→16:51)
[2020-10-18] MEDS: Pantoprazole Sodium 40 MG Tablet PO (05:55)
[2020-10-18] MEDS: 0.9% Saline Lock 10 ML Syringe IV (13:41)
[2020-10-18 13:42] VITALS: BP 116/48; PULSE 63; RESP 16; TEMP 36.3; O2SAT 99
[2020-10-18] MEDS: Atorvastatin Calcium 40 MG Tablet PO (19:41)
[2020-10-19 05:15] VITALS: BP 127/53; PULSE 85; RESP 16; TEMP 36.9; O2SAT 93
[2020-10-19] MEDS: QUEtiapine 25 MG Tablet 12.5 MG PO ×2 (05:19→18:27)
[2020-10-19] MEDS: Levothyroxine 50 MCG Tablet PO (05:19)
[2020-10-19] MEDS: Polyethylene Glycol 3350 17 GM PACKET PO (05:19)
[2020-10-19] MEDS: Lisinopril 20 MG Tablet PO (05:19)
[2020-10-19] MEDS: Loratadine 10 MG Tablet PO (05:19)
[2020-10-19] MEDS: SODIUM CHLORIDE 1 GM TABLET PO ×2 (05:19→18:28)
[2020-10-19] MEDS: Na Biphos/Potassium Phosphate PACKET 1 PACKET PO ×4 (05:19→20:00)
[2020-10-19] MEDS: amLODIPine 2.5 MG Tablet PO (05:19)
[2020-10-19 05:20] VITALS: BP 127/53; PULSE 85
[2020-10-19] MEDS: levETIRAcetam 500 MG Tablet PO ×2 (05:20→18:28)
[2020-10-19] MEDS: Pantoprazole Sodium 40 MG Tablet PO (05:20)
[2020-10-19] MEDS: Nystatin Powder 15gm Bottle 1 APPLIC TOPICAL ×2 (05:20→18:28)
[2020-10-19] MEDS: Metoprolol(XL)Succ 25 MG Tablet PO (05:20)
[2020-10-19] MEDS: Fluticasone 0.05% 1 SPRAY NASAL.SRY 2 SPRAY NASAL (05:20)
[2020-10-19] MEDS: APIXABAN 5 MG TABLET PO ×2 (05:20→18:27)
[2020-10-19] MEDS: Senna/Docusate Sodium 1 Tablet 2 TABLET PO (05:21)
[2020-10-19 05:44] LABS: Hematocrit 24.1 % (37-47); Hemoglobin 7.6 g/dL (12.0-15.0)
--- NOTE | 2020-10-19 08:43 | NURSING ---
Left message for Dr. Saunders's office to return call for consult.
--- NOTE | 2020-10-19 08:58 | NURSING ---
Spoke with Dr. Saunders's office, pt to see patient on Monday.
--- NOTE | 2020-10-19 10:18 | NURSING ---
Notified patient's daughter of patient needing PRBC, received verbal consent for patient to receive blood.
--- NOTE | 2020-10-19 11:24 | PHA.CONS_ITS ---
<Prudence Grimes M - Last Filed: 10/19/20 12:15> Progress Note - Pharmacy Subjective: [facility] ADMISSION Objective: Allergies chlorhexidine Allergy (Intermediate, Verified 10/06/20 14:20) Rash morphine Adverse Reaction (Severe, Verified 10/06/20 14:20) Shortness of breath naproxen Adverse Reaction (Intermediate, Verified 10/06/20 14:20) mouth sores mouth sores nitrofurantoin [From Macrodantin] Adverse Reaction (Intermediate, Verified 10/06/20 14:20) mouth sores mouth sores cloth tape Adverse Reaction (Uncoded 10/06/20 14:20) skin irritation Current Medications Generic Name Dose Route Start Last Admin Trade Name Freq PRN Reason Stop Dose Admin Acetaminophen 1,000 mg 10/16/20 19:12 Acetaminophen 500 Mg Tablet PO Q6H PRN Pain Score 1-10 Amlodipine Besylate 2.5 mg 10/17/20 06:00 10/19/20 05:19 Amlodipine 2.5 Mg Tablet PO 2.5 mg DAILY SHERMAN Administration Apixaban 5 mg 10/16/20 18:00 10/19/20 05:20 Apixaban 5 Mg Tablet PO 5 mg BID SHERMAN Administration Atorvastatin Calcium 40 mg 10/16/20 22:00 10/18/20 19:41 Atorvastatin Calcium 40 Mg Tablet PO 40 mg QHS SHERMAN Administration Fluticasone Propionate 2 spray 10/17/20 06:00 10/19/20 05:20 Fluticasone 0.05% 1 [place] Nasal.Sry NASAL 2 spray DAILY SHERMAN Administration Furosemide 20 mg 10/19/20 12:41 Furosemide 20 Mg/2 Ml Vial IV 10/19/20 12:42 X1 ONE Heparin Sodium (Beef Lung) 50 units 10/16/20 18:10 Heparin Pf Lock 10 Units/Ml 50 Units/5 Ml Syringe IV UD PRN Port-a-Cath (VAD)Heparin Flush Sodium Chloride 250 mls @ 15 mls/hr 10/16/20 18:10 10/17/20 23:55 IV 0 mls/hr .[id number] PRN Infusion Saline Flush Sodium Chloride 250 mls @ 15 mls/hr 10/17/20 18:54 IV .[id number] PRN Saline Flush Sodium Chloride 250 mls @ 15 mls/hr 10/17/20 18:54 IV .[id number] PRN Additional IVPB Infusion Ketoconazole 1 applic 10/19/20 18:00 Ketoconazole Cream TOPICAL 11/02/20 18:01 BID SHERMAN Protocol Levetiracetam 500 mg 10/16/20 18:00 10/19/20 05:20 Levetiracetam 500 Mg Tablet PO 500 mg BID SHERMAN Administration Levothyroxine Sodium 50 mcg 10/17/20 06:00 10/19/20 05:19 Levothyroxine 50 Mcg Tablet PO 50 mcg DAILY SHERMAN Administration Lisinopril 20 mg 10/17/20 06:00 10/19/20 05:19 Lisinopril 20 Mg Tablet PO 20 mg DAILY SHERMAN Administration Loratadine 10 mg 10/17/20 06:00 10/19/20 05:19 Loratadine 10 Mg Tablet PO 10 mg DAILY SHERMAN Administration Melatonin 5 mg 10/16/20 22:00 Melatonin 10 Mg Tablet PO QHS PRN SLEEP Metoprolol Succinate 25 mg 10/17/20 06:00 10/19/20 05:20 Metoprolol(Xl)Succ 25 Mg Tablet PO 25 mg DAILY SHERMAN Administration Nutritional Formula (Lactose Free) 120 ml 10/16/20 22:00 10/19/20 05:20 Ensure Enlive 120 Ml Liquid PO 120 ml TID SHERMAN Administration Nystatin 1 applic 10/17/20 06:00 10/19/20 05:20 Nystatin Powder 15gm Bottle TOPICAL 1 applicatio BID SHERMAN Administration Protocol Pantoprazole Sodium 40 mg 10/17/20 06:00 10/19/20 05:20 Pantoprazole Sodium 40 Mg Tablet PO 40 mg DAILY SHERMAN Administration Polyethylene Glycol 17 gm 10/17/20 06:00 10/19/20 05:19 Polyethylene Glycol 3350 17 Gm Packet PO 17 gm DAILY SHERMAN Administration Potassium Chloride 20 meq 10/17/20 08:00 10/19/20 08:35 Potassium Chloride 20 Meq Tablet PO 20 meq DAILYCM SHERMAN Administration Potassium Phos/Sodium Phos 1 packet 10/16/20 22:00 10/19/20 05:19 Na Biphos/Potassium Phosphate Packet PO 1 packet 4X/DAY SHERMAN Administration Quetiapine Fumarate 12.5 mg 10/16/20 18:00 10/19/20 05:19 Quetiapine 25 Mg Tablet PO 12.5 mg BID SHERMAN Administration Senna/Docusate Sodium 2 tablet 10/19/20 18:00 Senna/Docusate Sodium 1 Tablet PO BID SHERMAN Sodium Chloride 1 gm 10/16/20 18:00 10/19/20 05:19 Sodium Chloride 1 Gm Tablet PO 1 gm BID SHERMAN Administration Sodium Chloride 10 - 40 ml 10/16/20 18:10 10/18/20 13:41 0.9% Saline Lock 10 Ml Syringe IV 10 ml UD PRN Administration Port-a-Cath (VAD) Flush Tuberculin PPD 5 tu 10/24/20 10:00 Tuberculin,Purif.Prot.Deriv. 50 Tu/Ml Vial ID 10/24/20 10:01 X1 ONE Problem List (Last Reviewed 10/13/20 @ 16:[address] Jerilyn Saunders MD) UTI (urinary tract infection) (Chronic) Hyponatremia (Chronic) Hypokalemia (Chronic) CVA (cerebral vascular accident) (Chronic) Acute blood loss anemia (Acute) Debility (Acute) Acute delirium (Acute) Metastatic lung cancer (metastasis from lung to other site) (Chronic) Acute DVT (deep venous thrombosis) (Acute) Carotid stenosis (Chronic) Hypertension (Chronic) Hypothyroidism (Chronic) GERD (gastroesophageal reflux disease) (Chronic) Insomnia (Chronic) Vital Signs Temp Pulse Resp BP Pulse Ox 98.4 F 85 16 127/53 H 93 10/19/20 05:15 10/19/20 05:20 10/19/20 05:15 10/19/20 05:20 10/19/20 05:15 Oxygen Delivery Method Room Air Weight: 61.7 kg Body Mass Index (BMI) 23.2 Sodium 132 mmol/L (136-145) L 10/17/20 06:55 Potassium 4.3 mmol/L (3.5-5.1) 10/17/20 06:55 Chloride 102 mmol/L (98-107) 10/17/20 06:55 Carbon Dioxide 26.0 mmol/L (21.0-32.0) 10/17/20 06:55 Anion Gap 4 (5-15) L 10/17/20 06:55 BUN 16 mg/dL (7-18) 10/17/20 06:55 Creatinine 0.30 mg/dL (0.55-1.02) L 10/17/20 06:55 Est GFR (MDRD) Af Amer 273 mL/min (>60) 10/17/20 06:55 Est GFR (MDRD) Non-Af 226 mL/min (>60) 10/17/20 06:55 BUN/Creatinine Ratio 53.3 RATIO (10-20) H 10/17/20 06:55 Glucose 92 mg/dL (74-106) 10/17/20 06:55 Assessment/Plan: 1. Pain: acetaminophen 1000mg PO Q6H PRN pain 1-10. Please continue to monitor for increased pain and PRN usage. 2. Hypertension: metoprolol succinate 25mg PO daily, lisinopril 20mg PO daily, amlodipine 2.5mg PO daily. Please continue to monitor blood pressure (last 127/53), pulse. 3. DVT/stroke: Eliquis 5mg PO BID indefinitely with metastatic lung cancer history. Please continue to monitor for S/S of bleeding/DVT/stroke, renal function, and hemoglobin (last 7.6 g/dL). *4. Hyperlipidemia: atorvastatin 40mg PO QHS. Please consider ordering a lipid panel, as there are no records of lipid panel. Thanks. Please continue to monitor lipids and for muscle pain. 5. Allergic rhinitis: loratadine 10mg PO daily, Flonase 2 sprays nasal daily. Please continue to monitor. 6. Seizure disorder: Keppra 500mg PO BID. Please continue to monitor for S/S of seizures and renal function. 7. Hypothyroidism: levothyroxine 50mcg PO daily. Please continue to monitor TSH (last 1.02 uIU/mL) and free T4 (last 1.2 ng/dL). 8. Insomnia: melatonin 5mg PO QHS PRN. Please continue to monitor insomnia. 9. Electrolyte abnormality: Neutra-Phos 1 packet 4x/day, sodium chloride 1gm PO BID, K-Dur 20mEq PO daily. Please continue to monitor phosphorus (last 3.4 mg/dL), sodium (last 132 mmol/L), potassium (last 4.3 mmol/L), and GI upset. 10. GERD: pantoprazole: pantoprazole 40mg PO daily. Please continue to monitor for S/S of GERD. Psychotropic Medications: 11. Encephalopathy: Seroquel 12.5mg PO BID, see physician note about GDR. Please continue to monitor S/S of encephalopathy, somnolence, and dizziness. Unnecessary Medications: Bowel Regimen: Miralax 17 gm PO daily, Senna/docusate 2 tablets PO BID PRN constipation. Please continue to monitor for constipation and PRN usage. Date of Note:: 10/19/20 - Provider Comments Provider responsibility: Provider responsible to enter orders to implement recommendations <Grzegorz Coates Chi - Last Filed: 10/19/20 13:07> Progress Note - Pharmacy Subjective: [] Objective: Allergies chlorhexidine Allergy (Intermediate, Verified 10/06/20 14:20) Rash morphine Adverse Reaction (Severe, Verified 10/06/20 14:20) Shortness of breath naproxen Adverse Reaction (Intermediate, Verified 10/06/20 14:20) mouth sores mouth sores nitrofurantoin [From Macrodantin] Adverse Reaction (Intermediate, Verified 10/06/20 14:20) mouth sores mouth sores cloth tape Adverse Reaction (Uncoded 10/06/20 14:20) skin irritation Current Medications Generic Name Dose Route Start Last Admin Trade Name Freq PRN Reason Stop Dose Admin Acetaminophen 1,000 mg 10/16/20 19:12 Acetaminophen 500 Mg Tablet PO Q6H PRN Pain Score 1-10 Amlodipine Besylate 2.5 mg 10/17/20 06:00 10/19/20 05:19 Amlodipine 2.5 Mg Tablet PO 2.5 mg DAILY SHERMAN Administration Apixaban 5 mg 10/16/20 18:00 10/19/20 05:20 Apixaban 5 Mg Tablet PO 5 mg BID SHERMAN Administration Atorvastatin Calcium 40 mg 10/16/20 22:00 10/18/20 19:41 Atorvastatin Calcium 40 Mg Tablet PO 40 mg QHS SHERMAN Administration Fluticasone Propionate 2 spray 10/17/20 06:00 10/19/20 05:20 Fluticasone 0.05% 1 [place] Nasal.Sry NASAL 2 spray DAILY SHERMAN Administration Heparin Sodium (Beef Lung) 50 units 10/16/20 18:10 Heparin Pf Lock 10 Units/Ml 50 Units/5 Ml Syringe IV UD PRN Port-a-Cath (VAD)Heparin Flush Sodium Chloride 250 mls @ 15 mls/hr 10/16/20 18:10 10/17/20 23:55 IV 0 mls/hr .[id number] PRN Infusion Saline Flush Sodium Chloride 250 mls @ 15 mls/hr 10/17/20 18:54 IV .[id number] PRN Saline Flush Sodium Chloride 250 mls @ 15 mls/hr 10/17/20 18:54 IV .[id number] PRN Additional IVPB Infusion Ketoconazole 1 applic 10/19/20 18:00 Ketoconazole Cream TOPICAL 11/02/20 18:01 BID SHERMAN Protocol Levetiracetam 500 mg 10/16/20 18:00 10/19/20 05:20 Levetiracetam 500 Mg Tablet PO 500 mg BID SHERMAN Administration Levothyroxine Sodium 50 mcg 10/17/20 06:00 10/19/20 05:19 Levothyroxine 50 Mcg Tablet PO 50 mcg DAILY SHERMAN Administration Lisinopril 20 mg 10/17/20 06:00 10/19/20 05:19 Lisinopril 20 Mg Tablet PO 20 mg DAILY SHERMAN Administration Loratadine 10 mg 10/17/20 06:00 10/19/20 05:19 Loratadine 10 Mg Tablet PO 10 mg DAILY SHERMAN Administration Melatonin 5 mg 10/16/20 22:00 Melatonin 10 Mg Tablet PO QHS PRN SLEEP Metoprolol Succinate 25 mg 10/17/20 06:00 10/19/20 05:20 Metoprolol(Xl)Succ 25 Mg Tablet PO 25 mg DAILY SHERMAN Administration Nutritional Formula (Lactose Free) 120 ml 10/16/20 22:00 10/19/20 05:20 Ensure Enlive 120 Ml Liquid PO 120 ml TID SHERMAN Administration Nystatin 1 applic 10/17/20 06:00 10/19/20 05:20 Nystatin Powder 15gm Bottle TOPICAL 1 applicatio BID SHERMAN Administration Protocol Pantoprazole Sodium 40 mg 10/17/20 06:00 10/19/20 05:20 Pantoprazole Sodium 40 Mg Tablet PO 40 mg DAILY SHERMAN Administration Polyethylene Glycol 17 gm 10/17/20 06:00 10/19/20 05:19 Polyethylene Glycol 3350 17 Gm Packet PO 17 gm DAILY SHERMAN Administration Potassium Chloride 20 meq 10/17/20 08:00 10/19/20 08:35 Potassium Chloride 20 Meq Tablet PO 20 meq DAILYCM SHERMAN Administration Potassium Phos/Sodium Phos 1 packet 10/16/20 22:00 10/19/20 11:25 Na Biphos/Potassium Phosphate Packet PO 1 packet 4X/DAY SHERMAN Administration Quetiapine Fumarate 12.5 mg 10/16/20 18:00 10/19/20 05:19 Quetiapine 25 Mg Tablet PO 12.5 mg BID SHERMAN Administration Senna/Docusate Sodium 2 tablet 10/19/20 18:00 Senna/Docusate Sodium 1 Tablet PO BID SHERMAN Sodium Chloride 1 gm 10/16/20 18:00 10/19/20 05:19 Sodium Chloride 1 Gm Tablet PO 1 gm BID SHERMAN Administration Sodium Chloride 10 - 40 ml 10/16/20 18:10 10/18/20 13:41 0.9% Saline Lock 10 Ml Syringe IV 10 ml UD PRN Administration Port-a-Cath (VAD) Flush Tuberculin PPD 5 tu 10/24/20 10:00 Tuberculin,Purif.Prot.Deriv. 50 Tu/Ml Vial ID 10/24/20 10:01 X1 ONE Problem List (Last Reviewed 10/13/20 @ 16:[address] Jerilyn Saunders MD) UTI (urinary tract infection) (Chronic) Hyponatremia (Chronic) Hypokalemia (Chronic) CVA (cerebral vascular accident) (Chronic) Acute blood loss anemia (Acute) Debility (Acute) Acute delirium (Acute) Metastatic lung cancer (metastasis from lung to other site) (Chronic) Acute DVT (deep venous thrombosis) (Acute) Carotid stenosis (Chronic) Hypertension (Chronic) Hypothyroidism (Chronic) GERD (gastroesophageal reflux disease) (Chronic) Insomnia (Chronic) Vital Signs Temp Pulse Resp BP Pulse Ox 98.4 F 85 16 127/53 H 93 10/19/20 05:15 10/19/20 05:20 10/19/20 05:15 10/19/20 05:20 10/19/20 05:15 Oxygen Delivery Method Room Air Weight: 61.7 kg Body Mass Index (BMI) 23.2 Sodium 132 mmol/L (136-145) L 10/17/20 06:55 Potassium 4.3 mmol/L (3.5-5.1) 10/17/20 06:55 Chloride 102 mmol/L (98-107) 10/17/20 06:55 Carbon Dioxide 26.0 mmol/L (21.0-32.0) 10/17/20 06:55 Anion Gap 4 (5-15) L 10/17/20 06:55 BUN 16 mg/dL (7-18) 10/17/20 06:55 Creatinine 0.30 mg/dL (0.55-1.02) L 10/17/20 06:55 Est GFR (MDRD) Af Amer 273 mL/min (>60) 10/17/20 06:55 Est GFR (MDRD) Non-Af 226 mL/min (>60) 10/17/20 06:55 BUN/Creatinine Ratio 53.3 RATIO (10-20) H 10/17/20 06:55 Glucose 92 mg/dL (74-106) 10/17/20 06:55 Assessment/Plan: Psychotropic Medications: Unnecessary Medications: Bowel Regimen: - Provider Comments Provider responsibility: Provider responsible to enter orders to implement recommendations Provider Comments to Recommendations by Pharmacy: Agree
[2020-10-19 12:30] VITALS: BP 140/53; PULSE 73; RESP 16; TEMP 36.3; O2SAT 99
--- NOTE | 2020-10-19 12:59 | CASEMGMT ---
Social Work Discussed patient's code status. Pt confirmed full code. MOLST form reviewed, communication to , placed in chart. Aspen Barajas, [employer]
[2020-10-19] MEDS: Menthol/Lanolin/Calamine/Znox 113 GM Tube 1 APPLIC TOPICAL (18:27)
[2020-10-19] MEDS: Ketoconazole Cream 1 APPLIC TOPICAL (18:30)
[2020-10-19 19:45] VITALS: BP 141/57; PULSE 78; RESP 18; TEMP 36.9; O2SAT 98
[2020-10-19] MEDS: Atorvastatin Calcium 40 MG Tablet PO (20:00)
[2020-10-20] MEDS: Menthol/Lanolin/Calamine/Znox 113 GM Tube 1 APPLIC TOPICAL ×2 (05:52→13:14)
[2020-10-20] MEDS: Fluticasone 0.05% 1 SPRAY NASAL.SRY 2 SPRAY NASAL (05:52)
[2020-10-20] MEDS: Nystatin Powder 15gm Bottle 1 APPLIC TOPICAL ×2 (05:53→13:06)
[2020-10-20] MEDS: Senna/Docusate Sodium 1 Tablet 2 TABLET PO (05:54)
[2020-10-20] MEDS: Levothyroxine 50 MCG Tablet PO (05:54)
[2020-10-20] MEDS: QUEtiapine 25 MG Tablet 12.5 MG PO ×2 (05:54→17:50)
[2020-10-20] MEDS: levETIRAcetam 500 MG Tablet PO ×2 (05:54→17:51)
[2020-10-20] MEDS: SODIUM CHLORIDE 1 GM TABLET PO ×2 (05:54→17:52)
[2020-10-20] MEDS: APIXABAN 5 MG TABLET PO ×2 (05:54→17:50)
[2020-10-20] MEDS: Pantoprazole Sodium 40 MG Tablet PO (05:54)
[2020-10-20 05:55] VITALS: BP 139/51; PULSE 83
[2020-10-20] MEDS: Metoprolol(XL)Succ 25 MG Tablet PO (05:55)
[2020-10-20] MEDS: Lisinopril 20 MG Tablet PO (05:55)
[2020-10-20] MEDS: Loratadine 10 MG Tablet PO (05:55)
[2020-10-20] MEDS: amLODIPine 2.5 MG Tablet PO (05:55)
[2020-10-20] MEDS: Na Biphos/Potassium Phosphate PACKET 1 PACKET PO ×4 (05:58→19:39)
[2020-10-20] MEDS: Ketoconazole Cream 1 APPLIC TOPICAL ×2 (06:05→13:14)
[2020-10-20 06:34] LABS: Hematocrit 30.8 % (37-47); Hemoglobin 10.3 g/dL (12.0-15.0)
[2020-10-20] MEDS: Acetaminophen 500 MG Tablet 1000 MG PO (09:25)
--- NOTE | 2020-10-20 10:59 | CON.PCM_ITS ---
Problem List (1) Urinary retention Status: Acute (2) Hematuria Status: Acute Qualifiers: Hematuria type: unspecified type Qualified Code(s): R31.9 - Hematuria, unspecified Reason for Consult Date of Consultation: 10/20/20 Reason for Consultation: hematuria and urinary retention History of Present Illness: The patient is a 80 year old F admitted with debilitation. Had gross hematuria that resolved with one day of CBI. CT was negative, cytology and culture negative. Was very constipated and had urinary retention with PVR over 600cc. Now is ambulating more, liquid stool, likely from management of constipation. Complaining of low back pain today. No abdominal pain. Past Medical History Past Medical History (Chronic Problems): Chronic Problems (Last Reviewed 10/20/20 @ 11:[address] Jerilyn Saunders MD) Anemia (Chronic) UTI (urinary tract infection) (Chronic) Hilar adenopathy (Chronic) Metastatic lung carcinoma (Chronic) Iron deficiency anemia (Chronic) Cancer-related pain (Chronic) Hyponatremia (Chronic) Acute on Chronic Hypokalemia (Chronic) DVT, lower extremity, distal, acute (Chronic) CVA (cerebral vascular accident) (Chronic) Metastatic lung cancer (metastasis from lung to other site) (Chronic) Carotid stenosis (Chronic) Hypertension (Chronic) Hypothyroidism (Chronic) GERD (gastroesophageal reflux disease) (Chronic) Insomnia (Chronic) Lung mass (Chronic) NSCLC of right lung (Chronic) Medical History: Medical History (Last Reviewed 10/20/20 @ 11:[address] Jerilyn Saunders MD) Lung mass (Chronic) R91.8 NSCLC of right lung (Chronic) C34.91 Anemia D64.9 Carotid stenosis I65.29 Hyperlipidemia E78.5 Hypothyroid E03.9 Insomnia G47.00 Lung mass R91.8 Right upper lobe wedge resection [facility] 11/15/19 Statin intolerance Z78.9 Thyroid disorder E07.9 mediastinal lymphadenectomy [facility] 11/15/19 HTN (hypertension) I10 Allergies chlorhexidine Allergy (Intermediate, Verified 10/06/20 14:20) Rash morphine Adverse Reaction (Severe, Verified 10/06/20 14:20) Shortness of breath naproxen Adverse Reaction (Intermediate, Verified 10/06/20 14:20) mouth sores mouth sores nitrofurantoin [From Macrodantin] Adverse Reaction (Intermediate, Verified 10/06/20 14:20) mouth sores mouth sores cloth tape Adverse Reaction (Uncoded 10/06/20 14:20) skin irritation Home Medications: Ambulatory Orders Medication Instructions Recorded Levothyroxine [Synthroid] 50 mcg PO DAILY 09/27/19 Pantoprazole Sodium [Protonix] 40 mg PO DAILY 09/27/19 Acetaminophen [Tylenol Extra 500 mg PO TID PRN PRN 09/14/20 Strength] Atorvastatin Calcium [Lipitor] 40 mg PO QHS 09/29/20 Loratadine/Pseudo 240/10 1 tab PO DAILY 09/29/20 [Claritin-D 24 Hr] Melatonin 5 mg PO QHS PRN 09/29/20 Fluticasone 0.05% [Flonase Nasal 2 sprays NASAL DAILY 10/09/20 [place]] Amlodipine [Norvasc] 2.5 mg PO DAILY 10/16/20 Apixaban [Eliquis] 5 mg PO BID 10/16/20 Lisinopril [Zestril] 20 mg PO DAILY 10/16/20 Metoprolol(XL)Succ [Toprol Xl 25 mg PO DAILY 10/16/20 (Beta Heavenly)] Na Biphos/Potassium Phosphate 1 packet PO 4X/DAY 10/16/20 [Neutra-Phos Packet] Polyethylene Glycol 3350 [Miralax] 17 gm PO DAILY 10/16/20 Potassium Chloride [K-Dur] 20 meq PO DAILY 10/16/20 Quetiapine Fumarate [Seroquel] 12.5 mg PO BID 10/16/20 Senna/Docusate Sodium [Senokot-S] 2 tab PO BID PRN PRN tab 10/16/20 Sodium Chloride 1,000 mg MC BID 10/16/20 levETIRAcetam tablet [Keppra 500 mg PO BID 10/16/20 tablet] Surgical History: Surgical History (Last Reviewed 10/20/20 @ 11:[address] 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 Smoking Status: Never smoker Tobacco Use: Non-smoker Alcohol: None Drugs: None - *Family History Maternal Family History: Family History (Last Reviewed 10/20/20 @ 11:[address] Jerilyn Saunders MD) Mother Cancer Hypertension Father Cancer Brother Diabetes History Items: Cancer, Hypertension Paternal Family History: Family History (Last Reviewed 10/20/20 @ 11:[address] Jerilyn Saunders MD) Mother Cancer Hypertension Father Cancer Brother Diabetes History Items: Cancer Review of Systems Constitutional: Denies: Chills, Fever Eyes: Denies: Vision Change HEENT: Denies: Visual Changes Cardiovascular: Denies: Chest Pain Respiratory: Denies: Shortness of Breath Gastrointestinal: Reports: Constipation. Denies: Abdominal Pain, Nausea, Vomiting Genitourinary: Reports: Incontinence, Retention. Denies: Dysuria, Hematuria Musculoskeletal: Denies: Muscle pain Skin: Denies: Wounds Endocrine: Denies: Change in Body Habitus Patient Problems: Active and Suspected Problems (Last Reviewed 10/20/20 @ 11:[address] Jerilyn Saunders MD) Hematuria (Acute) Acute blood loss anemia (Acute) Debility (Acute) Acute delirium (Acute) Acute DVT (deep venous thrombosis) (Acute) Urinary retention (Acute) - Physical Exam Vitals/I&O's: Vital Signs Temp Pulse Resp BP Pulse Ox 98.5 F 83 18 139/51 H 98 10/19/20 19:45 10/20/20 05:55 10/19/20 19:45 10/20/20 05:55 10/19/20 19:45 Oxygen Delivery Method Room Air Weight: 62.227 kg Body Mass Index (BMI) 23.2 Intake and Output for Last 24 Hours 10/18/20 10/19/20 10/20/20 23:59 23:59 23:59 Intake Total 600 / 600 600 / 600 360 / 360 Output Total 1050 / 1050 2700 / 2700 800 / 800 Balance -450 / -450 -2100 / -2100 -440 / -440 General: Alert, Cooperative, No apparent distress HEENT: Atraumatic, Normocephalic Oral: Moist Mucosa Neck: Supple, Trachea Midline Lungs: Normal air movement Abdomen: Soft, Non Tender Skin: No rashes Psych/Mental Status: Normal Affect Comment: urine clear yellow in moore Microbiology Past 72 Hours 10/19/20 11:45 Nasal Secretion SARS-CoV-2 Antigen (Rapid) - Final Laboratory Results 10/19/20 10:05: Blood Type Cancelled, Antibody Screen Cancelled, Crossmatch See Detail 10/20/20 06:27: Hgb 10.3 L, Hct 30.8 L Current Medications Acetaminophen (Acetaminophen 500 Mg Tablet) 1,000 mg PO Q6H PRN PRN Reason: Pain Score 1-10 Last Admin: 10/20/20 09:25 Dose: 1,000 mg Documented by: Amlodipine Besylate (Amlodipine 2.5 Mg Tablet) 2.5 mg PO DAILY [facility] Last Admin: 10/20/20 05:55 Dose: 2.5 mg Documented by: Apixaban (Apixaban 5 Mg Tablet) 5 mg PO BID [facility] Last Admin: 10/20/20 05:54 Dose: 5 mg Documented by: Atorvastatin Calcium (Atorvastatin Calcium 40 Mg Tablet) 40 mg PO QHS [facility] Last Admin: 10/19/20 20:00 Dose: 40 mg Documented by: Calamine/Phenol (Menthol/Lanolin/Calamine/Znox 113 Gm Tube) 1 applic TOPICAL BID [facility]; Protocol Last Admin: 10/20/20 05:52 Dose: 1 applicatio Documented by: Fluticasone Propionate (Fluticasone 0.05% 1 [place] Nasal.Sry) 2 spray NASAL DAILY [facility] Last Admin: 10/20/20 05:52 Dose: 2 spray Documented by: Heparin Sodium (Beef Lung) (Heparin Pf Lock 10 Units/Ml 50 Units/5 Ml Syringe) 50 units IV UD PRN PRN Reason: Port-a-Cath (VAD)Heparin Flush Sodium Chloride () 250 mls @ 15 mls/hr IV .[id number] PRN PRN Reason: Saline Flush Last Infusion: 10/17/20 23:55 Dose: 0 mls/hr Documented by: Sodium Chloride () 250 mls @ 15 mls/hr IV .[id number] PRN PRN Reason: Saline Flush Sodium Chloride () 250 mls @ 15 mls/hr IV .[id number] PRN PRN Reason: Additional IVPB Infusion Ketoconazole (Ketoconazole Cream) 1 applic TOPICAL BID [facility]; Protocol Stop: 11/02/20 18:01 Last Admin: 10/20/20 06:05 Dose: 1 applicatio Documented by: Levetiracetam (Levetiracetam 500 Mg Tablet) 500 mg PO BID [facility] Last Admin: 10/20/20 05:54 Dose: 500 mg Documented by: Levothyroxine Sodium (Levothyroxine 50 Mcg Tablet) 50 mcg PO DAILY [facility] Last Admin: 10/20/20 05:54 Dose: 50 mcg Documented by: Lisinopril (Lisinopril 20 Mg Tablet) 20 mg PO DAILY [facility] Last Admin: 10/20/20 05:55 Dose: 20 mg Documented by: Loratadine (Loratadine 10 Mg Tablet) 10 mg PO DAILY [facility] Last Admin: 10/20/20 05:55 Dose: 10 mg Documented by: Melatonin (Melatonin 10 Mg Tablet) 5 mg PO QHS PRN PRN Reason: SLEEP Metoprolol Succinate (Metoprolol(Xl)Succ 25 Mg Tablet) 25 mg PO DAILY [facility] Last Admin: 10/20/20 05:55 Dose: 25 mg Documented by: Nutritional Formula (Lactose Free) (Ensure Enlive 120 Ml Liquid) 120 ml PO TID [facility] Last Admin: 10/20/20 06:00 Dose: 120 ml Documented by: Nystatin (Nystatin Powder 15gm Bottle) 1 applic TOPICAL BID [facility]; Protocol Last Admin: 10/20/20 05:53 Dose: 1 applicatio Documented by: Pantoprazole Sodium (Pantoprazole Sodium 40 Mg Tablet) 40 mg PO DAILY [facility] Last Admin: 10/20/20 05:54 Dose: 40 mg Documented by: Polyethylene Glycol (Polyethylene Glycol 3350 17 Gm Packet) 17 gm PO DAILY [facility] Last Admin: 10/20/20 05:53 Dose: Not Given Documented by: Potassium Chloride (Potassium Chloride 20 Meq Tablet) 20 meq PO DAILYCM [facility] Last Admin: 10/20/20 09:29 Dose: 20 meq Documented by: Potassium Phos/Sodium Phos (Na Biphos/Potassium Phosphate Packet) 1 packet PO 4X/DAY [facility] Last Admin: 10/20/20 05:58 Dose: 1 packet Documented by: Quetiapine Fumarate (Quetiapine 25 Mg Tablet) 12.5 mg PO BID [facility] Last Admin: 10/20/20 05:54 Dose: 12.5 mg Documented by: Senna/Docusate Sodium (Senna/Docusate Sodium 1 Tablet) 2 tablet PO BID [facility] Last Admin: 10/20/20 05:54 Dose: 2 tablet Documented by: Sodium Chloride (Sodium Chloride 1 Gm Tablet) 1 gm PO BID [facility] Last Admin: 10/20/20 05:54 Dose: 1 gm Documented by: Sodium Chloride (0.9% Saline Lock 10 Ml Syringe) 10 - 40 ml IV UD PRN PRN Reason: Port-a-Cath (VAD) Flush Last Admin: 10/18/20 13:41 Dose: 10 ml Documented by: Tuberculin PPD (Tuberculin,Purif.Prot.Deriv. 50 Tu/Ml Vial) 5 tu ID X1 ONE Stop: 10/24/20 10:01 Assessment/Plan All Active Problems (Last Reviewed 10/20/20 @ 11:[address] Jerilyn Saunders MD) Surgical wound present (Acute) Vascular catheter fitting or adjustment (Acute) CINV (chemotherapy-induced nausea and vomiting) (Acute) Stomatitis (Resolved) Diarrhea (Acute) Delirium (Acute) Elevated troponin (Acute) Encephalopathy (Acute) Tiredness (Acute) UTI (urinary tract infection) (Acute) Acute UTI (Acute) Hematuria (Acute) Acute blood loss anemia (Acute) Gross hematuria (Acute) Debility (Acute) Acute delirium (Acute) Acute DVT (deep venous thrombosis) (Acute) Urinary retention (Acute) cystoscopy in the office later this week. plan to have nursing remove the moore the night before her appt in the office. so far the hematuria work up is negative, cystoscopy remains. if fails trial of void, will eventually need urodynamics. thank you. Procedure Criteria Procedure Type: Elective COVID Risk Discussion: The surgeon/proceduralist and patient have discussed in detail the risk of exposure to and/or potential harm posed by the COVID-19 virus with having a surgery/procedure at this time versus the risk of delaying the surgery/procedure. It is not possible to know either the risk of delaying the surgery or procedure or chance of getting an infection with perfect accuracy, but a joint decision was made between the patient and the surgeon/proceduralist to proceed at this time with the scheduled surgery/procedure as indicated on the consent form.
--- NOTE | 2020-10-20 11:01 | NURSING ---
Dr Saunders here to see resident. She would like us to take the moore catheter out of resident the night before her appointment. She will check residual in her office the next day and reinsert if needed.
[2020-10-20 13:49] VITALS: BP 123/49; PULSE 66; RESP 14; TEMP 36.4; O2SAT 96
--- NOTE | 2020-10-20 15:35 | NURSING ---
Spoke with Dr Saunders's office and cystoscopy to be done this Monday at 0940. Resident to be there around 0930. Spouse aware of procedure. Update given to him.
[2020-10-20 19:35] VITALS: PULSE 77; RESP 16; O2SAT 94
[2020-10-20] MEDS: Atorvastatin Calcium 40 MG Tablet PO (19:38)
--- NOTE | 2020-10-20 20:15 | RAD_ITS ---
STUDY: X-RAY - ABDOMEN/PELVIS REASON FOR EXAM: Female, 80 years old. Loose stools. TECHNIQUE: Two AP supine views of the abdomen and pelvis. COMPARISON: None. FINDINGS: Normal visualized lung bases. There is an unremarkable bowel gas pattern. There is no demonstrated free abdominal air. The visualized liver, spleen and kidneys are grossly normal in size and morphology. There is atherosclerotic changes of the aorta without visualized aneurysm. Normal soft tissue structures. There is degenerative changes and levoscoliosis lumbar spine. Bilateral hip replacements. RAD/Abdomen Single View (Portable) IMPRESSION: No evidence of acute intra-abdominal or pelvic process. Electronically Signed: Gerson Flores DO at 21:04 EST Tel [phone], Service support ,
--- NOTE | 2020-10-21 03:44 | NURSING ---
pt awake and reports that his pain is a 10/10 on the pain scale, and states that he has been fighting the pain all night
[2020-10-21 04:00] VITALS: BP 138/45; PULSE 70; RESP 16; TEMP 36.2; O2SAT 96
[2020-10-21] MEDS: Lisinopril 20 MG Tablet PO (04:56)
[2020-10-21] MEDS: Pantoprazole Sodium 40 MG Tablet PO (04:56)
[2020-10-21 04:57] VITALS: BP 138/45; PULSE 70
[2020-10-21] MEDS: Metoprolol(XL)Succ 25 MG Tablet PO (04:57)
[2020-10-21] MEDS: QUEtiapine 25 MG Tablet 12.5 MG PO ×2 (04:57→16:41)
[2020-10-21] MEDS: SODIUM CHLORIDE 1 GM TABLET PO ×2 (04:57→16:42)
[2020-10-21] MEDS: Levothyroxine 50 MCG Tablet PO (04:57)
[2020-10-21] MEDS: Loratadine 10 MG Tablet PO (04:57)
[2020-10-21] MEDS: amLODIPine 2.5 MG Tablet PO (04:57)
[2020-10-21] MEDS: Na Biphos/Potassium Phosphate PACKET 1 PACKET PO ×4 (04:58→20:43)
[2020-10-21] MEDS: Polyethylene Glycol 3350 17 GM PACKET PO (04:58)
[2020-10-21] MEDS: levETIRAcetam 500 MG Tablet PO ×2 (04:58→16:42)
[2020-10-21] MEDS: Menthol/Lanolin/Calamine/Znox 113 GM Tube 1 APPLIC TOPICAL ×2 (04:59→16:42)
[2020-10-21] MEDS: Senna/Docusate Sodium 1 Tablet PO ×2 (04:59→16:41)
[2020-10-21] MEDS: APIXABAN 5 MG TABLET PO ×2 (04:59→16:41)
[2020-10-21] MEDS: Nystatin Powder 15gm Bottle 1 APPLIC TOPICAL ×2 (05:00→16:43)
[2020-10-21] MEDS: Fluticasone 0.05% 1 SPRAY NASAL.SRY 2 SPRAY NASAL (05:00)
[2020-10-21] MEDS: Ketoconazole Cream 1 APPLIC TOPICAL ×2 (05:01→16:43)
--- NOTE | 2020-10-21 05:16 | NURSING ---
pt offered mag-citrate this am again and pt refused stating that is was crazy taking something that going to make you poop more staff did given miralax and senrafaot
[2020-10-21 14:12] VITALS: BP 111/38; PULSE 64; RESP 16; TEMP 36.2; O2SAT 96
--- NOTE | 2020-10-21 15:46 | CASEMGMT ---
Social Work IDT met with patient, , dtrs and multiple other family members via conference call for care plan meeting. Discussed patient's progress in therapy and nursing. See notes for details. Pt fatiguing easily and has more comfort from lower back pain laying in bed. ST working on memory, attention and word finding. Pt still having some increased confusion. Recommending assistance with meds/finances at DC. Pt is out of isolation 10/30. Catheter to be discontinued 10/22 and nursing will monitor outcome. Explained [employer] insurance with NRD 10/26 and continued stay is not guaranteed. Family collectively expressed they would like to appeal/private pay for pt to remain until pt is able to safely return home. SW offered assistance with those options when a DC date is issued. SW to continue to follow to assist with DC planning. Aspen Barajas, LISA GAGEW
--- NOTE | 2020-10-21 16:41 | CHAPLAIN ---
Type of Pastoral Visit _x__ Initial Visit ___ Follow-up Visit ___ On-call Visit ___ General Patient Visit ___ Spiritual Assessment ___ Family Conference ___ Bereavement ___ Rapid Response ___ Code Blue ___ Other (describe below) Pastoral Care Referral From _x__ Patient ___ Family ___ Nurse ___ Physician ___ Brand Planner ___ Silvering Applicator ___ Other (describe below) Sacrament/Intervention _x__ Active listening ___ Anointing ___ Protestant ___ Bereavement ___ Communion ___ Padmaja exploration ___ ___ Life review _x__ Prayer ___ Reconciliation ___ Sacrament of Sick ___ Supportive presence ___ Wedding ___ Other (describe below) Pastoral Comments patient is lying down in bed and alert; pt is welcoming and appears with a pleasant demeanor; pt says that everything is going along well, good meeting with the team today, and doing fine; pt states she has no concerns; pt says she is member of [employer] in [place];
[2020-10-21] MEDS: Atorvastatin Calcium 40 MG Tablet PO (20:43)
[2020-10-22 04:00] VITALS: BP 144/69; PULSE 82; RESP 16; TEMP 36.3; O2SAT 97
[2020-10-22] MEDS: SODIUM CHLORIDE 1 GM TABLET PO ×2 (04:45→17:40)
[2020-10-22] MEDS: Na Biphos/Potassium Phosphate PACKET 1 PACKET PO ×4 (04:45→20:02)
[2020-10-22] MEDS: APIXABAN 5 MG TABLET PO ×2 (04:45→17:40)
[2020-10-22] MEDS: QUEtiapine 25 MG Tablet 12.5 MG PO ×2 (04:45→17:40)
[2020-10-22] MEDS: levETIRAcetam 500 MG Tablet PO ×2 (04:45→17:40)
[2020-10-22] MEDS: Pantoprazole Sodium 40 MG Tablet PO (04:45)
[2020-10-22 04:46] VITALS: BP 144/69; PULSE 82
[2020-10-22] MEDS: Metoprolol(XL)Succ 25 MG Tablet PO (04:46)
[2020-10-22] MEDS: Lisinopril 20 MG Tablet PO (04:46)
[2020-10-22] MEDS: Levothyroxine 50 MCG Tablet PO (04:46)
[2020-10-22] MEDS: amLODIPine 2.5 MG Tablet PO (04:46)
[2020-10-22] MEDS: Ketoconazole Cream 1 APPLIC TOPICAL ×2 (04:47→17:41)
[2020-10-22] MEDS: Nystatin Powder 15gm Bottle 1 APPLIC TOPICAL ×2 (04:47→17:41)
[2020-10-22] MEDS: Loratadine 10 MG Tablet PO (04:47)
[2020-10-22] MEDS: Senna/Docusate Sodium 1 Tablet PO (04:47)
[2020-10-22] MEDS: Menthol/Lanolin/Calamine/Znox 113 GM Tube 1 APPLIC TOPICAL ×2 (04:48→17:41)
[2020-10-22] MEDS: Fluticasone 0.05% 1 SPRAY NASAL.SRY 2 SPRAY NASAL (04:49)
[2020-10-22] MEDS: Acetaminophen 500 MG Tablet 1000 MG PO ×2 (08:27→22:52)
[2020-10-22 12:58] VITALS: BP 125/40; PULSE 63; RESP 16; TEMP 36.1; O2SAT 96
[2020-10-22 13:30] VITALS: BP 150/38; PULSE 75; RESP 18; TEMP 36.3; O2SAT 97
--- NOTE | 2020-10-22 13:32 | NURSING ---
pt attempted to self transfer, ENMA Asher seen pt transferring and attempted to reach her, however pt fell on her butt, but did not hit her head. pt denies pain, no injury noted. Assisted pt to bathroom then returned to bed. Bed alarm was on and remains on. Re-educated pt on the importance of using call light for assistance. Dr Coates notified.
--- NOTE | 2020-10-22 13:40 | NURSING ---
Family notified of patient current condition and fall.
[2020-10-22] MEDS: Atorvastatin Calcium 40 MG Tablet PO (20:05)
[2020-10-22] MEDS: Magnesium Citrate 300 ML PO (20:06)
--- NOTE | 2020-10-22 22:45 | NURSING ---
Patient Ross removed at this time, Patient tolerated well.
[2020-10-23 05:34] VITALS: BP 142/54; PULSE 78; RESP 16; TEMP 36.6; O2SAT 97
[2020-10-23 05:36] VITALS: BP 142/54; PULSE 78
[2020-10-23] MEDS: Na Biphos/Potassium Phosphate PACKET 1 PACKET PO ×4 (05:36→20:56)
[2020-10-23] MEDS: levETIRAcetam 500 MG Tablet PO ×2 (05:36→17:58)
[2020-10-23] MEDS: Loratadine 10 MG Tablet PO (05:36)
[2020-10-23] MEDS: APIXABAN 5 MG TABLET PO ×2 (05:36→17:58)
[2020-10-23] MEDS: Metoprolol(XL)Succ 25 MG Tablet PO (05:36)
[2020-10-23] MEDS: Lisinopril 20 MG Tablet PO (05:37)
[2020-10-23] MEDS: SODIUM CHLORIDE 1 GM TABLET PO ×2 (05:37→17:58)
[2020-10-23] MEDS: Pantoprazole Sodium 40 MG Tablet PO (05:37)
[2020-10-23] MEDS: Levothyroxine 50 MCG Tablet PO (05:37)
[2020-10-23] MEDS: QUEtiapine 25 MG Tablet 12.5 MG PO ×2 (05:37→17:59)
[2020-10-23] MEDS: amLODIPine 2.5 MG Tablet PO (05:37)
[2020-10-23] MEDS: Menthol/Lanolin/Calamine/Znox 113 GM Tube 1 APPLIC TOPICAL ×2 (05:39→18:00)
[2020-10-23] MEDS: Nystatin Powder 15gm Bottle 1 APPLIC TOPICAL ×2 (05:39→18:00)
[2020-10-23] MEDS: Fluticasone 0.05% 1 SPRAY NASAL.SRY 2 SPRAY NASAL (05:40)
[2020-10-23] MEDS: Ketoconazole Cream 1 APPLIC TOPICAL ×2 (05:42→18:00)
[2020-10-23 10:00] VITALS: PULSE 59; RESP 18; O2SAT 98
--- NOTE | 2020-10-23 12:33 | NURSING ---
Addendum entered by Cyndi Avila 10/23/20 12:38: Dr Saunders will plan for urodynamics after discharge from [facility], if voiding trails fail Original Note: pt returned from Dr. Saunders appt. Had new moore placed at office. Dr requesting pt have voiding trails again closer to discharge date from [facility]CU.
[2020-10-23 13:24] VITALS: BP 151/51; PULSE 66; RESP 14; TEMP 36.2; O2SAT 98
[2020-10-23] MEDS: Atorvastatin Calcium 40 MG Tablet PO (20:56)
[2020-10-24 03:51] VITALS: BP 151/65; PULSE 84; RESP 17; TEMP 36.4; O2SAT 98
[2020-10-24] MEDS: Menthol/Lanolin/Calamine/Znox 113 GM Tube 1 APPLIC TOPICAL ×2 (05:21→18:01)
[2020-10-24] MEDS: Fluticasone 0.05% 1 SPRAY NASAL.SRY 2 SPRAY NASAL (05:22)
[2020-10-24] MEDS: Na Biphos/Potassium Phosphate PACKET 1 PACKET PO ×4 (05:22→20:06)
[2020-10-24] MEDS: Ketoconazole Cream 1 APPLIC TOPICAL ×2 (05:22→18:01)
[2020-10-24] MEDS: Nystatin Powder 15gm Bottle 1 APPLIC TOPICAL ×2 (05:22→18:02)
[2020-10-24] MEDS: APIXABAN 5 MG TABLET PO ×2 (05:22→18:01)
[2020-10-24] MEDS: levETIRAcetam 500 MG Tablet PO ×2 (05:22→18:00)
[2020-10-24] MEDS: Loratadine 10 MG Tablet PO (05:22)
[2020-10-24] MEDS: Polyethylene Glycol 3350 17 GM PACKET PO (05:22)
[2020-10-24 05:23] VITALS: BP 151/65; PULSE 84
[2020-10-24] MEDS: Levothyroxine 50 MCG Tablet PO (05:23)
[2020-10-24] MEDS: Lisinopril 20 MG Tablet PO (05:23)
[2020-10-24] MEDS: SODIUM CHLORIDE 1 GM TABLET PO ×2 (05:23→18:00)
[2020-10-24] MEDS: Senna/Docusate Sodium 1 Tablet PO (05:23)
[2020-10-24] MEDS: amLODIPine 2.5 MG Tablet PO (05:23)
[2020-10-24] MEDS: Metoprolol(XL)Succ 25 MG Tablet PO (05:23)
[2020-10-24] MEDS: Pantoprazole Sodium 40 MG Tablet PO (05:23)
[2020-10-24] MEDS: QUEtiapine 25 MG Tablet 12.5 MG PO ×2 (05:23→18:03)
[2020-10-24 06:24] LABS: Absolute Lymphocyte Count 1.23 X10^3/uL (0.83-4.51); Absolute Neutrophil Count 6.1 X10^3/uL (2.0-7.7); Basophil# 0.05 X10^3/uL; Basophil% 0.5 % (0-1); Eosinophil# 0.93 X10^3/uL; Eosinophils% 8.9 % (0-5); Hemoglobin 9.8 g/dL (12.0-15.0); Lymphocyte # 1.23 X10^3/ul (4.0); Lymphocyte % 11.8 % (19-41); Mean Corp Hgb Conc 31.6 g/dL (32-36); Mean Corpuscular Volume 94.8 fL (81-99); Mean Platelet Vol. 8.4 fl (6.2-12.0); Monocyte# 1.96 X10^3/uL; Monocyte% 18.7 % (0-10); NRBC Flagged by Analyzer 0 % (0-5); Neutrophil # 6.07 X10^3/uL (2.7-7.7); POSITIVE DIFFERENTIAL YES; Platelet Count 209 K/mm3 (150-450); RBC Distribution Width CV 16.4 % (11.6-14.6); RBC Distribution Width SD 57.4 fl (35.1-43.9); Red Blood Count 3.27 M/mm3 (4.2-5.4); White Blood Count 10.5 K/mm3 (4.4-11.0)
[2020-10-24 06:50] LABS: Differential Indicated SCAN CRITERIA MET
[2020-10-24 06:52] LABS: Anion Gap 5 (5-15); BUN 12 mg/dL (7-18); BUN/Creat Ratio 34.1 RATIO (10-20); Calcium,Total 8.6 mg/dL (8.5-10.1); Chloride 100 mmol/L (98-107); Creatinine, Serum 0.35 mg/dL (0.55-1.02); EST Glomerular Filtration Rate 188 mL/min (>60); Est Glom Filt Rate - Afr Amer 227 mL/min (>60); Estimated Creatinine Clearance 37.45 ml/min; Glucose 85 mg/dL (74-106); Potassium 4.1 mmol/L (3.5-5.1); Sodium Level 133 mmol/L (136-145)
[2020-10-24 07:08] LABS: Differential Comment SCANNED
[2020-10-24] MEDS: Tuberculin,Purif.prot.deriv. 50 TU/ML Vial 5 ML ID (11:07)
[2020-10-24] MEDS: Acetaminophen 500 MG Tablet 1000 MG PO (13:53)
[2020-10-24 13:58] VITALS: BP 150/60; PULSE 76; RESP 16; TEMP 37.2; O2SAT 95
[2020-10-24] MEDS: Atorvastatin Calcium 40 MG Tablet PO (20:06)
[2020-10-25 05:37] VITALS: BP 151/49; PULSE 71; RESP 16; TEMP 37.1; O2SAT 96
[2020-10-25] MEDS: Nystatin Powder 15gm Bottle 1 APPLIC TOPICAL ×2 (05:38→16:34)
[2020-10-25] MEDS: Menthol/Lanolin/Calamine/Znox 113 GM Tube 1 APPLIC TOPICAL ×2 (05:38→16:34)
[2020-10-25 05:39] VITALS: BP 151/49; PULSE 71
[2020-10-25] MEDS: SODIUM CHLORIDE 1 GM TABLET PO ×2 (05:39→17:41)
[2020-10-25] MEDS: Loratadine 10 MG Tablet PO (05:39)
[2020-10-25] MEDS: QUEtiapine 25 MG Tablet 12.5 MG PO ×2 (05:39→17:41)
[2020-10-25] MEDS: Pantoprazole Sodium 40 MG Tablet PO (05:39)
[2020-10-25] MEDS: amLODIPine 2.5 MG Tablet PO (05:39)
[2020-10-25] MEDS: levETIRAcetam 500 MG Tablet PO ×2 (05:39→17:41)
[2020-10-25] MEDS: Na Biphos/Potassium Phosphate PACKET 1 PACKET PO ×4 (05:39→20:13)
[2020-10-25] MEDS: Levothyroxine 50 MCG Tablet PO (05:39)
[2020-10-25] MEDS: APIXABAN 5 MG TABLET PO ×2 (05:39→17:41)
[2020-10-25] MEDS: Metoprolol(XL)Succ 25 MG Tablet PO (05:39)
[2020-10-25] MEDS: Lisinopril 20 MG Tablet PO (05:39)
[2020-10-25] MEDS: Fluticasone 0.05% 1 SPRAY NASAL.SRY 2 SPRAY NASAL (05:40)
[2020-10-25] MEDS: Ketoconazole Cream 1 APPLIC TOPICAL ×2 (05:42→16:34)
[2020-10-25 14:07] VITALS: BP 146/50; PULSE 77; RESP 14; TEMP 36.8; O2SAT 95
[2020-10-25] MEDS: Atorvastatin Calcium 40 MG Tablet PO (20:13)
[2020-10-26 05:10] VITALS: BP 143/56; PULSE 71; RESP 16; TEMP 36.6; O2SAT 92
[2020-10-26] MEDS: Ketoconazole Cream 1 APPLIC TOPICAL ×2 (05:11→16:07)
[2020-10-26] MEDS: Menthol/Lanolin/Calamine/Znox 113 GM Tube 1 APPLIC TOPICAL ×2 (05:11→16:07)
[2020-10-26] MEDS: Nystatin Powder 15gm Bottle 1 APPLIC TOPICAL ×2 (05:12→16:07)
[2020-10-26 05:13] VITALS: BP 143/56; PULSE 71
[2020-10-26] MEDS: Levothyroxine 50 MCG Tablet PO (05:13)
[2020-10-26] MEDS: Loratadine 10 MG Tablet PO (05:13)
[2020-10-26] MEDS: SODIUM CHLORIDE 1 GM TABLET PO ×2 (05:13→18:03)
[2020-10-26] MEDS: QUEtiapine 25 MG Tablet 12.5 MG PO ×2 (05:13→18:02)
[2020-10-26] MEDS: Lisinopril 20 MG Tablet PO (05:13)
[2020-10-26] MEDS: Metoprolol(XL)Succ 25 MG Tablet PO (05:13)
[2020-10-26] MEDS: amLODIPine 2.5 MG Tablet PO (05:13)
[2020-10-26] MEDS: Na Biphos/Potassium Phosphate PACKET 1 PACKET PO ×4 (05:13→19:44)
[2020-10-26] MEDS: Senna/Docusate Sodium 1 Tablet PO ×2 (05:14→18:03)
[2020-10-26] MEDS: Polyethylene Glycol 3350 17 GM PACKET PO (05:14)
[2020-10-26] MEDS: levETIRAcetam 500 MG Tablet PO ×2 (05:14→18:03)
[2020-10-26] MEDS: APIXABAN 5 MG TABLET PO ×2 (05:14→18:02)
[2020-10-26] MEDS: Pantoprazole Sodium 40 MG Tablet PO (05:16)
[2020-10-26] MEDS: Fluticasone 0.05% 1 SPRAY NASAL.SRY 2 SPRAY NASAL (05:19)
[2020-10-26] MEDS: Acetaminophen 500 MG Tablet 1000 MG PO (08:17)
--- NOTE | 2020-10-26 12:20 | NURSING ---
Lying down in bed instead of up in bed eating lunch. States her back is hurting too bad when she is cranked up in bed. States she has dealt with this back pain for awhile now. Lying down it feels better but hurts when sitting up. States tylenol has been ineffective. Speech therapy at bedside and will assist resident with her lunch tray. Will address the back pain with Dr Coates.
--- NOTE | 2020-10-26 13:27 | CASEMGMT ---
Addendum entered by Aspen Barajas 10/26/20 13:45: Notified pt insurance approved NRD 11/02. Original Note: Social Work Followed up with pt. Discussed pt's wishes when it comes to providing family information. Pt very clear in needing her family to butt out. Explained pt is can make her own decisions and if those are her wishes, staff will follow them. Explained SW does not want to put her in a bad spot with family either by saying she doesn't want any information relayed to them. Pt stated I know and that will happen. SW and pt brainstormed solutions. Both concluded, if family calls staff, any major information can be provided to them, but if they start getting picky or telling us what to do for her then, to explain pts wishes, but staff to not contact family first. SW agreed and will relay information to rest of staff. SW explained insurance update this date and pt has had a rough past few days and unsure if insurance will approve more time. Pt agreed and stated, I know, I haven't made much progress, I feel like I've gotten weaker. SW agrees IDT feels that way too. Discussed if pt has to DC home in a few days, could provide physical assist. Pt stated yes. SW offered to contact to confirm or explain level of assist - pt stated no, she knows he will be able to. SW understood. Inquired if her wishes are to continue with therapy, if she has fight left, or if she would prefer to DC home with comfort care from hospice. Pt explained she does still want therapy and to try and get better, but not sure if her body will let her keep fighting. Offered to talk with about treatment plan and continue to follow. Pt agreeable and appreciative. Left message for Dr. Aspen Barajas, GAS FLOW REGULATOR RUBBER GRINDER
[2020-10-26 16:08] VITALS: BP 153/51; PULSE 68; RESP 18; TEMP 35.9; O2SAT 99
--- NOTE | 2020-10-26 16:52 | PCA ---
Patient's daughter called unit phone at 16:39p. daughter wondered why pt has not updated her on her mother's daily therapy today. daughter stated that she spoke with her mother and her mother said she wasn't sure why they had not called her yet?. this aide called PT and spoke to oMnica, Monica explained that she was not going to call the daughter and give an update because per the pt's request she doesn't want her family updated with any information unless it is something drastic, i explain the same thing to the daughter. Daughter laughed in my ear stating i don't understand how you can believe a pt who was just thinking she was going on last Monday. explained to pt's daughter that we have to do what your mother wants as it is her right to refrain from giving information to loved ones. daughter said ok, goodbye and ended the phone call. this plain clothes police officer called the SW and explained to her what was going on with daughter.
--- NOTE | 2020-10-26 17:15 | RAD_ITS ---
STUDY: X-RAY CHEST REASON FOR EXAM: Female, 80 years old. WEAKNESS TECHNIQUE: PA and lateral views of the chest. COMPARISON: September 14, 2020 chest x-ray FINDINGS: There is a blunted appearance of the right costophrenic angle. There is a partially visualized nodule within the right lower lobe measuring 1.6 cm. Is a left-sided portacatheter tip is in the superior vena cava. There is mild cardiac enlargement. Normal mediastinum and shanti. Normal visualized pulmonary arteries. There is atherosclerotic calcification of the aortic arch with tortuosity. There is dextroscoliosis multilevel degenerative change. There is a exophytic calcific structure peripheral to the right humeral head. There is postoperative change in the right humeral head a orthopedic staple. There is no demonstrated abnormality of the visualized soft tissue structures of the upper abdomen. RAD/Chest PA and Lateral IMPRESSION: Persistent right effusion. Persistent right lower lobe pulmonary nodule. Recommend correlation with neoplastic history. Left-sided Port-A-Cath. Mild cardiomegaly Electronically Signed: Екатерина Ontiveros MD at 1:29 EST Tel , Service support ,
--- NOTE | 2020-10-26 17:15 | RAD_ITS ---
STUDY: X-RAY - ABDOMEN/PELVIS REASON FOR EXAM: Female, 80 years old. CONSTIPATION, BACK PAIN TECHNIQUE: Two AP supine views of the abdomen and pelvis. COMPARISON: October 20, 2020 abdomen study FINDINGS: There is trace blunting of the right costophrenic angle. There is an unremarkable bowel gas pattern. There is no demonstrated free abdominal air. The liver spleen and kidneys are mostly obscured. Normal soft tissue structures. There are bilateral hip arthroplasties unchanged since prior study. There is bony osteopenia. There is visually scoliosis and degenerative change within the lumbar spine. There visualized phleboliths in the pelvis. There is a nonspecific gassy appearance of the ascending colon. RAD/Abdomen Single View IMPRESSION: Nonspecific bowel gas pattern. Scoliosis and advanced degenerative change. Bilateral hip arthroplasties. Trace blunting of the right costophrenic angle which may represent a small effusion. Electronically Signed: Екатерина Ontiveros MD at 1:27 EST Tel , Service support ,
[2020-10-26 17:45] LABS: Absolute Lymphocyte Count 1.07 X10^3/uL (0.83-4.51); Absolute Neutrophil Count 8.4 X10^3/uL (2.0-7.7); Basophil# 0.11 X10^3/uL; Basophil% 0.9 % (0-1); Eosinophil# 1.01 X10^3/uL; Eosinophils% 7.8 % (0-5); Hemoglobin 11.4 g/dL (12.0-15.0); Lymphocyte # 1.07 X10^3/ul (4.0); Lymphocyte % 8.3 % (19-41); Mean Corp Hgb Conc 33.5 g/dL (32-36); Mean Corpuscular Hgb 32.7 pg (27.0-32.0); Mean Corpuscular Volume 97.4 fL (81-99); Mean Platelet Vol. 8.6 fl (6.2-12.0); Monocyte% 16.3 % (0-10); NRBC Flagged by Analyzer 0 % (0-5); Neutrophil # 8.43 X10^3/uL (2.7-7.7); Neutrophil % 65.5 % (47-70); POSITIVE DIFFERENTIAL YES; Platelet Count 202 K/mm3 (150-450); RBC Distribution Width SD 57.5 fl (35.1-43.9); Red Blood Count 3.49 M/mm3 (4.2-5.4); White Blood Count 12.9 K/mm3 (4.4-11.0)
[2020-10-26 17:47] LABS: Differential Indicated SCAN CRITERIA MET
[2020-10-26 18:07] LABS: Anion Gap 7 (5-15); BUN 13 mg/dL (7-18); Calcium,Total 8.4 mg/dL (8.5-10.1); Chloride 99 mmol/L (98-107); Creatinine, Serum 0.48 mg/dL (0.55-1.02); EST Glomerular Filtration Rate 131 mL/min (>60); Est Glom Filt Rate - Afr Amer 158 mL/min (>60); Estimated Creatinine Clearance 37.45 ml/min; Glucose 131 mg/dL (74-106); Sodium Level 132 mmol/L (136-145)
[2020-10-26 18:24] LABS: Mucous, Urine 0 SEEN /hpf (<or=2+); Red Blood Cells-Urine 0 SEEN /hpf (0-5); Squamous Epithelial Cells - UA 0 SEEN /hpf (5-10)
[2020-10-26 18:28] LABS: Color, Urine Straw (Yellow); Glucose, Dipstick Normal (Normal); Ketone-Dipstick Negative (Negative); Leukocyte Esterase-Dipstick 500 /ul (Negative); Nitrite-Dipstick Negative (Negative); Occult Blood-Urine 10 /ul (Negative); Protein-Dipstick 15 mg/dl (Negative); Urine Bilirubin Dipstick Negative (Negative); Urine Clarity Clear (Clear); Urine Urobilinogen 1 mg/dl (Normal)
[2020-10-26 18:38] LABS: Bacteria RARE /hpf (None Seen); White Blood Cells 0-5 SEEN /hpf (0-5)
--- NOTE | 2020-10-26 18:44 | NURSING ---
pt noted to not be progressing in therapy, pt feels weaker & gotten worse last few days. dr gay updated, new order for KUB, CXR, UA/CX. new order to start ceftin x7 days.
[2020-10-26] MEDS: CEFUROXIME AXETIL 250 MG TABLET 500 MG PO (19:41)
[2020-10-26] MEDS: Atorvastatin Calcium 40 MG Tablet PO (19:42)
[2020-10-27 05:53] VITALS: BP 146/56; PULSE 78; RESP 18; TEMP 37.1; O2SAT 98
[2020-10-27] MEDS: Acetaminophen 500 MG Tablet 1000 MG PO (06:03)
[2020-10-27] MEDS: QUEtiapine 25 MG Tablet 12.5 MG PO ×2 (06:05→17:09)
[2020-10-27] MEDS: levETIRAcetam 500 MG Tablet PO ×2 (06:05→17:15)
[2020-10-27] MEDS: Pantoprazole Sodium 40 MG Tablet PO (06:05)
[2020-10-27 06:06] VITALS: BP 146/56; PULSE 78
[2020-10-27] MEDS: Na Biphos/Potassium Phosphate PACKET 1 PACKET PO ×4 (06:06→20:23)
[2020-10-27] MEDS: SODIUM CHLORIDE 1 GM TABLET PO ×2 (06:06→17:09)
[2020-10-27] MEDS: Lisinopril 20 MG Tablet PO (06:06)
[2020-10-27] MEDS: amLODIPine 2.5 MG Tablet PO (06:06)
[2020-10-27] MEDS: Loratadine 10 MG Tablet PO (06:06)
[2020-10-27] MEDS: Metoprolol(XL)Succ 25 MG Tablet PO (06:06)
[2020-10-27] MEDS: Levothyroxine 50 MCG Tablet PO (06:06)
[2020-10-27] MEDS: CEFUROXIME AXETIL 250 MG TABLET 500 MG PO ×2 (06:07→17:15)
[2020-10-27] MEDS: Fluticasone 0.05% 1 SPRAY NASAL.SRY 2 SPRAY NASAL (06:07)
[2020-10-27] MEDS: APIXABAN 5 MG TABLET PO ×2 (06:07→17:09)
[2020-10-27] MEDS: Nystatin Powder 15gm Bottle 1 APPLIC TOPICAL ×2 (06:07→17:15)
[2020-10-27] MEDS: Ketoconazole Cream 1 APPLIC TOPICAL ×2 (06:08→17:16)
[2020-10-27] MEDS: Menthol/Lanolin/Calamine/Znox 113 GM Tube 1 APPLIC TOPICAL ×2 (06:09→17:07)
[2020-10-27] MEDS: traMADol 50 MG Tablet PO (08:32)
--- NOTE | 2020-10-27 09:30 | PCA ---
Pt was caught by this aide and nurse aidefe Alvarez sliding out of her reclining chair onto the foot rest, Kim and i to readjusted pt back into her reclining chair and she stated that her bottom was sore nurse aidefe Alvarez and i repositioned pt back in the recliner with a extra cushion pt agreed that it was comfortable. OT Kristal came up to Barb and i at the nurses station asking if pt was having a off day? she stated that when she verified the OT time with pt she stated Does my dad have that information, do you have his number? pt seems to be more confused today than usual.
--- NOTE | 2020-10-27 11:53 | PT ---
Spoke with pt's , with pt's approval, and provided update on pt's current levels. Pt's appreciative of update.
[2020-10-27 13:25] VITALS: BP 132/55; PULSE 72; RESP 17; TEMP 36.5; O2SAT 98
[2020-10-27 13:28] LABS: Pathologist Review Reviewed
[2020-10-27] MEDS: Atorvastatin Calcium 40 MG Tablet PO (20:23)
--- NOTE | 2020-10-27 20:25 | NURSING ---
Pitcher of water spilled in bed upon arrival into room for hs meds. Resting with eyes closed. Gown, sheet, and blanket changed. Did not arouse much to stimuli. Shows no sxs pain or discomfort. Respirations even and unlabored. Call light within reach.
[2020-10-28 05:20] VITALS: BP 145/51; PULSE 70; RESP 15; TEMP 36.6; O2SAT 93
[2020-10-28] MEDS: Menthol/Lanolin/Calamine/Znox 113 GM Tube 1 APPLIC TOPICAL ×2 (06:07→17:01)
[2020-10-28] MEDS: Levothyroxine 50 MCG Tablet PO (06:08)
[2020-10-28] MEDS: SODIUM CHLORIDE 1 GM TABLET PO ×2 (06:08→17:02)
[2020-10-28] MEDS: Lisinopril 20 MG Tablet PO (06:08)
[2020-10-28] MEDS: APIXABAN 5 MG TABLET PO ×2 (06:08→17:02)
[2020-10-28 06:09] VITALS: BP 145/51; PULSE 70
[2020-10-28] MEDS: Loratadine 10 MG Tablet PO (06:09)
[2020-10-28] MEDS: amLODIPine 2.5 MG Tablet PO (06:09)
[2020-10-28] MEDS: CEFUROXIME AXETIL 250 MG TABLET 500 MG PO (06:09)
[2020-10-28] MEDS: Metoprolol(XL)Succ 25 MG Tablet PO (06:09)
[2020-10-28] MEDS: QUEtiapine 25 MG Tablet 12.5 MG PO ×2 (06:10→17:02)
[2020-10-28] MEDS: Pantoprazole Sodium 40 MG Tablet PO (06:10)
[2020-10-28] MEDS: Senna/Docusate Sodium 1 Tablet PO ×2 (06:10→17:02)
[2020-10-28] MEDS: levETIRAcetam 500 MG Tablet PO ×2 (06:11→17:02)
[2020-10-28] MEDS: Nystatin Powder 15gm Bottle 1 APPLIC TOPICAL ×2 (06:12→17:01)
[2020-10-28] MEDS: Na Biphos/Potassium Phosphate PACKET 1 PACKET PO ×4 (06:12→21:06)
[2020-10-28] MEDS: Ketoconazole Cream 1 APPLIC TOPICAL ×2 (06:13→17:00)
[2020-10-28] MEDS: Fluticasone 0.05% 1 SPRAY NASAL.SRY 2 SPRAY NASAL (06:20)
[2020-10-28] MEDS: traMADol 50 MG Tablet PO (11:34)
[2020-10-28 14:18] VITALS: BP 133/56; PULSE 75; RESP 18; TEMP 36.6; O2SAT 96
--- NOTE | 2020-10-28 14:22 | NURSING ---
Pt very lethargic today not acting like herself. Noticed pt to look to be in more pain this shift the usual. Updated Dr. Coates new medication orders entered. Will continue to monitor and update .
[2020-10-28] MEDS: Ceftriaxone 1 GM/50 ML BAG IV (16:47)
[2020-10-28] MEDS: 0.9% Saline Lock 10 ML Syringe IV (16:48)
[2020-10-28 20:59] VITALS: BP 150/56; PULSE 82; RESP 18; TEMP 36.8; O2SAT 97
[2020-10-28] MEDS: Atorvastatin Calcium 40 MG Tablet PO (21:06)
[2020-10-28 21:19] VITALS: PULSE 80; RESP 18
[2020-10-29 04:00] VITALS: BP 161/53; PULSE 82; RESP 18; TEMP 37.2; O2SAT 93
[2020-10-29] MEDS: Menthol/Lanolin/Calamine/Znox 113 GM Tube 1 APPLIC TOPICAL ×2 (04:59→17:19)
[2020-10-29] MEDS: Fluticasone 0.05% 1 SPRAY NASAL.SRY 2 SPRAY NASAL (05:00)
[2020-10-29] MEDS: Loratadine 10 MG Tablet PO (05:00)
[2020-10-29] MEDS: APIXABAN 5 MG TABLET PO ×2 (05:00→17:12)
[2020-10-29] MEDS: Nystatin Powder 15gm Bottle 1 APPLIC TOPICAL ×2 (05:01→17:30)
[2020-10-29] MEDS: levETIRAcetam 500 MG Tablet PO ×2 (05:01→17:12)
[2020-10-29] MEDS: Na Biphos/Potassium Phosphate PACKET 1 PACKET PO ×3 (05:02→17:11)
[2020-10-29] MEDS: Ketoconazole Cream 1 APPLIC TOPICAL ×2 (05:02→17:30)
[2020-10-29 05:03] VITALS: BP 161/53; PULSE 82
[2020-10-29] MEDS: Metoprolol(XL)Succ 25 MG Tablet PO (05:03)
[2020-10-29] MEDS: amLODIPine 2.5 MG Tablet PO (05:03)
[2020-10-29] MEDS: SODIUM CHLORIDE 1 GM TABLET PO ×2 (05:03→17:12)
[2020-10-29] MEDS: Pantoprazole Sodium 40 MG Tablet PO (05:03)
[2020-10-29] MEDS: Levothyroxine 50 MCG Tablet PO (05:03)
[2020-10-29] MEDS: Lisinopril 20 MG Tablet PO (05:03)
[2020-10-29] MEDS: QUEtiapine 25 MG Tablet 12.5 MG PO ×2 (05:04→17:13)
[2020-10-29] MEDS: 0.9% Saline Lock 10 ML Syringe IV ×3 (05:07→22:21)
[2020-10-29] MEDS: Senna/Docusate Sodium 1 Tablet PO ×2 (05:39→17:15)
--- NOTE | 2020-10-29 08:10 | NURSING ---
Pt very tired this morning. Refusing to eat breakfast. Pt alert to place and name only. Washed Pt up to see if that would make her more alert. Pt able to open eyes and answer questions. Dr. Coates made aware and at bedside. Unable to give pt meds d/t risk of choking.
[2020-10-29] MEDS: Ceftriaxone 1 GM/50 ML BAG IV (10:19)
--- NOTE | 2020-10-29 12:48 | MDS.RN ---
Information for the mds was obtained from review of the clinical record, interview of resident, staff, and direct observation of resident's care.
[2020-10-29 14:25] VITALS: BP 128/46; PULSE 75; RESP 16; TEMP 36.8; O2SAT 95
--- NOTE | 2020-10-29 15:01 | CASEMGMT ---
Social Work Visited pt. Pt resting in bed, but awoke to have conversation with SW. Spoke with pt. Inquired if she was in pain and where, yes, all over. Inquired if she was hungry - reluctant to answer - offered it was okay to say no, she replied no, I guess I'm not. Pt stated she is just tired. Inquired if she wants to keep working with therapy or if she wants to go home yes I want to get better with therapy, no I'm not ready to go home. Offered to pt to rest today, and SW will follow up tomorrow to revisit feelings. Pt agreeable. SW offered to update or have a Facetime with , pt replied, no, drop it. SW agreed. contacted SW with several questions, noting he has a lack of information and what is going on with pt. SW offered to any questions possible. inquired about her cognition state, if she can make her own decisions, especially with her UTI; what the DC plan is for her so the family get things ready at home; and how she is doing. He stated, he spoke with the Dr. the night prior and wasn't pleased with the conversation because he wouldn't tell him anything medically other than she was dying. He stated that is nothing he hasn't heard before, but he doesn't know what is going on with the pt. Explained SW can provide limited information d/t pt wishes. Explained insurance update is 11/02 and continued stay is not guaranteed. The pt has been consistent with her wishes about returning home and she is confident /family can assist her at home. Inquired if there is anything he could not assist with at home, if that is a safe option for her. stated yes, all family can help and they have aides available to assist at DC. SW explained once a DC date is issued, SW will notify of that date and he can get care in place, and SW will assist with any referrals needed. Reassured all staff continues to offer to contact family for updates and pt remains clear on her wishes. appreciative of the information. Will continue to follow. Aspen Barajas, LISA GAGEW
--- NOTE | 2020-10-29 17:37 | NURSING ---
R' ABLE TO TAKE EVENING MEDS AT THIS TIME. HAS BEEN LETHARGIC T/O DAY, BUT EASILY AWAKENS, ANSWERS QUESTIONS. DENIES ANY PAIN. WILL CONT' TO MONITOR.
[2020-10-29 22:10] LABS: Absolute Lymphocyte Count 0.93 X10^3/uL (0.83-4.51); Absolute Neutrophil Count 9.5 X10^3/uL (2.0-7.7); Basophil# 0.07 X10^3/uL; Basophil% 0.5 % (0-1); Eosinophil# 0.61 X10^3/uL; Eosinophils% 4.4 % (0-5); Hematocrit 33.5 % (37-47); Hemoglobin 10.7 g/dL (12.0-15.0); Lymphocyte # 0.93 X10^3/ul (4.0); Lymphocyte % 6.7 % (19-41); Mean Corp Hgb Conc 31.9 g/dL (32-36); Mean Corpuscular Hgb 30.1 pg (27.0-32.0); Mean Corpuscular Volume 94.4 fL (81-99); Mean Platelet Vol. 8.5 fl (6.2-12.0); Monocyte# 2.53 X10^3/uL; Monocyte% 18.2 % (0-10); NRBC Flagged by Analyzer 0 % (0-5); Neutrophil % 68.5 % (47-70); POSITIVE DIFFERENTIAL YES; Platelet Count 262 K/mm3 (150-450); RBC Distribution Width CV 15.9 % (11.6-14.6); RBC Distribution Width SD 55.8 fl (35.1-43.9); Red Blood Count 3.55 M/mm3 (4.2-5.4); White Blood Count 13.9 K/mm3 (4.4-11.0)
[2020-10-29 22:13] LABS: Differential Indicated SCAN CRITERIA MET
[2020-10-29] MEDS: 0.9% Normal Saline 1,000 ML 75 ML IV (22:19)
[2020-10-29 22:30] LABS: Differential Comment SCANNED
[2020-10-29 22:41] LABS: Anion Gap 6 (5-15); BUN 17 mg/dL (7-18); BUN/Creat Ratio 36.5 RATIO (10-20); Calcium,Total 8.7 mg/dL (8.5-10.1); Chloride 99 mmol/L (98-107); Creatinine, Serum 0.47 mg/dL (0.55-1.02); EST Glomerular Filtration Rate 136 mL/min (>60); Est Glom Filt Rate - Afr Amer 165 mL/min (>60); Estimated Creatinine Clearance 37.45 ml/min; Glucose 106 mg/dL (74-106); Potassium 3.8 mmol/L (3.5-5.1); Sodium Level 132 mmol/L (136-145)
[2020-10-30 04:59] VITALS: BP 155/46; PULSE 82; RESP 16; TEMP 36.7; O2SAT 94
[2020-10-30 05:02] VITALS: BP 155/46; PULSE 82
[2020-10-30] MEDS: amLODIPine 2.5 MG Tablet PO (05:02)
[2020-10-30] MEDS: Na Biphos/Potassium Phosphate PACKET 1 PACKET PO ×3 (05:02→17:23)
[2020-10-30] MEDS: Loratadine 10 MG Tablet PO (05:02)
[2020-10-30] MEDS: QUEtiapine 25 MG Tablet 12.5 MG PO ×2 (05:02→17:25)
[2020-10-30] MEDS: SODIUM CHLORIDE 1 GM TABLET PO ×2 (05:02→17:26)
[2020-10-30] MEDS: Levothyroxine 50 MCG Tablet PO (05:02)
[2020-10-30] MEDS: APIXABAN 5 MG TABLET PO ×2 (05:02→17:24)
[2020-10-30] MEDS: levETIRAcetam 500 MG Tablet PO ×2 (05:02→17:24)
[2020-10-30] MEDS: Metoprolol(XL)Succ 25 MG Tablet PO (05:02)
[2020-10-30] MEDS: Lisinopril 20 MG Tablet PO (05:03)
[2020-10-30] MEDS: Pantoprazole Sodium 40 MG Tablet PO (05:03)
[2020-10-30] MEDS: Senna/Docusate Sodium 1 Tablet PO ×2 (05:04→17:29)
[2020-10-30] MEDS: Fluticasone 0.05% 1 SPRAY NASAL.SRY 2 SPRAY NASAL (05:16)
[2020-10-30] MEDS: Ketoconazole Cream 1 APPLIC TOPICAL ×2 (05:17→17:30)
[2020-10-30] MEDS: Nystatin Powder 15gm Bottle 1 APPLIC TOPICAL ×2 (05:17→17:30)
[2020-10-30] MEDS: Menthol/Lanolin/Calamine/Znox 113 GM Tube 1 APPLIC TOPICAL ×2 (05:17→17:30)
--- NOTE | 2020-10-30 07:57 | NURSING ---
DR VALENTINE SPOKE WITH PT THIS AM, PT WANTING TO GO HOME WITH HOSPICE & CHANGED CODE STATUS TO DNRCC.
--- NOTE | 2020-10-30 09:17 | CASEMGMT ---
Addendum entered by Aspen Barajas 10/30/20 13:50: Spoke with [facility] whom spoke with and pt can DC home 10/31. DME will be in place. Scheduled cot transport through [facility] for 10 am. Notified both parties. Plan: DC home 10/31 with with [facility] Original Note: Social Work Followed up with pt about conversation with Dr. Coates about home on hospice this date. Pt was sitting up in bed with a tray full of breakfast food that she had not touched. Pt appeared more awake than yesterday. Inquired how she was feeling. Pt stated better. Inquired about her conversation with Dr. Coates and her feelings on that. Pt was a little reluctant to accept hospice but ultimately agreed she is ready and she wants to go home. SW explained hospice will help keep her comfortable at home. Pt agreed. Observed pt is very weak. When she would cough or try to reposition herself in bed, it would take all of her strength but ultimately could not reposition herself. Assisted pt with eating a few pieces of fruit, and drank a few sips of water, then she stated she needed a break. Notified staff pt is total feed until she discharges. Therapy confirmed. Explained to pt if she is going home, her family should be notified and if this worker can contact her . Pt agreed. Contacted . Provided brief update of pt overall decline and change in condition the past week. Explained the has been speaking with pt along with this worker, and this morning, pt agreed to DC home with hospice. was pleased and stated the family has already been in contact with [facility] in preparation. Explained SW will then call for official referral and see if pt can DC home today. appreciative. Will continue to follow. Aspen Barajas, LISA GAGEW
--- NOTE | 2020-10-30 10:07 | PT ---
Attempted to see pt for physical therapy. Pt had difficulty with keeping eyes open. Pt in bed with breakfast tray in front of her. Asked pt if she needed assistance with feeding herself. Pt stated yes. Pt unable to hold fork and bring to her mouth. Assisted pt with feeding her her fruit cup per her request. Pt ate all contents of fruit cup and then stated she was full. Notified nursing staff of pt now being a total feed and needing assistance with all meals.
[2020-10-30] MEDS: Ceftriaxone 1 GM/50 ML BAG IV (10:51)
--- NOTE | 2020-10-30 11:04 | NURSING ---
Resident resting in bed with eyes closed.She will open eyes briefly and answer questions when asked. Appears comfortable and states that she has no pain. IV Rocephin hung at this time. Ross catheter bag found leaking on floor. Bag changed at this time.
[2020-10-30] MEDS: 0.9% Normal Saline 1,000 ML 75 ML IV (12:15)
--- NOTE | 2020-10-30 12:50 | DCINST_ITS ---
- Discharge Diagnoses Current Active Problems: Current Active and Chronic Problems (Last Reviewed 10/20/20 @ 11:[address] Jerilyn Saunders MD) UTI (urinary tract infection) (Chronic) Hyponatremia (Chronic) Acute on Chronic Hypokalemia (Chronic) CVA (cerebral vascular accident) (Chronic) Hematuria (Acute) Acute blood loss anemia (Acute) Debility (Acute) Acute delirium (Acute) Metastatic lung cancer (metastasis from lung to other site) (Chronic) Acute DVT (deep venous thrombosis) (Acute) Carotid stenosis (Chronic) Hypertension (Chronic) Hypothyroidism (Chronic) GERD (gastroesophageal reflux disease) (Chronic) Insomnia (Chronic) Urinary retention (Acute) You will use the following diet at home:: No restrictions, Regular Your food should be the consistency of: Regular Your liquids should be the consistency of: Regular/Thin Discharge Activity: Return to Normal Activity, May Shower, Use Walker Weight Bearing Status: Weight bearing as tolerated Allergies/Adverse Reactions: Allergies chlorhexidine Allergy (Intermediate, Verified 10/06/20 14:20) Rash morphine Adverse Reaction (Severe, Verified 10/06/20 14:20) Shortness of breath naproxen Adverse Reaction (Intermediate, Verified 10/06/20 14:20) mouth sores mouth sores nitrofurantoin [From Macrodantin] Adverse Reaction (Intermediate, Verified 10/06/20 14:20) mouth sores mouth sores cloth tape Adverse Reaction (Uncoded 10/06/20 14:20) skin irritation Medications to take at Discharge Melatonin 5 mg PO QHS PRN 09/29/20 Quetiapine Fumarate [Seroquel] 12.5 mg PO BID 10/16/20 Cefuroxime Axetil [Ceftin] 500 mg PO BID 10 Days #10 tab 10/30/20 Nystatin Powder [Mycostatin Powder] 1 applic TOPICAL BID bottle 10/30/20 The following prescriptions were given: Cefuroxime Axetil [Ceftin] 500 mg PO BID 10 Days #10 tab Transmission Status: Pending to [facility] Primary Care Physician: Kathy Randall MD [Primary Care Provider] - Please follow up with your Primary Care Physician in: As needed. Test Results: Test results from this visit will be discussed in further detail at your follow- up appointment, if applicable. Please Follow Up With: Jerilyn Saunders MD When: N/A. Proposed Discharge Date: 10/31/20
--- NOTE | 2020-10-30 12:52 | PCM.DC.SUM ---
Discharge Date and Diagnosis - Problem List Patient Problems: Active and Suspected Problems (Last Reviewed 10/20/20 @ 11:[address] Jerilyn Saunders MD) Hematuria (Acute) Acute blood loss anemia (Acute) Debility (Acute) Acute delirium (Acute) Acute DVT (deep venous thrombosis) (Acute) Urinary retention (Acute) Date of Admission: 10/16/20 Date of Discharge: 10/31/20 - Primary Discharge Diagnosis Acute Problems: Active Problems (Last Reviewed 10/20/20 @ 11:[address] Jerilyn Saunders MD) Hematuria (Acute) Acute blood loss anemia (Acute) Debility (Acute) Acute delirium (Acute) Acute DVT (deep venous thrombosis) (Acute) Urinary retention (Acute) - Secondary Discharge Diagnosis Chronic Problems: Chronic Problems (Last Reviewed 10/20/20 @ 11:[address] Jerilyn Saunders MD) Anemia (Chronic) UTI (urinary tract infection) (Chronic) Hilar adenopathy (Chronic) Metastatic lung carcinoma (Chronic) Iron deficiency anemia (Chronic) Cancer-related pain (Chronic) Hyponatremia (Chronic) Acute on Chronic Hypokalemia (Chronic) DVT, lower extremity, distal, acute (Chronic) CVA (cerebral vascular accident) (Chronic) Metastatic lung cancer (metastasis from lung to other site) (Chronic) Carotid stenosis (Chronic) Hypertension (Chronic) Hypothyroidism (Chronic) GERD (gastroesophageal reflux disease) (Chronic) Insomnia (Chronic) Lung mass (Chronic) NSCLC of right lung (Chronic) Hospital Course and Treatment Imaging Results: 10/16/20 17:12 Diet: Regular - General Food consistency:: Regular Liquid Consistency:: Regular/Thin Diet Comments: magic cup or ensure pudding w/ meals Clinical Impression(s) from Imaging Studies Chest X-Ray 10/26/20 17:15 IMPRESSION: Persistent right effusion. Persistent right lower lobe pulmonary nodule. Recommend correlation with neoplastic history. Left-sided Port-A-Cath. Mild cardiomegaly Electronically Signed: Екатерина Ontiveros MD at 1:29 EST Tel , Service support , KUB X-Ray 10/26/20 17:15 IMPRESSION: Nonspecific bowel gas pattern. Scoliosis and advanced degenerative change. Bilateral hip arthroplasties. Trace blunting of the right costophrenic angle which may represent a small effusion. Electronically Signed: Екатерина Ontiveros MD at 1:27 EST Tel , Service support , Labs (Last 48 Hours) 10/29/20 10/29/20 21:42 21:42 WBC 13.9 H RBC 3.55 L Hgb 10.7 L Hct 33.5 L MCV 94.4 MCH 30.1 MCHC 31.9 L RDW Std Deviation 55.8 H RDW Coeff of Roselyn 15.9 H Plt Count 262 MPV 8.5 Immature Gran % (Auto) 1.700 H Neut % (Auto) 68.5 Lymph % (Auto) 6.7 L [place] % (Auto) 18.2 H Eos % (Auto) 4.4 Baso % (Auto) 0.5 Absolute Neuts (auto) 9.5 H Absolute Lymphs (auto) 0.93 Nucleated RBC % 0 Differential Comment SCANNED Diff Path Review May foll Sodium 132 L Potassium 3.8 Chloride 99 Carbon Dioxide 27.0 Anion Gap 6 BUN 17 Creatinine 0.47 L Estim Creat Clear Calc 37.45 Est GFR (MDRD) Af Amer 165 Est GFR (MDRD) Non-Af 136 BUN/Creatinine Ratio 36.5 H Glucose 106 Calcium 8.7 Consultations 10/30/20 06:26 Consult: Onc/Wound/administrative project coordinator Routine Comment: Reason for Consult:: Pressure injury on coccyx Operations: None Procedures: None Summary of Care Provided: The patient is a 80 year old Female with below past medical history significant for metastatic lung cancer, hospitalized for stroke, complicated urinary tract infection, complicated by DVT, hematuria, admitted to TCU with debility, here for rehabilitation, strengthening, prior to discharge home with . Resident dying of metastatic lung cancer. Discharge home with 5 days of Cefuroxime for E. Coli urinary tract infection. Discharge home with , [facility]. Patient Problems: Active and Suspected Problems (Last Reviewed 10/20/20 @ 11:[address] Jerilyn Saunders MD) Hematuria (Acute) Acute blood loss anemia (Acute) Debility (Acute) Acute delirium (Acute) Acute DVT (deep venous thrombosis) (Acute) Urinary retention (Acute) - Physical Exam Vitals/I&O's: Vital Signs Temp Pulse Resp BP Pulse Ox 98.0 F 82 16 155/46 H 94 10/30/20 04:59 10/30/20 05:02 10/30/20 04:59 10/30/20 05:02 10/30/20 04:59 Oxygen Delivery Method Room Air Weight: 59.931 kg Body Mass Index (BMI) 23.2 Intake and Output for Last 24 Hours 10/28/20 10/29/20 10/30/20 23:59 23:59 23:59 Intake Total 170 / 170 210 / 210 1480 / 1480 Output Total 725 / 725 1800 / 1800 300 / 300 Balance -555 / -555 -1590 / -1590 1180 / 1180 Microbiology Past 72 Hours 10/26/20 18:00 Urine Catheter - Ross Urine Culture - Final Escherichia coli Laboratory Results 10/29/20 21:42: WBC 13.9 H, RBC 3.55 L, Hgb 10.7 L, Hct 33.5 L, MCV 94.4, MCH 30.1, MCHC 31.9 L, RDW Std Deviation 55.8 H, RDW Coeff of Roselyn 15.9 H, Plt Count 262, MPV 8.5, Immature Gran % (Auto) 1.700 H, Neut % (Auto) 68.5, Lymph % (Auto) 6.7 L, [place] % (Auto) 18.2 H, Eos % (Auto) 4.4, Baso % (Auto) 0.5, Absolute Neuts (auto) 9.5 H, Absolute Lymphs (auto) 0.93, Nucleated RBC % 0, Differential Comment SCANNED, Diff Path Review January10/29/20 21:42: Sodium 132 L, Potassium 3.8, Chloride 99, Carbon Dioxide 27.0, Anion Gap 6, BUN 17, Creatinine 0.47 L, Estim Creat Clear Calc 37.45, Est GFR (MDRD) Af Amer 165, Est GFR (MDRD) Non-Af 136, BUN/Creatinine Ratio 36.5 H, Glucose 106, Calcium 8.7 Current Medications Acetaminophen (Acetaminophen 500 Mg Tablet) 1,000 mg PO Q6H PRN PRN PRN Reason: Pain Score 1-3 Last Admin: 10/27/20 06:03 Dose: 1,000 mg Documented by: Amlodipine Besylate (Amlodipine 2.5 Mg Tablet) 2.5 mg PO DAILY [facility] Last Admin: 10/30/20 05:02 Dose: 2.5 mg Documented by: Apixaban (Apixaban 5 Mg Tablet) 5 mg PO BID [facility] Last Admin: 10/30/20 05:02 Dose: 5 mg Documented by: Atorvastatin Calcium (Atorvastatin Calcium 40 Mg Tablet) 40 mg PO QHS [facility] Last Admin: 10/29/20 21:44 Dose: Not Given Documented by: Calamine/Phenol (Menthol/Lanolin/Calamine/Znox 113 Gm Tube) 1 applic TOPICAL BID [facility]; Protocol Last Admin: 10/30/20 05:17 Dose: 1 applicatio Documented by: Fluticasone Propionate (Fluticasone 0.05% 1 [place] Nasal.Sry) 2 spray NASAL DAILY [facility] Last Admin: 10/30/20 05:16 Dose: 2 spray Documented by: Heparin Sodium (Beef Lung) (Heparin Pf Lock 10 Units/Ml 50 Units/5 Ml Syringe) 50 units IV UD PRN PRN Reason: Port-a-Cath (VAD)Heparin Flush Sodium Chloride () 250 mls @ 15 mls/hr IV .[id number] PRN PRN Reason: Saline Flush Last Infusion: 10/27/20 18:45 Dose: Infused Documented by: Sodium Chloride () 250 mls @ 15 mls/hr IV .[id number] PRN PRN Reason: Saline Flush Sodium Chloride () 250 mls @ 15 mls/hr IV .[id number] PRN PRN Reason: Additional IVPB Infusion Ceftriaxone Sodium (Rocephin) 1 gm in 50 mls @ 100 mls/hr IV Q24 [facility] Stop: 11/05/20 10:01 Last Admin: 10/30/20 10:51 Dose: 100 mls/hr Documented by: Sodium Chloride () 1,000 mls @ 75 mls/hr IV .[id number] [facility] Last Admin: 10/30/20 12:15 Dose: 75 mls/hr Documented by: Ketoconazole (Ketoconazole Cream) 1 applic TOPICAL BID [facility]; Protocol Stop: 11/02/20 18:01 Last Admin: 10/30/20 05:17 Dose: 1 applicatio Documented by: Levetiracetam (Levetiracetam 500 Mg Tablet) 500 mg PO BID [facility] Last Admin: 10/30/20 05:02 Dose: 500 mg Documented by: Levothyroxine Sodium (Levothyroxine 50 Mcg Tablet) 50 mcg PO DAILY [facility] Last Admin: 10/30/20 05:02 Dose: 50 mcg Documented by: Lisinopril (Lisinopril 20 Mg Tablet) 20 mg PO DAILY [facility] Last Admin: 10/30/20 05:03 Dose: 20 mg Documented by: Loratadine (Loratadine 10 Mg Tablet) 10 mg PO DAILY [facility] Last Admin: 10/30/20 05:02 Dose: 10 mg Documented by: Melatonin (Melatonin 10 Mg Tablet) 5 mg PO QHS PRN PRN Reason: SLEEP Metoprolol Succinate (Metoprolol(Xl)Succ 25 Mg Tablet) 25 mg PO DAILY [facility] Last Admin: 10/30/20 05:02 Dose: 25 mg Documented by: Nystatin (Nystatin Powder 15gm Bottle) 1 applic TOPICAL BID [facility]; Protocol Last Admin: 10/30/20 05:17 Dose: 1 applicatio Documented by: Pantoprazole Sodium (Pantoprazole Sodium 40 Mg Tablet) 40 mg PO DAILY [facility] Last Admin: 10/30/20 05:03 Dose: 40 mg Documented by: Polyethylene Glycol (Polyethylene Glycol 3350 17 Gm Packet) 17 gm PO DAILY [facility] Last Admin: 10/30/20 05:03 Dose: Not Given Documented by: Potassium Chloride (Potassium Chloride 20 Meq Tablet) 20 meq PO DAILYCM [facility] Last Admin: 10/30/20 09:05 Dose: 20 meq Documented by: Potassium Phos/Sodium Phos (Na Biphos/Potassium Phosphate Packet) 1 packet PO 4X/DAY [facility] Last Admin: 10/30/20 12:17 Dose: 1 packet Documented by: Quetiapine Fumarate (Quetiapine 25 Mg Tablet) 12.5 mg PO BID [facility] Last Admin: 10/30/20 05:02 Dose: 12.5 mg Documented by: Senna/Docusate Sodium (Senna/Docusate Sodium 1 Tablet) 1 tablet PO BID [facility] Last Admin: 10/30/20 05:04 Dose: 1 tablet Documented by: Sodium Chloride (Sodium Chloride 1 Gm Tablet) 1 gm PO BID [facility] Last Admin: 10/30/20 05:02 Dose: 1 gm Documented by: Sodium Chloride (0.9% Saline Lock 10 Ml Syringe) 10 - 40 ml IV UD PRN PRN Reason: Port-a-Cath (VAD) Flush Last Admin: 10/29/20 22:21 Dose: 10 ml Documented by: Tramadol HCl (Tramadol 50 Mg Tablet) 50 mg PO Q6H PRN PRN PRN Reason: Pain Score 4-10 Last Admin: 10/28/20 11:34 Dose: 50 mg Documented by: Discharge Diet: No Restrictions Discharge Activity: Return to Normal Activity, May Shower, Use Walker Weight Bearing Status: Weight bearing as tolerated Home Medications: Medications to take at Discharge Melatonin 5 mg PO QHS PRN 09/29/20 Quetiapine Fumarate [Seroquel] 12.5 mg PO BID 10/16/20 Cefuroxime Axetil [Ceftin] 500 mg PO BID 10 Days #10 tab 10/30/20 Nystatin Powder [Mycostatin Powder] 1 applic TOPICAL BID bottle 10/30/20 Following Prescriptions Were Given to Patient: Cefuroxime Axetil [Ceftin] 500 mg PO BID 10 Days #10 tab Transmission Status: Pending to [facility] Primary Care Physician: Kathy Randall MD [Primary Care Provider] - Please follow up with your Primary Care Physician in: As needed. Please Follow Up With: Jerilyn Saunders MD When: N/A. Disposition: Home with Hospice Minutes spent on discharge:: 35 Patient Condition:: Poor Medical Necessity - Tobacco Use Smoking Status: Never smoker Tobacco Use: Non-smoker Meaningful Use Info Meaningful Use Diagnoses (Choose all that apply): None applicable
[2020-10-30 13:18] LABS: Pathologist Review Reviewed
[2020-10-30 13:44] VITALS: BP 153/56; PULSE 95; RESP 16; TEMP 36.7; O2SAT 96
--- NOTE | 2020-10-30 15:52 | CASEMGMT ---
Social Work BIMS and PHQ-9 completed for MDS assessment. Aspen Barajas, SOCIAL MEDIA EXECUTIVE TRAINING DEVELOPMENT SPECIALIST
[2020-10-31] MEDS: 0.9% Normal Saline 1,000 ML 75 ML IV (01:40)
[2020-10-31 05:07] VITALS: BP 157/59; PULSE 89; RESP 16; TEMP 37.8; O2SAT 90
[2020-10-31] MEDS: Acetaminophen 500 MG Tablet 1000 MG PO (05:09)
[2020-10-31 05:10] VITALS: BP 157/59; PULSE 89
[2020-10-31] MEDS: Pantoprazole Sodium 40 MG Tablet PO (05:10)
[2020-10-31] MEDS: SODIUM CHLORIDE 1 GM TABLET PO (05:10)
[2020-10-31] MEDS: Metoprolol(XL)Succ 25 MG Tablet PO (05:10)
[2020-10-31] MEDS: QUEtiapine 25 MG Tablet 12.5 MG PO (05:10)
[2020-10-31] MEDS: levETIRAcetam 500 MG Tablet PO (05:10)
[2020-10-31] MEDS: APIXABAN 5 MG TABLET PO (05:10)
[2020-10-31] MEDS: Loratadine 10 MG Tablet PO (05:10)
[2020-10-31] MEDS: amLODIPine 2.5 MG Tablet PO (05:10)
[2020-10-31] MEDS: Na Biphos/Potassium Phosphate PACKET 1 PACKET PO (05:12)
[2020-10-31] MEDS: Menthol/Lanolin/Calamine/Znox 113 GM Tube 1 APPLIC TOPICAL (05:16)
[2020-10-31] MEDS: Nystatin Powder 15gm Bottle 1 APPLIC TOPICAL (05:17)
[2020-10-31] MEDS: Fluticasone 0.05% 1 SPRAY NASAL.SRY 2 SPRAY NASAL (05:17)
[2020-10-31] MEDS: Ketoconazole Cream 1 APPLIC TOPICAL (05:18)
[2020-10-31] MEDS: Levothyroxine 50 MCG Tablet PO (05:19)
[2020-10-31] MEDS: Lisinopril 20 MG Tablet PO (05:19)
[2020-10-31 07:16] LABS: Absolute Neutrophil Count 8.8 X10^3/uL (2.0-7.7); Basophil# 0.04 X10^3/uL; Basophil% 0.3 % (0-1); Eosinophil# 0.41 X10^3/uL; Eosinophils% 3.2 % (0-5); Hematocrit 30.3 % (37-47); Hemoglobin 9.6 g/dL (12.0-15.0); Lymphocyte % 6.2 % (19-41); Mean Corp Hgb Conc 31.7 g/dL (32-36); Mean Corpuscular Hgb 30.1 pg (27.0-32.0); Mean Platelet Vol. 8.4 fl (6.2-12.0); Monocyte# 2.71 X10^3/uL; NRBC Flagged by Analyzer 0 % (0-5); Neutrophil # 8.76 X10^3/uL (2.7-7.7); Neutrophil % 67.8 % (47-70); POSITIVE DIFFERENTIAL YES; Platelet Count 240 K/mm3 (150-450); RBC Distribution Width CV 15.9 % (11.6-14.6); RBC Distribution Width SD 55.6 fl (35.1-43.9); Red Blood Count 3.19 M/mm3 (4.2-5.4); White Blood Count 12.9 K/mm3 (4.4-11.0)
[2020-10-31 07:20] LABS: Differential Indicated SCAN CRITERIA MET
[2020-10-31 07:53] LABS: Anion Gap 7 (5-15); BUN 14 mg/dL (7-18); Calcium,Total 8.3 mg/dL (8.5-10.1); Chloride 104 mmol/L (98-107); Creatinine, Serum 0.38 mg/dL (0.55-1.02); EST Glomerular Filtration Rate 173 mL/min (>60); Est Glom Filt Rate - Afr Amer 209 mL/min (>60); Estimated Creatinine Clearance 37.45 ml/min; Glucose 98 mg/dL (74-106); Potassium 3.5 mmol/L (3.5-5.1); Sodium Level 136 mmol/L (136-145)
[2020-10-31 09:46] VITALS: PULSE 79; RESP 18; O2SAT 95
[2020-11-02 13:36] LABS: Pathologist Review Reviewed
== END 2020-10-31 10:05 | disposition hospice, home (50) | DRG 690 ==
LOC: TCU 16:51
PROVIDERS: Admitting Provider Family Medicine Geriatric Medicine; PCP Internal Medicine; Visit Provider Family Medicine Geriatric Medicine
DX: N39.0 Urinary tract infection, site not specified (principal); C79.9 Secondary malignant neoplasm of unspecified site; C34.91 Malignant neoplasm of unspecified part of right bronchus or lung; I82.409 Acute embolism and thrombosis of unspecified deep veins of unspecified lower extremity; G93.40 Encephalopathy, unspecified; E87.1 Hypo-osmolality and hyponatremia; Z23 Encounter for immunization; K21.9 Gastro-esophageal reflux disease without esophagitis; I10 Essential (primary) hypertension; G40.909 Epilepsy, unspecified, not intractable, without status epilepticus; E03.9 Hypothyroidism, unspecified; F32.9 Major depressive disorder, single episode, unspecified; E78.5 Hyperlipidemia, unspecified; R31.0 Gross hematuria; E87.6 Hypokalemia; Z86.73 Personal history of transient ischemic attack (TIA), and cerebral infarction without residual deficits; B96.20 Unspecified Escherichia coli [E. coli] as the cause of diseases classified elsewhere
CPT/HCPCS: 36415; 71046; 74018; 80048; 81001; 85014; 85018; 85025; 86850; 86900; 86901; 86920; 86922; 87077; 87086; 87088; 87186; 87426; 87635; 92507; 92610; 97110; 97116; 97162; 97166; 97530; 97535; 97802; J7030; J7050; 90670; A4216; J2916; U0003

== ENCOUNTER → 2020-10-19 12:21 | Outpatient (CLI) | payer OTHER, MEDICARE, SELFPAY ==
[2020-10-16 16:52] VITALS: BMI 23.2
[2020-10-19] VITALS (8 sets, daily range): BP systolic 123–154; BP diastolic 42–62; PULSE 67–72; RESP 16–18; TEMP 35.8–36.4; O2SAT 96–98
[2020-10-19] MEDS: 0.9% NaCl Peripheral Flush Adult/Peds IV (12:40)
[2020-10-19] MEDS: Furosemide 20 MG/2 ML VIAL IV (14:58)
== END ==
PROVIDERS: PCP Internal Medicine; Referring Provider Family Medicine Geriatric Medicine; Visit Provider Family Medicine Geriatric Medicine
DX: R31.9 Hematuria, unspecified (principal)
CPT/HCPCS: 36415; 36430; 86850; 86900; 86901; 86920; 86922; J7040; P9016; A4216; J1940